=== PATIENT | female | born 1940 | race Caucasian/White ===

== ENCOUNTER 2016-11-10 23:52 | Inpatient (IN) ==
--- NOTE | 2016-11-11 00:03 | Emergency Department Note ---
Disposition Clinical Impression: Diarrhea, NSTEMI (non-ST elevated myocardial infarction), Sacral decubitus ulcer, Weakness, Paraplegia Disposition: Admitted As Inpatient Condition: Good Referrals: Rosa Maria Adam DO [Primary Care Provider] - Forms: Work/School Release, ED Satisfaction Letter Time of Disposition: 01:24 General Adult HPI - General Chief complaint: ED Nausea/Vomiting/Diarrhea Stated complaint: diarrhea, lower abdminal cramping Time Seen by Provider: 11/10/16 23:56 Source: patient, EMS Mode of arrival: EMS Limitations: no limitations Nursing Notes Reviewed: Yes Vital Signs Reviewed: Yes - History of Present Illness HPI Narrative: This is a 76-year-old female who presents with complaints of weakness and chills. Patient states she feels like she is running a fever although she has not measured one. Patient states she also started having diarrhea with an episode of incontinent stool in the bed here. Patient denies any vomiting. Patient states she did have some lower abdominal cramping with the diarrhea. Patient denies any chest pain or shortness of breath. Onset (ago): hour(s) Pain Scale: 0 - Related Data Home Medications Medication Instructions Recorded Confirmed Alendronate Sodium [Fosamax] 70 mg PO QWEEK 11/02/16 11/02/16 Alendronate Sodium [Fosamax] 70 mg PO QWEEK 11/02/16 11/02/16 Biotin 1 mg PO DAILY 11/02/16 11/02/16 Calcium Carbonate [Tums] 1 tab PO AD 11/02/16 11/02/16 Celecoxib [Celebrex] 200 mg PO DAILY 11/02/16 11/02/16 Cholecalciferol (Vitamin D3) 5,000 unit PO DAILY 11/02/16 11/02/16 [Vitamin D] Clopidogrel [Plavix] 75 mg PO DAILY 11/02/16 11/02/16 Gabapentin [Gralise] 600 mg PO TID 11/02/16 11/02/16 Hydrochlorothiazide 25 mg PO DAILY 11/02/16 11/02/16 Levothyroxine [Synthroid] 25 mcg PO 0630 11/02/16 11/02/16 Loratadine [Claritin] 10 mg PO DAILY 11/02/16 11/02/16 Mecobal/Levomefolat Ca/B6 Phos 1 each PO BID 11/02/16 11/02/16 [Foltanx Tablet] Mv W-Ca/Iron/FA/Lutein/Hrb#179 1 each PO DAILY 11/02/16 11/02/16 [Ten Multivit For Women Caplet] Nitrofurantoin Macrocrystal 100 mg PO DAILY 11/02/16 11/02/16 [Nitrofurantoin] Nitroglycerin [Nitrostat] 0.4 mg SL AD 11/02/16 11/02/16 OxyCODONE/APAP 5/325 [Percocet 1 each PO Q6HR PRN 11/02/16 11/02/16 5/325 MG] Ranitidine HCl [Acid Gta] 150 mg PO BID 11/02/16 11/02/16 Rivastigmine Patch [Exelon] 4.6 mg TD DAILY 11/02/16 11/02/16 Allergies Allergy/AdvReac Type Severity Reaction Status Date / Time carbamazepine [From Tegretol] Allergy spaced out Verified 11/11/16 00:01 feeling pentazocine [From Talwin] AdvReac Seizure Verified 11/11/16 00:01 phenytoin [From Dilantin] AdvReac Rash Verified 11/11/16 00:01 All systems ED: reviewed and negative except as stated. Constitutional: Reports: chills, weakness. Denies: fever, weight change Eyes: Denies: eye pain, eye discharge, vision change ENT ED: Denies: ear pain, throat pain, dental pain, hearing loss, epistaxis, congestion, dysphagia Cardiovascular: Denies: chest pain, palpitations, dyspnea on exertion, edema, syncope Respiratory: Denies: cough, dyspnea, wheezes, hemoptysis, stridor Gastrointestinal: Reports: abdominal pain, diarrhea. Denies: nausea, vomiting, constipation, hematemesis, melena, hematochezia Genitourinary: Denies: dysuria, frequency, hematuria, discharge Musculoskeletal: Denies: back pain, neck pain, arthralgia, myalgia Integumentary: Denies: rash, abrasion, lesions Neurological: Denies: headache, numbness, paresthesias, confusion, abnormal gait , vertigo Psychiatric: Denies: anxiety, depression, suicidal thoughts, homicidal thoughts , auditory hallucinations, visual hallucinations Endocrine: Denies: fatigue Hematological/Lymphatic: Denies: easy bleeding, easy bruising Allergic/Immunologic: Denies: facial swelling, urticaria Past Medical History - Past Medical History Attestation: Yes The following information was validated with the patient. Source: patient Medical history: Reports: other Surgical history: Reports: appendectomy, hysterectomy, other Psychiatric history: Reports: no psych history - Social History Smoking Status: Never smoker Smokeless Tobacco Status: No Alcohol use: Reports: none Drug use: Reports: none Physical Exam - General Limitations: no limitations General appearance: alert, in no apparent distress - Head Head exam: atraumatic, normocephalic, normal inspection - Eye Eye exam: Present: normal appearance, PERRL, EOMI - ENT ENT exam: normal exam, normal oropharynx, mucous membranes moist - Expanded ENT Exam External ear exam: Present: normal external inspection Mouth exam: Present: normal external inspection Teeth exam: Present: normal inspection Throat exam: Present: normal inspection - Neck Neck exam: Present: normal inspection, full ROM, trachea midline - Chest Chest inspection: Present: normal inspection, symmetric chest wall rise - Respiratory Respiratory exam: Present: normal lung sounds bilaterally - Cardiovascular Cardiovascular exam: Present: regular rate, normal rhythm, normal heart sounds - Abdominal Exam Abdominal exam: Present: soft, Non-Tender. Absent: tenderness, distention, guarding, rebound, rigidity - Extremities Exam Extremities exam: Present: normal inspection. Absent: full ROM (paralyzed from the waist down), tenderness, pedal edema - Expanded Upper Extremity Exam Shoulder exam: Present: normal inspection, full ROM Arm exam: Present: normal inspection, full ROM Elbow exam: Present: normal inspection, full ROM Forearm/Wrist exam: Present: normal inspection, full ROM Hand exam: Present: normal inspection, full ROM Vascular exam: Normal: capillary refill, radial pulse - Expanded Lower Extremity Exam Hip/Pelvis exam: Present: normal inspection, full ROM Upper leg exam: Present: normal inspection, full ROM Knee exam: Present: normal inspection, full ROM Lower leg exam: Present: normal inspection. Absent: full ROM Ankle exam: Present: normal inspection. Absent: full ROM Foot/toe exam: Present: normal inspection. Absent: full ROM Neurovascular/Tendon exam: Present: motor deficit (paraplegic from the waist down). Absent: sensory deficit, tendon deficit - Back Exam Back exam: Present: normal inspection, full ROM. Absent: tenderness - Neurological Exam Neurological exam: Present: alert, oriented X3 - Expanded Neurological Exam Patient oriented to: Present: person, place, time Coma Scale Eye Opening: Spontaneous Coma Scale Motor Response: Obeys Commands Coma Scale Verbal Response: Oriented Coma Scale Total: 15 - Psychiatric Psychiatric exam: Present: normal affect, normal mood - Skin Skin exam: Present: warm, dry, normal color, other (sacral decub) Course - Consultations Consultation #1: I spoke with Dr. Blaire tucker to consult and doesn't want pt anti-coagulated at this time. Time: 01: Consultation #2: I spoke with Dr. Rosa M tucker to admit. Time: 02:02 Vital Signs Temperature 98.1 F 11/10/16 23:54 Pulse Rate 88 11/10/16 23:54 Respiratory Rate 16 11/10/16 23:54 Blood Pressure 128/81 11/10/16 23:54 O2 Sat by Pulse Oximetry 94 L 11/10/16 23:54 Temperature 98.1 F 11/10/16 23:54 Pulse Rate 88 11/10/16 23:54 Respiratory Rate 16 11/10/16 23:54 Blood Pressure 128/81 11/10/16 23:54 O2 Sat by Pulse Oximetry 94 L 11/10/16 23:54 Oxygen Delivery Oxygen Delivery Room Air Medical Decision Making - Medical Records Medical records reviewed: Yes I reviewed the patient's medical records. - Lab Data Lab results reviewed: Yes I reviewed the patient's lab results. Result diagrams: 11/11/16 00:17 11/11/16 00:17 Lab Results 11/11/16 11/11/16 11/11/16 Range/Units 00: 00:17 00:17 WBC 5.6 (4.3-11.1) K/mcL RBC 3.95 (3.82-4.97) M/mcL Hgb 12.4 (11.5-15.4) g/dL Hct 37.4 (35.3-44.9) % MCV 94.7 (83.0-100.0) fL MCH 31.4 (28.0-33.3) pg MCHC 33.2 (31.6-35.5) g/dL RDW 14.6 H (11.5-14.5) % Plt Count 245 (140-400) K/mcL MPV 8.9 L (9.4-12.4) fL Immature Gran % 0.0 (0-4) % Seg Neutrophils % 57.5 % Lymphocytes % 32.2 % Monocytes % 5.8 % Eosinophils % 4.1 % Basophils % 0.4 % Neutrophils # 3.2 (1.6-8.9) K/mcL Lymphocytes # 1.8 (0.6-4.6) K/mcL Monocytes # 0.3 (0.0-1.3) K/mcL Eosinophils # 0.2 (0.0-0.6) K/mcL Basophils # 0.0 (0.0-0.2) K/mcL Sodium 143 (136-145) mEq/L Potassium 3.9 (3.5-4.5) mEq/L Chloride 107 (98-109) mEq/L Carbon Dioxide 25 (19-29) mEq/L BUN 18 (7-20) mg/dL Creatinine 0.66 (0.57-1.11) mg/dL Est GFR ( Amer) > 60 (> 60) Est GFR (Non-Af Amer) > 60 (> 60) BUN/Creatinine Ratio 27 H (6-26) Glucose 105 H (70-99) mg/dL Calculated Osmolality 298 (280-300) Calcium 9.3 (8.6-10.8) mg/dL Total Bilirubin 0.6 (0.2-1.2) mg/dL Direct Bilirubin 0.2 (0.0-0.5) mg/dL Indirect Bilirubin 0.4 (0.0-1.2) mg/dL AST 32 (5-34) Units/L ALT 32 (0-55) Units/L Alkaline Phosphatase 84 (38-126) Units/L Troponin I 0.11 H* (0-0.03) ng/mL B-Natriuretic Peptide (0-100) pg/mL Serum Total Protein 7.6 (6.0-8.3) g/dL Albumin 3.8 (3.5-5.0) g/dL Globulin 3.8 H (2.4-3.5) g/dL Albumin/Globulin Ratio 1.0 L (1.1-2.2) Lipase 51 (8-78) Units/L 11/11/16 Range/Units 00:17 WBC (4.3-11.1) K/mcL RBC (3.82-4.97) M/mcL Hgb (11.5-15.4) g/dL Hct (35.3-44.9) % MCV (83.0-100.0) fL MCH (28.0-33.3) pg MCHC (31.6-35.5) g/dL RDW (11.5-14.5) % Plt Count (140-400) K/mcL MPV (9.4-12.4) fL Immature Gran % (0-4) % Seg Neutrophils % % Lymphocytes % % Monocytes % % Eosinophils % % Basophils % % Neutrophils # (1.6-8.9) K/mcL Lymphocytes # (0.6-4.6) K/mcL Monocytes # (0.0-1.3) K/mcL Eosinophils # (0.0-0.6) K/mcL Basophils # (0.0-0.2) K/mcL Sodium (136-145) mEq/L Potassium (3.5-4.5) mEq/L Chloride (98-109) mEq/L Carbon Dioxide (19-29) mEq/L BUN (7-20) mg/dL Creatinine (0.57-1.11) mg/dL Est GFR ( Amer) (> 60) Est GFR (Non-Af Amer) (> 60) BUN/Creatinine Ratio (6-26) Glucose (70-99) mg/dL Calculated Osmolality (280-300) Calcium (8.6-10.8) mg/dL Total Bilirubin (0.2-1.2) mg/dL Direct Bilirubin (0.0-0.5) mg/dL Indirect Bilirubin (0.0-1.2) mg/dL AST (5-34) Units/L ALT (0-55) Units/L Alkaline Phosphatase (38-126) Units/L Troponin I (0-0.03) ng/mL B-Natriuretic Peptide 21 (0-100) pg/mL Serum Total Protein (6.0-8.3) g/dL Albumin (3.5-5.0) g/dL Globulin (2.4-3.5) g/dL Albumin/Globulin Ratio (1.1-2.2) Lipase (8-78) Units/L - Radiology Data Radiology results reviewed: Yes I reviewed the patient's radiology results. - EKG Data EKG #1 EKG attestation: Yes I reviewed and interpreted this EKG. EKG shows normal: sinus rhythm Rate: normal Rhythm: NSR [address]/QRS: normal Interpretation: no acute changes, nonspecific ST-T wave changes
[2016-11-11 00:25] LABS: Basophils % 0.4 %; Eosinophils # 0.2 K/mcL (0.0-0.6); Eosinophils % 4.1 %; Hematocrit 37.4 % (35.3-44.9); Hemoglobin 12.4 g/dL (11.5-15.4); Lymphocytes # 1.8 K/mcL (0.6-4.6); Lymphocytes % 32.2 %; Mean Corpuscular HGB Conc 33.2 g/dL (31.6-35.5); Mean Corpuscular Hemoglobin 31.4 pg (28.0-33.3); Mean Corpuscular Volume 94.7 fL (83.0-100.0); Mean Platelet Volume 8.9 fL (9.4-12.4); Monocytes # 0.3 K/mcL (0.0-1.3); Monocytes % 5.8 %; Neutrophils # 3.2 K/mcL (1.6-8.9); Platelet Count 245 K/mcL (140-400); Red Blood Count 3.95 M/mcL (3.82-4.97); Red Cell Distribution Width 14.6 % (11.5-14.5); Segmented Neutrophils % 57.5 %
[2016-11-11 00:40] LABS: Alanine Aminotransferase 32 Units/L (0-55); Albumin 3.8 g/dL (3.5-5.0); Alkaline Phosphatase 84 Units/L (38-126); Aspartate Amino Transferase 32 Units/L (5-34); BUN/Creatinine Ratio 27 (6-26); Bilirubin,Direct 0.2 mg/dL (0.0-0.5); Bilirubin,Indirect 0.4 mg/dL (0.0-1.2); Bilirubin,Total 0.6 mg/dL (0.2-1.2); Blood Urea Nitrogen 18 mg/dL (7-20); Calcium 9.3 mg/dL (8.6-10.8); Carbon Dioxide 25 mEq/L (19-29); Chloride 107 mEq/L (98-109); Globulin 3.8 g/dL (2.4-3.5); Glucose 105 mg/dL (70-99); Lipase 51 Units/L (8-78); Osmolality,Calculated 298 (280-300); Potassium 3.9 mEq/L (3.5-4.5); Sodium 143 mEq/L (136-145); Total Protein 7.6 g/dL (6.0-8.3); eGFR For African Americans > 60 (> 60); eGFR For Non-African Americans > 60 (> 60)
[2016-11-11] MEDS ORDERED: Aspirin 325 MG TABLET PO ONE (00:50)
[2016-11-11 02:06] LABS: Bilirubin,Urine Negative (Negative); Blood,Urine Moderate (Negative); Clarity,Urine Clear (Clear); Color,Urine Yellow (Yellow); Glucose,Urine (UA) Normal (Normal); Ketones,Urine Negative (Negative); Leukocyte Esterase,Urine Small (Negative); Nitrite,Urine Positive (Negative); Protein,Urine 100 mg/dL (Neg-Trace); Specific Gravity,Urine >= 1.030 (1.010-1.025); Urobilinogen,Urine Normal (Normal)
[2016-11-11 02:08] LABS: Bacteria,Urine Many per hpf (None-Few); Hyaline Casts,Urine None Seen per lpf (None-Few); RBC,Urine 50-100 per hpf (0-3); Squamous Epithelial Cell,Urine Many per lpf (None-Few); WBC,Urine TNTC per hpf (0-3)
[2016-11-11] MEDS ORDERED: Nitroglycerin 0.4 MG TAB.SUBL SL PRN (05:45)
[2016-11-11] MEDS ORDERED: Famotidine 20 MG TABLET PO PRN (05:45)
[2016-11-11] MEDS ORDERED: (Alendronate Sodium [Fosamax] 70 MG) PO SCH (05:45)
[2016-11-11] MEDS ORDERED: *HR* OxyCODONE/APAP 5/325 TABLET PO PRN (05:45)
--- NOTE | 2016-11-11 06:01 | Internal Med History&Physical ---
<Loren Altamirano - Last Filed: 11/11/16 05:48> Date of Encounter: 11/11/16 Time of Encounter: 05:00 Assessment and Plan (1) Diarrhea Current visit: Yes Status: Acute patient had two bowel movements at home, and one bowel movement in the ED with incontinence. Her son called the squad. Patient denies being on any antibiotics recently. C.Diff toxin negative. IVF at 100 ml/hr. Qualifiers: Diarrhea type: unspecified type Qualified Code(s): R19.7 - Diarrhea, unspecified (2) Elevated troponin Current visit: Yes Status: Acute initial troponin level was .11- will trend. ED note states that they had talked to Dr. Rudd, who did not recommend anticoagulation. Consult to cardiology placed. suspect a non cardiac cause in context of recent diarrhea and UTI- will continue to monitor with repeat tropes. ' Rule out sepsis as a possible cause: lactate pending, blood cultures x2 pending , repeat urinalysis pending. Patient does not currently meet criteria for sepsis. 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 (5) Decubitus ulcer of right heel, stage 3 Current visit: No Status: Chronic Patient states that she sees wound care here at [facility]. Consult to wound care for dressing change recommendations. frequent repositioning. (6) Sacral decubitus ulcer, stage III Current visit: No Status: Chronic plan as above. (7) DVT prophylaxis Current visit: Yes Status: Acute Heparin 5,000 units SQ Q8HR Internal Medicine - H&P: HPI Chief complaint: diarrhea Admitted From: Home Plans for Post Hospital Care: Home History of present illness: PCP: Rosa Maria Adam. Ms. 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 Patient came to the ED with two episodes of diarrhea at home, and then one episode of diarrhea and incontinence after arrival to the emergency department. She states that these episodes started at 3pm that afternoon, and her son called the squad because he was afraid that she would become dehydrated. Patient denies being on any antibiotics recently. She denies any sick contacts. patient denies fever, but reports chills. She complains of a productive cough with yellow sputum production. She had the cough for about 3-4 days. She reports nasal congestion. she admits to nasal congestion, fatigue. She was recently in a long-term for a fractured left ankle and physical therapy. She has a sacral decubitus ulcer and and a right heel ulcer as well. She was there for 14 months and was recently released on October 07. Patient denies any chest pain, but reports having some conversational dyspnea. Social History: lives with her son in [place]. She does not currently smoke and denies history of smoking. Denies alcohol use, denies illicit drug use. Surgical history: tonsillectomy with removal of adenoids at age 19, appendectomy at age 12, right breast biopsy that was negative, hysterectomy at age 51, bilateral bunionectomy. family hx: two sisters of lung cancer secondary to smoking, oldest daughter is alive and has breast cancer. dad of stroke at age 68, mom of stroke at age 70. Past Med Surg Social Fam HX - Past Medical History Medical history: arthritis, CVA, osteoporosis, peripheral artery disease, thyroid disease, other Psychiatric history: no psych history - Past Surgical History Surgical History: appendectomy, cholecystectomy, hysterectomy, other - Social History Smoking Status: Never smoker Smokeless Tobacco Status: No Alcohol use: none Drug use: none - Family History Mother Living Status: Hx Family Cardiac Disorders: Yes Hx Family Respiratory Disorders: No Hx Family Cancer: No Hx Family GI Disorders: No Hx Family Genitourinary Disorders: No Hx Family Endocrine Disorder: No Hx Family Musculoskeletal Disorders: No Hx Family Neuromuscular Disorders: No Hx Family Neurologic Disorders: No Hx Family HEENT Disorders: No Hx Family Autoimmune Disorders: No Hx Family Reproductive Disorders: No Hx Family Psychosocial Disorders: No Hx Family Medical Disorders: No Father Living Status: Hx Family Cardiac Disorders: No Hx Family Respiratory Disorders: No Hx Family Cancer: No Hx Family GI Disorders: No Hx Family Genitourinary Disorders: No Hx Family Endocrine Disorder: No Hx Family Musculoskeletal Disorders: No Hx Family Neuromuscular Disorders: No Hx Family Neurologic Disorders: Yes Hx Family HEENT Disorders: No Hx Family Autoimmune Disorders: No Hx Family Reproductive Disorders: No Hx Family Psychosocial Disorders: No Hx Family Medical Disorders: No Brother Living Status: Hx Family Cardiac Disorders: Yes (CHF) Hx Family Respiratory Disorders: No Hx Family Cancer: No Hx Family GI Disorders: No Hx Family Genitourinary Disorders: No Hx Family Endocrine Disorder: No Hx Family Musculoskeletal Disorders: No Hx Family Neuromuscular Disorders: No Hx Family Neurologic Disorders: No Hx Family HEENT Disorders: No Hx Family Autoimmune Disorders: No Hx Family Reproductive Disorders: No Hx Family Psychosocial Disorders: No Hx Family Medical Disorders: No Sister Living Status: Hx Family Cardiac Disorders: Yes Hx Family Respiratory Disorders: No Hx Family Cancer: Yes Hx Family GI Disorders: No Hx Family Genitourinary Disorders: No Hx Family Endocrine Disorder: No Hx Family Musculoskeletal Disorders: No Hx Family Neuromuscular Disorders: No Hx Family Neurologic Disorders: No Hx Family HEENT Disorders: No Hx Family Autoimmune Disorders: No Hx Family Reproductive Disorders: No Hx Family Psychosocial Disorders: No Hx Family Medical Disorders: No Son Living Status: Still Living Hx Family Cardiac Disorders: No Hx Family Respiratory Disorders: No Hx Family Cancer: No Hx Family GI Disorders: No Hx Family Genitourinary Disorders: No Hx Family Endocrine Disorder: No Hx Family Musculoskeletal Disorders: No Hx Family Neuromuscular Disorders: No Hx Family Neurologic Disorders: Yes Hx Family HEENT Disorders: No Hx Family Autoimmune Disorders: No Hx Family Reproductive Disorders: No Hx Family Psychosocial Disorders: No Hx Family Medical Disorders: No Daughter Living Status: Still Living Hx Family Cardiac Disorders: No Hx Family Respiratory Disorders: No Hx Family Cancer: Yes (breast cancer) Hx Family GI Disorders: No Hx Family Genitourinary Disorders: No Hx Family Endocrine Disorder: No Hx Family Musculoskeletal Disorders: No Hx Family Neuromuscular Disorders: No Hx Family Neurologic Disorders: No Hx Family HEENT Disorders: No Hx Family Autoimmune Disorders: No Hx Family Reproductive Disorders: No Hx Family Psychosocial Disorders: No Hx Family Medical Disorders: No Internal Medicine - H&P: Meds Celecoxib [Celebrex] 200 mg PO DAILY 11/02/16 [History] Clopidogrel [Plavix] 75 mg PO DAILY 11/02/16 [History] Gabapentin [Gralise] 900 mg PO TID 11/02/16 [History] Nitroglycerin [Nitrostat] 0.4 mg SL AD PRN 11/02/16 [History] OxyCODONE/APAP 5/325 [Percocet 5/325 MG] 1 tab PO Q6HR PRN 11/02/16 [History] Ranitidine HCl [Acid Economics Department Chair] 150 mg PO DAILY 11/02/16 [History] Hydrochlorothiazide [Hydrochlorothiazide] 25 mg PO DAILY 11/11/16 [History] Levothyroxine [Synthroid] 25 mcg PO DAILY 11/11/16 [History] Loratadine [Allergy Relief] 10 mg PO DAILY 11/11/16 [History] Olanzapine/Fluoxetine HCl [Olanzapine-Fluoxetine 6-25 mg] 1 cap PO DAILY [History] Allergies carbamazepine [From Tegretol] Allergy (Verified 11/11/16 09:23) Unconscious pentazocine [From Talwin] Allergy (Verified 11/11/16 09:23) Seizure phenytoin [From Dilantin] Allergy (Verified 11/11/16 09:23) Rash All Systems PM: A 10-system review of systems was performed and is negative for pertinent findings except as documented above in the HPI. - Constitutional Constitutional: chills, fatigue, lethargy, weakness - EENT Nose, mouth and throat: nasal congestion - Cardiovascular Cardiovascular ROS IM: no chest pain - Respiratory Respiratory: dyspnea (patient reports having coversational dyspnea. ) - Gastrointestinal Gastrointestinal: diarrhea, loose stools - Genitourinary Genitourinary: no hematuria, no urinary incontinence - Neurological Neurological ROS: no abnormal movements, no headache(s) - Constitutional Vitals: Temp Pulse Resp BP Pulse Ox 98.7 F 92 16 148/75 92 L 11/11/16 04:09 11/11/16 04:09 11/11/16 04:09 11/11/16 04:09 11/11/16 04:09 General appearance: Present: A&O X 3, pleasant, no acute distress, answers questions appropriately - Head Head exam: Present: atraumatic, normocephalic - Neck Neck exam general surgery: Present: supple, trachea midline - Respiratory Respiratory exam: Present: CTAB. Absent: rales, rhonchi, wheezes - Cardiovascular Cardiovascular exam: Present: RRR, +S1, +S2 - GI/Abdominal GI/Abdominal exam: Present: firm, normal bowel sounds, tenderness - Extremities Exam Extremities exam: Present: pedal edema. Absent: cyanotic - Neurological Exam Neurological exam: Present: alert, oriented X3, no focal deficits Additional comments: patient has no sensation or ability to move of her lower extremities bilaterallly. - Psychiatric Psychiatric exam: Present: flat affect - Skin Additional comments: sacral decubitus ulcer- about stage III, right heel ulcer. Internal Med - H&P Results - Labs CBC & Chem 7: 11/11/16 00:17 11/11/16 00:17 <Vianey Mederos - Last Filed: 11/11/16 20:30> Date of Encounter: 11/11/16 Internal Medicine - H&P: HPI History of present illness: Ms. Borja is a 76 year old female All Systems PM: A 10-system review of systems was performed and is negative for pertinent findings except as documented above in the HPI. - Constitutional Vitals: Temp Pulse Resp BP Pulse Ox 98.6 F 102 15 121/76 92 L 11/11/16 15:00 11/11/16 15:00 11/11/16 15:00 11/11/16 15:00 11/11/16 16:52 Internal Med - H&P Results - Labs CBC & Chem 7: 11/11/16 08:07 11/11/16 07:14 Labs: Short CBC 11/11/16 Range/Units 08:07 WBC 4.8 (4.3-11.1) K/mcL Hgb 10.9 L D (11.5-15.4) g/dL Hct 32.5 L (35.3-44.9) % Plt Count 232 (140-400) K/mcL Neutrophils # 2.8 (1.6-8.9) K/mcL BMP 11/11/16 07:14 Sodium 143 Potassium 3.9 Chloride 109 Carbon Dioxide 24 BUN 20 Creatinine 0.54 L Glucose 111 H Calcium 8.6 Cardiac Enzymes 11/11/16 11/11/16 Range/Units 07:14 12:32 Troponin I 0.15 H* 0.16 H* (0-0.03) ng/mL - Attending Attestation I examined this patient and my medical decision-making was reviewed with the ASSISTANT PROFESSOR OF LIFE SCIENCES/PA/Advanced Practice Nurse/Resident Physician. I agree with the documented findings, disposition and treatment plan as described except to the extent set forth below. I have personally evaluated the pt and discussed details with the Sheet Mill Supervisor/ Resident. Pt reports episodes of diarrhea. Denies antibiotics in the last 3 months. chronic decubitus ulcer for about 6 years. Son helps her at home. Reported generalized weakness but is getting better. UA is suspicious for UTI -started on ceftriaxone. C diff toxin is negative. start probiotics. Troponin in 0.11, with no chest pain. EKG shows SR, Q waves in V1, V2 and lead III. Non cardiac versus cardiac. Trend troponins; Cardiology consultation. Consider Echo.
[2016-11-11] MEDS: *HR* Heparin 5,000 UNIT/ML VIAL SQ SCH ×2 (06:28→16:15)
[2016-11-11] MEDS ORDERED: Acetaminophen 325 MG TABLET PO PRN (06:38)
[2016-11-11] MEDS ORDERED: Ondansetron 4 MG/2 ML VIAL IVP PRN (06:38)
[2016-11-11] MEDS ORDERED: Mag Hydrox/Al Hydrox/Simeth 30 ML UDC PO PRN (06:38)
[2016-11-11] MEDS ORDERED: Naloxone 0.4 MG/ML INJ IVP PRN (06:38)
[2016-11-11] MEDS ORDERED: 0.9 % Sodium Chloride 1,000 ML IVC SCH (06:45)
[2016-11-11 07:38] LABS: BUN/Creatinine Ratio 37 (6-26); Blood Urea Nitrogen 20 mg/dL (7-20); Calcium 8.6 mg/dL (8.6-10.8); Carbon Dioxide 24 mEq/L (19-29); Chloride 109 mEq/L (98-109); Glucose 111 mg/dL (70-99); Lactate Dehydrogenase 199 Units/L (159-327); Osmolality,Calculated 299 (280-300); Potassium 3.9 mEq/L (3.5-4.5); Sodium 143 mEq/L (136-145); eGFR For African Americans > 60 (> 60); eGFR For Non-African Americans > 60 (> 60)
[2016-11-11 08:21] LABS: Basophils % 0.4 %; Eosinophils # 0.2 K/mcL (0.0-0.6); Eosinophils % 4.2 %; Hematocrit 32.5 % (35.3-44.9); Hemoglobin 10.9 g/dL (11.5-15.4); Immature Granulocytes % 0.2 % (0-4); Immature Platelets 1.5 % (1.1-6.1); Lymphocytes # 1.4 K/mcL (0.6-4.6); Lymphocytes % 29.5 %; Mean Corpuscular HGB Conc 33.5 g/dL (31.6-35.5); Mean Corpuscular Hemoglobin 31.4 pg (28.0-33.3); Mean Corpuscular Volume 93.7 fL (83.0-100.0); Mean Platelet Volume 9.2 fL (9.4-12.4); Monocytes # 0.4 K/mcL (0.0-1.3); Monocytes % 7.3 %; Neutrophils # 2.8 K/mcL (1.6-8.9); Platelet Count 232 K/mcL (140-400); Red Blood Count 3.47 M/mcL (3.82-4.97); Red Cell Distribution Width 14.4 % (11.5-14.5); Segmented Neutrophils % 58.4 %
[2016-11-11] MEDS: Celecoxib 200 MG CAPSULE PO SCH (08:35)
[2016-11-11] MEDS: Gabapentin 300 MG CAPSULE PO SCH ×3 (08:35→21:19)
[2016-11-11] MEDS ORDERED: Furosemide 20 MG/2 ML VIAL IVP ONE (11:45)
[2016-11-11] MEDS: Piperacillin/Tazobactam 3.375 GM in D5% in Water (Mini-Bag+) 100 ML IVPB SCH ×2 (11:54→21:21)
--- NOTE | 2016-11-11 13:15 | Event Note ---
<Adolfo Riberachris Melo - Last Filed: 11/11/16 14:52> Date of Encounter: 11/11/16 Time of Encounter: 08:15 Patient has a sacral decubitis ulcer. Only new concern is small focal gas image on patient's CT of the abdomen and pelvis near the ulcer. Ulcer has been present for >6m, she has not seen wound care in the last 2months. She is a paraplegic. Currently, patient is resting comfortably in bed. Denies pain. Complains of mild SOB, but this is chronic. No fever/nausea or vomiting. On physical exam, area is not tender to touch, there is yellow drainage from the area, there is crepitis felt when applying pressure around the ulcer. Personal discussion with radiologist while reviewing image-does not have characteristics of nec fasc and appears to be from the decubitis ulcer. Surgery consulted to examine patient to see if could be in the early stages of infection. -Concerning elevated troponins. Patient not complaining of chest pain, SOB. Most likely demand ischemia. Will redraw in 6 hours. -Will switch rocephin to clinda and zosyn. Turn 2 Q, get wound consult. -Patient complains of bilateral increase swelling in her legs. Not particularly impressive on exam. No errythema, pulses WNL, not concerned for DVT. Will stop fluids, wrap legs, lasixs 20mg. -Additional:Will add probiotics, and not get TSH-WNL on 11/02/16, do continuity of care. <Kenny Cool - Last Filed: 11/12/16 17:21> Date of Encounter: 11/12/16 Pt evaluated on 11/11/16 Pt admitted earlier today with UTI and possible infected decubitus She is uncomfortable in bed. On IV abx, surg eval. Continuing plan as ordered.
--- NOTE | 2016-11-11 14:06 | Electrocardiograph Report ---
[facility] Test Date: 2016-11-11 Pat Name: Jasmin Borja Department: 105 Room: 2NE26 Gender: F Pretzel Packer: SLOAN : 1940 Requested By: Thomas Page Order Number: [id number] Reading MD: Rosalio Reece Measurements Intervals [place] Rate: 88 P: 51 [place]: 152 QRS: 17 QRSD: 86 T: 17 QT: 369 QTc: 414 Interpretive Statements SINUS RHYTHM Electronically Signed On 11-11-16 14:05:50 EST by Rosalio Reece
--- NOTE | 2016-11-11 14:54 | Physician Discharge Referral ---
Home Health/Hosp Referral Info Transfer to: Home Health Attending Provider: Dr. Kenny Cool Provider in Charge Post Discharge: Courtroom Reporter - Diagnosis (1) Weakness Priority: Primary Status: Acute (2) Paraplegia Priority: Primary Status: Chronic (3) Decubitus ulcer of right heel, stage 3 Priority: Primary Status: Chronic (4) Sacral decubitus ulcer, stage III Priority: Primary Status: Chronic - Respiratory Orders Oxygen / L per min (2L if needed), None Smoking Cessation: Smoking cessation has been advised. For more information, call the [place] Tobacco Quit Line at 9-392-ESMU-NOW. - Dressing/Wound Care Site: Sacral ulcer, R Heel ulcer. Type of Dressing/Treatments w/Frequency: Sacral ulcer: Cleanse with soap and water, apply santyl/gentamicin (50/50) mixture nickel thick, cover with 0.9 NS moistened 4x4 gauze, cover with ABD pad , wrap with Keflex and tape to secure daily. May loosely pack wound with mesalt ribbon. Heel: Cleanse with soap and water and pat dry, apply Mesalt 3x3 gauze, cover with ABD pad and tape to secure daily and as needed if soiled - Diet/Nutrition Diet/Nutrition Orders: Cardiac - Activity Activity Orders: Ambulate - Services Needed Following services are medically necessary services: Nursing, Home Health Aide, Physical Therapy, Occupational Therapy, Med Social Work Home Care Orders: Patient is in need of comprehensive health care. Currently she has multiple stage 3 ulcers, poor lung function and was originally admitted for altered mental status. - Transfer Medications Home Medications: Celecoxib [Celebrex] 200 mg PO DAILY 11/02/16 [History] Clopidogrel [Plavix] 75 mg PO DAILY 11/02/16 [History] Gabapentin [Gralise] 900 mg PO TID 11/02/16 [History] Nitroglycerin [Nitrostat] 0.4 mg SL AD PRN 11/02/16 [History] OxyCODONE/APAP 5/325 [Percocet 5/325 MG] 1 tab PO Q6HR PRN 11/02/16 [History] Ranitidine HCl [Acid Insurance Case Manager] 150 mg PO DAILY 11/02/16 [History] Hydrochlorothiazide [Hydrochlorothiazide] 25 mg PO DAILY 11/11/16 [History] Levothyroxine [Synthroid] 25 mcg PO DAILY 11/11/16 [History] Loratadine [Allergy Relief] 10 mg PO DAILY 11/11/16 [History] Olanzapine/Fluoxetine HCl [Olanzapine-Fluoxetine 6-25 mg] 1 cap PO DAILY [History] Allergies/Adverse Reactions: Allergies carbamazepine [From Tegretol] Allergy (Verified 11/11/16 09:23) Unconscious pentazocine [From Talwin] Allergy (Verified 11/11/16 09:23) Seizure phenytoin [From Dilantin] Allergy (Verified 11/11/16 09:23) Rash Certification: Further, I certify that my clinical findings support that this patient is homebound (i.e. absences from home require considerable and taxing effort and are for medical reasons or adventist services or infrequently or short duration when for other reasons) because: Homebound Reason: Severity of cardiac or pulmonary status limits activity tolerance Attestation: My signature below is to certify that this patient is under my care and that I, or nurse practitioner, or a physician's religious assistant working with me, has a face-to -face encounter with this patient.
--- NOTE | 2016-11-11 15:35 | General Surgery Consult Note ---
Date of Encounter: 11/11/16 Time of Encounter: 15:30 Assessment and Plan (1) Sacral decubitus ulcer, stage III Current Visit: No Status: Chronic Wound care ordered- daily, see orders Turn every 2 hours No indication for surgical intervention at this time F/U with Dr. Denton in the wound care center as previously scheduled Increased protein intake Surgery will sign off at this time. Thank you for allowing us to participate in the care of the patient. Please call with any questions/concerns. (2) Decubitus ulcer of right heel, stage 3 Current Visit: No Status: Chronic Wound care ordered- daily, see orders Turn every 2 hours No indication for surgical intervention at this time F/U with Dr. Denton in the wound care center as previously scheduled Increased protein intake (3) Paraplegia Current Visit: Yes Status: Chronic History of Present Illness Consult date: 11/11/16 Reason for consult: wound care Requesting physician: Delroy Ribera History of present illness: Mrs. 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 She reports that she has had an ulcer on her sacrum for approximately the past 6 years. She states that she has been followed by a wound care center in [place] in the past and that the wound has been very close to healing. She has tried multiple types of dressing changes through the wound care center. She states that she has most recently been seen at the [place] wound care center by Dr. Denton. She was transferred to [place] ED from home due to the patient having a couple episodes of diarrhea. Her son was concerned that she would become dehydrated. She was admitted for further work- up of her diarrhea and also for a mildly elevated troponin. We have been asked to see and evaluate the patient for wound care recommendations. Past Med Surg Social Fam HX - Past Medical History Source: old records reviewed Medical history: arthritis, CVA, osteoporosis, peripheral artery disease, thyroid disease, other Psychiatric history: no psych history - Past Surgical History Surgical History: appendectomy, cholecystectomy, hysterectomy, other - Social History Smoking Status: Never smoker Smokeless Tobacco Status: No Alcohol use: none Drug use: none - Family History Mother Living Status: Hx Family Cardiac Disorders: Yes Hx Family Respiratory Disorders: No Hx Family Cancer: No Hx Family GI Disorders: No Hx Family Genitourinary Disorders: No Hx Family Endocrine Disorder: No Hx Family Musculoskeletal Disorders: No Hx Family Neuromuscular Disorders: No Hx Family Neurologic Disorders: No Hx Family HEENT Disorders: No Hx Family Autoimmune Disorders: No Hx Family Reproductive Disorders: No Hx Family Psychosocial Disorders: No Hx Family Medical Disorders: No Father Living Status: Hx Family Cardiac Disorders: No Hx Family Respiratory Disorders: No Hx Family Cancer: No Hx Family GI Disorders: No Hx Family Genitourinary Disorders: No Hx Family Endocrine Disorder: No Hx Family Musculoskeletal Disorders: No Hx Family Neuromuscular Disorders: No Hx Family Neurologic Disorders: Yes Hx Family HEENT Disorders: No Hx Family Autoimmune Disorders: No Hx Family Reproductive Disorders: No Hx Family Psychosocial Disorders: No Hx Family Medical Disorders: No Brother Living Status: Hx Family Cardiac Disorders: Yes (CHF) Hx Family Respiratory Disorders: No Hx Family Cancer: No Hx Family GI Disorders: No Hx Family Genitourinary Disorders: No Hx Family Endocrine Disorder: No Hx Family Musculoskeletal Disorders: No Hx Family Neuromuscular Disorders: No Hx Family Neurologic Disorders: No Hx Family HEENT Disorders: No Hx Family Autoimmune Disorders: No Hx Family Reproductive Disorders: No Hx Family Psychosocial Disorders: No Hx Family Medical Disorders: No Sister Living Status: Hx Family Cardiac Disorders: Yes Hx Family Respiratory Disorders: No Hx Family Cancer: Yes Hx Family GI Disorders: No Hx Family Genitourinary Disorders: No Hx Family Endocrine Disorder: No Hx Family Musculoskeletal Disorders: No Hx Family Neuromuscular Disorders: No Hx Family Neurologic Disorders: No Hx Family HEENT Disorders: No Hx Family Autoimmune Disorders: No Hx Family Reproductive Disorders: No Hx Family Psychosocial Disorders: No Hx Family Medical Disorders: No Son Living Status: Still Living Hx Family Cardiac Disorders: No Hx Family Respiratory Disorders: No Hx Family Cancer: No Hx Family GI Disorders: No Hx Family Genitourinary Disorders: No Hx Family Endocrine Disorder: No Hx Family Musculoskeletal Disorders: No Hx Family Neuromuscular Disorders: No Hx Family Neurologic Disorders: Yes Hx Family HEENT Disorders: No Hx Family Autoimmune Disorders: No Hx Family Reproductive Disorders: No Hx Family Psychosocial Disorders: No Hx Family Medical Disorders: No Daughter Living Status: Still Living Hx Family Cardiac Disorders: No Hx Family Respiratory Disorders: No Hx Family Cancer: Yes (breast cancer) Hx Family GI Disorders: No Hx Family Genitourinary Disorders: No Hx Family Endocrine Disorder: No Hx Family Musculoskeletal Disorders: No Hx Family Neuromuscular Disorders: No Hx Family Neurologic Disorders: No Hx Family HEENT Disorders: No Hx Family Autoimmune Disorders: No Hx Family Reproductive Disorders: No Hx Family Psychosocial Disorders: No Hx Family Medical Disorders: No Medications and Allergies Celecoxib [Celebrex] 200 mg PO DAILY 11/02/16 [History] Clopidogrel [Plavix] 75 mg PO DAILY 11/02/16 [History] Gabapentin [Gralise] 900 mg PO TID 11/02/16 [History] Nitroglycerin [Nitrostat] 0.4 mg SL AD PRN 11/02/16 [History] OxyCODONE/APAP 5/325 [Percocet 5/325 MG] 1 tab PO Q6HR PRN 11/02/16 [History] Ranitidine HCl [Acid Material Engineer] 150 mg PO DAILY 11/02/16 [History] Hydrochlorothiazide [Hydrochlorothiazide] 25 mg PO DAILY 11/11/16 [History] Levothyroxine [Synthroid] 25 mcg PO DAILY 11/11/16 [History] Loratadine [Allergy Relief] 10 mg PO DAILY 11/11/16 [History] Olanzapine/Fluoxetine HCl [Olanzapine-Fluoxetine 6-25 mg] 1 cap PO DAILY [History] Allergies carbamazepine [From Tegretol] Allergy (Verified 11/11/16 09:23) Unconscious pentazocine [From Talwin] Allergy (Verified 11/11/16 09:23) Seizure phenytoin [From Dilantin] Allergy (Verified 11/11/16 09:23) Rash Review of Systems All systems PM: A 10-system review of systems was performed and is negative for pertinent findings except as documented above in the HPI. General Surgery Exam Initial Vital Signs Temp Pulse Resp BP Pulse Ox 98.1 F 88 16 128/81 94 L 11/10/16 23:54 11/10/16 23:54 11/10/16 23:54 11/10/16 23:54 11/10/16 23:54 - General physical appearance well developed, well nourished, no distress, chronically ill - Eyes normal ocular movement - ENT normal mucosa, atraumatic, normocephalic - Neck trachea midline - Respiratory normal respiratory effort, clear to auscultation - Cardiovascular Cardiovascular exam: Present: RRR, tachycardia - Abdomen Abdomen general surgery: Present: bowel sounds present, soft, non tender - Integumentary Integumentary general surgery: Present: other (Sacrum with Stage 3 decubitus ulcer with moderate amount of serous drainge noted, no surrounding erythema or induration noted, no concerns for infection; Right heel with stage 3 ulcer noted , small amount of serous drainage noted, no surrounding erythema or induration noted) - Neurologic Present: other (paraplegia) - Psychiatric Psychiatric general surgery: Present: appropriate, oriented to person, oriented to place, oriented to time, speech is normal, memory intact Exam Initial Vital Signs Temp Pulse Resp BP Pulse Ox 98.1 F 88 16 128/81 94 L 11/10/16 23:54 11/10/16 23:54 11/10/16 23:54 11/10/16 23:54 11/10/16 23:54 Results - Labs 11/11/16 08:07 11/11/16 07:14 Abnormal lab results RBC 3.47 M/mcL (3.82-4.97) L 11/11/16 08:07 Hgb 10.9 g/dL (11.5-15.4) L D 11/11/16 08:07 Hct 32.5 % (35.3-44.9) L 11/11/16 08:07 MPV 9.2 fL (9.4-12.4) L 11/11/16 08:07 Creatinine 0.54 mg/dL (0.57-1.11) L 11/11/16 07:14 BUN/Creatinine Ratio 37 (6-26) H 11/11/16 07:14 Glucose 111 mg/dL (70-99) H 11/11/16 07:14 Troponin I 0.16 ng/mL (0-0.03) H* 11/11/16 12:32 Globulin 3.8 g/dL (2.4-3.5) H 11/11/16 00:17 Albumin/Globulin Ratio 1.0 (1.1-2.2) L 11/11/16 00:17 Ur Specific [place] >= 1.030 (1.010-1.025) H 11/11/16 01:50 Urine Protein 100 mg/dL (Neg-Trace) H 11/11/16 01:50 Urine Blood Moderate (Negative) H 11/11/16 01:50 Urine Nitrite Positive (Negative) A 11/11/16 01:50 Ur Leukocyte Esterase Small (Negative) H 11/11/16 01:50 Urine Microscopic RBC 50-100 per hpf (0-3) H 11/11/16 01:50 Urine Microscopic WBC TNTC per hpf (0-3) H 11/11/16 01:50 Ur Squamous Epith Cells Many per lpf (None-Few) H 11/11/16 01:50 Urine Bacteria Many per hpf (None-Few) H 11/11/16 01:50 Ur Culture Indicated? YES (NO) A 11/11/16 01:50 Diabetes panel 11/11/16 Range/Units 07:14 Sodium 143 (136-145) mEq/L Potassium 3.9 (3.5-4.5) mEq/L Chloride 109 (98-109) mEq/L Carbon Dioxide 24 (19-29) mEq/L BUN 20 (7-20) mg/dL Creatinine 0.54 L (0.57-1.11) mg/dL Glucose 111 H (70-99) mg/dL Calcium 8.6 (8.6-10.8) mg/dL Calcium panel 11/11/16 Range/Units 07:14 Calcium 8.6 (8.6-10.8) mg/dL Pituitary panel 11/11/16 Range/Units 07:14 Sodium 143 (136-145) mEq/L Potassium 3.9 (3.5-4.5) mEq/L Chloride 109 (98-109) mEq/L Carbon Dioxide 24 (19-29) mEq/L BUN 20 (7-20) mg/dL Creatinine 0.54 L (0.57-1.11) mg/dL Glucose 111 H (70-99) mg/dL Calcium 8.6 (8.6-10.8) mg/dL Adrenal panel 11/11/16 Range/Units 07:14 Sodium 143 (136-145) mEq/L Potassium 3.9 (3.5-4.5) mEq/L Chloride 109 (98-109) mEq/L Carbon Dioxide 24 (19-29) mEq/L BUN 20 (7-20) mg/dL Creatinine 0.54 L (0.57-1.11) mg/dL Glucose 111 H (70-99) mg/dL Calcium 8.6 (8.6-10.8) mg/dL All other labs normal. - Imaging Additional studies: Abdomen/Pelvis CT 11/11/16 00:00 IMPRESSION: Fatty infiltration of the liver. Evidence of sacral decubitus ulcer with soft tissue attenuation within the subcutaneous tissues associated with a focus gas. D/ / Shelby Pena Cha, MD / Shelby Pena Cha, MD Interpreting Provider: Shelby Pena Cha, MD Chest X-Ray 11/11/16 00:00 IMPRESSION: Negative portable chest. D/ / Lemuel Benitez MD / Lemuel Benitez MD Interpreting Provider: Lemuel Benitez MD Consult Discharge Plan - Plan Referrals: Rosa Maria Adam DO [Primary Care Provider] - - Attending Attestation I examined this patient and my medical decision-making was reviewed with the HEAD GIRLS GOLF COACH/PA/Advanced Practice Nurse/Resident Physician. I agree with the documented findings, disposition and treatment plan as described except to the extent set forth below.
[2016-11-11] MEDS: Clindamycin 600 MG/50 ML 600 MG/50 ML IV.SOLN IVPB SCH (16:15)
[2016-11-11] MEDS: Gentamicin Oint 15 GM TUBE TP SCH (17:36)
[2016-11-11] MEDS: *HR* OxyCODONE/APAP 5/325 TABLET PO PRN (21:20)
[2016-11-12] MEDS: Clindamycin 600 MG/50 ML 600 MG/50 ML IV.SOLN IVPB SCH ×2 (00:17→09:09)
[2016-11-12] MEDS: *HR* Heparin 5,000 UNIT/ML VIAL SQ SCH ×4 (00:18→23:16)
[2016-11-12] MEDS: *HR* OxyCODONE/APAP 5/325 TABLET PO PRN ×2 (05:14→23:16)
[2016-11-12 05:25] LABS: Hematocrit 31.9 % (35.3-44.9); Hemoglobin 10.6 g/dL (11.5-15.4); Immature Granulocytes % 0.2 % (0-4); Lymphocytes % 37.9 %; Mean Corpuscular HGB Conc 33.2 g/dL (31.6-35.5); Mean Corpuscular Hemoglobin 31.3 pg (28.0-33.3); Mean Corpuscular Volume 94.1 fL (83.0-100.0); Mean Platelet Volume 9.4 fL (9.4-12.4); Monocytes % 7.3 %; Platelet Count 195 K/mcL (140-400); Red Blood Count 3.39 M/mcL (3.82-4.97); Red Cell Distribution Width 14.5 % (11.5-14.5); Segmented Neutrophils % 51.2 %
[2016-11-12 05:26] LABS: Basophils % 0.2 %; Eosinophils # 0.1 K/mcL (0.0-0.6); Eosinophils % 3.2 %; Lymphocytes # 1.6 K/mcL (0.6-4.6); Monocytes # 0.3 K/mcL (0.0-1.3); Neutrophils # 2.1 K/mcL (1.6-8.9)
[2016-11-12 05:45] LABS: BUN/Creatinine Ratio 33 (6-26); Blood Urea Nitrogen 23 mg/dL (7-20); Calcium 8.6 mg/dL (8.6-10.8); Carbon Dioxide 24 mEq/L (19-29); Chloride 106 mEq/L (98-109); Glucose 119 mg/dL (70-99); Osmolality,Calculated 295 (280-300); Potassium 3.7 mEq/L (3.5-4.5); Sodium 140 mEq/L (136-145); eGFR For African Americans > 60 (> 60); eGFR For Non-African Americans > 60 (> 60)
[2016-11-12] MEDS: Celecoxib 200 MG CAPSULE PO SCH (09:08)
[2016-11-12] MEDS: Gabapentin 300 MG CAPSULE PO SCH ×3 (09:08→21:50)
[2016-11-12] MEDS: Piperacillin/Tazobactam 3.375 GM in D5% in Water (Mini-Bag+) 100 ML IVPB SCH ×3 (09:08→23:35)
--- NOTE | 2016-11-12 11:37 | Internal Med Progress Note ---
<Delroy Ribera - Last Filed: 11/12/16 18:15> Date of Encounter: 11/12/16 Time of Encounter: 08:30 - Assessment and plan (1) UTI (urinary tract infection) Current Visit: Yes Status: Acute Assessment and plan: -Patient has a Haley. Paraplegic and chronic Haley use. -On proper antibiotic coverage. Continue. -We will manage as outpatient Qualifiers: Urinary tract infection type: site unspecified Hematuria presence: without hematuria Qualified Code(s): N39.0 - Urinary tract infection, site not specified (2) Weakness Current Visit: Yes Status: Acute Assessment and plan: -Patient describing generalized weakness and fatigue. -Patient is resting comfortably in bed. Denies any focal neurological deficit. This is a chronic issue. -We will evaluate patient for 1 more day because of patients concern. Probable discharge tomorrow (3) Paraplegia Current Visit: Yes Status: Chronic (4) Decubitus ulcer of right heel, stage 3 Current Visit: No Status: Chronic Assessment and plan: -Wound care ordered. Heel is wrapped, off the bed with supportive device. -Patient has been refusing turns. -Will be followed as outpatient. (5) Sacral decubitus ulcer, stage III Current Visit: No Status: Chronic Assessment and plan: -Wound care ordered. -Patient has been refusing turns. -Been evaluated with CT. Concerning gas, radiologist consulted personally face to face. Surgery as seen patient and found to be non concerning and signed off. -No concern for necrotizing fasciitis. Clindamycin DC'd. Continue Zosyn. -Will be followed as outpatient. - Time Spent With Patient 25 - 35 minutes - Subjective Interval history: Patient states that she feels more tired and fatigue today compared to yesterday. She denies any focal neurological deficit, CP, SOB, changes with bowel movements, superpubic pain. Patient is resting comfortably in bed. Admits to mild abdominal and bilateral leg pain that is chronic. - Constitutional Vitals: Temp Pulse Resp BP Pulse Ox 95.6 F L 76 14 118/61 91 L 11/12/16 09:23 11/12/16 09:23 11/12/16 09:23 11/12/16 09:23 11/12/16 09:23 General appearance: Present: A&O X 3, pleasant, no acute distress, answers questions appropriately - Respiratory Respiratory exam: Present: accessory muscle use, rales. Absent: rhonchi, wheezes - Cardiovascular Cardiovascular exam: Present: RRR, systolic murmur - GI/Abdominal GI/Abdominal exam: Present: soft, no peritoneal signs. Absent: distended, guarding - Neurological Exam Neurological exam: Present: oriented X3. Absent: facial droop, speech deficit - Psychiatric Psychiatric exam: Present: flat affect - Other Additional findings: -Bilateral legs: Decrease edema compared to yesterday. No signs of DVT, infection. Right heel is probably wrapped and off the bed. On a air support. -Sacral ulcer. No change compared to yesterday. Nonpainful. Internal Medicine: Result - Labs CBC & Chem 7: 11/12/16 04:47 11/12/16 04:47 Labs: Short CBC 11/12/16 Range/Units 04:47 WBC 4.1 L (4.3-11.1) K/mcL Hgb 10.6 L (11.5-15.4) g/dL Hct 31.9 L (35.3-44.9) % Plt Count 195 (140-400) K/mcL Neutrophils # 2.1 (1.6-8.9) K/mcL BMP 11/12/16 04:47 Sodium 140 Potassium 3.7 Chloride 106 Carbon Dioxide 24 BUN 23 H Creatinine 0.70 Glucose 119 H Calcium 8.6 Cardiac Enzymes 11/11/16 11/11/16 Range/Units 12:32 20:11 Troponin I 0.16 H* 0.15 H* (0-0.03) ng/mL Consult Discharge Plan - Plan Referrals: Rosa Maria Adam DO [Primary Care Provider] - 11/16/16 2:30 pm <Kenny Cool - Last Filed: 11/12/16 18:44> Date of Encounter: 11/12/16 - Assessment and plan (1) UTI (urinary tract infection) Current Visit: Yes Status: Acute Qualifiers: Urinary tract infection type: acute cystitis Hematuria presence: without hematuria Qualified Code(s): N30.00 - Acute cystitis without hematuria (2) Weakness Current Visit: Yes Status: Acute (3) Sacral decubitus ulcer Current Visit: Yes Status: Acute Qualifiers: Pressure ulcer stage: stage 3 Qualified Code(s): L89.153 - Pressure ulcer of sacral region, stage 3 (4) Paraplegia Current Visit: Yes Status: Chronic (5) Decubitus ulcer of right heel, stage 3 Current Visit: No Status: Chronic - Constitutional Vitals: Temp Pulse Resp BP Pulse Ox 95.6 F L 76 14 118/61 91 L 11/12/16 09:23 11/12/16 09:23 11/12/16 09:23 11/12/16 09:23 11/12/16 09:23 Internal Medicine: Result - Labs CBC & Chem 7: 11/12/16 04:47 11/12/16 04:47 Labs: Short CBC 11/12/16 Range/Units 04:47 WBC 4.1 L (4.3-11.1) K/mcL Hgb 10.6 L (11.5-15.4) g/dL Hct 31.9 L (35.3-44.9) % Plt Count 195 (140-400) K/mcL Neutrophils # 2.1 (1.6-8.9) K/mcL BMP 11/12/16 04:47 Sodium 140 Potassium 3.7 Chloride 106 Carbon Dioxide 24 BUN 23 H Creatinine 0.70 Glucose 119 H Calcium 8.6 Cardiac Enzymes 11/11/16 Range/Units 20:11 Troponin I 0.15 H* (0-0.03) ng/mL - Attending Attestation I examined this patient and my medical decision-making was reviewed with the Resident Physician on 11/12/16. I agree with the documented findings, disposition and treatment plan as described except to the extent set forth below. Ms. Borja is currently hospitalized for UTI and sacral decubitus with concern for infection. She remains moderate risk due to potential for worsening infectious issues. Ms. Borja is feeling weak and tired. She has no fever or GI symptoms. No cough. Did not sleep well. Wound feels OK. Exam Alert. Comfortable Heart reg Lungs clear I/p 1. UTI 2. Sacral decub Further diagnoses and plan as above.
[2016-11-12] MEDS: Vitamin B Complex/Vit C/Vit E 1 EACH TABLET PO SCH (12:31)
[2016-11-12] MEDS: Gentamicin Oint 15 GM TUBE TP SCH (16:35)
[2016-11-13 04:09] LABS: Basophils % 0.4 %; Eosinophils # 0.2 K/mcL (0.0-0.6); Eosinophils % 4.3 %; Hematocrit 31.5 % (35.3-44.9); Hemoglobin 10.6 g/dL (11.5-15.4); Lymphocytes # 1.8 K/mcL (0.6-4.6); Mean Corpuscular HGB Conc 33.7 g/dL (31.6-35.5); Mean Corpuscular Hemoglobin 31.5 pg (28.0-33.3); Mean Corpuscular Volume 93.8 fL (83.0-100.0); Mean Platelet Volume 9.6 fL (9.4-12.4); Monocytes # 0.3 K/mcL (0.0-1.3); Monocytes % 6.6 %; Neutrophils # 2.6 K/mcL (1.6-8.9); Platelet Count 199 K/mcL (140-400); Red Blood Count 3.36 M/mcL (3.82-4.97); Red Cell Distribution Width 14.4 % (11.5-14.5); Segmented Neutrophils % 52.7 %
[2016-11-13 04:11] LABS: BUN/Creatinine Ratio 31 (6-26); Blood Urea Nitrogen 20 mg/dL (7-20); Calcium 8.8 mg/dL (8.6-10.8); Carbon Dioxide 24 mEq/L (19-29); Chloride 106 mEq/L (98-109); Glucose 98 mg/dL (70-99); Osmolality,Calculated 295 (280-300); Potassium 3.8 mEq/L (3.5-4.5); Sodium 141 mEq/L (136-145); eGFR For African Americans > 60 (> 60); eGFR For Non-African Americans > 60 (> 60)
[2016-11-13] MEDS: *HR* Heparin 5,000 UNIT/ML VIAL SQ SCH ×2 (05:58→17:03)
[2016-11-13] MEDS: Vitamin B Complex/Vit C/Vit E 1 EACH TABLET PO SCH (08:14)
[2016-11-13] MEDS: Piperacillin/Tazobactam 3.375 GM in D5% in Water (Mini-Bag+) 100 ML IVPB SCH ×2 (08:15→16:54)
[2016-11-13] MEDS: Celecoxib 200 MG CAPSULE PO SCH (08:15)
[2016-11-13] MEDS: Gabapentin 300 MG CAPSULE PO SCH ×3 (08:15→21:55)
--- NOTE | 2016-11-13 10:39 | Discharge Summary ---
<Delroy Ribera - Last Filed: 11/13/16 17:17> Date of Encounter: 11/13/16 Time of Encounter: 09:00 - Discharge Diagnosis (1) Weakness Priority: Primary Status: Chronic Comments: -Chronic generalized weakness -Continue home medication. (2) Paraplegia Priority: Primary Status: Chronic (3) Decubitus ulcer of right heel, stage 3 Priority: Primary Status: Chronic Comments: -Patient refusing turns. Home health care ordered and wound care. -Has been seen and evaluated by general surgery. -Continue TQ2 (4) Sacral decubitus ulcer, stage III Priority: Primary Status: Chronic Comments: -Continue therapy -Home health care orders and wound care established. (5) UTI (urinary tract infection) Status: Acute Comments: -asymptomatic. Denies dysuria, frequency or urgency -Patient received multiple days of IV antibiotics. Will continue and discharge on Keflex if necessary. Qualifiers: Urinary tract infection type: acute cystitis Hematuria presence: without hematuria Qualified Code(s): N30.00 - Acute cystitis without hematuria - Discharge Medications Prescriptions: Collagenase Oint [Santyl] 1 appl TP DAILY #1 tube Gentamicin Oint [Garamycin] 1 appl TP DAILY #1 tube Home Medications: Celecoxib [Celebrex] 200 mg PO DAILY 11/02/16 [History] Clopidogrel [Plavix] 75 mg PO DAILY 11/02/16 [History] Gabapentin [Gralise] 900 mg PO TID 11/02/16 [History] Nitroglycerin [Nitrostat] 0.4 mg SL AD PRN 11/02/16 [History] OxyCODONE/APAP 5/325 [Percocet 5/325 MG] 1 tab PO Q6HR PRN 11/02/16 [History] Ranitidine HCl [Acid Sodder] 150 mg PO DAILY 11/02/16 [History] Hydrochlorothiazide 25 mg PO DAILY 11/11/16 [History] Levothyroxine [Synthroid] 25 mcg PO DAILY 11/11/16 [History] Loratadine [Allergy Relief] 10 mg PO DAILY 11/11/16 [History] Olanzapine/Fluoxetine HCl [Olanzapine-Fluoxetine 6-25 mg] 1 cap PO DAILY [History] Collagenase Oint [Santyl] 1 appl TP DAILY #1 tube 11/13/16 [Rx] Gentamicin Oint [Garamycin] 1 appl TP DAILY #1 tube 11/13/16 [Rx] Allergies/Adverse Reactions: Allergies carbamazepine [From Tegretol] Allergy (Verified 11/11/16 09:23) Unconscious pentazocine [From Talwin] Allergy (Verified 11/11/16 09:23) Seizure phenytoin [From Dilantin] Allergy (Verified 11/11/16 09:23) Rash Date of admission: 11/11/16 02:18 Primary care physician: Rosa Maria Adam DO Consults: 11/11/16 05:44 Consult to Wound Care [CONS] Stat Reason for Consult: sacral decubitus ulcer and wound on right heel, please recommend orders for dressing changes. Call Completed: No 11/11/16 08:48 Consult to Surgery [CONS] Routine Consulting Provider: [facility] Reason for Consult: Sacral ulcer. Crepitis on physical exam. CT focal gas. Concern for Nec Fasc. Call Completed: Yes Discharging clinician: Delroy Ribera Anticipated date of discharge: 11/13/16 - Patient Status Disposition: Home Health Service Condition: Good Functional capacity at discharge: bed bound Overall status at discharge: patient is progressing back to baseline ( generalized weakness and fatigue that is chronic.) - Discharge Instructions Instructions: Gentamicin (On the skin), Collagenase (On the skin), Urinary Tract Infection in Women (DC), How to Prevent Pressure Ulcers (DC), How to Prevent Pressure Ulcers (GEN), Acute Diarrhea (GEN) Follow Up With: Rosa Maria Adam DO [Primary Care Provider] - 11/16/16 2:30 pm ( Diarrhea. C diff negative. Sacral ulcer and R heel ulcer. Wound care at home.) - Diet and Activity Activity: increase activity as tolerated Diet: low salt diet Interval History: Patient is feeling the same today as yesterday. Still complains of generalized weakness and feeling tired. She denies CP, cough, urinary complaints. Has had a couple of bowel movements that were small. Patient refusing turns. Hospital course: Update: After speaking with the patient later tonight, patient concerned that she is still having diarrhea and will call the squad to bring her back. Patient has had 2 bowel movements today. Will keep patient overnight. Ms. Borja is a 76 year old female who was admitted for diarrhea and abdominal pain. She was discovered to have gas on the CT near her ulcer. Further evaluation review by the radiologist and surgeon determined that the area is not concerning, particularly for nec fasciitis. During the course of the patient's stay, she received multiple days of IV antibiotics. She continually refuses to be turned. UA revealed a UTI, is asymptomatic. Cdiff negative. Spoke with the son over the phone personally about the patients condition, wound care , labs and test conducted and answered all questions. Positive troponin that did not increase. EKG is normal. Patient denies CP, SOB over the past 3 days. SD/ACS unlikely. NO stress test needed. - Time Spent with Patient Total time spent providing and/or coordinating discharge services: Greater than 30 minutes - Constitutional Vitals: Temp Pulse Resp BP Pulse Ox 97.8 F 86 12 120/64 95 11/13/16 07:19 11/13/16 07:19 11/13/16 07:19 11/13/16 07:19 11/13/16 07:19 General appearance: Present: A&O X 3, pleasant, no acute distress, answers questions appropriately - Head Head exam: Present: atraumatic, normocephalic - Eye Eye exam: Present: PERRL, conjuntiva pink, sclera anicteric Pupils: Present: PERRL - Respiratory Respiratory exam: Present: CTAB - Cardiovascular Cardiovascular exam: Present: RRR. Absent: diastolic murmur, distant heart sounds, systolic murmur - GI/Abdominal GI/Abdominal exam: Present: normal bowel sounds, soft, no peritoneal signs. Absent: distended, tenderness - Neurological Exam Neurological exam: Present: alert, oriented X3, no focal deficits. Absent: pronater drift, facial droop, speech deficit - Psychiatric Psychiatric exam: Present: flat affect - Other Additional findings: Sacral wound covered. Patient on back. R heel ulcer in air boot and covered. Patient has bilateral pitting edema. <Kenny Cool - Last Filed: 11/13/16 18:17> Date of Encounter: 11/13/16 - Discharge Diagnosis (1) UTI (urinary tract infection) Priority: Primary Status: Acute Qualifiers: Urinary tract infection type: acute cystitis Hematuria presence: without hematuria Qualified Code(s): N30.00 - Acute cystitis without hematuria (2) Weakness Status: Chronic (3) Sacral decubitus ulcer Priority: Secondary Status: Acute Qualifiers: Pressure ulcer stage: stage 3 Qualified Code(s): L89.153 - Pressure ulcer of sacral region, stage 3 (4) Paraplegia Priority: Secondary Status: Chronic (5) Decubitus ulcer of right heel, stage 3 Priority: Secondary Status: Chronic Date of admission: 11/11/16 02:18 Primary care physician: Rosa Maria Adam DO Consults: 11/11/16 05:44 Consult to Wound Care [CONS] Stat Reason for Consult: sacral decubitus ulcer and wound on right heel, please recommend orders for dressing changes. Call Completed: No 11/11/16 08:48 Consult to Surgery [CONS] Routine Consulting Provider: [facility] Reason for Consult: Sacral ulcer. Crepitis on physical exam. CT focal gas. Concern for Nec Fasc. Call Completed: Yes Hospital course: Ms. Borja is a 76 year old female - Time Spent with Patient Total time spent providing and/or coordinating discharge services: 41min - Constitutional Vitals: Temp Pulse Resp BP Pulse Ox 98.2 F 77 12 119/67 98 11/13/16 11:50 11/13/16 11:50 11/13/16 11:50 11/13/16 11:50 11/13/16 11:50 - Attending Attestation I examined this patient and my medical decision-making was reviewed with the Resident Physician on 11/13/16. I agree with the documented findings, disposition and treatment plan as described except to the extent set forth below. Ms. Borja is resting comfortably. She denies abd pain or dyspnea. No cough. Will not turn much in bed. On abx for UTI. Exam alert. Comfortable Heart reg Lungs clear Abd soft Plan D/C today Follow up with PCP Oral abx - Keflex
[2016-11-13] MEDS: Gentamicin Oint 15 GM TUBE TP SCH (11:38)
--- NOTE | 2016-11-13 16:42 | Event Note ---
<Delroy Ribera - Last Filed: 11/13/16 17:04> Date of Encounter: 11/13/16 Time of Encounter: 16:37 Patient states that she is still having diarrhea. She has had 3 bowel movements today. One small, 2 medium, liquid, brown.Explained that I feel comfortable discharging her home and that I'm afraid that if she stays in the hospital, she will get a hospital acquired infection. She states "if I'm sent home I will just call the squad and have them bring me back". Spent >25 min that with the patient. Patient admits to refusing to be turned. I went over the importance of being turned every 2 hours as I am concerned that her bedsores will worsen if she does not. Patient is in agreement <Kenny Cool - Last Filed: 11/13/16 18:18> Date of Encounter: 11/13/16 Pt has had 3 episodes of loose stool today. No fever or leukocytosis. On abx for UTI. She does not feel comfortable going home and is at high risk for readmission. Will monitor her tonight and if no new issues, d/c tomorrow.
[2016-11-14] MEDS: Piperacillin/Tazobactam 3.375 GM in D5% in Water (Mini-Bag+) 100 ML IVPB SCH ×2 (00:21→08:51)
[2016-11-14] MEDS: *HR* Heparin 5,000 UNIT/ML VIAL SQ SCH ×2 (00:21→06:18)
[2016-11-14] MEDS: Levothyroxine 25 MCG TABLET PO SCH ×2 (06:18→08:54)
[2016-11-14 07:02] VITALS: BP 124/55
[2016-11-14] MEDS: Vitamin B Complex/Vit C/Vit E 1 EACH TABLET PO SCH (08:49)
[2016-11-14] MEDS: Celecoxib 200 MG CAPSULE PO SCH (08:50)
[2016-11-14] MEDS: Gabapentin 300 MG CAPSULE PO SCH (08:50)
[2016-11-14] MEDS: Gentamicin Oint 15 GM TUBE TP SCH (08:51)
[2016-11-14] MEDS ORDERED: OLANZAPINE PO SCH (09:00)
[2016-11-14] MEDS ORDERED: hydroCHLOROthiazide 25 MG TABLET PO SCH (09:00)
[2016-11-14] MEDS ORDERED: FLUOXETINE HCL PO SCH (09:00)
[2016-11-14 09:19] LABS: BUN/Creatinine Ratio 20 (6-26); Blood Urea Nitrogen 12 mg/dL (7-20); Calcium 8.7 mg/dL (8.6-10.8); Carbon Dioxide 27 mEq/L (19-29); Chloride 107 mEq/L (98-109); Glucose 103 mg/dL (70-99); Osmolality,Calculated 294 (280-300); Potassium 3.9 mEq/L (3.5-4.5); Sodium 142 mEq/L (136-145); eGFR For African Americans > 60 (> 60); eGFR For Non-African Americans > 60 (> 60)
--- NOTE | 2016-11-14 11:40 | Internal Med Progress Note ---
Date of Encounter: 11/14/16 Time of Encounter: 11:37 - Assessment and plan (1) UTI (urinary tract infection) Current Visit: Yes Status: Acute Assessment and plan: Plan discharge home today on PO Keflex for 5 more days. Follow up with PCP for further treatment. Qualifiers: Urinary tract infection type: acute cystitis Hematuria presence: without hematuria Qualified Code(s): N30.00 - Acute cystitis without hematuria (2) Diarrhea Current Visit: Yes Status: Acute Assessment and plan: Most likely viral process. Seems to be improving. I instructed her to get some lactose free yogurt in light of diarrhea and abx use. Qualifiers: Diarrhea type: presumed infectious Qualified Code(s): A09 - Infectious gastroenteritis and colitis, unspecified (3) Back pain Current Visit: Yes Status: Chronic Assessment and plan: Will discharge with PO pain medications. Qualifiers: Back pain location: thoracic back pain Chronicity: chronic Back pain laterality: bilateral Qualified Code(s): M54.6 - Pain in thoracic spine; G89.29 - Other chronic pain (4) Weakness Current Visit: Yes Status: Chronic Assessment and plan: Chronic issue. Seems to be better and approaching baseline today. (5) Sacral decubitus ulcer Current Visit: Yes Status: Chronic Assessment and plan: Will discharge on PO pain meds. Qualifiers: Pressure ulcer stage: stage 3 Qualified Code(s): L89.153 - Pressure ulcer of sacral region, stage 3 (6) Decubitus ulcer of right heel, stage 3 Current Visit: No Status: Chronic Assessment and plan: -Wound care at discharge and follow up in wound clinic. (7) Paraplegia Current Visit: Yes Status: Chronic (8) NSTEMI (non-ST elevated myocardial infarction) Current Visit: Yes Status: Ruled-out Assessment and plan: Pt with slight elevation in troponin in the setting of acute diarrheal illness and UTI. Most likely is related to demand ischemia. - Subjective Interval history: Ms. Borja has been hospitalized for acute UTI and diarrheal illness. She was kept in the hospital last evening due to multiple episodes of loose stools. This seems to be improving this morning. She still does not feel at baseline but better than yesterday. She has some mid back discomfort that is improved with pain medication. She has had no fever and BP is normal. At this time she appears to be medically stable for discharge. She understands that things should continue to improve and to follow up with her PCP and wound care. - Constitutional Vitals: Temp Pulse Resp BP Pulse Ox 98.2 F 79 15 124/55 93 L 11/14/16 06:59 11/14/16 06:59 11/14/16 06:59 11/14/16 06:59 11/14/16 08:56 General appearance: Present: A&O X 3, pleasant, answers questions appropriately - Head Head exam: Present: normocephalic - Eye Eye exam: Present: conjuntiva pink - ENT ENT exam: Present: mucous membranes moist - Respiratory Respiratory exam: Absent: wheezes - Cardiovascular Cardiovascular exam: Present: RRR. Absent: tachycardia - GI/Abdominal GI/Abdominal exam: Present: soft. Absent: tenderness - Extremities Exam Extremities exam: Present: warm - Neurological Exam Neurological exam: Present: alert, oriented X3 - Psychiatric Psychiatric exam: Present: normal affect, normal mood Internal Medicine: Result - Labs CBC & Chem 7: 11/13/16 03:26 11/14/16 08:57 Labs: BMP 11/14/16 08:57 Sodium 142 Potassium 3.9 Chloride 107 Carbon Dioxide 27 BUN 12 Creatinine 0.60 Glucose 103 H Calcium 8.7 Consult Discharge Plan - Plan Instructions: Gentamicin (On the skin), Collagenase (On the skin), Urinary Tract Infection in Women (DC), How to Prevent Pressure Ulcers (DC), How to Prevent Pressure Ulcers (GEN), Acute Diarrhea (GEN) Referrals: Rosa Maria Adam DO [Primary Care Provider] - 11/16/16 2:30 pm ( Diarrhea. C diff negative. Sacral ulcer and R heel ulcer. Wound care at home.) Prescriptions: OxyCODONE/APAP 5/325 [Percocet 5/325 MG] 1 tab PO Q6HR PRN #20 tablet PRN Reason: Pain Cephalexin [Keflex] 500 mg PO BID #10 capsule Collagenase Oint [Santyl] 1 appl TP DAILY #1 tube Gentamicin Oint [Garamycin] 1 appl TP DAILY #1 tube
[2016-11-14] MEDS: *HR* OxyCODONE/APAP 5/325 TABLET PO PRN (11:51)
== END 2016-11-14 13:45 | disposition home health service (06) | DRG 391 ==
LOC: EMEROO 23:52 → 2NENU 11-11 02:18
PROVIDERS: ADMIT Internal Medicine; ATTEND Internal Medicine

== ENCOUNTER 2017-06-07 14:37 | Inpatient (IN) ==
--- NOTE | 2017-06-07 14:59 | Emergency Department Note ---
Disposition Clinical Impression: Cellulitis Qualifiers: Site of cellulitis: extremity Site of cellulitis of extremity: lower extremity Laterality: right Qualified Code(s): L03.115 - Cellulitis of right lower limb Disposition: Admitted As Inpatient Condition: Fair Referrals: Royer Pelaez DO [Primary Care Provider] - Forms: ED Satisfaction Letter Time of Disposition: 17:53 Skin/Abscess/FB HPI Chief complaint: ED Skin/Abscess/Foreign Body Stated complaint: wound Time Seen by Provider: 06/07/17 14:47 Source: patient Limitations: no limitations Nursing Notes Reviewed: Yes Vital Signs Reviewed: Yes HPI Narrative: 77-year-old with a 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 She was seen at the wound center and was noted to have worsening redness and some drainage. There concern was worsening and infection. They were concerned about possible sepsis however the patient denies fever and is not tachycardic here. She is not hypotensive. Pt Subjective Complaint: rash Onset (ago): day(s) Location: R foot Severity: moderate Associated symptoms: Reports: denies other symptoms Home Medications Medication Instructions Recorded Confirmed Celecoxib [Celebrex] 200 mg PO DAILY 11/02/16 01/18/17 Clopidogrel [Plavix] 75 mg PO DAILY 11/02/16 01/18/17 Gabapentin [Gralise] 900 mg PO TID 11/02/16 01/18/17 Nitroglycerin [Nitrostat] 0.4 mg SL AD PRN 11/02/16 01/18/17 Ranitidine HCl [Acid [employer]] 150 mg PO DAILY 11/02/16 01/18/17 Olanzapine/Fluoxetine HCl 1 cap PO DAILY 11/11/16 01/18/17 [Olanzapine-Fluoxetine 6-25 mg] Ondansetron [Zofran] 8 mg PO DAILY 04/05/17 04/05/17 Previous Rx's Medication Instructions Recorded OxyCODONE/APAP 5/325 [Percocet 1 tab PO Q6HR PRN #20 tablet 11/14/16 5/325 MG] Allergies Allergy/AdvReac Type Severity Reaction Status Date / Time carbamazepine [From Tegretol] Allergy Unconscious Verified 06/07/17 14:38 pentazocine [From Talwin] Allergy Seizure Verified 06/07/17 14:38 phenytoin [From Dilantin] Allergy Rash Verified 06/07/17 14:38 All systems ED: reviewed and negative except as stated. Constitutional: Denies: fever, chills, weakness, weight change Eyes: Denies: eye pain, eye discharge, vision change ENT ED: Denies: ear pain, throat pain, dental pain, hearing loss, epistaxis, congestion, dysphagia Cardiovascular: Denies: chest pain, palpitations, dyspnea on exertion, edema, syncope Respiratory: Denies: cough, dyspnea, wheezes, hemoptysis, stridor Gastrointestinal: Denies: abdominal pain, nausea, vomiting, diarrhea, constipation, hematemesis, melena, hematochezia Genitourinary: Denies: dysuria, frequency, hematuria, discharge Musculoskeletal: Denies: back pain, neck pain, arthralgia, myalgia Integumentary: Denies: rash, abrasion, lesions Neurological: Denies: headache, weakness, numbness, paresthesias, confusion, abnormal gait, vertigo Psychiatric: Denies: anxiety, depression, suicidal thoughts, homicidal thoughts , auditory hallucinations, visual hallucinations Endocrine: Denies: fatigue Hematological/Lymphatic: Denies: easy bleeding, easy bruising Allergic/Immunologic: Denies: facial swelling, urticaria Past Medical History - Past Medical History Medical history: Reports: arthritis, CHF, CVA, osteoporosis, peripheral artery disease, thyroid disease, other Surgical history: Reports: appendectomy, cholecystectomy, hysterectomy, other Psychiatric history: Reports: no psych history - Social History Smoking Status: Never smoker Smokeless Tobacco Status: No Alcohol use: Reports: none Drug use: Reports: none Physical Exam - General Limitations: no limitations General appearance: alert, in no apparent distress - Head Head exam: atraumatic, normocephalic, normal inspection - Eye Eye exam: Present: normal appearance, PERRL, EOMI - ENT ENT exam: normal exam, normal oropharynx, mucous membranes moist - Neck Neck exam: Present: normal inspection, full ROM, trachea midline - Chest Chest inspection: Present: normal inspection, symmetric chest wall rise - Respiratory Respiratory exam: Present: normal lung sounds bilaterally - Cardiovascular Cardiovascular exam: Present: regular rate, normal rhythm, normal heart sounds - Abdominal Exam Abdominal exam: Present: soft, Non-Tender. 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 Patient is followed at the wound center and was noted to have worsening redness concern for a progressive cellulitis. A CT scan shows no evidence of osteomyelitis no abscess. Patient will be admitted for IV antibiotics. Time: 17:53 - Consultations Consultation #1: Discussed with keena Oleary. Time: 17:54 Vital Signs Temperature 97.9 F 06/07/17 14:38 Pulse Rate 73 06/07/17 14:38 Respiratory Rate 18 06/07/17 14:38 Blood Pressure 132/69 06/07/17 14:38 O2 Sat by Pulse Oximetry 93 06/07/17 14:38 Temperature 97.9 F 06/07/17 14:38 Pulse Rate 85 06/07/17 16:41 Respiratory Rate 18 06/07/17 16:41 Blood Pressure 157/85 06/07/17 16:41 O2 Sat by Pulse Oximetry 96 06/07/17 16:41 Oxygen Delivery Oxygen Delivery Room Air Skin/Abscess/Foreign Body - Lab Data Lab results reviewed: Yes I reviewed the patient's lab results. Result diagrams: 06/07/17 15:04 06/07/17 15:04 Lab Results 06/07/17 06/07/17 06/07/17 Range/Units 15:04 15:04 15:04 WBC 5.1 (4.3-11.1) K/mcL RBC 4.21 (3.82-4.97) M/mcL Hgb 12.2 (11.5-15.4) g/dL Hct 38.8 (35.3-44.9) % MCV 92.2 (83.0-100.0) fL MCH 29.0 (28.0-33.3) pg MCHC 31.4 L (31.6-35.5) g/dL RDW 13.8 (11.5-14.5) % Plt Count 226 (140-400) K/mcL MPV 9.2 L (9.4-12.4) fL Immature Gran % 0.4 (0-4) % Seg Neutrophils % 64.8 % Lymphocytes % 26.7 % Monocytes % 5.3 % Eosinophils % 2.4 % Basophils % 0.4 % Neutrophils # 3.3 (1.6-8.9) K/mcL Lymphocytes # 1.4 (0.6-4.6) K/mcL Monocytes # 0.3 (0.0-1.3) K/mcL Eosinophils # 0.1 (0.0-0.6) K/mcL Basophils # 0.0 (0.0-0.2) K/mcL ESR 44 H (0-15) mm/hr Sodium 143 (136-145) mEq/L Potassium 4.3 (3.5-4.5) mEq/L Chloride 107 (98-109) mEq/L Carbon Dioxide 30 H (19-29) mEq/L BUN 21 H (7-20) mg/dL Creatinine 0.67 (0.57-1.11) mg/dL Est GFR ( Amer) > 60 (> 60) Est GFR (Non-Af Amer) > 60 (> 60) BUN/Creatinine Ratio 31 H (6-26) Glucose 104 H (70-99) mg/dL Calculated Osmolality 299 (280-300) Lactic Acid (0.5-2.2) mmol/L Calcium 9.2 (8.6-10.8) mg/dL 06/07/17 Range/Units 15:33 WBC (4.3-11.1) K/mcL RBC (3.82-4.97) M/mcL Hgb (11.5-15.4) g/dL Hct (35.3-44.9) % MCV (83.0-100.0) fL MCH (28.0-33.3) pg MCHC (31.6-35.5) g/dL RDW (11.5-14.5) % Plt Count (140-400) K/mcL MPV (9.4-12.4) fL Immature Gran % (0-4) % Seg Neutrophils % % Lymphocytes % % Monocytes % % Eosinophils % % Basophils % % Neutrophils # (1.6-8.9) K/mcL Lymphocytes # (0.6-4.6) K/mcL Monocytes # (0.0-1.3) K/mcL Eosinophils # (0.0-0.6) K/mcL Basophils # (0.0-0.2) K/mcL ESR (0-15) mm/hr Sodium (136-145) mEq/L Potassium (3.5-4.5) mEq/L Chloride (98-109) mEq/L Carbon Dioxide (19-29) mEq/L BUN (7-20) mg/dL Creatinine (0.57-1.11) mg/dL Est GFR ( Amer) (> 60) Est GFR (Non-Af Amer) (> 60) BUN/Creatinine Ratio (6-26) Glucose (70-99) mg/dL Calculated Osmolality (280-300) Lactic Acid 1.2 (0.5-2.2) mmol/L Calcium (8.6-10.8) mg/dL - Radiology Data Radiology results reviewed: Yes I reviewed the patient's radiology results. Lower Extremity CT 06/07/17 14:56 IMPRESSION: 1. Soft tissue irregularity along the posterior heel compatible with ulceration. No organized drainable fluid collection identified. No underlying osteolysis or suspicious periosteal reaction identified to suggest osteomyelitis. 2. Severe osteopenia. 3. 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 4. Small tibiotalar and subtalar joint effusions. D/ / Dionisio Persaud MD / Dionisio Persaud MD Interpreting Provider: Dionisio Persaud MD
[2017-06-07 15:16] LABS: Basophils % 0.4 %; Eosinophils # 0.1 K/mcL (0.0-0.6); Eosinophils % 2.4 %; Hematocrit 38.8 % (35.3-44.9); Hemoglobin 12.2 g/dL (11.5-15.4); Immature Granulocytes % 0.4 % (0-4); Lymphocytes # 1.4 K/mcL (0.6-4.6); Lymphocytes % 26.7 %; Mean Corpuscular HGB Conc 31.4 g/dL (31.6-35.5); Mean Corpuscular Volume 92.2 fL (83.0-100.0); Mean Platelet Volume 9.2 fL (9.4-12.4); Monocytes # 0.3 K/mcL (0.0-1.3); Monocytes % 5.3 %; Neutrophils # 3.3 K/mcL (1.6-8.9); Platelet Count 226 K/mcL (140-400); Red Blood Count 4.21 M/mcL (3.82-4.97); Red Cell Distribution Width 13.8 % (11.5-14.5); Segmented Neutrophils % 64.8 %
[2017-06-07 15:22] LABS: BUN/Creatinine Ratio 31 (6-26); Blood Urea Nitrogen 21 mg/dL (7-20); Calcium 9.2 mg/dL (8.6-10.8); Carbon Dioxide 30 mEq/L (19-29); Chloride 107 mEq/L (98-109); Glucose 104 mg/dL (70-99); Osmolality,Calculated 299 (280-300); Potassium 4.3 mEq/L (3.5-4.5); Sodium 143 mEq/L (136-145); eGFR For African Americans > 60 (> 60); eGFR For Non-African Americans > 60 (> 60)
[2017-06-07] MEDS ORDERED: Piperacillin/Tazobactam 3.375 GM in D5% in Water (Mini-Bag+) 100 ML IVPB ONE (18:29)
[2017-06-07] MEDS ORDERED: Vancomycin 1,000 MG in D5% in Water 250 ML IVPB ONE (18:29)
[2017-06-07] MEDS ORDERED: Ondansetron 4 MG/2 ML VIAL IVP PRN (18:31)
[2017-06-07] MEDS ORDERED: *HR* HYDROcodone/Acet 5/325 mg TABLET PO PRN (18:31)
[2017-06-07] MEDS ORDERED: Acetaminophen 325 MG TABLET PO PRN (18:31)
[2017-06-07] MEDS ORDERED: Naloxone 0.4 MG/ML INJ IVP PRN (18:31)
[2017-06-07] MEDS ORDERED: *HR* Morphine 2 MG/ML SYRINGE IVP PRN (18:31)
[2017-06-07] MEDS ORDERED: Nitroglycerin 0.4 MG TAB.SUBL SL PRN (18:37)
[2017-06-07] MEDS ORDERED: Vancomycin 1 EACH in D5% in Water 250 ML IVPB SCH (19:00)
--- NOTE | 2017-06-07 19:08 | Internal Med History&Physical ---
<TipgloriakatinaHerbert calvo - Last Filed: 06/07/17 20:48> Date of Encounter: 06/07/17 Time of Encounter: 18:00 Assessment and Plan (1) Cellulitis Current visit: Yes Status: Acute Patient presents with suspected cellulitis of the right LE related to worsening decubitus ulcer of the right heel. Patient states that the ulcer of the right heel has been positive for MRSA 4x previously. She received IV vancomycin and Zosyn while in the ED and this will be continued with vancomycin to be pharmacy- dosed and Zosyn 3.375 gm Q8. Patient currently does not meet SIRS criteria based on her WBC of 5.1, temperature of 97.9F, HR of 85, RR of 18, and BP of 157 /85 but will be monitored closely for signs of increasing infection and/or sepsis. Qualifiers: Site of cellulitis: extremity Site of cellulitis of extremity: lower extremity Laterality: right Qualified Code(s): L03.115 - Cellulitis of right lower limb (2) Decubitus ulcer of right heel, stage 3 Current visit: Yes Status: Chronic Patient presents with history of chronic decubitus ulcer of the right heel, stage 3. She reports that she had a cast placed on the right foot and leg for healing by the [facility]ound Care center approximately one week ago and had the cast removed today. Wound Care was concerned about status of the wound with worsening erythema, drainage, and infection. Patient reports that this wound has been positive for MRSA 4x before. Wound Care sent the patient to the ED for evaluation. Wound Care consult ordered with daily wound care. Wound culture ordered. Blood cultures x2 ordered. Patient received IV vancomycin and Zosyn while in the ED. Will continue IV vancomycin with pharmacy dosing and IV Zosyn 3.375 gm Q8. Contact precautions ordered until the results of wound culture are available. Stair-step pain medications ordered for pain management. (3) MRSA carrier Current visit: Yes Status: Chronic Patient presents with history of chronic MRSA in the right heel decubitus ulcer which is currently stage 3. She reports that previous treatments revealed that the wound was positive for MRSA 4x. Wound is currently erythematous and draining with some evidence of cellulitis of the RLE which is new. Wound culture ordered and will place patient as contact precautions until the results of the culture are known. Wound Care consult and daily wound care ordered. Patient is receiving IV vancomycin with pharmacy dosing and Zosyn 3.375 gm Q8 for infection coverage. Will monitor patient closely for signs of increasing infection/sepsis through ordered follow-up labs. (4) CHF (congestive heart failure) Current visit: Yes Status: Chronic Patient presents with history of chronic CHF. Currently, patient is not experiencing acute SOB and lungs are clear on auscultation. Patient does have pitting edema bilaterally of LEs and will be given PO lasix to reduce edema. Patient's current GFR >60. Haley catheter inserted due to patient's incontinence and to reduce skin breakdown/irritation of decubitus ulcer of the sacrum. Will monitor I&O and daily weight. 1.5L fluid restriction. Patient reports history of UTIs due to incontinence, so will order urine reflex culture post-Haley insertion. If IV fluids are required, will use judiciously. Qualifiers: Congestive heart failure type: unspecified congestive heart failure type Qualified Code(s): I50.9 - Heart failure, unspecified (5) Osteoporosis Current visit: Yes Status: Chronic Patient presents with history of osteoporosis and arthritis. Stair-step pain medications ordered for pain management with patient's Percocet ordered for moderate (4-6) pain. Will monitor patient for pain and adjust pain medication/ dosing accordingly. 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 Patient reports that she is wheelchair bound and that her son helps to care for her. She reports son dresses her wounds and lifts her to the bathroom as needed. Bed rest status ordered with bedside commode with two person assist. Haley catheter ordered for urinary incontinence and to prevent skin irritation/breakdown. Patient counseled on the need for outpatient hematology consult post-discharge for hypercoagulability studies due to patient's sudden onset symptoms of spinal infarct which caused her paraplegia as well as a CVA suffered by her 42 year- old son. (7) Sacral decubitus ulcer Current visit: Yes Status: Chronic Patient presents with chronic sacral decubitus ulcer, stage 3. Patient is paraplegic and incontinent so special care will be required to ensure healing and no further breakdown. Wound Care consult ordered with daily wound care. Bed rest with bedside commode ordered with two person assist. Haely catheter ordered for urinary incontinence and for lasix administration for current bilateral pedal edema related to her CHF diagnosis. Qualifiers: Pressure ulcer stage: stage 3 Qualified Code(s): L89.153 - Pressure ulcer of sacral region, stage 3 (8) DVT prophylaxis Current visit: Yes Status: Acute Patient to be placed on DVT prophylaxis due to current admission protocol and bed rest status. Heparin 5,000 units SQ Q8. Internal Medicine - H&P: HPI Chief complaint: Open wound of the right heel Admitted From: Emergency Dept Plans for Post Hospital Care: Home History of present illness: Mrs. Borja is a 77 year old female who presents from the ED after being sent from the [facility] Center with a worsening and open ulcer of the right heel. Patient states that the Wound Center placed a cast on the foot and leg to promote healing and when cast was removed today, the ulcer had not healed. Concern was for worsening erythema, drainage, infection, and possible sepsis. Mrs. Borja reports that this ulcer has tested positive for MRSA 4x previously. Patient currently does not meet SIRS criteria based on her WBC of 5.1, temperature of 97.9F, HR of 85, RR of 18, and BP of 157/85. 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 Her medical history includes arthritis, CHF, osteoporosis, and PAD. She also reports that she is a never smoker. Patient denies fever, chills, recent illness, changes in vision, chest pain, cough, abdominal pain, nausea, vomiting, diarrhea, constipation, unusual bleeding, headache, generalized weakness, dizziness, or syncope. Mrs. Borja does report mild SOB, occasional heart flutter, and a wound on her sacrum that she states her son dressed today (wound care needs to check status). Mrs. Borja is at high risk for worsening infection and risk for sepsis based on current symptoms and history of MRSA in this wound and will be placed as inpatient status. Patient was given IV Zosyn and vancomycin in the ED and this will be continued with IV vancomycin with pharmacy dosing and IV Zosyn 3.375 gm Q8. Patient to be placed on continuous cardiac telemetry due to current infection and history of heart flutter, supplemental O2 with SpO2 monitoring due to patient's report of mild SOB, bed rest, wound care consult with daily wound care, and stair-step pain medications for pain management. Patient to be monitored closely for signs of increasing infection, cardiac, and/ or respiratory distress. Time spent with patient >40 minutes. Past Med Surg Social Fam HX - Past Medical History Source: patient Medical history: arthritis, CHF, CVA, osteoporosis, peripheral artery disease, thyroid disease, other Psychiatric history: no psych history - Past Surgical History Surgical History: appendectomy, cholecystectomy, hysterectomy (Total), other - Social History Smoking Status: Never smoker Smokeless Tobacco Status: No Alcohol use: none Drug use: none Occupational status: previously employed Current living situation: Home, With Family Activity Level: Wheelchair bound Recent Out of Country Travel Within the Last 8 Weeks: No Exposure or Possible Exposure to Illness During Travel: No - Family History Mother Race: Family Member Ethnicity: Non- Living Status: Age at : 70 Cause of : Stroke Hx Family Cardiac Disorders: Yes (Cardiomyopathy, Strokes, HTN) Father Race: Family Member Ethnicity: Non- Living Status: Age at : 68 Cause of : Cerebral hemorrhage Hx Family Cardiac Disorders: Yes (HD, HTN) Brother Race: Family Member Ethnicity: Non- Living Status: Age at : 75 Cause of : Heart failure Hx Family Cardiac Disorders: Yes (CHF, HD, Heart failure) Sister Race: Family Member Ethnicity: Non- Living Status: Age at : 68 Cause of : HD Hx Family Cardiac Disorders: Yes (HD) Son Race: Family Member Ethnicity: Non- Living Status: Still Living Hx Family Neurologic Disorders: Yes Daughter Race: Family Member Ethnicity: Non- Living Status: Still Living Hx Family Cancer: Yes (Breast cancer) Internal Medicine - H&P: Meds Celecoxib [Celebrex] 200 mg PO DAILY 11/02/16 [History] Clopidogrel [Plavix] 75 mg PO DAILY 11/02/16 [History] Nitroglycerin [Nitrostat] 0.4 mg SL Q5M PRN 11/02/16 [History] Gabapentin [Neurontin] 900 mg PO TID 06/07/17 [History] Olanzapine/Fluoxetine HCl [Symbyax 3-25 mg Capsule] 1 each PO HS 06/07/17 [ History] OxyCODONE/APAP 5/325 [Percocet 5/325 MG] 1 tab PO BID PRN 06/07/17 [History] 3 Allergy/AdvReac Type Severity Reaction Status Date / Time carbamazepine [From Tegretol] Allergy Unconscious Verified 06/07/17 14:38 pentazocine [From Talwin] Allergy Seizure Verified 06/07/17 14:38 phenytoin [From Dilantin] Allergy Rash Verified 06/07/17 14:38 All Systems PM: A 10-system review of systems was performed and is negative for pertinent findings except as documented above in the HPI. - Constitutional Constitutional: no chills, no fever(s), no night sweats - EENT Eyes: no change in vision, no discharge, no pain, no photophobia Ears: no ear discharge, no ear pain, no tinnitus Nose, mouth and throat: no dysphagia, no nasal discharge, no neck pain, no sore throat - Breasts Breasts: as per HPI - Cardiovascular Cardiovascular ROS IM: as per HPI, other (Occasional heart flutter) - Respiratory Respiratory: as per HPI, dyspnea (Mild) - Gastrointestinal Gastrointestinal: no abdominal pain, no diarrhea, no hematemesis, no hematochezia, no melena, no nausea, no vomiting - Genitourinary Genitourinary: no change in urinary stream, no dysuria, no flank pain, no hematuria Menstruation: as per HPI, post hysterectomy - Musculoskeletal Musculoskeletal ROS IM: as per HPI, arthralgias, no numbness, no tingling - Integumentary Integumentary IM: as per HPI, skin ulcer (Right heel), no rash, no unusual bruising - Neurological Neurological ROS: no confusion, no convulsions, no focal weakness, no numbness, no tingling, no tremor(s) - Psychiatric Psychiatric: as per HPI - Endocrine Endocrine IM: as per HPI - Hematologic/Lymphatic Hematologic/Lymphatic: no easy bruising - Allergic/Immunologic Allergic/Immunologic: as per HPI, seasonal rhinorrhea - Constitutional Vitals: Temp Pulse Resp BP Pulse Ox 99.4 F 86 18 126/84 96 06/07/17 17:56 06/07/17 17:56 06/07/17 17:56 06/07/17 17:56 06/07/17 17:56 General appearance: Present: cooperative, A&O X 3, pleasant, no acute distress, obese, answers questions appropriately - Head Head exam: Present: atraumatic, normocephalic - Eye Eye exam: Present: PERRL, conjuntiva pink, sclera anicteric Pupils: Present: PERRL - ENT ENT exam: Present: normal exam, normal external ear exam - Neck Neck exam general surgery: Present: normal inspection, supple, trachea midline. Absent: lymphadenopathy - Respiratory Respiratory exam: Present: CTAB. Absent: accessory muscle use, rales, rhonchi, wheezes - Cardiovascular Cardiovascular exam: Present: RRR, +S1, +S2. Absent: diastolic murmur, gallop, rubs, systolic murmur - GI/Abdominal GI/Abdominal exam: Present: normal bowel sounds, soft, no peritoneal signs. Absent: distended, tenderness - Rectal Rectal exam: Present: deferred - Additional comments: exam deferred. - Extremities Exam Extremities exam: Present: pedal edema, radial pulses palpable and symmetrical - Back Exam Back exam: Present: normal inspection - Neurological Exam Neurological exam: Present: CN II-XII intact, oriented X3, no focal deficits. Absent: pronater drift, facial droop, speech deficit - Psychiatric Psychiatric exam: Present: normal affect, normal mood - Skin Skin exam: Present: dry, rash (Right calf) Additional comments: Open skin ulcer of the right heel that is draining and erythematous. Internal Med - H&P Results - Labs CBC & Chem 7: 06/07/17 15:04 06/07/17 15:04 - Diagnostic Studies Other Images Additional comments: Impressions Lower Extremity CT 06/07/17 14:56 IMPRESSION: 1. Soft tissue irregularity along the posterior heel compatible with ulceration. No organized drainable fluid collection identified. No underlying osteolysis or suspicious periosteal reaction identified to suggest osteomyelitis. 2. Severe osteopenia. 3. 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 4. Small tibiotalar and subtalar joint effusions. D/ / Dionisio Persaud MD / Dionisio Persaud MD Interpreting Provider: Dionisio Persaud MD <Fletcher Law - Last Filed: 06/07/17 22:16> Date of Encounter: 06/07/17 Time of Encounter: 20:40 - Constitutional Constitutional: no chills, no fever(s), no night sweats - Cardiovascular Cardiovascular ROS IM: no chest pain, no dyspnea, no edema - Respiratory Respiratory: no cough, no chest congestion - Gastrointestinal Gastrointestinal: no abdominal pain, no diarrhea, no vomiting - Genitourinary Genitourinary: no dysuria, no flank pain - Psychiatric Psychiatric: no anxiety, no depression - Endocrine Endocrine IM: no polydipsia, no polyuria - Constitutional Vitals: Temp Pulse Resp BP Pulse Ox 98.4 F 75 16 145/86 97 06/07/17 19:37 06/07/17 19:37 06/07/17 19:37 06/07/17 19:37 06/07/17 19:37 General appearance: Present: A&O X 3, no acute distress - Eye Eye exam: Present: EOMI, PERRL. Absent: scleral icterus Pupils: Present: normal accommodation - ENT ENT exam: Present: normal exam - Neck Neck exam general surgery: Present: supple - Respiratory Respiratory exam: Present: CTAB. Absent: rales, rhonchi, wheezes - Cardiovascular Cardiovascular exam: Present: RRR, +S1, +S2 - GI/Abdominal GI/Abdominal exam: Present: soft. Absent: hepatomegaly, splenomegaly - Extremities Exam Extremities exam: Present: warm. Absent: calf tenderness Additional comments: right lower extremity dressed and wrapped; ulcer not visualized. Internal Med - H&P Results - Labs CBC & Chem 7: 06/07/17 15:04 06/07/17 15:04 - Attending Attestation I discussed the patient SKAGWAY, PMH, ROS, lab data, and exam findings with Chema Tesfaye CNP. I then saw and examined patient independently as well. Pt overall feels well and has no complaints other than a non-healing heel ulcer as noted above. She has had MRSA in her heel several tmes previously. WOund culture has already been obtained. We are obtaining blood cultures as well, but patient is not septic. Conradonthelss, I agree with blood cultures. ESR is not very elevated and, as such, I do not suspect osteomyelitis. I agree with antibiotic choices and wound consult. Additionally, I recommend outpatient referral to Hematology for hypercoagulability testing given her spontaneous spinal infarction and her son having an ischemic stroke at 42 yo. I suspect there may be a familial hypercoagulable state. Other than my comments above and noted exam findings, I agree with Chema's assessment and plan.
[2017-06-07] MEDS ORDERED: Vancomycin 1,000 MG in D5% in Water 250 ML IVPB SCH (19:22)
[2017-06-07] MEDS ORDERED: *HR* OxyCODONE/APAP 5/325 TABLET PO PRN (20:15)
[2017-06-07] MEDS: Gabapentin 300 MG CAPSULE PO SCH (20:21)
[2017-06-07] MEDS: FLUOXETINE HCL PO SCH (20:48)
[2017-06-07] MEDS: OLANZAPINE PO SCH (20:48)
[2017-06-07] MEDS ORDERED: Ipratropium/Albuterol Neb 3 ML IH PRN (21:02)
[2017-06-07] MEDS: Furosemide 40 MG TABLET PO SCH (22:13)
[2017-06-08] MEDS: *HR* Heparin 5,000 UNIT/ML VIAL SQ SCH ×4 (00:15→23:20)
[2017-06-08 03:44] LABS: Basophils % 0.4 %; Eosinophils # 0.1 K/mcL (0.0-0.6); Eosinophils % 2.8 %; Hematocrit 37.2 % (35.3-44.9); Hemoglobin 11.8 g/dL (11.5-15.4); Immature Granulocytes % 0.2 % (0-4); Lymphocytes # 1.4 K/mcL (0.6-4.6); Lymphocytes % 29.1 %; Mean Corpuscular HGB Conc 31.7 g/dL (31.6-35.5); Mean Corpuscular Hemoglobin 28.6 pg (28.0-33.3); Mean Corpuscular Volume 90.3 fL (83.0-100.0); Mean Platelet Volume 9.4 fL (9.4-12.4); Monocytes # 0.4 K/mcL (0.0-1.3); Monocytes % 8.3 %; Neutrophils # 2.8 K/mcL (1.6-8.9); Platelet Count 230 K/mcL (140-400); Red Blood Count 4.12 M/mcL (3.82-4.97); Red Cell Distribution Width 13.8 % (11.5-14.5); Segmented Neutrophils % 59.2 %
[2017-06-08 03:49] LABS: Prothrombin Time 10.5 Seconds (9.4-12.1)
[2017-06-08 03:51] LABS: Activated Partial Thrombo Time 27.2 Seconds (26.0-36.0)
[2017-06-08 03:59] LABS: Hemoglobin A1C 4.7 %
[2017-06-08 04:01] LABS: BUN/Creatinine Ratio 24 (6-26); Blood Urea Nitrogen 17 mg/dL (7-20); Calcium 9.1 mg/dL (8.6-10.8); Carbon Dioxide 32 mEq/L (19-29); Chloride 103 mEq/L (98-109); Chol/HDL Ratio 6.3 (0-4.9); Cholesterol 214 mg/dL (< 200); Glucose 132 mg/dL (70-99); HDL Cholesterol 34 mg/dL (40-59); LDL Cholesterol,Calculated 115 mg/dL (0-99); Magnesium 1.8 mg/dL (1.6-2.6); Osmolality,Calculated 295 (280-300); Potassium 3.8 mEq/L (3.5-4.5); Sodium 141 mEq/L (136-145); Triglycerides 325 mg/dL (< 150); eGFR For African Americans > 60 (> 60); eGFR For Non-African Americans > 60 (> 60)
[2017-06-08] MEDS: Piperacillin/Tazobactam 3.375 GM in D5% in Water (Mini-Bag+) 100 ML IVPB SCH ×3 (04:09→20:50)
[2017-06-08] MEDS: Pantoprazole 40 MG VIAL IVP SCH (07:54)
[2017-06-08] MEDS: Furosemide 40 MG TABLET PO SCH (07:54)
[2017-06-08] MEDS: Celecoxib 200 MG CAPSULE PO SCH (07:55)
[2017-06-08] MEDS: Gabapentin 300 MG CAPSULE PO SCH ×3 (07:55→20:52)
[2017-06-08] MEDS ORDERED: Aminoglycoside Consult 1 EACH MC ONE (09:20)
--- NOTE | 2017-06-08 16:10 | Internal Med Progress Note ---
Date of Encounter: 06/08/17 Time of Encounter: 16:08 - Assessment and plan (1) Cellulitis Current Visit: Yes Status: Acute Assessment and plan: Due to Rt heel non healing ulcer cont empirical abx improving slowly Qualifiers: Site of cellulitis: extremity Site of cellulitis of extremity: lower extremity Laterality: right Qualified Code(s): L03.115 - Cellulitis of right lower limb (2) Decubitus ulcer of right heel, stage 3 Current Visit: Yes Status: Chronic Assessment and plan: Non healing ulcer sent for wound cx blood cx - no growth so far WBC- wnl no fever Her wound cx from 11/03 growing MSSA so will d.c Vancomycin cont Zosyn for now Wound care nurse requested topical antifungal cream to the skin on the right foot with calcium alginate with silver (CSS-Maxorb AG) to the right heel This heel is to offloaded at all times - so placed on Medline Heelmedix boot. (3) Sacral decubitus ulcer, stage III Current Visit: No Status: Chronic Assessment and plan: cont local wound care as per wound care nurse recommendations (4) Paraplegia Current Visit: Yes Status: Chronic Assessment and plan: cont supportive care (5) DVT prophylaxis Current Visit: Yes Status: Acute (6) CHF (congestive heart failure) Current Visit: Yes Status: Chronic Assessment and plan: not in exacerbation mostly diastolic dysfucntion her 2 D Echo from 04/26/17 showed : Normal LVEF 60-65%. Normal LV chamber size, wall thickness and function. Mild left ventricular diastolic dysfunction Due to her low BP will hold Lasix If BP allows will use low dose Coreg Qualifiers: Congestive heart failure type: unspecified congestive heart failure type Qualified Code(s): I50.9 - Heart failure, unspecified - Subjective Interval history: Mrs. Borja is a 77 year old female who presents from the ED after being sent from the [facility] with a worsening and open ulcer of the right heel. Patient states that the Wound Center placed a cast on the foot and leg to promote healing and when cast was removed today, the ulcer had not healed. Concern was for worsening erythema, drainage, infection. Pt was admitted here and started on empirical abx Zosyn and Vancomycin. Pt denied any fever / chills. No nasuea / vomiting - Constitutional Vitals: Temp Pulse Resp BP Pulse Ox 98.7 F 80 17 90/57 91 08/22/17 14:49 06/08/17 14:49 06/08/17 14:49 06/08/17 14:49 06/08/17 14:49 General appearance: Present: A&O X 3, no acute distress - Head Head exam: Present: atraumatic, normal inspection - Respiratory Respiratory exam: Present: decreased breath sounds, wheezes. Absent: rales, respiratory distress, rhonchi - Cardiovascular Cardiovascular exam: Present: RRR, +S1, +S2. Absent: systolic murmur - GI/Abdominal GI/Abdominal exam: Present: soft. Absent: rebound, rigid, splenomegaly, tenderness - Extremities Exam Extremities exam: Present: pedal edema (trace). Absent: calf tenderness, tenderness Additional comments: stage 3 pressure ulcer over Rt heel - Neurological Exam Neurological exam: Present: alert, oriented X3 Additional comments: chronic paraplegia - Psychiatric Psychiatric exam: Present: normal affect, normal mood Internal Medicine: Result - Labs CBC & Chem 7: 06/08/17 03:33 06/08/17 03:33 Labs: Short CBC 06/08/17 Range/Units 03:33 WBC 4.7 (4.3-11.1) K/mcL Hgb 11.8 (11.5-15.4) g/dL Hct 37.2 (35.3-44.9) % Plt Count 230 (140-400) K/mcL Neutrophils # 2.8 (1.6-8.9) K/mcL BMP 06/08/17 03:33 Sodium 141 Potassium 3.8 Chloride 103 Carbon Dioxide 32 H BUN 17 Creatinine 0.72 Glucose 132 H Calcium 9.1 - ABG Interpretation ABG results: PT/INR, D-dimer PT 10.5 Seconds (9.4-12.1) 06/08/17 03:33 Consult Discharge Plan - Plan Referrals: Royer Pelaez DO [Primary Care Provider] -
[2017-06-08] MEDS: Miconazole 2% cream 118 GM TUBE TP SCH (17:11)
[2017-06-08] MEDS: Clotrimazole 1% CRM 15 GM TUBE TP SCH ×2 (17:21→20:52)
--- NOTE | 2017-06-08 18:35 | Electrocardiograph Report ---
[address] [place] [address] Test Date: 2017-06-07 Pat Name: Jasmin Borja Department: 113 Room: 3B24 Gender: F [place] Department Manager: : 1940 Requested By: Herbert Van Order Number: [id number] Reading MD: Ava Plascencia Measurements Intervals [place] Rate: 74 P: 67 FL: 156 QRS: 28 QRSD: 90 T: 48 QT: 384 QTc: 412 Interpretive Statements SINUS RHYTHM SEPTAL MYOCARDIAL INFARCTION, OF INDETERMINATE AGE Electronically Signed On 06-08-2017 18:33:26 EDT by Ava Plascencia
[2017-06-08] MEDS: Cetirizine HCl 5 MG/5 ML UDC PO SCH (20:51)
[2017-06-08] MEDS: FLUOXETINE HCL PO SCH (22:05)
[2017-06-08] MEDS: OLANZAPINE PO SCH (22:05)
[2017-06-09] MEDS: Piperacillin/Tazobactam 3.375 GM in D5% in Water (Mini-Bag+) 100 ML IVPB SCH ×2 (03:54→14:14)
[2017-06-09 05:17] LABS: Basophils % 0.4 %; Eosinophils # 0.2 K/mcL (0.0-0.6); Eosinophils % 3.5 %; Hematocrit 38.7 % (35.3-44.9); Hemoglobin 12.3 g/dL (11.5-15.4); Immature Granulocytes % 0.2 % (0-4); Lymphocytes # 1.8 K/mcL (0.6-4.6); Lymphocytes % 34.7 %; Mean Corpuscular HGB Conc 31.8 g/dL (31.6-35.5); Mean Corpuscular Volume 91.3 fL (83.0-100.0); Mean Platelet Volume 9.7 fL (9.4-12.4); Monocytes # 0.3 K/mcL (0.0-1.3); Monocytes % 6.6 %; Neutrophils # 2.8 K/mcL (1.6-8.9); Platelet Count 238 K/mcL (140-400); Red Blood Count 4.24 M/mcL (3.82-4.97); Red Cell Distribution Width 13.7 % (11.5-14.5); Segmented Neutrophils % 54.6 %
[2017-06-09 05:26] LABS: BUN/Creatinine Ratio 23 (6-26); Blood Urea Nitrogen 16 mg/dL (7-20); Carbon Dioxide 30 mEq/L (19-29); Chloride 102 mEq/L (98-109); Glucose 115 mg/dL (70-99); Magnesium 1.9 mg/dL (1.6-2.6); Osmolality,Calculated 296 (280-300); Potassium 3.7 mEq/L (3.5-4.5); Sodium 142 mEq/L (136-145); eGFR For African Americans > 60 (> 60); eGFR For Non-African Americans > 60 (> 60)
[2017-06-09] MEDS: *HR* Heparin 5,000 UNIT/ML VIAL SQ SCH ×3 (09:15→23:35)
[2017-06-09] MEDS: Celecoxib 200 MG CAPSULE PO SCH (09:15)
[2017-06-09] MEDS: Gabapentin 300 MG CAPSULE PO SCH ×3 (09:15→20:56)
[2017-06-09] MEDS: Pantoprazole 40 MG VIAL IVP SCH ×2 (09:15→09:35)
[2017-06-09] MEDS: Miconazole 2% cream 118 GM TUBE TP SCH (09:16)
[2017-06-09] MEDS: Clotrimazole 1% CRM 15 GM TUBE TP SCH ×2 (09:16→22:22)
[2017-06-09] MEDS ORDERED: Ondansetron ODT 4 MG TAB.RAPDIS SL PRN (09:33)
--- NOTE | 2017-06-09 15:01 | Internal Med Progress Note ---
Date of Encounter: 06/09/17 Time of Encounter: 14:59 - Assessment and plan (1) Cellulitis Current Visit: Yes Status: Acute Assessment and plan: Due to Rt heel non healing ulcer Improving switched to PO abx today - Cipro 500mg BID Qualifiers: Site of cellulitis: extremity Site of cellulitis of extremity: lower extremity Laterality: right Qualified Code(s): L03.115 - Cellulitis of right lower limb (2) Decubitus ulcer of right heel, stage 3 Current Visit: Yes Status: Chronic Assessment and plan: Non healing ulcer So far wound cx - no growth blood cx - no growth so far WBC- wnl no fever Her wound cx from 11/03 growing MSSA changed abx to PO Cipro Wound care nurse requested topical antifungal cream to the skin on the right foot with calcium alginate with silver (CSS-Maxorb AG) to the right heel This heel is to offloaded at all times - so placed on Medline Heelmedix boot. (3) Sacral decubitus ulcer, stage III Current Visit: No Status: Chronic Assessment and plan: cont local wound care as per wound care nurse recommendations (4) Paraplegia Current Visit: Yes Status: Chronic Assessment and plan: cont supportive care (5) CHF (congestive heart failure) Current Visit: Yes Status: Chronic Assessment and plan: not in exacerbation mostly diastolic dysfucntion her 2 D Echo from 04/26/17 showed : Normal LVEF 60-65%. Normal LV chamber size, wall thickness and function. Mild left ventricular diastolic dysfunction Due to her low BP will hold Lasix If BP allows will use low dose Coreg Qualifiers: Congestive heart failure type: unspecified congestive heart failure type Qualified Code(s): I50.9 - Heart failure, unspecified (6) Sacral decubitus ulcer Current Visit: Yes Status: Chronic Assessment and plan: chronic ulcer.. healing cont local wound care with dressing change daily Qualifiers: Pressure ulcer stage: stage 3 Qualified Code(s): L89.153 - Pressure ulcer of sacral region, stage 3 (7) Physical deconditioning Current Visit: Yes Status: Acute Assessment and plan: PT / OT eval done recommend for in pt PT / OT SW / CM working on d/c plan (8) DVT prophylaxis Current Visit: Yes Status: Acute - Subjective Interval history: Mrs. Borja is a 77 year old female who presents from the ED after being sent from the [facility] with a worsening and open ulcer of the right heel. Patient states that the Wound Center placed a cast on the foot and leg to promote healing and when cast was removed today, the ulcer had not healed. Concern was for worsening erythema, drainage, infection. Pt was admitted here and started on empirical abx Zosyn and Vancomycin. Pt denied any fever / chills. No nasuea / vomiting. No events over night - Constitutional Vitals: Temp Pulse Resp BP Pulse Ox 97.7 F 93 18 116/70 96 06/09/17 07:22 06/09/17 07:22 06/09/17 07:22 06/09/17 07:22 06/09/17 07:22 General appearance: Present: A&O X 3, no acute distress - Head Head exam: Present: atraumatic, normal inspection - Respiratory Respiratory exam: Present: decreased breath sounds, wheezes. Absent: rales, respiratory distress, rhonchi - Cardiovascular Cardiovascular exam: Present: RRR, +S1, +S2. Absent: systolic murmur - GI/Abdominal GI/Abdominal exam: Present: soft. Absent: rebound, rigid, tenderness - Extremities Exam Extremities exam: Present: pedal edema. Absent: calf tenderness, tenderness Additional comments: Improving erythema and swelling over Rt heel noticed. - Back Exam Additional comments: 0.5 cm size tunnel like pressure ulcer noticed over sacral region. - Neurological Exam Additional comments: chronic paraplegia - Psychiatric Psychiatric exam: Present: normal affect, normal mood Internal Medicine: Result - Labs CBC & Chem 7: 06/09/17 04:05 06/09/17 04:05 Labs: Short CBC 06/09/17 Range/Units 04:05 WBC 5.2 (4.3-11.1) K/mcL Hgb 12.3 (11.5-15.4) g/dL Hct 38.7 (35.3-44.9) % Plt Count 238 (140-400) K/mcL Neutrophils # 2.8 (1.6-8.9) K/mcL BMP 06/09/17 04:05 Sodium 142 Potassium 3.7 Chloride 102 Carbon Dioxide 30 H BUN 16 Creatinine 0.70 Glucose 115 H Calcium 9.0 - ABG Interpretation ABG results: PT/INR, D-dimer PT 10.5 Seconds (9.4-12.1) 06/08/17 03:33 Consult Discharge Plan - Plan Referrals: Royer Pelaez DO [Primary Care Provider] -
[2017-06-09] MEDS: Cetirizine HCl 5 MG/5 ML UDC PO SCH (20:56)
[2017-06-09] MEDS: FLUOXETINE HCL PO SCH (22:22)
[2017-06-09] MEDS: OLANZAPINE PO SCH (22:22)
[2017-06-09] MEDS ORDERED: Preparation H Ointment 30 GM TUBE RC PRN (22:31)
[2017-06-09] MEDS ORDERED: Hydrocortisone Rectal 2.5% CRM 28 GM TUBE RC PRN (23:51)
[2017-06-10] MEDS: Celecoxib 200 MG CAPSULE PO SCH (09:42)
[2017-06-10] MEDS: *HR* Heparin 5,000 UNIT/ML VIAL SQ SCH (09:42)
[2017-06-10] MEDS: Pantoprazole 40 MG VIAL IVP SCH (09:42)
[2017-06-10] MEDS: Gabapentin 300 MG CAPSULE PO SCH (09:42)
--- NOTE | 2017-06-10 11:30 | Discharge Summary ---
Date of Encounter: 06/10/17 Time of Encounter: 11:27 - Discharge Diagnosis (1) Cellulitis Priority: Primary Status: Acute Qualifiers: Site of cellulitis: extremity Site of cellulitis of extremity: lower extremity Laterality: right Qualified Code(s): L03.115 - Cellulitis of right lower limb (2) Decubitus ulcer of right heel, stage 3 Priority: Primary Status: Chronic (3) Sacral decubitus ulcer, stage III Priority: Secondary Status: Chronic (4) Paraplegia Priority: Secondary Status: Chronic (5) CHF (congestive heart failure) Priority: Secondary Status: Chronic Qualifiers: Congestive heart failure type: unspecified congestive heart failure type Qualified Code(s): I50.9 - Heart failure, unspecified (6) Sacral decubitus ulcer Priority: Secondary Status: Chronic Qualifiers: Pressure ulcer stage: stage 3 Qualified Code(s): L89.153 - Pressure ulcer of sacral region, stage 3 (7) Physical deconditioning Priority: Secondary Status: Acute - Discharge Medications Prescriptions: OxyCODONE/APAP 5/325 [Percocet 5/325 MG] 1 tab PO BID PRN #10 PRN Reason: Pain Home Medications: Celecoxib [Celebrex] 200 mg PO DAILY 11/02/16 [History] Clopidogrel [Plavix] 75 mg PO DAILY 11/02/16 [History] Nitroglycerin [Nitrostat] 0.4 mg SL Q5M PRN 11/02/16 [History] Gabapentin [Neurontin] 900 mg PO TID 06/07/17 [History] Olanzapine/Fluoxetine HCl [Symbyax 3-25 mg Capsule] 1 each PO HS 06/07/17 [ History] Atorvastatin [Lipitor] 20 mg PO HS tab 06/10/17 [Rx] Ciprofloxacin [Cipro] 500 mg PO BID 5 Days 06/10/17 [Rx] Clotrimazole 1% CRM [Lotrimin 1%] 1 appl TP BID 06/10/17 [Rx] Furosemide [Lasix] 20 mg PO DAILY #7 tablet 06/10/17 [Rx] Ondansetron ODT [Zofran ODT] 4 mg SL Q6HR PRN 06/10/17 [Rx] OxyCODONE/APAP 5/325 [Percocet 5/325 MG] 1 tab PO BID PRN #10 06/10/17 [Rx] Allergies/Adverse Reactions: 3 Allergy/AdvReac Type Severity Reaction Status Date / Time carbamazepine [From Tegretol] Allergy Unconscious Verified 06/07/17 14:38 pentazocine [From Talwin] Allergy Seizure Verified 06/07/17 14:38 phenytoin [From Dilantin] Allergy Rash Verified 06/07/17 14:38 Procedures/tests Complete & Pending: Procedures Performed prior 72 hours Category Date Time Status ECG 12 lead ECG [ECG] Routine Y 06/07/17 20:01 Completed Date of admission: 06/07/17 18:31 Primary care physician: Royer Pelaez DO Consults: 06/07/17 18:43 Consult to Wound Care [CONS] Routine Reason for Consult: Patient presents with open wound of the right heel which she reports has tested positive for MRSA previously. Patient is followed by the [facility]. Call Completed: No 06/08/17 18:21 Consult to Occupational Therapy [CONS] Routine Comment: Evaluate, develop and implement POC Reason for Consult: Possible inpatient rehab Consult to Physical Therapy [CONS] Routine Comment: Evaluate, develop and implement POC Reason for Consult: Possible inpatient rehab 06/08/17 18:44 Consult to Retail Seasonal Specialist [CONS] Routine Reason for SW Consult: Pt wants to go to inpatient rehab - Patient Status Disposition: Transfer SNF Condition: Good Overall status at discharge: patient is back to baseline - Discharge Instructions Follow Up With: Royer Pelaez DO [Primary Care Provider] - - Diet and Activity Activity: as per physical therapy Diet: low salt diet Hospital course: Mrs. Borja is a 77 year old female who presents from the ED after being sent from the [facility] with a worsening and open ulcer of the right heel. Patient states that the Wound Center placed a cast on the foot and leg to promote healing and when cast was removed today, the ulcer had not healed. Concern was for worsening erythema, drainage, infection. Pt was admitted here and started on empirical abx Zosyn and Vancomycin. Her WBC remained WNL, she remained afebrile and her wound cx did not grow any bacteria. Also her wound looks lot better. So I changed her abx to PO Ciprofloxacin fro 5 more days. She was seen by wound care nurse who recommend topical antifungal cream to the skin on the right foot with calcium alginate with silver (CSS- Maxorb AG) to the right heel and the heel has to offloaded at all times - so placed on Medline Heelmedix boot. She was seen by PT / OT for her deconditioning , who recommend ECF for PT / OT. So will d/c her to ECF in stable condition. - Time Spent with Patient Total time spent providing and/or coordinating discharge services: - Constitutional Vitals: Temp Pulse Resp BP Pulse Ox 97.8 F 82 16 96/55 93 06/10/17 07:18 06/10/17 07:18 06/10/17 07:18 06/10/17 07:18 06/10/17 07:18 General appearance: Present: A&O X 3, no acute distress - Head Head exam: Present: atraumatic, normal inspection - Respiratory Respiratory exam: Present: decreased breath sounds, wheezes. Absent: rales, respiratory distress, rhonchi - GI/Abdominal GI/Abdominal exam: Present: normal bowel sounds, soft. Absent: rebound, rigid, tenderness - Extremities Exam Extremities exam: Present: pedal edema. Absent: calf tenderness, tenderness Additional comments: Improving erythema and swelling over Rt heel noticed - Back Exam Additional comments: 0.5 cm size tunnel like pressure ulcer noticed over sacral region. - Neurological Exam Neurological exam: Present: alert, oriented X3 Additional comments: chronic paraplegia - Psychiatric Psychiatric exam: Present: normal affect, normal mood
--- NOTE | 2017-06-10 11:36 | Physician Discharge Referral ---
ExtendedCare Referral Info Transfer To: ECF Provider in Charge after Transfer: PCP Institutional Level of Care: Skilled - Diagnosis (1) Cellulitis Status: Acute (2) Decubitus ulcer of right heel, stage 3 Status: Chronic (3) Sacral decubitus ulcer, stage III Status: Chronic (4) Paraplegia Status: Chronic (5) CHF (congestive heart failure) Status: Chronic (6) Sacral decubitus ulcer Status: Chronic (7) Physical deconditioning Status: Acute - Transfer Medications Prescriptions: Furosemide [Lasix] 20 mg PO DAILY #7 tablet OxyCODONE/APAP 5/325 [Percocet 5/325 MG] 1 tab PO BID PRN #10 PRN Reason: Pain Home Medications: Celecoxib [Celebrex] 200 mg PO DAILY 11/02/16 [History] Clopidogrel [Plavix] 75 mg PO DAILY 11/02/16 [History] Nitroglycerin [Nitrostat] 0.4 mg SL Q5M PRN 11/02/16 [History] Gabapentin [Neurontin] 900 mg PO TID 06/07/17 [History] Olanzapine/Fluoxetine HCl [Symbyax 3-25 mg Capsule] 1 each PO HS 06/07/17 [ History] Atorvastatin [Lipitor] 20 mg PO HS tab 06/10/17 [Rx] Ciprofloxacin [Cipro] 500 mg PO BID 5 Days 06/10/17 [Rx] Clotrimazole 1% CRM [Lotrimin 1%] 1 appl TP BID 06/10/17 [Rx] Furosemide [Lasix] 20 mg PO DAILY #7 tablet 06/10/17 [Rx] Ondansetron ODT [Zofran ODT] 4 mg SL Q6HR PRN 06/10/17 [Rx] OxyCODONE/APAP 5/325 [Percocet 5/325 MG] 1 tab PO BID PRN #10 06/10/17 [Rx] Allergies/Adverse Reactions: 3 Allergy/AdvReac Type Severity Reaction Status Date / Time carbamazepine [From Tegretol] Allergy Unconscious Verified 06/07/17 14:38 pentazocine [From Talwin] Allergy Seizure Verified 06/07/17 14:38 phenytoin [From Dilantin] Allergy Rash Verified 06/07/17 14:38 - Respiratory Orders Smoking Cessation: Smoking cessation has been advised. For more information, call the [place] Tobacco Quit Line at 4-941-USZW-NOW. - Treatments Skin tear care topically daily PRN per policy CERTIFICATION: I certify that the transfer of the above named patient to an Extended Care Facility is necessary for the continuing treatment of the diagnosis listed. The above information is true and accurate reflection of patient's current condition. Confidential - Redisclosure prohibited without a patient's written consent.
[2017-06-10 11:37] VITALS: BP 127/74
== END 2017-06-10 15:16 | DRG 602 ==
LOC: 3BNU 14:37 → EMEROO 14:37 → 3BNU 18:59
PROVIDERS: ADMIT Nurse Practitioner Family; ATTEND Registered Nurse

== ENCOUNTER 2017-07-19 11:58 | Inpatient (IN) ==
--- NOTE | 2017-07-19 12:02 | Emergency Department Note ---
Disposition Clinical Impression: Elevated troponin Pneumonia Qualifiers: Pneumonia type: due to unspecified organism Laterality: left Lung location: upper lobe of lung Qualified Code(s): J18.1 - Lobar pneumonia, unspecified organism Cellulitis Qualifiers: Site of cellulitis: other site Qualified Code(s): L03.818 - Cellulitis of other sites Disposition: Admitted As Inpatient Condition: Good Referrals: NONE,PCP [Primary Care Provider] - Forms: ED Satisfaction Letter Time of Disposition: 13:50 Fever HPI - General Chief Complaint: ED Fever Stated Complaint: fever, possible cellulitis, possible UTI Time Seen by Provider: 07/19/17 12:02 Source: patient Mode of arrival: ambulatory Limitations: no limitations Nursing Notes Reviewed: Yes Vital Signs Reviewed: Yes - History of Present Illness HPI Narrative: Patient is a 77 -year-old female with past medical history of bilateral lower extremity paralysis and 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 She currently resides in a custodial. She says that she has chronic ulcers of bilateral feet that she follows with the wound Center for. She is not currently on any antibiotics. She follows with Dr. Denton every 2 weeks. Last night, she started developing fevers up to 101. She also notes that she has been having a runny nose, cough, mild wheezing. Denies any history of any respiratory problems such as COPD or CHF. [facility], [facility], they noticed that she had redness around her ulcers. She states that this is new for her. They were concerned for cellulitis and sent the patient over for further evaluation and possibly IV antibiotics. Otherwise, the patient denies any chest pain, nausea, vomiting, abdominal pain. She said that she is also concern for UTI as she has had fevers in the past with UTI. She has no sensation with urination so she is unsure if she has dysuria. - Related Data Home Medications Medication Instructions Recorded Confirmed Celecoxib [Celebrex] 200 mg PO DAILY 11/02/16 06/07/17 Clopidogrel [Plavix] 75 mg PO DAILY 11/02/16 06/07/17 Nitroglycerin [Nitrostat] 0.4 mg SL Q5M PRN 11/02/16 06/07/17 Gabapentin [Neurontin] 900 mg PO TID 06/07/17 06/07/17 Olanzapine/Fluoxetine HCl [Symbyax 1 each PO HS 06/07/17 06/07/17 3-25 mg Capsule] Previous Rx's Medication Instructions Recorded Atorvastatin [Lipitor] 20 mg PO HS tab 06/10/17 Ciprofloxacin [Cipro] 500 mg PO BID 5 Days tab 06/10/17 Clotrimazole 1% CRM [Lotrimin 1%] 1 appl TP BID 06/10/17 Furosemide [Lasix] 20 mg PO DAILY #7 tablet 06/10/17 Ondansetron ODT [Zofran ODT] 4 mg SL Q6HR PRN 06/10/17 OxyCODONE/APAP 5/325 [Percocet 1 tab PO BID PRN #10 06/10/17 5/325 MG] Allergies Allergy/AdvReac Type Severity Reaction Status Date / Time carbamazepine [From Tegretol] Allergy Unconscious Verified 06/07/17 14:38 pentazocine [From Talwin] Allergy Seizure Verified 06/07/17 14:38 phenytoin [From Dilantin] Allergy Rash Verified 06/07/17 14:38 All systems ED: reviewed and negative except as stated. Constitutional: Reports: fever Cardiovascular: Denies: chest pain, palpitations Respiratory: Reports: cough, dyspnea, wheezes Gastrointestinal: Denies: abdominal pain, nausea, vomiting, diarrhea Neurological: Reports: other (chronic LE paralysis and numbness from waist down) Fever PMH - Past Medical History Medical history: Reports: arthritis, CHF, CVA, osteoporosis, peripheral artery disease, thyroid disease, other Surgical history: Reports: appendectomy, cholecystectomy, hysterectomy, other Psychiatric history: Reports: no psych history - Social History Smoking Status: Never smoker Alcohol use: Reports: none Drug use: Reports: none Physical Exam - General Limitations: no limitations General appearance: alert, in no apparent distress - Head Head exam: atraumatic, normocephalic, normal inspection - Eye Eye exam: Present: normal appearance, PERRL, EOMI - ENT ENT exam: normal exam, normal oropharynx, mucous membranes moist - Neck Neck exam: Present: normal inspection, full ROM, trachea midline - Respiratory Respiratory exam: Present: wheezes (mild wheeze throughout all lung valerio) - Cardiovascular Cardiovascular exam: Present: normal rhythm, tachycardia, normal heart sounds - Abdominal Exam Abdominal exam: Present: soft, Non-Tender. Absent: tenderness, distention, guarding, rebound, rigidity - Extremities Exam Extremities exam: Present: other (Chronic paralysis of bilateral LE and numbness from waist down; she is soft boots on bilateral ankles. Wound of left plantar surface near the first MTP joint measuring approximately 0.5 cm with surrounding cellulitic changes. Right foot shows ulcer of the heel and ulcer of the lateral malleolus with surrounding cellulitic changes. No active pus drainage at this time.) - Neurological Exam Neurological exam: Present: alert, oriented X3, motor sensory deficit (Chronic paralysis of bilateral LE and numbness from waist down) - Psychiatric Psychiatric exam: Present: normal affect, normal mood - Skin Skin exam: Present: warm, dry, intact, other (see extremity section above) Course Course Narrative: Currently afebrile. Mildly tachycardic. Systolic BP 100. Oxygen 91% on room air. Lung exam shows wheezes throughout, mild. Abdomen soft and benign. Chronic paralysis of bilateral LE and numbness from waist down; she is soft boots on bilateral ankles. Wound of left plantar surface near the first MTP joint measuring approximately 0.5 cm with surrounding cellulitic changes. Right foot shows ulcer of the heel and ulcer of the lateral malleolus with surrounding cellulitic changes. No active pus drainage at this time. We will give the patient 1 L normal saline bolus and duoneb for wheezing, we will also obtain basic blood work, lactic acid, troponin, chest x-ray, urinalysis as patient has concern for UTI as well. We will need to admit the patient for IV antibiotics for cellulitic changes of bilateral leg cherries. With tachycardia , reports of fever, and cellulitic changes of bilateral lower extremities, she would meet criteria for sepsis. We will start IV antibiotics after blood cultures were drawn. 13:14 EKG shows normal sinus rhythm with no acute ST changes. Troponin was elevated at 0.24. Patient is having no active chest pain at this time, no shortness of breath. Patient was given aspirin but will not be started on heparin drip at this time due to no active chest pain or shortness of breath. Chest x-ray showed possible left upper lobe pneumonia noted by radiologist. However, on my review I am not convinced that there is any pneumonia. Patient was started on vancomycin and Rocephin for cellulitis and possible pneumonia. We will admit the patient for elevated troponin, cellulitis of bilateral feet. Vital Signs Temperature 98 F 07/19/17 12:01 Pulse Rate 100 07/19/17 12:01 Respiratory Rate 18 07/19/17 12:01 Blood Pressure 101/60 07/19/17 12:01 O2 Sat by Pulse Oximetry 92 07/19/17 12:01 Temperature 98 F 07/19/17 12:01 Pulse Rate 100 07/19/17 12:01 Respiratory Rate 18 07/19/17 13:07 Blood Pressure 101/60 07/19/17 12:01 O2 Sat by Pulse Oximetry 94 07/19/17 13:07 Oxygen Delivery Oxygen Delivery Room Air Fever - MDM Narrative Medical decision making narrative: EKG shows normal sinus rhythm with no acute ST changes. Troponin was elevated at 0.24. Patient is having no active chest pain at this time, no shortness of breath. Patient was given aspirin but will not be started on heparin drip at this time due to no active chest pain or shortness of breath. Chest x-ray showed possible left upper lobe pneumonia noted by radiologist. However, on my review I am not convinced that there is any pneumonia. Patient was started on vancomycin and Rocephin for cellulitis and possible pneumonia. We will admit the patient for elevated troponin, cellulitis of bilateral feet. - Medical Records Medical records reviewed: Yes I reviewed the patient's medical records. - Lab Data Lab results reviewed: Yes I reviewed the patient's lab results. Result diagrams: 07/19/17 12:15 07/19/17 12:15 Lab Results 07/19/17 07/19/17 07/19/17 Range/Units 12:15 12:15 12:15 WBC 7.0 (4.3-11.1) K/mcL RBC 3.97 (3.82-4.97) M/mcL Hgb 11.7 (11.5-15.4) g/dL Hct 36.5 (35.3-44.9) % MCV 91.9 (83.0-100.0) fL MCH 29.5 (28.0-33.3) pg MCHC 32.1 (31.6-35.5) g/dL RDW 14.5 (11.5-14.5) % Plt Count 315 (140-400) K/mcL MPV 9.2 L (9.4-12.4) fL Immature Gran % 0.4 (0-4) % Seg Neutrophils % 70.4 % Lymphocytes % 20.7 % Monocytes % 6.6 % Eosinophils % 1.6 % Basophils % 0.3 % Neutrophils # 4.9 (1.6-8.9) K/mcL Lymphocytes # 1.4 (0.6-4.6) K/mcL Monocytes # 0.5 (0.0-1.3) K/mcL Eosinophils # 0.1 (0.0-0.6) K/mcL Basophils # 0.0 (0.0-0.2) K/mcL PT 12.3 H (9.4-12.1) Seconds INR 1.1 APTT 27.9 (26.0-36.0) Seconds Sodium 141 (136-145) mEq/L Potassium 3.4 L (3.5-4.5) mEq/L Chloride 105 (98-109) mEq/L Carbon Dioxide 29 (19-29) mEq/L BUN 21 H (7-20) mg/dL Creatinine 0.74 (0.57-1.11) mg/dL Est GFR ( Amer) > 60 (> 60) Est GFR (Non-Af Amer) > 60 (> 60) BUN/Creatinine Ratio 28 H (6-26) Glucose 129 H (70-99) mg/dL Calculated Osmolality 297 (280-300) Lactic Acid (0.5-2.2) mmol/L Calcium 9.1 (8.6-10.8) mg/dL Phosphorus 3.0 (2.3-4.7) mg/dL Magnesium 1.8 (1.6-2.6) mg/dL Total Bilirubin 0.4 (0.2-1.2) mg/dL Direct Bilirubin 0.2 (0.0-0.5) mg/dL Indirect Bilirubin 0.2 (0.0-1.2) mg/dL AST 17 (5-34) Units/L ALT 18 (0-55) Units/L Alkaline Phosphatase 122 (38-126) Units/L Troponin I (0-0.03) ng/mL Serum Total Protein 7.1 (6.0-8.3) g/dL Albumin 2.9 L (3.5-5.0) g/dL Globulin 4.2 H (2.4-3.5) g/dL Albumin/Globulin Ratio 0.7 L (1.1-2.2) 07/19/17 07/19/17 Range/Units 12:15 12:15 WBC (4.3-11.1) K/mcL RBC (3.82-4.97) M/mcL Hgb (11.5-15.4) g/dL Hct (35.3-44.9) % MCV (83.0-100.0) fL MCH (28.0-33.3) pg MCHC (31.6-35.5) g/dL RDW (11.5-14.5) % Plt Count (140-400) K/mcL MPV (9.4-12.4) fL Immature Gran % (0-4) % Seg Neutrophils % % Lymphocytes % % Monocytes % % Eosinophils % % Basophils % % Neutrophils # (1.6-8.9) K/mcL Lymphocytes # (0.6-4.6) K/mcL Monocytes # (0.0-1.3) K/mcL Eosinophils # (0.0-0.6) K/mcL Basophils # (0.0-0.2) K/mcL PT (9.4-12.1) Seconds INR APTT (26.0-36.0) Seconds Sodium (136-145) mEq/L Potassium (3.5-4.5) mEq/L Chloride (98-109) mEq/L Carbon Dioxide (19-29) mEq/L BUN (7-20) mg/dL Creatinine (0.57-1.11) mg/dL Est GFR ( Amer) (> 60) Est GFR (Non-Af Amer) (> 60) BUN/Creatinine Ratio (6-26) Glucose (70-99) mg/dL Calculated Osmolality (280-300) Lactic Acid 1.3 (0.5-2.2) mmol/L Calcium (8.6-10.8) mg/dL Phosphorus (2.3-4.7) mg/dL Magnesium (1.6-2.6) mg/dL Total Bilirubin (0.2-1.2) mg/dL Direct Bilirubin (0.0-0.5) mg/dL Indirect Bilirubin (0.0-1.2) mg/dL AST (5-34) Units/L ALT (0-55) Units/L Alkaline Phosphatase (38-126) Units/L Troponin I 0.24 H* (0-0.03) ng/mL Serum Total Protein (6.0-8.3) g/dL Albumin (3.5-5.0) g/dL Globulin (2.4-3.5) g/dL Albumin/Globulin Ratio (1.1-2.2) - Radiology Data Radiology results reviewed: Yes I reviewed the patient's radiology results. Chest X-Ray 07/19/17 12:03 IMPRESSION: Possible left upper lobe pneumonia D/ / Kameron Wallace MD / Kameron Wallace MD Interpreting Provider: Kameron Wallace MD - EKG Data EKG attestation: Yes I reviewed and interpreted this EKG. EKG results narrative: 07/19/2017 at 13:03. Normal sinus rhythm. Rate 85. IN 152. QRS 83. QTc 421. No acute ST elevation or depression. S.B.A.R. - S.B.A.RNorman Situation: Demographics, MOA Background: Presenting Complaint, Relevant PMH, Meds, & Allergies Assessment: Vital Signs, Course and respsone to treatment, Exam Concerns, Patient/Family Expectation, Pertinant Lab Results Recommendation: Barrier(s) to disposition, Recommendation based on pending studies, treatments, or consults S.B.A.RNorman Report Given to: Azael Colvin Time: 13:48
[2017-07-19] MEDS ORDERED: Ipratropium/Albuterol Neb 3 ML IH ONE (12:04)
[2017-07-19] MEDS ORDERED: 0.9 % Sodium Chloride 1,000 ML IVC ONE ×2 (12:06→13:22)
[2017-07-19 12:35] LABS: Basophils % 0.3 %; Eosinophils # 0.1 K/mcL (0.0-0.6); Eosinophils % 1.6 %; Hematocrit 36.5 % (35.3-44.9); Hemoglobin 11.7 g/dL (11.5-15.4); Immature Granulocytes % 0.4 % (0-4); Lymphocytes # 1.4 K/mcL (0.6-4.6); Lymphocytes % 20.7 %; Mean Corpuscular HGB Conc 32.1 g/dL (31.6-35.5); Mean Corpuscular Hemoglobin 29.5 pg (28.0-33.3); Mean Corpuscular Volume 91.9 fL (83.0-100.0); Mean Platelet Volume 9.2 fL (9.4-12.4); Monocytes # 0.5 K/mcL (0.0-1.3); Monocytes % 6.6 %; Neutrophils # 4.9 K/mcL (1.6-8.9); Platelet Count 315 K/mcL (140-400); Red Blood Count 3.97 M/mcL (3.82-4.97); Red Cell Distribution Width 14.5 % (11.5-14.5); Segmented Neutrophils % 70.4 %
[2017-07-19 12:40] LABS: INR 1.1; Prothrombin Time 12.3 Seconds (9.4-12.1)
[2017-07-19 12:43] LABS: Activated Partial Thrombo Time 27.9 Seconds (26.0-36.0)
[2017-07-19 12:52] LABS: Alanine Aminotransferase 18 Units/L (0-55); Albumin 2.9 g/dL (3.5-5.0); Albumin/Globulin Ratio 0.7 (1.1-2.2); Alkaline Phosphatase 122 Units/L (38-126); Aspartate Amino Transferase 17 Units/L (5-34); BUN/Creatinine Ratio 28 (6-26); Bilirubin,Direct 0.2 mg/dL (0.0-0.5); Bilirubin,Indirect 0.2 mg/dL (0.0-1.2); Bilirubin,Total 0.4 mg/dL (0.2-1.2); Blood Urea Nitrogen 21 mg/dL (7-20); Calcium 9.1 mg/dL (8.6-10.8); Carbon Dioxide 29 mEq/L (19-29); Chloride 105 mEq/L (98-109); Globulin 4.2 g/dL (2.4-3.5); Glucose 129 mg/dL (70-99); Magnesium 1.8 mg/dL (1.6-2.6); Osmolality,Calculated 297 (280-300); Potassium 3.4 mEq/L (3.5-4.5); Sodium 141 mEq/L (136-145); Total Protein 7.1 g/dL (6.0-8.3); eGFR For African Americans > 60 (> 60); eGFR For Non-African Americans > 60 (> 60)
[2017-07-19] MEDS ORDERED: Aspirin 325 MG TABLET PO ONE (12:57)
[2017-07-19] MEDS ORDERED: Vancomycin 1,000 MG in D5% in Water 250 ML IVPB ONE (13:00)
--- NOTE | 2017-07-19 13:07 | Emergency Department Note ---
START Narrative - START START: I examined this patient and my medical decision-making was reviewed with the Resident Physician. I agree with the documented findings, disposition and treatment plan as described except to the extent set forth below. 77-year-old female [facility] foot infection. Patient is currently paralyzed from the waist down secondary to a spinal stroke. She admits to increasing cough with increased green sputum production for the past few days as well. She denies any true shortness of breath or any chest pain. No abdominal pain. Plan at this time is to admit for the left foot cellulitis. We will start her on IV antibiotics. Patient will need to be observed for any developing pneumonia as well. Her chest x-ray showed a possible left upper lobe pneumonia per radiology.
[2017-07-19 13:44] LABS: Bilirubin,Urine Negative (Negative); Blood,Urine Large (Negative); Clarity,Urine Turbid (Clear); Color,Urine Yellow (Yellow); Glucose,Urine (UA) Normal (Normal); Ketones,Urine Negative (Negative); Leukocyte Esterase,Urine Large (Negative); Nitrite,Urine Positive (Negative); PH,Urine 5.5 pH Units (5.0-8.0); Protein,Urine 30 mg/dL (Neg-Trace); Specific Gravity,Urine 1.014 (1.010-1.025); Urobilinogen,Urine Normal (Normal)
[2017-07-19 13:47] LABS: Hyaline Casts,Urine None Seen per lpf (None-Few); Squamous Epithelial Cell,Urine Many per lpf (None-Few); WBC,Urine TNTC per hpf (0-3)
[2017-07-19 13:57] LABS: Bacteria,Urine Many per hpf (None-Few)
[2017-07-19 13:58] LABS: RBC,Urine 50-100 per hpf (0-3)
[2017-07-19] MEDS ORDERED: Acetaminophen 325 MG TABLET PO PRN (16:06)
[2017-07-19] MEDS ORDERED: Naloxone 0.4 MG/ML INJ IVP PRN (16:06)
[2017-07-19] MEDS ORDERED: *HR* HYDROcodone/Acet 5/325 mg TABLET PO PRN (16:06)
[2017-07-19] MEDS ORDERED: *HR* Morphine 2 MG/ML SYRINGE IVP PRN (16:06)
[2017-07-19] MEDS ORDERED: D5% in Water 1,000 ML IVC PRN (16:17)
[2017-07-19] MEDS ORDERED: Dextrose Gel 15 GM PO PRN ×2 (16:17)
[2017-07-19] MEDS ORDERED: *HR* Dextrose 50 % in Water (Syg) 50 ML SYRINGE IVP PRN (16:17)
[2017-07-19] MEDS ORDERED: ALPRAZolam 0.25 MG TABLET PO PRN (16:19)
[2017-07-19] MEDS ORDERED: Nitroglycerin 0.4 MG TAB.SUBL SL PRN (16:19)
--- NOTE | 2017-07-19 16:46 | Internal Med History&Physical ---
<Herbert Van - Last Filed: 07/19/17 19:04> Date of Encounter: 07/19/17 Time of Encounter: 15:30 Assessment and Plan (1) Pneumonia Current visit: Yes Status: Acute Patient presents with acute SOB and fever of 101F last night. Currently afebrile. Patient also reports cough with green sputum production. Patient has been living at SNF for rehabilitation for the past few weeks. 1-View CXR today shows possible left upper lobe pneumonia. On exam, patient has bilateral wheezes present in all lobes and appears mildly SOB. IV ceftriaxone and vancomycin with pharmacy dosing ordered for infection coverage. Supplemental O2 with titration if SPO2 less than 92% and continuous SPO2 monitoring. DuoNebs every 4 scheduled. Tessalon 100 mg TID for cough. Blood cultures 2, urine culture, and sputum culture ordered. Legionella and strep pneumoniae urine cultures ordered. Patient does not currently meet sepsis criteria but will be monitored closely for signs of increasing infection, cardiac, and/or respiratory distress. Monitor follow-up labs. Will adjust abx coverage based on culture and sensitivity results. Qualifiers: Pneumonia type: due to unspecified organism Laterality: left Lung location: upper lobe of lung Qualified Code(s): J18.1 - Lobar pneumonia, unspecified organism (2) UTI (urinary tract infection) Current visit: Yes Status: Acute Initial U/A indicative for culture today. Patient's urine is cloudy and no visible hematuria noted. Urine culture ordered. IV ceftriaxone and vancomycin with pharmacy dosing ordered for infection coverage. Qualifiers: Urinary tract infection type: site unspecified Hematuria presence: without hematuria Qualified Code(s): N39.0 - Urinary tract infection, site not specified (3) Cellulitis Current visit: Yes Status: Acute Patient presents with suspected cellulitis of the BLEs. Patient has open skin ulcer of the right heel approximately 4 cm in diameter that is erythematous and edematous and discharging small amount of serosanguineous fluid. Right foot is edematous and erythematous at the inside of foot at the great toe area. There is center area that is dark and approximately 1 cm which may be opened for culture. Patient reports hx of MRSA in wounds. CT of the left and right foot ordered to assess for fluid/abscess. IV ceftriaxone and vancomycin to be administered for infection control. Wound Care consult and daily wound care ordered. Qualifiers: Site of cellulitis: other site Qualified Code(s): L03.818 - Cellulitis of other sites (4) Elevated troponin Current visit: Yes Status: Acute Patient has hx of acute on chronic elevated troponin level. Initial troponin today is 0.24 which is most likely reactive due to current pneumonia and suspected UTI. Troponin levels ranged from 0.11 to 0.16 in 10/2016. Patient denies any CP or cardiac symptoms. EKG today shows sinus rhythm with low QRS voltage in precordial leads and septal myocardial infarction, probably old. Will trend troponins x2. Continuous cardiac telemetry. Continue aspirin, HTN, and HLD medications. (5) Hypokalemia Current visit: Yes Status: Acute Patient presents with mildly acute hypokalemia with potassium level of 3.4. 20 mEq of PO potassium ordered ONCE. Monitor potassium level through follow-up labs. (6) Hyperglycemia Current visit: Yes Status: Acute Patient presents with BG of 129 on admission. Patient denies hx of diabetes. BG checks Q6. Low-dose correction sliding scale insulin ordered with hypoglycemia protocol. A1c ordered in a.m. labs. (7) CHF (congestive heart failure) Current visit: Yes Status: Chronic Hx of chronic CHF which is currently stable. Will hold patient's PO lasix and add 20 mg IVP lasix daily to address current pedal edema. 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 Patient followed by Wound Care who will continue to monitor. Qualifiers: Pressure ulcer stage: stage 3 Qualified Code(s): L89.153 - Pressure ulcer of sacral region, stage 3 (9) Thyroid disease Current visit: Yes Status: Chronic Hx of chronic thyroid disease. Patient reports her Synthroid was discontinued during last admission due to TSH normal level. TSH and free T4 ordered. Will consider adding Synthroid if TSH level is abnormal. (10) DVT prophylaxis Current visit: Yes Status: Acute Heparin 5,000 units SQ Q8 for DVT prophylaxis. Monitor patient for signs of unusual bleeding. Internal Medicine - H&P: HPI Chief complaint: Fever/SOB/Cough/Painful sores on bilateral LEs Admitted From: Emergency Dept Plans for Post Hospital Care: Home History of present illness: Ms. 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 Patient reports she has been at [facility] receiving physical therapy when she started to feel poorly over the past several days and developed a fever last night of 101F. Patient was found to have troponin of 0.24 on admission. Patient has hx of elevated troponin. She denies chest pain or palpitations. Patient reports chronic skin ulcers of the bilateral feet and that she has a hx of MRSA in her wounds. Patient reports SOB, cough, fever, and chronic skin ulcers of the BLEs but denies chest pain, recent illness, nausea, vomiting, recent use of abx, diarrhea, constipation, abdominal pain, unusual bleeding, dizziness, lightheadedness, pre-syncope, and syncope. On admission, patient's vital signs include temperature of 98F, heart rate of 100 bpm, respiratory rate of 18, BP of 101/60, and SPO2 92% on room air. Abnormal labs include PT of 12.3 , potassium 3.4, BUN of 21, glucose of 129. Lactic acid was 1.3 and troponin 0.24. 1-View CXR today shows possible left upper lobe pneumonia. EKG today shows sinus rhythm with low QRS voltage in precordial leads and septal myocardial infarction probably old. Pain assessment, patient is alert and oriented 3 and denies any acute discomfort at this time. Heart rate is RRR and patient has bilateral wheezes in all lobes on auscultation. Patient is mildly SOB on examination. Patient has open skin ulcer of the right heel approximately 4 cm in diameter that is erythematous and edematous and discharging small amount of serosanguineous fluid. Right foot is edematous and erythematous at the inside of foot at the great toe area. There is center area that is dark and approximately 1 cm which may be opened for culture. Patient also has sacral skin ulcer that is being monitored by wound care. Patient is hemodynamically stable and reporting only mild SOB. Information taken from patient, chart review, and previous medical records. Ms. Borja is at high risk for further morbidity based on current symptoms of pneumonia, cellulitis of bilateral LEs, risk factors, and history and will be placed as inpatient status. Time spent with patient >40 minutes. Past Med Surg Social Fam HX - Past Medical History Source: patient, old records reviewed Medical history: arthritis, CHF, osteoporosis, peripheral artery disease, thyroid disease, other Psychiatric history: no psych history - Past Surgical History Surgical History: appendectomy, cholecystectomy, hysterectomy (Total), other - Social History Smoking Status: Never smoker Smokeless Tobacco Status: No Alcohol use: none Drug use: none Current living situation: Assisted Living Activity Level: Wheelchair bound Recent Out of Country Travel Within the Last 8 Weeks: No Exposure or Possible Exposure to Illness During Travel: No - Family History Mother Race: Family Member Ethnicity: Non- Living Status: Age at : 70 Cause of : HD Hx Family Cardiac Disorders: Yes (HD, HTN) Father Race: Family Member Ethnicity: Non- Living Status: Age at : 68 Cause of : Cerebral hemorrhage Hx Family Cardiac Disorders: Yes (HD, HTN) Brother Family Member Ethnicity: Non- Living Status: Age at : 75 Cause of : CHF Hx Family Cardiac Disorders: Yes (CHF, HD, Heart failure) Sister Race: Family Member Ethnicity: Non- Living Status: Age at : 68 Hx Family Cardiac Disorders: Yes (CAD, stroke) Hx Family Respiratory Disorders: Yes (Emphysema) Son Race: Family Member Ethnicity: Non- Living Status: Still Living Hx Family Cardiac Disorders: No Hx Family Respiratory Disorders: No Hx Family Cancer: No Hx Family GI Disorders: No Hx Family Endocrine Disorder: No Hx Family Neuromuscular Disorders: No Hx Family HEENT Disorders: No Hx Family Autoimmune Disorders: No Hx Family Medical Disorders: No Daughter Race: Family Member Ethnicity: Non- Living Status: Still Living Hx Family Cardiac Disorders: No Hx Family Respiratory Disorders: No Hx Family Cancer: Yes (Breast) Hx Family GI Disorders: No Hx Family Endocrine Disorder: No Hx Family Neuromuscular Disorders: No Hx Family Neurologic Disorders: No Hx Family HEENT Disorders: No Hx Family Autoimmune Disorders: No Internal Medicine - H&P: Meds Celecoxib [Celebrex] 200 mg PO DAILY 11/02/16 [History] Clopidogrel [Plavix] 75 mg PO DAILY 11/02/16 [History] Nitroglycerin [Nitrostat] 0.4 mg SL Q5M PRN 11/02/16 [History] Gabapentin [Neurontin] 900 mg PO TID 06/07/17 [History] Olanzapine/Fluoxetine HCl [Symbyax 3-25 mg Capsule] 1 each PO HS 06/07/17 [ History] Atorvastatin [Lipitor] 20 mg PO HS tab 06/10/17 [Rx] Furosemide [Lasix] 20 mg PO DAILY #7 tablet 06/10/17 [Rx] Ondansetron ODT [Zofran ODT] 4 mg SL Q6HR PRN 06/10/17 [Rx] OxyCODONE/APAP 5/325 [Percocet 5/325 MG] 1 tab PO BID PRN #10 06/10/17 [Rx] ALPRAZolam [Xanax 0.25 MG Tablet] 0.25 mg PO TID PRN 07/19/17 [History] 3 Allergy/AdvReac Type Severity Reaction Status Date / Time carbamazepine [From Tegretol] Allergy Unconscious Verified 06/07/17 14:38 pentazocine [From Talwin] Allergy Seizure Verified 06/07/17 14:38 phenytoin [From Dilantin] Allergy Rash Verified 06/07/17 14:38 All Systems PM: A 10-system review of systems was performed and is negative for pertinent findings except as documented above in the HPI. - Constitutional Constitutional: as per HPI, fever(s), no chills, no night sweats - EENT Eyes: no change in vision, no discharge, no pain, no photophobia Ears: no ear discharge, no ear pain, no tinnitus Nose, mouth and throat: no dysphagia, no nasal discharge, no neck pain, no sore throat - Breasts Breasts: as per HPI - Cardiovascular Cardiovascular ROS IM: as per HPI, dyspnea, dyspnea on exertion, no chest pain, no diaphoresis, no lightheadedness, no palpitations, no syncope - Respiratory Respiratory: as per HPI, cough, dyspnea, dyspnea on exertion, wheezing, change in phlegm color (Greenish color) - Gastrointestinal Gastrointestinal: no abdominal pain, no diarrhea, no hematemesis, no hematochezia, no melena, no nausea, no vomiting - Genitourinary Genitourinary: no change in urinary stream, no dysuria, no flank pain, no hematuria Menstruation: as per HPI, post hysterectomy - Musculoskeletal Musculoskeletal ROS IM: no numbness, no tingling - Integumentary Integumentary IM: sores (Bilateral feet), no rash, no unusual bruising - Neurological Neurological ROS: no confusion, no convulsions, no focal weakness, no numbness, no tingling, no tremor(s) - Psychiatric Psychiatric: as per HPI - Endocrine Endocrine IM: as per HPI - Hematologic/Lymphatic Hematologic/Lymphatic: no easy bruising - Allergic/Immunologic Allergic/Immunologic: as per HPI - Constitutional Vitals: Temp Pulse Resp BP Pulse Ox 97.6 F 85 16 131/79 97 07/19/17 15:52 07/19/17 15:52 07/19/17 15:52 07/19/17 15:52 07/19/17 15:52 General appearance: Present: cooperative, mild distress, A&O X 3, pleasant, obese, answers questions appropriately - Head Head exam: Present: atraumatic, normocephalic - Eye Eye exam: Present: PERRL, conjuntiva pink, sclera anicteric Pupils: Present: PERRL - ENT ENT exam: Present: normal exam, normal external ear exam - Neck Neck exam general surgery: Present: normal inspection, supple, trachea midline - Respiratory Respiratory exam: Present: wheezes (Bilaterally all lobes) - Cardiovascular Cardiovascular exam: Present: RRR, +S1, +S2. Absent: diastolic murmur, gallop, rubs, systolic murmur - GI/Abdominal GI/Abdominal exam: Present: normal bowel sounds, soft, no peritoneal signs. Absent: distended, tenderness - Rectal Rectal exam: Present: deferred - Additional comments: exam deferred. - Extremities Exam Extremities exam: Present: pedal edema, warm, radial pulses palpable and symmetrical - Back Exam Back exam: Present: normal inspection - Neurological Exam Neurological exam: Present: CN II-XII intact, oriented X3, no focal deficits. Absent: pronater drift, facial droop, speech deficit - Psychiatric Psychiatric exam: Present: normal affect, normal mood - Skin Skin exam: Present: dry Additional comments: Bilateral skin ulcers on LEs (right heel and left inner foot near great toe). Internal Med - H&P Results - Labs CBC & Chem 7: 07/19/17 12:15 07/19/17 12:15 - EKG Data EKG shows normal: sinus rhythm - EKG Data Prior EKG available for review: no Interpretation IM: suggestive of ischemia EKG comments: 07/19/17 16:55 EKG dated 07/19/17 shows sinus rhythm with low QRS voltage in precordial leads and septal myocardial infarction, probably old. - Diagnostic Studies Chest x-ray Additional comments: Impressions Chest X-Ray 07/19/17 12:03 IMPRESSION: Possible left upper lobe pneumonia D/ / Kameron Wallace MD / Kameron Wallace MD Interpreting Provider: Kameron Wallace MD <Yunior Sierra - Last Filed: 07/19/17 20:08> Date of Encounter: 07/19/17 Internal Medicine - H&P: HPI History of present illness: Ms. Borja is a 77 year old female All Systems PM: A 10-system review of systems was performed and is negative for pertinent findings except as documented above in the HPI. - Constitutional Vitals: Temp Pulse Resp BP Pulse Ox 97.9 F 87 17 119/74 95 07/19/17 19:45 07/19/17 19:45 07/19/17 20:00 07/19/17 19:45 07/19/17 20:04 Internal Med - H&P Results - Labs CBC & Chem 7: 07/19/17 12:15 07/19/17 12:15 Labs: Cardiac Enzymes 07/19/17 Range/Units 17:47 Troponin I 0.21 H* (0-0.03) ng/mL - Impressions ITS Impressions Foot CT 07/19/17 17:19 IMPRESSION: 1. Similar appearance of the right foot when compared with prior CT dated June 07, 2017. There is pronounced subcutaneous edema throughout the soft tissues of the ankle and dorsal foot. No organized drainable fluid collection identified within limits of this noncontrast exam. Soft tissue thickening along the posterior heel again likely reflects ulceration. No subcutaneous gas identified. 2. The bones are severely osteopenic limiting evaluation for nondisplaced fractures. Within limits of the exam no acute fracture identified. No definite evidence for osteomyelitis. 3. 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 D/ / Dionisio Persaud MD / Dionisio Persaud MD Interpreting Provider: Dionisio Persaud MD - Attending Attestation I independently obtained history and examined this patient and my medical decision-making was reviewed with the nurse practitioner. I agree with the documented findings, disposition and treatment plan as described. My findings are summarized below: Left lower extremity foot cellulitis surrounding the left great toe. Right foot stage III decubitus ulcers on the plantar area and medial ASPECT of the foot. Plan: Start broad-spectrum IV antibiotic. Wound care consult.
[2017-07-19] MEDS ORDERED: Vancomycin 1,000 MG in D5% in Water 250 ML IVPB SCH (17:00)
--- NOTE | 2017-07-19 17:10 | Electrocardiograph Report ---
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
[2017-07-19] MEDS: Insulin LISPRO 300 UNITS/3 ML VIAL SQ SCH ×2 (19:46→21:10)
[2017-07-19] MEDS: Furosemide 20 MG/2 ML VIAL IVP SCH (19:51)
[2017-07-19] MEDS: Pantoprazole 40 MG VIAL IVP SCH (19:51)
[2017-07-19] MEDS: Ipratropium/Albuterol Neb 3 ML IH SCH ×2 (20:00→23:07)
[2017-07-19] MEDS ORDERED: FLUOXETINE HCL PO SCH (21:00)
[2017-07-19] MEDS ORDERED: OLANZAPINE PO SCH (21:00)
[2017-07-19] MEDS: Gabapentin 300 MG CAPSULE PO SCH (21:07)
[2017-07-19] MEDS: *HR* OxyCODONE/APAP 5/325 TABLET PO PRN (21:09)
[2017-07-19] MEDS: *HR* Heparin 5,000 UNIT/ML VIAL SQ SCH (21:45)
[2017-07-20 01:28] LABS: Basophils % 0.2 %; Eosinophils # 0.1 K/mcL (0.0-0.6); Eosinophils % 2.2 %; Hemoglobin 10.2 g/dL (11.5-15.4); Immature Granulocytes % 0.5 % (0-4); Lymphocytes # 1.5 K/mcL (0.6-4.6); Lymphocytes % 23.4 %; Mean Corpuscular HGB Conc 31.9 g/dL (31.6-35.5); Mean Corpuscular Hemoglobin 28.8 pg (28.0-33.3); Mean Corpuscular Volume 90.4 fL (83.0-100.0); Monocytes # 0.3 K/mcL (0.0-1.3); Monocytes % 4.8 %; Neutrophils # 4.3 K/mcL (1.6-8.9); Platelet Count 279 K/mcL (140-400); Red Blood Count 3.54 M/mcL (3.82-4.97); Red Cell Distribution Width 14.3 % (11.5-14.5); Segmented Neutrophils % 68.9 %
[2017-07-20 01:45] LABS: Activated Partial Thrombo Time 28.9 Seconds (26.0-36.0); INR 1.1; Prothrombin Time 12.4 Seconds (9.4-12.1)
[2017-07-20 02:01] LABS: Hemoglobin A1C 5.2 %
[2017-07-20 02:49] LABS: Alanine Aminotransferase 15 Units/L (0-55); Albumin 2.6 g/dL (3.5-5.0); Albumin/Globulin Ratio 0.7 (1.1-2.2); Alkaline Phosphatase 107 Units/L (38-126); Aspartate Amino Transferase 19 Units/L (5-34); BUN/Creatinine Ratio 21 (6-26); Bilirubin,Total 0.2 mg/dL (0.2-1.2); Blood Urea Nitrogen 14 mg/dL (7-20); Calcium 8.2 mg/dL (8.6-10.8); Carbon Dioxide 22 mEq/L (19-29); Chloride 110 mEq/L (98-109); Chol/HDL Ratio 2.8 (0-4.9); Cholesterol 94 mg/dL (< 200); Globulin 3.6 g/dL (2.4-3.5); Glucose 144 mg/dL (70-99); HDL Cholesterol 34 mg/dL (40-59); LDL Cholesterol,Calculated 40 mg/dL (0-99); Magnesium 1.7 mg/dL (1.6-2.6); Osmolality,Calculated 299 (280-300); Potassium 3.5 mEq/L (3.5-4.5); Sodium 143 mEq/L (136-145); Total Protein 6.2 g/dL (6.0-8.3); Triglycerides 101 mg/dL (< 150); eGFR For African Americans > 60 (> 60); eGFR For Non-African Americans > 60 (> 60)
[2017-07-20] MEDS: Ondansetron 4 MG/2 ML VIAL IVP PRN (02:50)
[2017-07-20] MEDS: Vancomycin 1,000 MG in D5% in Water 250 ML IVPB SCH ×2 (03:04→16:38)
[2017-07-20] MEDS: Ipratropium/Albuterol Neb 3 ML IH SCH ×6 (04:44→23:48)
[2017-07-20] MEDS: *HR* Heparin 5,000 UNIT/ML VIAL SQ SCH ×3 (06:04→23:19)
[2017-07-20] MEDS: Pantoprazole 40 MG VIAL IVP SCH (10:05)
[2017-07-20] MEDS: Insulin LISPRO 300 UNITS/3 ML VIAL SQ SCH ×4 (10:05→20:02)
[2017-07-20] MEDS: Furosemide 20 MG/2 ML VIAL IVP SCH (10:05)
[2017-07-20] MEDS: Celecoxib 200 MG CAPSULE PO SCH (10:05)
[2017-07-20] MEDS: Gabapentin 300 MG CAPSULE PO SCH ×3 (10:05→20:53)
--- NOTE | 2017-07-20 10:31 | Internal Med Progress Note ---
Date of Encounter: 07/20/17 Time of Encounter: 10:29 - Assessment and plan (1) HCAP (healthcare-associated pneumonia) Current Visit: Yes Status: Acute Assessment and plan: Pt was recently hospitalized and discharged to [facility] Will treat at HCAP continue IV abx f/u blood cultures awaiting sputum cultures duonebs as needed O2 supplementation will closely monitor respiratory status pt reports of not being on home oxygen (2) UTI (urinary tract infection) Current Visit: Yes Status: Acute Assessment and plan: continue IV abx f/u urine cultures Qualifiers: Urinary tract infection type: site unspecified Hematuria presence: without hematuria Qualified Code(s): N39.0 - Urinary tract infection, site not specified (3) CHF (congestive heart failure) Current Visit: Yes Status: Chronic Assessment and plan: continue IV diuresis given pedal edema monitor I/Os, daily weights fluid restriction diet Qualifiers: Congestive heart failure type: unspecified congestive heart failure type Qualified Code(s): I50.9 - Heart failure, unspecified (4) Decubitus ulcer of right heel, stage 3 Current Visit: No Status: Chronic Assessment and plan: CT Right foot noted, no OM reported, findings consistent with prior study continue daily wound care (5) Elevated troponin Current Visit: Yes Status: Acute Assessment and plan: No signs of angina present TNI trending down likely secondary to underlying infection continue ASA, Plavix, and Lipitor (6) Osteoporosis Current Visit: No Status: Chronic Qualifiers: Osteoporosis type: unspecified Presence of current pathological fracture: without current pathological fracture Qualified Code(s): M81.0 - Age-related osteoporosis without current pathological fracture (7) Sacral decubitus ulcer, stage III Current Visit: No Status: Chronic Assessment and plan: wound care consultation requested frequent turning (8) Thyroid disease Current Visit: Yes Status: Chronic Assessment and plan: Synthroid discontinued during last hospitalization will obtain repeat Thyroid studies (9) DVT prophylaxis Current Visit: Yes Status: Acute Assessment and plan: Heparin SQ - Subjective Interval history: Patient is a 77y/o female transferred from SNF for management of acute respiratory distress and fever. She is admitted for HCAP and UTI. Patient seen and examined at bedside. Resting comfortably in bed and reports of feeling better compared to previous day. Currently saturating well on nasal cannula. Denies any discomfort at this time. Has history of paraplegia of b/l LE and is bed bound at baseline. - Constitutional Vitals: Temp Pulse Resp BP Pulse Ox 97.8 F 86 14 98/56 94 07/20/17 07:16 07/20/17 07:16 07/20/17 09:20 07/20/17 07:16 07/20/17 09:20 General appearance: Present: cooperative, A&O X 3, pleasant, no acute distress, answers questions appropriately - Head Head exam: Present: atraumatic, normocephalic - Eye Eye exam: Present: conjuntiva pink, sclera anicteric - Respiratory Respiratory exam: Absent: respiratory distress, wheezes (coarse breath sounds diffusely) - Cardiovascular Cardiovascular exam: Present: RRR, +S1, +S2. Absent: diastolic murmur, gallop, rubs, systolic murmur - GI/Abdominal GI/Abdominal exam: Present: normal bowel sounds, soft, no peritoneal signs. Absent: distended, tenderness - Extremities Exam Extremities exam: Present: warm, radial pulses palpable and symmetrical (b/l LE edema, bilateral skin ulcers on right heel and plantar surface of left distal foot ). Absent: calf tenderness - Neurological Exam Neurological exam: Present: alert, oriented X3 - Psychiatric Psychiatric exam: Present: normal affect, normal mood Internal Medicine: Result - Labs CBC & Chem 7: 07/20/17 01:08 07/20/17 01:08 Labs: Short CBC 07/20/17 Range/Units 01:08 WBC 6.2 (4.3-11.1) K/mcL Hgb 10.2 L D (11.5-15.4) g/dL Hct 32.0 L (35.3-44.9) % Plt Count 279 (140-400) K/mcL Neutrophils # 4.3 (1.6-8.9) K/mcL BMP 07/20/17 01:08 Sodium 143 Potassium 3.5 Chloride 110 H Carbon Dioxide 22 BUN 14 Creatinine 0.68 Glucose 144 H Calcium 8.2 L Cardiac Enzymes 07/19/17 07/20/17 Range/Units 17:47 01:08 Troponin I 0.21 H* 0.11 H* (0-0.03) ng/mL Liver Function 07/20/17 Range/Units 01:08 Total Bilirubin 0.2 (0.2-1.2) mg/dL AST 19 (5-34) Units/L ALT 15 (0-55) Units/L Alkaline Phosphatase 107 (38-126) Units/L Albumin 2.6 L (3.5-5.0) g/dL - ABG Interpretation ABG results: PT/INR, D-dimer PT 12.4 Seconds (9.4-12.1) H 07/20/17 01:08 - Impressions Impressions Foot CT 07/19/17 17:19 IMPRESSION: 1. Similar appearance of the right foot when compared with prior CT dated June 07, 2017. There is pronounced subcutaneous edema throughout the soft tissues of the ankle and dorsal foot. No organized drainable fluid collection identified within limits of this noncontrast exam. Soft tissue thickening along the posterior heel again likely reflects ulceration. No subcutaneous gas identified. 2. The bones are severely osteopenic limiting evaluation for nondisplaced fractures. Within limits of the exam no acute fracture identified. No definite evidence for osteomyelitis. 3. 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 D/ / Dionisio Persaud MD / Dionisio Persaud MD Interpreting Provider: Dionisio Persaud MD Consult Discharge Plan - Plan Referrals: Royer Pelaez DO [Resident] -
[2017-07-20 11:31] LABS: Thyroid Stimulating Hormone 0.055 mcIU/mL (0.350-4.840)
[2017-07-20] MEDS: Piperacillin/Tazobactam 3.375 GM in D5% in Water (Mini-Bag+) 100 ML IVPB SCH ×2 (12:14→20:02)
--- NOTE | 2017-07-20 15:22 | Cardiology Consult Note ---
Date of Encounter: 07/20/17 Time of Encounter: 14:30 Assessment and Plan (1) HCAP (healthcare-associated pneumonia) Current Visit: Yes Status: Acute Per cardiology: -ADmitted with pneumonia. -On ATB. -Management per primary service. (2) Elevated troponin Current Visit: Yes Status: Acute Per cardiology: -Troponins 0.24, 0.21, 0.11. -Troponins flat and adynamic in the setting of pneumonia. -Denies chest pain. -ECG with no acute ischemic changes. -On statin, plavix. -Not on beta nel due to hypotension. BP 90-100s systolic. -Reports LHC 10 years ago in [place] with "no blockages." -Echo 04/2017 with LVEF 60-65%, no wall motion abnormalities. -Do not suspect NSTEMI, suspect demand ischemia related to above. No cardiac rehab warranted. -Will not start asa at this time due to on celebrex for musculoskeletal pain. -Do not anticipate further cardiac work up while inpatient. Anticipate sign off , will set up follow up. (3) Paraplegia Current Visit: No Status: Chronic Per cardiology: -Known paraplegia. -Management per primary service. Discussion w patient/family: The assessment and plan as outlined above was discussed with the patient who expressed understanding and agreement. All questions were answered. Thank you for involving us in the care of your patient. Please call with any questions. Discussed and reviewed with . History of Present Illness Consult date: 07/19/17 Requesting physician: Renato Peterson Consult reason: elevated troponin Chief complaint: shortness of breath, cough History of present illness: Ms. 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 Patient presented to [facility] with complaints of shortness of breath and productive cough. Patient reports coughing up green sputum at home. Also reports fevers at home. Patient denies chest pain. Denies worsening fatigue. Patient denies history of CAD, states had LHC in [place] 10 years ago with "no blockages." Past Med Surg Social Fam HX - Past Medical History Attestation: Yes The following information was validated with the patient. Source: patient, old records reviewed Medical history: arthritis, CHF, osteoporosis, peripheral artery disease, thyroid disease, other Psychiatric history: no psych history - Past Surgical History Surgical History: appendectomy, cholecystectomy, hysterectomy (Total), other - Social History Smoking Status: Never smoker Smokeless Tobacco Status: No Alcohol use: none Drug use: none - Family History Mother Race: Family Member Ethnicity: Non- Living Status: Age at : 70 Cause of : HD Hx Family Cardiac Disorders: Yes (HD, HTN) Hx Family Respiratory Disorders: No Hx Family Cancer: No Hx Family GI Disorders: No Hx Family Endocrine Disorder: No Hx Family Neuromuscular Disorders: Yes Hx Family Neurologic Disorders: No Hx Family HEENT Disorders: No Hx Family Autoimmune Disorders: No Father Race: Family Member Ethnicity: Non- Living Status: Age at : 68 Cause of : Cerebral hemorrhage Hx Family Cardiac Disorders: Yes (HD, HTN) Hx Family Respiratory Disorders: No Hx Family Cancer: No Hx Family GI Disorders: No Hx Family Endocrine Disorder: No Hx Family Neuromuscular Disorders: No Hx Family Neurologic Disorders: Yes Hx Family HEENT Disorders: No Hx Family Autoimmune Disorders: No Brother Family Member Ethnicity: Non- Living Status: Age at : 75 Cause of : CHF Hx Family Cardiac Disorders: Yes (CHF, HD, Heart failure) Hx Family Respiratory Disorders: No Hx Family Cancer: No Hx Family GI Disorders: No Hx Family Endocrine Disorder: No Hx Family Neuromuscular Disorders: No Hx Family Neurologic Disorders: No Hx Family HEENT Disorders: No Hx Family Autoimmune Disorders: No Sister Race: Family Member Ethnicity: Non- Living Status: Age at : 68 Hx Family Cardiac Disorders: Yes (CAD, stroke) Hx Family Respiratory Disorders: Yes (Emphysema) Hx Family Cancer: Yes Hx Family GI Disorders: No Hx Family Endocrine Disorder: No Hx Family Neuromuscular Disorders: No Hx Family Neurologic Disorders: No Hx Family HEENT Disorders: No Hx Family Autoimmune Disorders: No Son Race: Family Member Ethnicity: Non- Living Status: Still Living Hx Family Cardiac Disorders: No Hx Family Respiratory Disorders: No Hx Family Cancer: No Hx Family GI Disorders: No Hx Family Endocrine Disorder: No Hx Family Neuromuscular Disorders: No Hx Family Neurologic Disorders: Yes Hx Family HEENT Disorders: No Hx Family Autoimmune Disorders: No Hx Family Medical Disorders: No Daughter Race: Family Member Ethnicity: Non- Living Status: Still Living Hx Family Cardiac Disorders: No Hx Family Respiratory Disorders: No Hx Family Cancer: Yes (Breast) Hx Family GI Disorders: No Hx Family Endocrine Disorder: No Hx Family Neuromuscular Disorders: No Hx Family Neurologic Disorders: No Hx Family HEENT Disorders: No Hx Family Autoimmune Disorders: No Medications and Allergies Celecoxib [Celebrex] 200 mg PO DAILY 11/02/16 [History] Clopidogrel [Plavix] 75 mg PO DAILY 11/02/16 [History] Nitroglycerin [Nitrostat] 0.4 mg SL Q5M PRN 11/02/16 [History] Gabapentin [Neurontin] 900 mg PO TID 06/07/17 [History] Olanzapine/Fluoxetine HCl [Symbyax 3-25 mg Capsule] 1 each PO HS 06/07/17 [ History] Atorvastatin [Lipitor] 20 mg PO HS tab 06/10/17 [Rx] Furosemide [Lasix] 20 mg PO DAILY #7 tablet 06/10/17 [Rx] Ondansetron ODT [Zofran ODT] 4 mg SL Q6HR PRN 06/10/17 [Rx] OxyCODONE/APAP 5/325 [Percocet 5/325 MG] 1 tab PO BID PRN #10 06/10/17 [Rx] ALPRAZolam [Xanax 0.25 MG Tablet] 0.25 mg PO TID PRN 07/19/17 [History] 3 Allergy/AdvReac Type Severity Reaction Status Date / Time carbamazepine [From Tegretol] Allergy Unconscious Verified 06/07/17 14:38 pentazocine [From Talwin] Allergy Seizure Verified 06/07/17 14:38 phenytoin [From Dilantin] Allergy Rash Verified 06/07/17 14:38 All Systems Review: A 10-system review of systems was performed and is negative for pertinent findings except as documented above in the HPI. - Constitutional Constitutional: fever(s) - Cardiovascular Cardiovascular: as per HPI, dyspnea on exertion - Respiratory Respiratory: cough Physical Examination Vital Signs Temperature 98 F 07/19/17 12:01 Pulse Rate 100 07/19/17 12:01 Respiratory Rate 18 07/19/17 12:01 Blood Pressure 101/60 07/19/17 12:01 O2 Sat by Pulse Oximetry 92 07/19/17 12:01 Temperature 97.9 F 07/20/17 10:35 Pulse Rate 71 07/20/17 10:35 Respiratory Rate 12 07/20/17 10:35 Blood Pressure 100/55 07/20/17 10:35 O2 Sat by Pulse Oximetry 93 07/20/17 10:35 Oxygen Delivery Oxygen Delivery Nasal Cannula General: Conversant, No Apparent Distress HEENT: Atraumatic, Normocephaly, Mucus Membranes Moist Neck: No JVD, Normal carotid pulses Cardiac: Reg Rate and Rhythm, Normal S1 and S2, No Murmur Lungs: Other (Rhonchi noted. ) Neuro: Alert and responsive, No focal deficits noted Abdomen: Soft, Non-Tender Skin: No rashes noted on visualized skin Musculoskeletal: No Chest Wall Tenderness Extremities: No Clubbing, No Cyanosis, No Edema, Normal Pulses Results 07/20/17 01:08 07/20/17 01:08 Lab Results Impressions Foot CT 07/19/17 17:19 IMPRESSION: 1. Similar appearance of the right foot when compared with prior CT dated June 07, 2017. There is pronounced subcutaneous edema throughout the soft tissues of the ankle and dorsal foot. No organized drainable fluid collection identified within limits of this noncontrast exam. Soft tissue thickening along the posterior heel again likely reflects ulceration. No subcutaneous gas identified. 2. The bones are severely osteopenic limiting evaluation for nondisplaced fractures. Within limits of the exam no acute fracture identified. No definite evidence for osteomyelitis. 3. 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 D/ / Dionisio Persaud MD / Dionisio Persaud MD Interpreting Provider: Dionisio Persaud MD Active Medications Acetaminophen (Tylenol) 650 mg PO Q6HR PRN PRN Reason: Mild Pain (1-3) Stop: 01/18/18 16:07 Albuterol/Ipratropium (Duoneb) 3 ml IH [id number] JOYCE Stop: 01/18/18 20:01 Last Admin: 07/20/17 11:37 Dose: Not Given Alprazolam (Xanax) 0.25 mg PO TID PRN; Protocol PRN Reason: Anxiety Stop: 01/18/18 16:20 Last Admin: 07/20/17 02:58 Dose: 0.25 mg Atorvastatin Calcium (Lipitor) 20 mg PO HS JOYCE Stop: 01/18/18 21:01 Last Admin: 07/19/17 21:08 Dose: 20 mg Benzonatate (Tessalon) 100 mg PO TID PRN PRN Reason: Cough Stop: 01/18/18 16:25 Celecoxib (Celebrex) 200 mg PO DAILY [facility] Stop: 01/19/18 09:01 Last Admin: 07/20/17 10:05 Dose: 200 mg Clopidogrel Bisulfate (Plavix) 75 mg PO DAILY [facility] Stop: 01/19/18 09:01 Last Admin: 07/20/17 10:05 Dose: 75 mg Dextrose/Water (Dextrose 50% (Syg)) 25 ml IVP AD PRN PRN Reason: Hypoglycemia Stop: 01/18/18 16:18 Fluoxetine HCl (Prozac) 20 mg PO DAILY [facility] Stop: 01/19/18 13:01 Furosemide (Lasix) 20 mg IVP DAILY [facility] Stop: 01/18/18 17:16 Last Admin: 07/20/17 10:05 Dose: 20 mg Gabapentin (Neurontin) 900 mg PO TID [facility] Stop: 01/18/18 21:01 Last Admin: 07/20/17 10:05 Dose: 900 mg Glucagon (Glucagen) 1 mg IM ONCE PRN PRN Reason: Hypoglycemia Stop: 01/18/18 16:18 Glucose (Gluctose) 15 gm PO ONCE PRN PRN Reason: Hypoglycemia Stop: 01/18/18 16:18 Glucose (Gluctose) 30 gm PO ONCE PRN PRN Reason: Hypoglycemia Stop: 01/18/18 16:18 Heparin Sodium (Porcine) (Heparin) 5,000 unit SQ Q8HCO [facility] Stop: 01/18/18 22:01 Last Admin: 07/20/17 06:04 Dose: Not Given Dextrose (Dextrose 5%) 1,000 mls @ 100 mls/hr IVC .Q10H PRN PRN Reason: HYPOGLYCEMIA Stop: 01/18/18 16:18 Vancomycin HCl 1,000 mg/ (Dextrose) 250 mls @ 167 mls/hr IVPB Q12H JOYCE PRN Reason: Protocol Stop: 01/19/18 03:31 Last Infusion: 07/20/17 06:20 Dose: Infused Piperacillin Sod/Tazobactam (Sod 3.375 gm/ Dextrose) 100 mls @ 25 mls/hr IVPB Q8H [facility] Stop: 01/19/18 11:01 Last Admin: 07/20/17 12:14 Dose: 25 mls/hr Insulin Human Lispro (Humalog) 0 units SQ TIDAC JOYCE PRN Reason: Protocol Stop: 01/18/18 16:31 Last Admin: 07/20/17 12:18 Dose: Not Given Insulin Human Lispro (Humalog) 0 units SQ HS JOYCE PRN Reason: Protocol Stop: 01/18/18 21:01 Last Admin: 07/19/17 21:10 Dose: Not Given Morphine Sulfate (Morphine Sulfate) 2 mg IVP Q4HR PRN PRN Reason: Severe Pain (7-10) Stop: 01/18/18 16:07 Naloxone HCl (Narcan) 0.4 mg IVP Q2MIN PRN PRN Reason: Opioid Reversal Stop: 01/18/18 16:07 Nitroglycerin (Nitroglycerin) 0.4 mg SL Q5M PRN PRN Reason: Chest Pain Stop: 01/18/18 16:20 Olanzapine (Zyprexa Zydis) 2.5 mg PO DAILY [facility] Stop: 01/19/18 13:01 Ondansetron HCl (Zofran) 4 mg IVP Q8HR PRN PRN Reason: Nausea And Vomiting Stop: 01/18/18 16:07 Last Admin: 07/20/17 02:50 Dose: 4 mg Oxycodone/Acetaminophen (Percocet 5/325) 1 each PO BID PRN PRN Reason: Moderate Pain Stop: 01/18/18 16:20 Last Admin: 07/19/17 21:09 Dose: 1 each Pantoprazole Sodium (Protonix) 40 mg IVP DAILY [facility] Stop: 01/18/18 16:16 Last Admin: 07/20/17 10:05 Dose: 40 mg - Imaging and Cardiology Chest Xray: report reviewed Echo: report reviewed - EKG Interpretation EKG results cardiology: personally reviewed (ECG with sinus rhythm, HR 85.), other (Telemetry reviewed with average HR 92, sinus rhythm. PVCs.) Consult Discharge Plan - Plan Referrals: Royer Pelaez DO [Resident] -
[2017-07-20] MEDS: OLANZapine 5 MG TAB.RAPDIS PO SCH (16:35)
[2017-07-20] MEDS: FLUoxetine 20 MG CAPSULE PO SCH (16:37)
[2017-07-20] MEDS ORDERED: 0.9 % Sodium Chloride 500 ML ONE (17:49)
[2017-07-20] MEDS ORDERED: 0.9 % Sodium Chloride 500 ML IVC ONE ×2 (20:41→20:49)
--- NOTE | 2017-07-20 23:14 | Event Note ---
<Quentin Santos - Last Filed: 07/20/17 23:28> Date of Encounter: 07/20/17 Time of Encounter: 22:50 Patient has been hypotensive with BP 90-99/44-53 despite 500cc bolus given earlier this evening. Patient is asymptomatic, awake, alert, eating, and denies dizziness, light headedness, or SOB. She had no improvement in BP after a second 500cc IVF bolus was given. Patient has a h/o CHF and Echo report from 08/03 reveals diastolic dysfunction with LVEF 60-65%. Patient was put on 100cc maintenance IVF at 100cc/hr for a total of 2 L. Will continue to monitor blood pressure and watch for signs of fluid overload. Patient may need CVC and pressor support if she is unable to maintain MAP > 65 with IVF. <Fletcher Law - Last Filed: 07/21/17 06:22> Date of Encounter: 07/21/[address] Santos, and I agree with his care.
[2017-07-20] MEDS ORDERED: 0.9 % Sodium Chloride 1,000 ML IVC SCH (23:15)
[2017-07-20] MEDS ORDERED: 0.9 % Sodium Chloride 1,000 ML ONE (23:17)
[2017-07-21] MEDS: Piperacillin/Tazobactam 3.375 GM in D5% in Water (Mini-Bag+) 100 ML IVPB SCH ×3 (03:23→20:34)
[2017-07-21] MEDS ORDERED: 0.9 % Sodium Chloride 500 ML IVC ONE (04:12)
[2017-07-21] MEDS: Ipratropium/Albuterol Neb 3 ML IH SCH ×6 (04:15→23:05)
[2017-07-21 04:17] LABS: Basophils % 0.2 %; Eosinophils # 0.3 K/mcL (0.0-0.6); Eosinophils % 4.5 %; Hematocrit 31.2 % (35.3-44.9); Immature Granulocytes % 0.2 % (0-4); Lymphocytes # 1.7 K/mcL (0.6-4.6); Lymphocytes % 29.2 %; Mean Corpuscular HGB Conc 30.8 g/dL (31.6-35.5); Mean Corpuscular Hemoglobin 28.4 pg (28.0-33.3); Mean Corpuscular Volume 92.3 fL (83.0-100.0); Mean Platelet Volume 9.2 fL (9.4-12.4); Monocytes # 0.3 K/mcL (0.0-1.3); Monocytes % 5.4 %; Neutrophils # 3.5 K/mcL (1.6-8.9); Platelet Count 251 K/mcL (140-400); Red Blood Count 3.38 M/mcL (3.82-4.97); Red Cell Distribution Width 14.5 % (11.5-14.5); Segmented Neutrophils % 60.5 %
[2017-07-21 04:21] LABS: Hemoglobin 9.6 g/dL (11.5-15.4)
[2017-07-21 04:24] LABS: BUN/Creatinine Ratio 17 (6-26); Blood Urea Nitrogen 11 mg/dL (7-20); Calcium 8.2 mg/dL (8.6-10.8); Carbon Dioxide 28 mEq/L (19-29); Chloride 109 mEq/L (98-109); Glucose 119 mg/dL (70-99); Magnesium 1.6 mg/dL (1.6-2.6); Osmolality,Calculated 299 (280-300); Phosphorous 2.8 mg/dL (2.3-4.7); Potassium 3.4 mEq/L (3.5-4.5); Sodium 144 mEq/L (136-145); eGFR For African Americans > 60 (> 60); eGFR For Non-African Americans > 60 (> 60)
[2017-07-21] MEDS: *HR* Heparin 5,000 UNIT/ML VIAL SQ SCH ×3 (06:58→22:20)
[2017-07-21] MEDS ORDERED: Furosemide 20 MG/2 ML VIAL IVP SCH ×2 (08:45→10:19)
[2017-07-21] MEDS: Celecoxib 200 MG CAPSULE PO SCH (09:11)
[2017-07-21] MEDS: FLUoxetine 20 MG CAPSULE PO SCH (09:11)
[2017-07-21] MEDS: OLANZapine 5 MG TAB.RAPDIS PO SCH (09:11)
[2017-07-21] MEDS: Pantoprazole 40 MG VIAL IVP SCH (09:12)
[2017-07-21] MEDS: Insulin LISPRO 300 UNITS/3 ML VIAL SQ SCH ×4 (09:15→20:36)
--- NOTE | 2017-07-21 10:06 | Internal Med Progress Note ---
Date of Encounter: 07/21/17 Time of Encounter: 09:05 - Assessment and plan (1) HCAP (healthcare-associated pneumonia) Current Visit: Yes Status: Acute Assessment and plan: Pt was recently hospitalized and discharged to [facility] Will treat as HCAP continue IV abx (Vancomycin trough noted, holding Vanco at this time, repeat trough later today and adjust medication accordingly) Will closely monitor renal function given vanco trough level f/u blood cultures awaiting sputum cultures duonebs as needed O2 supplementation will closely monitor respiratory status pt reports of not being on home oxygen (2) UTI (urinary tract infection) Current Visit: Yes Status: Acute Assessment and plan: continue IV abx Urine cultures positive for Pseudomonas Aeruginosa Qualifiers: Urinary tract infection type: site unspecified Hematuria presence: without hematuria Qualified Code(s): N39.0 - Urinary tract infection, site not specified (3) CHF (congestive heart failure) Current Visit: Yes Status: Chronic Assessment and plan: Unable to diurese given current BP Currently saturating well on nasal cannula and denies any respiratory discomfort will closely monitor BP and adjust Lasix therapy as BP permits d/c IV fluids monitor I/Os, daily weights fluid restriction diet (4) Decubitus ulcer of right heel, stage 3 Current Visit: No Status: Chronic Assessment and plan: CT Right foot noted, no OM reported, findings consistent with prior study continue daily wound care (5) Elevated troponin Current Visit: Yes Status: Acute Assessment and plan: No signs of angina present TNI trending down likely secondary to underlying infection continue ASA, Plavix, and Lipitor (6) Osteoporosis Current Visit: No Status: Chronic Qualifiers: Osteoporosis type: unspecified Presence of current pathological fracture: without current pathological fracture Qualified Code(s): M81.0 - Age-related osteoporosis without current pathological fracture (7) Sacral decubitus ulcer, stage III Current Visit: No Status: Chronic Assessment and plan: wound care consultation requested frequent turning (8) Thyroid disease Current Visit: Yes Status: Chronic Assessment and plan: Synthroid discontinued during last hospitalization TSH low and normal Free T4, will obtain T3 levels clinically asymptomatic, will closely monitor (9) DVT prophylaxis Current Visit: Yes Status: Acute Assessment and plan: Heparin SQ (10) Hypotension Current Visit: Yes Status: Acute Assessment and plan: pt clinically asymptomatic hold lasix for SBP<110 hold narcotics for SBP<110 will continue to closely monitor d/c IV fluids given history of CHF and concern for volume overload BP improved at this time Qualifiers: Hypotension type: unspecified hypotension type Qualified Code(s): I95.9 - Hypotension, unspecified - Subjective Interval history: Patient is a 77y/o female transferred from [facility] for management of acute respiratory distress and fever. She is admitted for HCAP and UTI. Patient seen and examined at bedside. Noted to be hypotensive yesterday evening and throughout the night. Initially had improvement in her BP after receiving 500cc NS bolus, however remained hypotensive there after. She was started on IV fluids for hypotension. Currently resting in bed and reports of being tired, but denies any headache, dizziness, chest pain, sob at this time. BP improved. Will hold IV fluids at this time as she is noted to have bibasilar crackles on auscultation. Has history of paraplegia of b/l LE and is bed bound at baseline. - Constitutional Vitals: Temp Pulse Resp BP Pulse Ox 97.6 F 71 16 106/51 96 07/21/17 07:12 07/21/17 07:12 07/21/17 08:13 07/21/17 09:18 07/21/17 08:13 General appearance: Present: cooperative, A&O X 3, pleasant, no acute distress, answers questions appropriately - Head Head exam: Present: atraumatic, normocephalic - Eye Eye exam: Present: conjuntiva pink, sclera anicteric - Respiratory Respiratory exam: Present: rales (bibasilar crackles ). Absent: respiratory distress, wheezes - Cardiovascular Cardiovascular exam: Present: RRR, +S1, +S2. Absent: diastolic murmur, gallop, rubs, systolic murmur - GI/Abdominal GI/Abdominal exam: Present: normal bowel sounds, soft, no peritoneal signs. Absent: distended, tenderness - Extremities Exam Extremities exam: Present: pedal edema, warm, radial pulses palpable and symmetrical. Absent: calf tenderness Additional comments: right heel ulcer and left metatarsal (sesamoid region) ulcer - Neurological Exam Neurological exam: Present: alert, oriented X3 - Psychiatric Psychiatric exam: Present: normal affect, normal mood Internal Medicine: Result - Labs CBC & Chem 7: 07/21/17 03:34 07/21/17 03:34 Labs: Short CBC 07/21/17 Range/Units 03:34 WBC 5.8 (4.3-11.1) K/mcL Hgb 9.6 L (11.5-15.4) g/dL Hct 31.2 L (35.3-44.9) % Plt Count 251 (140-400) K/mcL Neutrophils # 3.5 (1.6-8.9) K/mcL BMP 07/20/17 07/21/17 01:08 03:34 Sodium 143 144 Potassium 3.5 3.4 L Chloride 110 H 109 Carbon Dioxide 22 28 BUN 14 11 Creatinine 0.68 0.66 Glucose 144 H 119 H Calcium 8.2 L 8.2 L Liver Function 07/20/17 Range/Units 01:08 Total Bilirubin 0.2 (0.2-1.2) mg/dL AST 19 (5-34) Units/L ALT 15 (0-55) Units/L Alkaline Phosphatase 107 (38-126) Units/L Albumin 2.6 L (3.5-5.0) g/dL - ABG Interpretation ABG results: PT/INR, D-dimer PT 12.4 Seconds (9.4-12.1) H 07/20/17 01:08 Consult Discharge Plan - Plan Referrals: Royer Pelaez DO [Resident] - 07/26/17 10:30 am
[2017-07-21 10:56] LABS: Triiodothyronine (T3) Free 1.63 pg/mL (1.71-3.71)
[2017-07-21] MEDS: Gabapentin 300 MG CAPSULE PO SCH ×3 (16:21→20:34)
[2017-07-21] MEDS: Vancomycin 1,250 MG in D5% in Water 250 ML IVPB SCH (16:21)
[2017-07-21] MEDS: Benzonatate 100 MG CAPSULE PO PRN (22:20)
[2017-07-21] MEDS: *HR* OxyCODONE/APAP 5/325 TABLET PO PRN (23:52)
[2017-07-22] MEDS: Ipratropium/Albuterol Neb 3 ML IH SCH ×6 (03:25→23:16)
[2017-07-22] MEDS: Piperacillin/Tazobactam 3.375 GM in D5% in Water (Mini-Bag+) 100 ML IVPB SCH ×3 (03:36→19:13)
[2017-07-22] MEDS: Ondansetron 4 MG/2 ML VIAL IVP PRN ×2 (03:37→11:56)
[2017-07-22 05:17] LABS: Basophils % 0.2 %; Eosinophils # 0.3 K/mcL (0.0-0.6); Eosinophils % 4.9 %; Hematocrit 31.9 % (35.3-44.9); Immature Granulocytes % 0.2 % (0-4); Lymphocytes % 17.1 %; Mean Corpuscular HGB Conc 31.3 g/dL (31.6-35.5); Mean Corpuscular Hemoglobin 28.7 pg (28.0-33.3); Mean Corpuscular Volume 91.7 fL (83.0-100.0); Monocytes # 0.3 K/mcL (0.0-1.3); Monocytes % 5.1 %; Neutrophils # 4.2 K/mcL (1.6-8.9); Platelet Count 236 K/mcL (140-400); Red Blood Count 3.48 M/mcL (3.82-4.97); Red Cell Distribution Width 14.4 % (11.5-14.5); Segmented Neutrophils % 72.5 %
[2017-07-22 05:20] LABS: BUN/Creatinine Ratio 17 (6-26); Blood Urea Nitrogen 11 mg/dL (7-20); Calcium 8.4 mg/dL (8.6-10.8); Carbon Dioxide 26 mEq/L (19-29); Chloride 110 mEq/L (98-109); Glucose 116 mg/dL (70-99); Magnesium 1.6 mg/dL (1.6-2.6); Osmolality,Calculated 296 (280-300); Phosphorous 2.2 mg/dL (2.3-4.7); Potassium 3.8 mEq/L (3.5-4.5); Sodium 143 mEq/L (136-145); eGFR For African Americans > 60 (> 60); eGFR For Non-African Americans > 60 (> 60)
[2017-07-22] MEDS: *HR* Heparin 5,000 UNIT/ML VIAL SQ SCH ×3 (06:28→23:27)
[2017-07-22] MEDS: FLUoxetine 20 MG CAPSULE PO SCH (08:58)
[2017-07-22] MEDS: Gabapentin 300 MG CAPSULE PO SCH ×3 (08:58→20:57)
[2017-07-22] MEDS: Pantoprazole 40 MG VIAL IVP SCH (08:58)
[2017-07-22] MEDS: Celecoxib 200 MG CAPSULE PO SCH (08:58)
[2017-07-22] MEDS: OLANZapine 5 MG TAB.RAPDIS PO SCH (08:59)
[2017-07-22] MEDS: Furosemide 20 MG TABLET PO SCH (09:02)
[2017-07-22] MEDS: Insulin LISPRO 300 UNITS/3 ML VIAL SQ SCH ×4 (09:03→20:56)
--- NOTE | 2017-07-22 11:11 | Internal Med Progress Note ---
Date of Encounter: 07/22/17 Time of Encounter: 11:08 - Assessment and plan (1) HCAP (healthcare-associated pneumonia) Current Visit: Yes Status: Acute Assessment and plan: Pt was recently hospitalized and discharged to ECF Will treat as HCAP continue IV abx Will closely monitor renal function given vanco trough level f/u blood cultures sputum culture preliminary: NGTD duonebs as needed O2 supplementation as needed will closely monitor respiratory status pt reports of not being on home oxygen f/u PT/OT likely dc in am (2) UTI (urinary tract infection) Current Visit: Yes Status: Acute Assessment and plan: continue IV abx Urine cultures positive for Pseudomonas Aeruginosa Qualifiers: Urinary tract infection type: site unspecified Hematuria presence: without hematuria Qualified Code(s): N39.0 - Urinary tract infection, site not specified (3) CHF (congestive heart failure) Current Visit: Yes Status: Chronic Assessment and plan: Restarted home dose of lasix (20mg PO qd) unable to use higher dose of Lasix due to labile BP readings respiratory status improved from previous day, currently saturating well on room air monitor I/Os, daily weights fluid restriction diet Qualifiers: Congestive heart failure type: unspecified congestive heart failure type Congestive heart failure chronicity: chronic Qualified Code(s): I50.9 - Heart failure, unspecified (4) Decubitus ulcer of right heel, stage 3 Current Visit: No Status: Chronic Assessment and plan: CT Right foot noted, no OM reported, findings consistent with prior study continue daily wound care (5) Elevated troponin Current Visit: Yes Status: Acute Assessment and plan: No signs of angina present likely secondary to underlying infection continue ASA, Plavix, and Lipitor (6) Osteoporosis Current Visit: No Status: Chronic Qualifiers: Osteoporosis type: unspecified Presence of current pathological fracture: without current pathological fracture Qualified Code(s): M81.0 - Age-related osteoporosis without current pathological fracture (7) Sacral decubitus ulcer, stage III Current Visit: No Status: Chronic Assessment and plan: wound care consultation requested frequent turning (8) Thyroid disease Current Visit: Yes Status: Chronic Assessment and plan: Synthroid discontinued during last hospitalization 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 will start low dose Levothyroxine repeat thyroid function tests after discharge is recommended (9) DVT prophylaxis Current Visit: Yes Status: Acute Assessment and plan: Heparin SQ (10) Hypotension Current Visit: Yes Status: Acute Assessment and plan: pt clinically asymptomatic hold lasix for SBP<100 hold narcotics for SBP<110 will continue to closely monitor BP improved at this time Qualifiers: Hypotension type: unspecified hypotension type Qualified Code(s): I95.9 - Hypotension, unspecified (11) Electrolyte abnormality Current Visit: Yes Status: Acute Assessment and plan: Hypophosphatemia Phos supplemented continue to monitor electrolytes and replace as needed - Subjective Interval history: Patient is a 77y/o female transferred from [facility] for management of acute respiratory distress and fever. She is admitted for HCAP and UTI. Patient seen and examined at bedside. Resting in bed, BP improved. Will restart PO lasix. No overnight issues reported. Has history of paraplegia of b/l LE and is bed bound at baseline. awaiting PT/OT evaluation, likely d/c in am - Constitutional Vitals: Temp Pulse Resp BP Pulse Ox 98.5 F 90 15 113/68 92 07/22/17 06:54 07/22/17 06:54 07/22/17 11:04 07/22/17 08:55 07/22/17 11:04 General appearance: Present: cooperative, A&O X 3, pleasant, no acute distress, answers questions appropriately - Head Head exam: Present: atraumatic, normocephalic - Eye Eye exam: Present: conjuntiva pink, sclera anicteric - Cardiovascular Cardiovascular exam: Present: RRR, +S1, +S2 - GI/Abdominal GI/Abdominal exam: Present: normal bowel sounds, soft. Absent: distended, tenderness - Extremities Exam Extremities exam: Present: pedal edema, warm, radial pulses palpable and symmetrical (b/l feet wrapped in dressing). Absent: calf tenderness - Neurological Exam Neurological exam: Present: alert, oriented X3 - Psychiatric Psychiatric exam: Present: normal affect, normal mood Internal Medicine: Result - Labs CBC & Chem 7: 07/22/17 04:53 07/22/17 04:53 Labs: Short CBC 07/22/17 Range/Units 04:53 WBC 5.7 (4.3-11.1) K/mcL Hgb 10.0 L (11.5-15.4) g/dL Hct 31.9 L (35.3-44.9) % Plt Count 236 (140-400) K/mcL Neutrophils # 4.2 (1.6-8.9) K/mcL BMP 07/22/17 04:53 Sodium 143 Potassium 3.8 Chloride 110 H Carbon Dioxide 26 BUN 11 Creatinine 0.63 Glucose 116 H Calcium 8.4 L - ABG Interpretation ABG results: PT/INR, D-dimer PT 12.4 Seconds (9.4-12.1) H 07/20/17 01:08 Consult Discharge Plan - Plan Referrals: Royer Pealez DO [Resident] - 07/26/17 10:30 am
[2017-07-22] MEDS: Benzonatate 100 MG CAPSULE PO PRN ×2 (11:56→16:35)
[2017-07-22] MEDS ORDERED: Ondansetron 4 MG/2 ML VIAL IVP PRN (12:49)
[2017-07-22] MEDS: *HR* OxyCODONE/APAP 5/325 TABLET PO PRN (13:45)
[2017-07-22] MEDS: Vancomycin 1,250 MG in D5% in Water 250 ML IVPB SCH (16:33)
[2017-07-23] MEDS: Ipratropium/Albuterol Neb 3 ML IH SCH ×6 (03:59→23:59)
[2017-07-23] MEDS: Piperacillin/Tazobactam 3.375 GM in D5% in Water (Mini-Bag+) 100 ML IVPB SCH ×3 (04:22→19:58)
[2017-07-23 04:39] LABS: Basophils % 0.2 %; Eosinophils # 0.3 K/mcL (0.0-0.6); Eosinophils % 6.2 %; Hemoglobin 9.6 g/dL (11.5-15.4); Immature Granulocytes % 0.2 % (0-4); Lymphocytes # 1.2 K/mcL (0.6-4.6); Lymphocytes % 24.1 %; Mean Corpuscular Hemoglobin 28.9 pg (28.0-33.3); Mean Corpuscular Volume 93.4 fL (83.0-100.0); Mean Platelet Volume 9.1 fL (9.4-12.4); Monocytes # 0.3 K/mcL (0.0-1.3); Monocytes % 5.8 %; Neutrophils # 3.2 K/mcL (1.6-8.9); Platelet Count 199 K/mcL (140-400); Red Blood Count 3.32 M/mcL (3.82-4.97); Red Cell Distribution Width 14.3 % (11.5-14.5); Segmented Neutrophils % 63.5 %
[2017-07-23 04:57] LABS: BUN/Creatinine Ratio 15 (6-26); Blood Urea Nitrogen 10 mg/dL (7-20); Calcium 8.3 mg/dL (8.6-10.8); Carbon Dioxide 28 mEq/L (19-29); Chloride 109 mEq/L (98-109); Glucose 101 mg/dL (70-99); Magnesium 1.7 mg/dL (1.6-2.6); Osmolality,Calculated 297 (280-300); Phosphorous 2.7 mg/dL (2.3-4.7); Potassium 3.9 mEq/L (3.5-4.5); Sodium 144 mEq/L (136-145); eGFR For African Americans > 60 (> 60); eGFR For Non-African Americans > 60 (> 60)
[2017-07-23] MEDS: *HR* Heparin 5,000 UNIT/ML VIAL SQ SCH ×2 (06:21→16:17)
[2017-07-23] MEDS: Levothyroxine 25 MCG TABLET PO SCH (06:21)
[2017-07-23] MEDS ORDERED: Ondansetron 4 MG/2 ML VIAL IVP PRN (07:57)
--- NOTE | 2017-07-23 08:59 | Internal Med Progress Note ---
Date of Encounter: 07/23/17 Time of Encounter: 08:56 - Assessment and plan (1) HCAP (healthcare-associated pneumonia) Current Visit: Yes Status: Acute Assessment and plan: Pt was recently hospitalized and discharged to [facility] Will treat as HCAP continue IV abx Will closely monitor renal function given vanco trough level f/u blood cultures sputum culture preliminary: Staph aureus, will continue Vancomycin, Vanco trough noted, dose adjusted by pharmacist duonebs as needed O2 supplementation as needed will closely monitor respiratory status pt reports of not being on home oxygen f/u PT/OT (2) UTI (urinary tract infection) Current Visit: Yes Status: Acute Assessment and plan: continue IV abx Urine cultures positive for Pseudomonas Aeruginosa Qualifiers: Urinary tract infection type: site unspecified Hematuria presence: without hematuria Qualified Code(s): N39.0 - Urinary tract infection, site not specified (3) CHF (congestive heart failure) Current Visit: Yes Status: Chronic Assessment and plan: Pt tolerating home dose of lasix (20mg PO qd), will continue unable to use higher dose of Lasix due to labile BP readings monitor I/Os, daily weights fluid restriction diet (4) Decubitus ulcer of right heel, stage 3 Current Visit: No Status: Chronic Assessment and plan: CT Right foot noted, no OM reported, findings consistent with prior study continue daily wound care (5) Elevated troponin Current Visit: Yes Status: Acute Assessment and plan: No signs of angina present likely secondary to underlying infection continue ASA, Plavix, and Lipitor (6) Osteoporosis Current Visit: No Status: Chronic Qualifiers: Osteoporosis type: unspecified Presence of current pathological fracture: without current pathological fracture Qualified Code(s): M81.0 - Age-related osteoporosis without current pathological fracture (7) Sacral decubitus ulcer, stage III Current Visit: No Status: Chronic Assessment and plan: wound care consultation frequent turning daily wound care (8) Thyroid disease Current Visit: Yes Status: Chronic Assessment and plan: Synthroid discontinued during last hospitalization 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 continue low dose Levothyroxine repeat thyroid function tests after discharge is recommended (9) DVT prophylaxis Current Visit: Yes Status: Acute Assessment and plan: Heparin SQ (10) Hypotension Current Visit: Yes Status: Acute Assessment and plan: pt clinically asymptomatic hold lasix for SBP<100 hold narcotics for SBP<110 will continue to closely monitor BP improved at this time Qualifiers: Hypotension type: unspecified hypotension type Qualified Code(s): I95.9 - Hypotension, unspecified (11) Electrolyte abnormality Current Visit: Yes Status: Acute Assessment and plan: Resolved continue to monitor electrolytes and replace as needed (12) Diarrhea Current Visit: Yes Status: Acute Assessment and plan: stool studies negative for C-diff continue supportive care Imodium prn closely monitor electrolytes Qualifiers: Diarrhea type: unspecified type Qualified Code(s): R19.7 - Diarrhea, unspecified - Subjective Interval history: Patient is a 77y/o female transferred from [facility] for management of acute respiratory distress and fever. She is admitted for HCAP and UTI. Patient seen and examined at bedside. Resting in bed, and reports of being tired. Reported to have multiple episodes of diarrhea yesterday, stool studies negative for C-diff, however patient does have a sacral decubitus and persistent diarrhea is concerning for further infection. Sputum cultures preliminary result positive for Staph Aureus Has history of paraplegia of b/l LE and is bed bound at baseline. Pt came to the hospital from an ECF however is requesting to go to a different ECF as she was not happy with the services from the one she came from. No overnight issues reported. - Constitutional Vitals: Temp Pulse Resp BP Pulse Ox 98.3 F 85 16 101/49 93 07/23/17 07:15 07/23/17 07:15 07/23/17 08:00 07/23/17 07:15 07/23/17 08:00 General appearance: Present: cooperative, A&O X 3, pleasant, no acute distress, answers questions appropriately - Head Head exam: Present: atraumatic, normocephalic - Respiratory Respiratory exam: Present: decreased breath sounds. Absent: respiratory distress, wheezes - Cardiovascular Cardiovascular exam: Present: RRR, +S1, +S2. Absent: diastolic murmur, gallop, rubs, systolic murmur - GI/Abdominal GI/Abdominal exam: Present: normal bowel sounds, soft, no peritoneal signs. Absent: distended, tenderness - Extremities Exam Extremities exam: Present: warm, radial pulses palpable and symmetrical (b/l feet dressing intact). Absent: calf tenderness, pedal edema - Neurological Exam Neurological exam: Present: alert, oriented X3 - Psychiatric Psychiatric exam: Present: normal affect, normal mood Internal Medicine: Result - Labs CBC & Chem 7: 07/23/17 03:59 07/23/17 03:59 Labs: Short CBC 07/23/17 Range/Units 03:59 WBC 5.0 (4.3-11.1) K/mcL Hgb 9.6 L (11.5-15.4) g/dL Hct 31.0 L (35.3-44.9) % Plt Count 199 (140-400) K/mcL Neutrophils # 3.2 (1.6-8.9) K/mcL BMP 07/23/17 03:59 Sodium 144 Potassium 3.9 Chloride 109 Carbon Dioxide 28 BUN 10 Creatinine 0.68 Glucose 101 H Calcium 8.3 L - ABG Interpretation ABG results: PT/INR, D-dimer PT 12.4 Seconds (9.4-12.1) H 07/20/17 01:08 - Impressions Impressions Foot CT 07/19/17 17:19 IMPRESSION: 1. No acute osseous abnormality identified. 2. Diffuse nonspecific subcutaneous edema most pronounced along the dorsal foot. Correlate clinically for cellulitis. No organized drainable fluid collection identified. 3. Soft tissue thickening along the posterior heel likely reflecting ulceration. Soft tissue thickening also noted at the plantar foot at the 1st metatarsophalangeal joint. Findings may be related to ulceration or possible callus formation. 4. No evidence for osteomyelitis. 5. 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 6. Severe osteopenia. D/ / Dionisio Persaud MD / Dionisio Persaud MD Interpreting Provider: Dionisio Persaud MD Consult Discharge Plan - Plan Referrals: Royer Pelaez DO [Resident] - 07/26/17 10:30 am
[2017-07-23] MEDS: Insulin LISPRO 300 UNITS/3 ML VIAL SQ SCH ×4 (09:09→21:13)
[2017-07-23] MEDS: Pantoprazole 40 MG VIAL IVP SCH (09:09)
[2017-07-23] MEDS: Celecoxib 200 MG CAPSULE PO SCH (09:10)
[2017-07-23] MEDS: Gabapentin 300 MG CAPSULE PO SCH ×3 (09:10→19:57)
[2017-07-23] MEDS: OLANZapine 5 MG TAB.RAPDIS PO SCH ×2 (09:11→19:57)
[2017-07-23] MEDS: Furosemide 20 MG TABLET PO SCH (09:11)
[2017-07-23] MEDS: FLUoxetine 20 MG CAPSULE PO SCH ×2 (09:11→19:57)
[2017-07-23] MEDS ORDERED: Vancomycin 1,000 MG in D5% in Water 250 ML IVPB SCH (16:00)
[2017-07-23] MEDS: Vancomycin 1,250 MG in D5% in Water 250 ML IVPB SCH (17:02)
[2017-07-23] MEDS: Vancomycin 1,000 MG in D5% in Water 250 ML IVPB SCH (18:15)
[2017-07-23] MEDS: Benzonatate 100 MG CAPSULE PO PRN (22:25)
[2017-07-24] MEDS: *HR* Heparin 5,000 UNIT/ML VIAL SQ SCH ×5 (00:28→21:18)
[2017-07-24] MEDS: Piperacillin/Tazobactam 3.375 GM in D5% in Water (Mini-Bag+) 100 ML IVPB SCH ×3 (02:57→17:30)
[2017-07-24] MEDS: Ipratropium/Albuterol Neb 3 ML IH SCH ×6 (04:22→23:43)
[2017-07-24 05:30] LABS: Basophils % 0.2 %; Eosinophils # 0.3 K/mcL (0.0-0.6); Eosinophils % 5.5 %; Hematocrit 30.5 % (35.3-44.9); Hemoglobin 9.5 g/dL (11.5-15.4); Immature Granulocytes % 0.4 % (0-4); Lymphocytes # 1.3 K/mcL (0.6-4.6); Lymphocytes % 27.4 %; Mean Corpuscular HGB Conc 31.1 g/dL (31.6-35.5); Mean Corpuscular Hemoglobin 28.8 pg (28.0-33.3); Mean Corpuscular Volume 92.4 fL (83.0-100.0); Monocytes # 0.3 K/mcL (0.0-1.3); Monocytes % 5.9 %; Neutrophils # 2.8 K/mcL (1.6-8.9); Platelet Count 177 K/mcL (140-400); Red Cell Distribution Width 14.3 % (11.5-14.5); Segmented Neutrophils % 60.6 %
[2017-07-24 05:48] LABS: BUN/Creatinine Ratio 10 (6-26); Blood Urea Nitrogen 7 mg/dL (7-20); Calcium 8.4 mg/dL (8.6-10.8); Carbon Dioxide 30 mEq/L (19-29); Chloride 109 mEq/L (98-109); Glucose 108 mg/dL (70-99); Magnesium 1.7 mg/dL (1.6-2.6); Osmolality,Calculated 297 (280-300); Phosphorous 2.4 mg/dL (2.3-4.7); Potassium 3.7 mEq/L (3.5-4.5); Sodium 144 mEq/L (136-145); eGFR For African Americans > 60 (> 60); eGFR For Non-African Americans > 60 (> 60)
[2017-07-24] MEDS: Levothyroxine 25 MCG TABLET PO SCH ×2 (06:12→06:47)
[2017-07-24] MEDS: Insulin LISPRO 300 UNITS/3 ML VIAL SQ SCH ×4 (11:08→20:31)
[2017-07-24] MEDS: Gabapentin 300 MG CAPSULE PO SCH ×3 (11:22→20:32)
[2017-07-24] MEDS: Celecoxib 200 MG CAPSULE PO SCH (11:22)
[2017-07-24] MEDS: Furosemide 20 MG TABLET PO SCH (11:22)
--- NOTE | 2017-07-24 14:49 | Internal Med Progress Note ---
Date of Encounter: 07/24/17 Time of Encounter: 14:47 - Assessment and plan (1) HCAP (healthcare-associated pneumonia) Current Visit: Yes Status: Acute Assessment and plan: Pt was recently hospitalized and discharged to [facility] Will treat as HCAP continue IV abx Will closely monitor renal function given vanco trough level f/u blood cultures, preliminary results report no growth sputum culture: MRSA, will continue Vancomycin, Vanco trough noted, dose adjusted by pharmacist duonenavin as needed O2 supplementation as needed will closely monitor respiratory status pt reports of not being on home oxygen f/u PT/OT (2) UTI (urinary tract infection) Current Visit: Yes Status: Acute Assessment and plan: continue IV abx Urine cultures positive for Pseudomonas Aeruginosa Qualifiers: Urinary tract infection type: site unspecified Hematuria presence: without hematuria Qualified Code(s): N39.0 - Urinary tract infection, site not specified (3) CHF (congestive heart failure) Current Visit: Yes Status: Chronic Assessment and plan: Pt tolerating home dose of lasix (20mg PO qd), will continue unable to use higher dose of Lasix due to labile BP readings monitor I/Os, daily weights fluid restriction diet (4) Decubitus ulcer of right heel, stage 3 Current Visit: No Status: Chronic Assessment and plan: CT Right foot noted, no OM reported, findings consistent with prior study continue daily wound care (5) Elevated troponin Current Visit: Yes Status: Acute Assessment and plan: No signs of angina present likely secondary to underlying infection continue ASA, Plavix, and Lipitor (6) Osteoporosis Current Visit: No Status: Chronic Qualifiers: Osteoporosis type: unspecified Presence of current pathological fracture: without current pathological fracture Qualified Code(s): M81.0 - Age-related osteoporosis without current pathological fracture (7) Sacral decubitus ulcer, stage III Current Visit: No Status: Chronic Assessment and plan: wound care consultation frequent turning daily wound care (8) Thyroid disease Current Visit: Yes Status: Chronic Assessment and plan: Synthroid discontinued during last hospitalization 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 continue low dose Levothyroxine repeat thyroid function tests after discharge is recommended (9) DVT prophylaxis Current Visit: Yes Status: Acute Assessment and plan: Heparin SQ (10) Hypotension Current Visit: Yes Status: Acute Assessment and plan: pt clinically asymptomatic hold lasix for SBP<100 hold narcotics for SBP<110 will continue to closely monitor BP improved at this time Qualifiers: Hypotension type: unspecified hypotension type Qualified Code(s): I95.9 - Hypotension, unspecified (11) Electrolyte abnormality Current Visit: Yes Status: Resolved (12) Diarrhea Current Visit: Yes Status: Acute Assessment and plan: stool studies negative for C-diff continue supportive care Imodium prn closely monitor electrolytes Qualifiers: Diarrhea type: unspecified type Qualified Code(s): R19.7 - Diarrhea, unspecified - Subjective Interval history: Patient is a 77y/o female transferred from [facility] for management of acute respiratory distress and fever. She is admitted for HCAP and UTI. Patient seen and examined at bedside. Reports of feeling significantly better compared to previous day. Improvement in diarrhea reported. Pt states she will discuss with her son in regards to what NH she would like to go to No overnight issues reported Has history of paraplegia of b/l LE and is bed bound at baseline. Pt came to the hospital from an ECF however is requesting to go to a different ECF as she was not happy with the services from the one she came from. - Constitutional Vitals: Temp Pulse Resp BP Pulse Ox 98.4 F 90 18 103/55 93 07/24/17 03:33 07/24/17 06:59 07/24/17 11:16 07/24/17 06:59 07/24/17 11:16 General appearance: Present: cooperative, A&O X 3, pleasant, no acute distress, answers questions appropriately - Head Head exam: Present: atraumatic, normocephalic - Eye Eye exam: Present: conjuntiva pink, sclera anicteric - Respiratory Respiratory exam: Absent: respiratory distress, wheezes - Cardiovascular Cardiovascular exam: Present: RRR, +S1, +S2. Absent: diastolic murmur, gallop, rubs, systolic murmur - GI/Abdominal GI/Abdominal exam: Present: normal bowel sounds, soft, no peritoneal signs. Absent: distended, tenderness - Extremities Exam Extremities exam: Present: pedal edema, warm, radial pulses palpable and symmetrical. Absent: calf tenderness - Neurological Exam Neurological exam: Present: alert, oriented X3 - Psychiatric Psychiatric exam: Present: normal affect, normal mood Internal Medicine: Result - Labs CBC & Chem 7: 07/24/17 05:13 07/24/17 05:13 Labs: Short CBC 07/24/17 Range/Units 05:13 WBC 4.6 (4.3-11.1) K/mcL Hgb 9.5 L (11.5-15.4) g/dL Hct 30.5 L (35.3-44.9) % Plt Count 177 (140-400) K/mcL Neutrophils # 2.8 (1.6-8.9) K/mcL BMP 07/24/17 05:13 Sodium 144 Potassium 3.7 Chloride 109 Carbon Dioxide 30 H BUN 7 Creatinine 0.68 Glucose 108 H Calcium 8.4 L - ABG Interpretation ABG results: PT/INR, D-dimer PT 12.4 Seconds (9.4-12.1) H 07/20/17 01:08 Consult Discharge Plan - Plan Referrals: Royer Pelaez DO [Resident] - 07/26/17 10:30 am
[2017-07-24] MEDS: *HR* OxyCODONE/APAP 5/325 TABLET PO PRN (15:48)
[2017-07-24] MEDS: Vancomycin 1,000 MG in D5% in Water 250 ML IVPB SCH (16:03)
[2017-07-24] MEDS: FLUoxetine 20 MG CAPSULE PO SCH (17:41)
[2017-07-24] MEDS: OLANZapine 5 MG TAB.RAPDIS PO SCH (17:41)
[2017-07-24] MEDS ORDERED: Aminoglycoside Consult 1 EACH MC ONE (17:56)
[2017-07-25] MEDS: Piperacillin/Tazobactam 3.375 GM in D5% in Water (Mini-Bag+) 100 ML IVPB SCH ×2 (03:25→10:10)
[2017-07-25] MEDS: Ipratropium/Albuterol Neb 3 ML IH SCH ×5 (04:36→20:47)
[2017-07-25] MEDS ORDERED: Ondansetron 4 MG/2 ML VIAL IVP SCH (06:00)
[2017-07-25] MEDS: *HR* Heparin 5,000 UNIT/ML VIAL SQ SCH ×3 (06:07→22:02)
[2017-07-25] MEDS: Levothyroxine 25 MCG TABLET PO SCH (06:07)
[2017-07-25 07:34] LABS: Basophils % 0.2 %; Eosinophils # 0.2 K/mcL (0.0-0.6); Eosinophils % 5.4 %; Hematocrit 31.8 % (35.3-44.9); Hemoglobin 9.9 g/dL (11.5-15.4); Immature Granulocytes % 0.2 % (0-4); Lymphocytes % 22.3 %; Mean Corpuscular HGB Conc 31.1 g/dL (31.6-35.5); Mean Corpuscular Hemoglobin 28.9 pg (28.0-33.3); Mean Corpuscular Volume 92.7 fL (83.0-100.0); Mean Platelet Volume 9.2 fL (9.4-12.4); Monocytes # 0.2 K/mcL (0.0-1.3); Monocytes % 4.7 %; Platelet Count 180 K/mcL (140-400); Red Blood Count 3.43 M/mcL (3.82-4.97); Red Cell Distribution Width 14.5 % (11.5-14.5); Segmented Neutrophils % 67.2 %
[2017-07-25 08:10] LABS: BUN/Creatinine Ratio 11 (6-26); Blood Urea Nitrogen 8 mg/dL (7-20); Calcium 8.8 mg/dL (8.6-10.8); Carbon Dioxide 30 mEq/L (19-29); Chloride 106 mEq/L (98-109); Glucose 113 mg/dL (70-99); Magnesium 1.8 mg/dL (1.6-2.6); Osmolality,Calculated 297 (280-300); Phosphorous 2.8 mg/dL (2.3-4.7); Potassium 3.8 mEq/L (3.5-4.5); Sodium 144 mEq/L (136-145); eGFR For African Americans > 60 (> 60); eGFR For Non-African Americans > 60 (> 60)
[2017-07-25] MEDS: Insulin LISPRO 300 UNITS/3 ML VIAL SQ SCH ×4 (09:39→22:03)
[2017-07-25] MEDS: Gabapentin 300 MG CAPSULE PO SCH ×3 (10:10→22:00)
[2017-07-25] MEDS: Celecoxib 200 MG CAPSULE PO SCH (10:10)
[2017-07-25] MEDS: Furosemide 20 MG TABLET PO SCH (10:10)
[2017-07-25] MEDS ORDERED: Ondansetron 4 MG/2 ML VIAL IVP PRN (11:56)
--- NOTE | 2017-07-25 12:29 | Internal Med Progress Note ---
Date of Encounter: 07/25/17 Time of Encounter: 11:55 - Assessment and plan (1) HCAP (healthcare-associated pneumonia) Current Visit: Yes Status: Acute Assessment and plan: Pt was recently hospitalized and discharged to ECF Will treat as HCAP Will closely monitor renal function given vanco trough level blood cultures: No growth sputum culture: MRSA will d/c IV abx and start Levofloxacin to cover pseudomonal UTI and Doxycycline for MRSA (Day 6 of abx) duonebs as needed O2 supplementation as needed will closely monitor respiratory status pt reports of not being on home oxygen PT: ECF (2) UTI (urinary tract infection) Current Visit: Yes Status: Acute Assessment and plan: will switch to PO Levaquin (Day 03/27) Urine cultures positive for Pseudomonas Aeruginosa Qualifiers: Urinary tract infection type: site unspecified Hematuria presence: without hematuria Qualified Code(s): N39.0 - Urinary tract infection, site not specified (3) CHF (congestive heart failure) Current Visit: Yes Status: Chronic Assessment and plan: Pt tolerating home dose of lasix (20mg PO qd), will continue unable to use higher dose of Lasix due to labile BP readings monitor I/Os, daily weights fluid restriction diet (4) Decubitus ulcer of right heel, stage 3 Current Visit: No Status: Chronic Assessment and plan: CT Right foot noted, no OM reported, findings consistent with prior study continue daily wound care (5) Elevated troponin Current Visit: Yes Status: Acute Assessment and plan: No signs of angina present likely secondary to underlying infection continue ASA, Plavix, and Lipitor (6) Osteoporosis Current Visit: No Status: Chronic Qualifiers: Osteoporosis type: unspecified Presence of current pathological fracture: without current pathological fracture Qualified Code(s): M81.0 - Age-related osteoporosis without current pathological fracture (7) Sacral decubitus ulcer, stage III Current Visit: No Status: Chronic Assessment and plan: wound care consultation frequent turning daily wound care (8) Thyroid disease Current Visit: Yes Status: Chronic Assessment and plan: Synthroid discontinued during last hospitalization 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 continue low dose Levothyroxine repeat thyroid function tests after discharge is recommended (9) DVT prophylaxis Current Visit: Yes Status: Acute Assessment and plan: Heparin SQ (10) Hypotension Current Visit: Yes Status: Acute Assessment and plan: pt clinically asymptomatic hold lasix for SBP<100 hold narcotics for SBP<110 will continue to closely monitor BP improved at this time Qualifiers: Hypotension type: unspecified hypotension type Qualified Code(s): I95.9 - Hypotension, unspecified (11) Electrolyte abnormality Current Visit: Yes Status: Resolved Assessment and plan: Resolved continue to monitor electrolytes and replace as needed (12) Diarrhea Current Visit: Yes Status: Acute Assessment and plan: stool studies negative for C-diff continue supportive care Imodium prn closely monitor electrolytes Qualifiers: Diarrhea type: unspecified type Qualified Code(s): R19.7 - Diarrhea, unspecified - Subjective Interval history: Patient is a 77y/o female transferred from SNF for management of acute respiratory distress and fever. She is admitted for HCAP and UTI. Pt seen and examined at bedside. Reports of having recurrent episodes of diarrhea today. states she feels weak and is not ready to go back to the [place] today No overnight issues reported Has history of paraplegia of b/l LE and is bed bound at baseline. Pt came to the hospital from an ECF however is requesting to go to a different ECF as she was not happy with the services from the one she came from. - Constitutional Vitals: Temp Pulse Resp BP Pulse Ox 97.6 F 85 18 113/59 98 07/25/17 04:00 07/25/17 07:00 07/25/17 07:35 07/25/17 07:00 07/25/17 07:35 General appearance: Present: cooperative, A&O X 3, pleasant, no acute distress, answers questions appropriately - Head Head exam: Present: atraumatic, normocephalic - Respiratory Respiratory exam: Absent: respiratory distress, wheezes - Cardiovascular Cardiovascular exam: Present: RRR, +S1, +S2. Absent: diastolic murmur, gallop, rubs, systolic murmur - GI/Abdominal GI/Abdominal exam: Present: normal bowel sounds, soft, no peritoneal signs. Absent: distended, tenderness - Extremities Exam Extremities exam: Present: warm, radial pulses palpable and symmetrical. Absent : calf tenderness Additional comments: Left foot dressing intact - Neurological Exam Neurological exam: Present: alert, oriented X3 Internal Medicine: Result - Labs CBC & Chem 7: 07/25/17 07:12 07/25/17 07:12 Labs: Short CBC 07/25/17 Range/Units 07:12 WBC 4.4 (4.3-11.1) K/mcL Hgb 9.9 L (11.5-15.4) g/dL Hct 31.8 L (35.3-44.9) % Plt Count 180 (140-400) K/mcL Neutrophils # 3.0 (1.6-8.9) K/mcL BMP 07/25/17 07:12 Sodium 144 Potassium 3.8 Chloride 106 Carbon Dioxide 30 H BUN 8 Creatinine 0.74 Glucose 113 H Calcium 8.8 - ABG Interpretation ABG results: PT/INR, D-dimer PT 12.4 Seconds (9.4-12.1) H 07/20/17 01:08 Consult Discharge Plan - Plan Referrals: Royer Pelaez DO [Resident] - 07/26/17 10:30 am
[2017-07-25] MEDS: levoFLOXacin 750 MG TABLET PO SCH (14:49)
[2017-07-25] MEDS: *HR* OxyCODONE/APAP 5/325 TABLET PO PRN (16:40)
[2017-07-25] MEDS: Doxycycline 100 MG CAPSULE PO SCH (22:00)
[2017-07-25] MEDS: OLANZapine 5 MG TAB.RAPDIS PO SCH (22:01)
[2017-07-25] MEDS: FLUoxetine 20 MG CAPSULE PO SCH (22:02)
[2017-07-26] MEDS: Ipratropium/Albuterol Neb 3 ML IH SCH ×6 (00:23→15:55)
[2017-07-26 03:42] LABS: Basophils % 0.2 %; Eosinophils # 0.2 K/mcL (0.0-0.6); Eosinophils % 3.2 %; Hematocrit 29.5 % (35.3-44.9); Hemoglobin 9.2 g/dL (11.5-15.4); Immature Granulocytes % 0.4 % (0-4); Lymphocytes # 1.5 K/mcL (0.6-4.6); Lymphocytes % 29.1 %; Mean Corpuscular HGB Conc 31.2 g/dL (31.6-35.5); Mean Corpuscular Hemoglobin 28.3 pg (28.0-33.3); Mean Corpuscular Volume 90.8 fL (83.0-100.0); Mean Platelet Volume 9.2 fL (9.4-12.4); Monocytes # 0.2 K/mcL (0.0-1.3); Monocytes % 4.4 %; Neutrophils # 3.1 K/mcL (1.6-8.9); Platelet Count 203 K/mcL (140-400); Red Blood Count 3.25 M/mcL (3.82-4.97); Red Cell Distribution Width 14.2 % (11.5-14.5); Segmented Neutrophils % 62.7 %
[2017-07-26 03:55] LABS: BUN/Creatinine Ratio 12 (6-26); Blood Urea Nitrogen 9 mg/dL (7-20); Calcium 8.7 mg/dL (8.6-10.8); Carbon Dioxide 30 mEq/L (19-29); Chloride 104 mEq/L (98-109); Glucose 95 mg/dL (70-99); Magnesium 1.6 mg/dL (1.6-2.6); Osmolality,Calculated 292 (280-300); Phosphorous 2.3 mg/dL (2.3-4.7); Potassium 3.3 mEq/L (3.5-4.5); Sodium 142 mEq/L (136-145); eGFR For African Americans > 60 (> 60); eGFR For Non-African Americans > 60 (> 60)
[2017-07-26] MEDS: Levothyroxine 25 MCG TABLET PO SCH (06:18)
[2017-07-26] MEDS: *HR* Heparin 5,000 UNIT/ML VIAL SQ SCH (06:18)
[2017-07-26] MEDS: Insulin LISPRO 300 UNITS/3 ML VIAL SQ SCH (10:11)
[2017-07-26] MEDS: Furosemide 20 MG TABLET PO SCH (11:27)
[2017-07-26] MEDS: *HR* OxyCODONE/APAP 5/325 TABLET PO PRN (11:27)
[2017-07-26] MEDS: Doxycycline 100 MG CAPSULE PO SCH (11:27)
[2017-07-26] MEDS: Celecoxib 200 MG CAPSULE PO SCH (11:27)
[2017-07-26] MEDS: levoFLOXacin 750 MG TABLET PO SCH (11:27)
[2017-07-26] MEDS: Gabapentin 300 MG CAPSULE PO SCH (11:28)
--- NOTE | 2017-07-26 13:00 | Discharge Summary ---
Date of Encounter: 07/26/17 Time of Encounter: 12:57 - Discharge Diagnosis (1) HCAP (healthcare-associated pneumonia) Priority: Primary Status: Acute (2) UTI (urinary tract infection) Priority: Primary Status: Acute Qualifiers: Urinary tract infection type: site unspecified Hematuria presence: without hematuria Qualified Code(s): N39.0 - Urinary tract infection, site not specified (3) CHF (congestive heart failure) Priority: Secondary Status: Chronic (4) Decubitus ulcer of right heel, stage 3 Priority: Secondary Status: Chronic (5) Elevated troponin Priority: Secondary Status: Acute (6) Osteoporosis Priority: Secondary Status: Chronic Qualifiers: Osteoporosis type: unspecified Presence of current pathological fracture: without current pathological fracture Qualified Code(s): M81.0 - Age-related osteoporosis without current pathological fracture (7) Sacral decubitus ulcer, stage III Priority: Secondary Status: Chronic (8) Thyroid disease Priority: Secondary Status: Chronic (9) DVT prophylaxis Priority: Secondary Status: Acute (10) Hypotension Priority: Secondary Status: Acute Qualifiers: Hypotension type: unspecified hypotension type Qualified Code(s): I95.9 - Hypotension, unspecified (11) Electrolyte abnormality Priority: Secondary Status: Resolved (12) Diarrhea Priority: Secondary Status: Acute Qualifiers: Diarrhea type: unspecified type Qualified Code(s): R19.7 - Diarrhea, unspecified - Discharge Medications Prescriptions: Doxycycline 100 mg PO BID #3 capsule levoFLOXacin [Levaquin] 750 mg PO DAILY #3 tablet OxyCODONE/APAP 5/325 [Percocet 5/325 MG] 1 tab PO BID PRN #10 tablet PRN Reason: Pain Home Medications: Celecoxib [Celebrex] 200 mg PO DAILY 11/02/16 [History] Clopidogrel [Plavix] 75 mg PO DAILY 11/02/16 [History] Nitroglycerin [Nitrostat] 0.4 mg SL Q5M PRN 11/02/16 [History] Gabapentin [Neurontin] 900 mg PO TID 06/07/17 [History] Atorvastatin [Lipitor] 20 mg PO HS tab 06/10/17 [Rx] Furosemide [Lasix] 20 mg PO DAILY #7 tablet 06/10/17 [Rx] Ondansetron ODT [Zofran ODT] 4 mg SL Q6HR PRN 06/10/17 [Rx] ALPRAZolam [Xanax 0.25 MG Tablet] 0.25 mg PO TID PRN 07/19/17 [History] Doxycycline 100 mg PO BID #3 capsule 07/26/17 [Rx] Ipratropium/Albuterol Neb [Duoneb] 3 ml IH [id number] inhsol 07/26/17 [Rx] Levothyroxine [Synthroid] 25 mcg PO DAILY@0630 tablet 07/26/17 [Rx] Loperamide [Imodium] 2 mg PO Q4H PRN capsule 07/26/17 [Rx] OxyCODONE/APAP 5/325 [Percocet 5/325 MG] 1 tab PO BID PRN #10 tablet 07/26/17 [ Rx] levoFLOXacin [Levaquin] 750 mg PO DAILY #3 tablet 07/26/17 [Rx] Allergies/Adverse Reactions: 3 Allergy/AdvReac Type Severity Reaction Status Date / Time carbamazepine [From Tegretol] Allergy Unconscious Verified 06/07/17 14:38 pentazocine [From Talwin] Allergy Seizure Verified 06/07/17 14:38 phenytoin [From Dilantin] Allergy Rash Verified 06/07/17 14:38 Date of admission: 07/19/17 16:06 Primary care physician: PCP NONE Consults: 07/19/17 16:13 Consult to Wound Care [CONS] Routine Reason for Consult: Patient has bilateral skin ulcers on feet that are erythematous and edematous. Patient has hx of MRSA in wounds. Daily wound care ordered. Call Completed: No Discharging clinician: Eryn Michelle Anticipated date of discharge: 07/26/17 - Patient Status Disposition: Transfer SNF Condition: Good Functional capacity at discharge: bed bound Overall status at discharge: patient is back to baseline - Discharge Instructions Follow Up With: Royer Pelaez DO [Resident] - 08/02/17 3:00 pm Additional Instructions: Please follow up with your primary care physician within one week after your discharge from the hospital Please continue oral antibiotics as prescribed. Levothyroxine was added to your home medications. Please obtain thyroid function tests as outpatient. Please inform your primary care physician of this change. Please resume all your other home medications as prescribed by your primary care physician. - Diet and Activity Activity: as per physical therapy, other (wear oxygen as needed) Diet: low salt diet Hospital course: Ms. Borja is a 77 year old female with extensive medical history who was transferred from SNF to [facility] for SOB. She was further admitted for HCAP and UTI. She was found to have MRSA PNA and Psuedomonas UTI. Initially she was started on empiric IV abx which were de-escalated to PO therapy as per culture sensitivities. She has a sacral decubitus, b/l feet ulcers for which she received daily wound care. She was also noted to have diarrhea which was negative for C-diff for which she received supportive care. She was noted to intermittently required O2 support. At this time pt is hemodynamically stable and will be discharged to ECF pending ECF placement. Pt demonstrates understanding of the diagnosis and agrees with the discharge care and plan. Initially she was refusing to go back to [facility] ECF however is willing to go back there now. - Time Spent with Patient Total time spent providing and/or coordinating discharge services: Greater than 30 minutes - Constitutional Vitals: Temp Pulse Resp BP Pulse Ox 98.2 F 88 18 117/73 88 07/26/17 11:21 07/26/17 11:21 07/26/17 11:43 07/26/17 11:21 07/26/17 11:43 General appearance: Present: cooperative, A&O X 3, pleasant, no acute distress, answers questions appropriately - Head Head exam: Present: atraumatic, normocephalic - Eye Eye exam: Present: conjuntiva pink, sclera anicteric - Respiratory Respiratory exam: Absent: respiratory distress, wheezes - Cardiovascular Cardiovascular exam: Present: RRR, +S1, +S2. Absent: diastolic murmur, gallop, rubs, systolic murmur - GI/Abdominal GI/Abdominal exam: Present: normal bowel sounds, soft, no peritoneal signs. Absent: distended, tenderness - Extremities Exam Extremities exam: Present: pedal edema, warm, radial pulses palpable and symmetrical. Absent: calf tenderness - Neurological Exam Neurological exam: Present: alert, oriented X3 - Psychiatric Psychiatric exam: Present: normal affect, normal mood - VTE Documentation of Mechanical Device: Intermittent pneumatic compression device
--- NOTE | 2017-07-26 13:06 | Physician Discharge Referral ---
ExtendedCare Referral Info Transfer To: [facility] Provider in Charge after Transfer: PCP - Diagnosis (1) HCAP (healthcare-associated pneumonia) Priority: Primary Status: Acute (2) UTI (urinary tract infection) Priority: Primary Status: Acute (3) CHF (congestive heart failure) Priority: Secondary Status: Chronic (4) Decubitus ulcer of right heel, stage 3 Priority: Secondary Status: Chronic (5) Elevated troponin Priority: Secondary Status: Acute (6) Osteoporosis Status: Chronic (7) Sacral decubitus ulcer, stage III Priority: Secondary Status: Chronic (8) Thyroid disease Status: Chronic (9) DVT prophylaxis Priority: Secondary Status: Acute (10) Hypotension Priority: Secondary Status: Acute (11) Electrolyte abnormality Priority: Secondary Status: Resolved (12) Diarrhea Priority: Secondary Status: Acute - Transfer Medications Prescriptions: Doxycycline 100 mg PO BID #3 capsule levoFLOXacin [Levaquin] 750 mg PO DAILY #3 tablet OxyCODONE/APAP 5/325 [Percocet 5/325 MG] 1 tab PO BID PRN #10 tablet PRN Reason: Pain Home Medications: Celecoxib [Celebrex] 200 mg PO DAILY 11/02/16 [History] Clopidogrel [Plavix] 75 mg PO DAILY 11/02/16 [History] Nitroglycerin [Nitrostat] 0.4 mg SL Q5M PRN 11/02/16 [History] Gabapentin [Neurontin] 900 mg PO TID 06/07/17 [History] Atorvastatin [Lipitor] 20 mg PO HS tab 06/10/17 [Rx] Furosemide [Lasix] 20 mg PO DAILY #7 tablet 06/10/17 [Rx] Ondansetron ODT [Zofran ODT] 4 mg SL Q6HR PRN 06/10/17 [Rx] ALPRAZolam [Xanax 0.25 MG Tablet] 0.25 mg PO TID PRN 07/19/17 [History] Doxycycline 100 mg PO BID #3 capsule 07/26/17 [Rx] Ipratropium/Albuterol Neb [Duoneb] 3 ml IH [id number] inhsol 07/26/17 [Rx] Levothyroxine [Synthroid] 25 mcg PO DAILY@0630 tablet 07/26/17 [Rx] Loperamide [Imodium] 2 mg PO Q4H PRN capsule 10/09/17 [Rx] OxyCODONE/APAP 5/325 [Percocet 5/325 MG] 1 tab PO BID PRN #10 tablet 07/26/17 [ Rx] levoFLOXacin [Levaquin] 750 mg PO DAILY #3 tablet 07/26/17 [Rx] Allergies/Adverse Reactions: 3 Allergy/AdvReac Type Severity Reaction Status Date / Time carbamazepine [From Tegretol] Allergy Unconscious Verified 06/07/17 14:38 pentazocine [From Talwin] Allergy Seizure Verified 06/07/17 14:38 phenytoin [From Dilantin] Allergy Rash Verified 06/07/17 14:38 - Respiratory Orders Oxygen / L per min (2L/min) Smoking Cessation: Smoking cessation has been advised. For more information, call the [employer] Quit Line at 5-172-BRFW-NOW. - Rehabiliation Orders Other: Please follow up with your primary care physician within one week after your discharge from the hospital Please continue oral antibiotics as prescribed. Levothyroxine was added to your home medications. Please obtain thyroid function tests as outpatient. Please inform your primary care physician of this change. Please resume all your other home medications as prescribed by your primary care physician. CERTIFICATION: I certify that the transfer of the above named patient to an Extended Care Facility is necessary for the continuing treatment of the diagnosis listed. The above information is true and accurate reflection of patient's current condition. Confidential - Redisclosure prohibited without a patient's written consent.
[2017-07-26 14:44] VITALS: BP 111/69
== END 2017-07-26 17:57 | DRG 177 ==
LOC: EMEROO 11:58 → 2NENU 11:58 → SUATTDRO 16:06
PROVIDERS: ADMIT Registered Nurse; ATTEND Internal Medicine

== ENCOUNTER 2018-08-22 11:17 | Inpatient (IN) ==
--- NOTE | 2018-08-22 12:19 | Emergency Department Note ---
Disposition Clinical Impression: UTI (urinary tract infection) Qualifiers: Urinary tract infection type: site unspecified Hematuria presence: without hematuria Qualified Code(s): N39.0 - Urinary tract infection, site not specified Disposition: Home, Self-Care Condition: Good Time of Disposition: 14:27 General Adult HPI - General Chief complaint: ED Abdominal Pain Stated complaint: "LLQ pain,urinary retention" Time Seen by Provider: 08/22/18 11:26 Source: patient Mode of arrival: private vehicle Limitations: no limitations Nursing Notes Reviewed: Yes Vital Signs Reviewed: Yes - History of Present Illness HPI Narrative: Patient is a 78-year-old female presenting to [facility] ED for one week history of progressively worsening urinary retention and left groin pain. Patient states that she has a 14 year history of multiple recurrent urinary tract infections in this presentation is similar to prior. Patient states that she has a past medical history of rectal and bladder p rolapse which is been treated with pessary as well as sling placement-both treatments have failed. Patient states that ciprofloxacin and Bactrim typically treat her symptoms well. Patient states she was able to urinate last evening but it has a concentrated appearance and is dark in color. Patient denies headache, vision changes, tinnitus, chest pain, shortness of breath. Patient states that she may need catheterization in order to give urine sample. Pt Subjective Complaint: Dysuria, left groin pain Onset (ago): week(s) Location: pelvis Radiation: other (Left groin) Pain Severity: moderate Pain Scale: 7 Quality: burning, constant Consistency: Worsening Improves with: medication Worsens with: nothing Associated symptoms: Reports: shortness of breath - Related Data Home Medications Medication Instructions Recorded Confirmed RX: Celecoxib [Celebrex] 200 mg PO DAILY 11/02/16 08/22/18 RX: Clopidogrel [Plavix] 75 mg PO DAILY 11/02/16 08/22/18 RX: Nitroglycerin [Nitrostat] 0.4 mg SL Q5M PRN 11/02/16 08/22/18 RX: Gabapentin [Neurontin] 300 mg PO TID 06/07/17 08/22/18 Gabapentin [Neurontin] 600 mg PO TID 08/22/18 08/22/18 Multivitamin [One Daily 1 tab PO DAILY 08/22/18 08/22/18 Multivitamin] Olanzapine/Fluoxetine HCl [Symbyax 1 tab PO DAILY 08/22/18 08/22/18 3-25 mg Capsule] Pravastatin Sodium [Pravachol] 20 mg PO DAILY 08/22/18 08/22/18 RX: Baclofen [Lioresal] 10 mg PO 1900 08/22/18 08/22/18 RX: Furosemide [Lasix] 20 mg PO DAILY PRN 08/22/18 08/22/18 RX: Rivastigmine Patch [Exelon] 1 patch TP DAILY 08/22/18 08/22/18 Previous Rx's Medication Instructions Recorded RX: Levothyroxine [Synthroid] 25 mcg PO DAILY@0630 tablet 07/26/17 RX: Doxycycline 100 mg PO BID 7 Days #14 capsule 08/22/18 Allergies Allergy/AdvReac Type Severity Reaction Status Date / Time carbamazepine [From Tegretol] Allergy Unconscious Verified 08/22/18 11:25 pentazocine [From Talwin] Allergy Seizure Verified 08/22/18 11:25 phenytoin [From Dilantin] Allergy Rash Verified 08/22/18 11:25 All systems ED: reviewed and negative except as stated. Review of Systems: As Per HPI Constitutional: Reports: weakness. Denies: fever, chills Eyes: Denies: vision change Cardiovascular: Denies: chest pain Respiratory: Reports: dyspnea Gastrointestinal: Denies: abdominal pain, nausea, vomiting, hematochezia Genitourinary: Reports: dysuria, other (Patient states that her urine has been concentrated and dark in color). Denies: hematuria Musculoskeletal: Denies: back pain, neck pain Neurological: Reports: weakness. Denies: headache, numbness, paresthesias Endocrine: Reports: fatigue Past Medical History - Past Medical History Medical history: Reports: arthritis, CHF, osteoporosis, peripheral artery disease, thyroid disease, other Surgical history: Reports: appendectomy, cholecystectomy, hysterectomy, other Psychiatric history: Reports: no psych history - Social History Smoking Status: Never smoker Smokeless Tobacco Status: No Alcohol use: Reports: none Drug use: Reports: none Physical Exam - General Limitations: no limitations General appearance: alert, in no apparent distress - Head Head exam: atraumatic, normocephalic, normal inspection - Eye Eye exam: Present: normal appearance, PERRL, EOMI. Absent: scleral icterus, conjunctival injection - Neck Neck exam: Present: trachea midline - Chest Chest inspection: Present: normal inspection, symmetric chest wall rise - Respiratory Respiratory exam: Present: normal lung sounds bilaterally. Absent: respiratory distress, wheezes, stridor, accessory muscle use, prolonged expiratory phase - Cardiovascular Cardiovascular exam: Present: regular rate, normal rhythm, normal heart sounds, +S1, +S2. Absent: JVD, +S3, +S4 - Abdominal Exam Abdominal exam: Present: soft, Non-Tender, normal bowel sounds. Absent: distention, guarding, rebound, rigidity, organomegaly - Back Exam Back exam: Absent: CVA tenderness (R), CVA tenderness (L) - Neurological Exam Neurological exam: Present: alert, oriented X3 - Psychiatric Psychiatric exam: Present: normal affect, normal mood - Skin Skin exam: Present: warm, dry, intact, normal color. Absent: cyanosis, diaphoresis Course Course Narrative: The patient's history, review of systems, and physical exam are consistent with her past medical history of multiple recurrent UTIs. Urinalysis with straight catheter will be performed to assess for urinary tract infection. Vital Signs Temperature 97.7 F 08/22/18 11:24 Pulse Rate 63 08/22/18 11:24 Respiratory Rate 16 08/22/18 11:24 Blood Pressure 122/65 08/22/18 11:24 O2 Sat by Pulse Oximetry 97 08/22/18 11:24 Temperature 97.7 F 08/22/18 12:40 Pulse Rate 72 08/22/18 18:22 Respiratory Rate 15 08/22/18 18:22 Blood Pressure 110/61 08/22/18 18:22 O2 Sat by Pulse Oximetry 97 08/22/18 12:40 Oxygen Delivery Oxygen Delivery Room Air Medical Decision Making - [facility] Narrative Medical decision making narrative: Urinalysis shows UTI with past history of pseudomonal infection. Imaging results negative. Patient given 1 dose of 100 mg doxycycline while in the ED and prescribed 7 days worth of 100 mg doxycycline twice a day. Patient was initially to be discharged home with agreement with this plan from patient and patient's son. Social work stopped discharge to recommend admission to the hospital in order to obtain placement for patient and long-term care facility due to significant stress expressed by the patient's son in caring full-time for patient. This information was discussed with hospitalist who accepted admission in order to obtain placement. Plan for admission was discussed with patient and patient was in agreement with this plan. - Lab Data Lab results reviewed: Yes I reviewed the patient's lab results. Result diagrams: 08/22/18 16:40 08/22/18 16:40 Lab Results 08/22/18 08/22/18 08/22/18 Range/Units 13:00 16:40 16:40 WBC 4.6 (4.3-11.1) K/mcL RBC 4.19 (3.82-4.97) M/mcL Hgb 13.0 (11.5-15.4) g/dL Hct 38.6 (35.3-44.9) % MCV 92.1 (83.0-100.0) fL MCH 31.0 (28.0-33.3) pg MCHC 33.7 (31.6-35.5) g/dL RDW 13.4 (11.5-14.5) % Plt Count 223 (140-400) K/mcL MPV 9.2 L (9.4-12.4) fL Immature Gran % 0.2 (0-4) % Seg Neutrophils % 58.6 % Lymphocytes % 34.5 % Monocytes % 5.2 % Eosinophils % 1.1 % Basophils % 0.4 % Neutrophils # 2.7 (1.6-8.9) K/mcL Lymphocytes # 1.6 (0.6-4.6) K/mcL Monocytes # 0.2 (0.0-1.3) K/mcL Eosinophils # 0.1 (0.0-0.6) K/mcL Basophils # 0.0 (0.0-0.2) K/mcL PT (9.4-12.1) Seconds INR Sodium 143 (136-145) mEq/L Potassium 3.7 (3.5-5.1) mEq/L Chloride 105 (98-107) mEq/L Carbon Dioxide 30 H (23-29) mEq/L BUN 18 (8-23) mg/dL Creatinine 0.48 L (0.60-1.20) mg/dL Est GFR ( Amer) > 60 (> 60) Est GFR (Non-Af Amer) > 60 (> 60) BUN/Creatinine Ratio 38 H (6-26) Glucose 79 (70-105) mg/dL Calculated Osmolality 297 (280-300) Calcium 9.4 (8.6-10.3) mg/dL Total Bilirubin 0.6 (0.3-1.0) mg/dL AST 21 (13-39) Units/L ALT 22 (7-52) Units/L Alkaline Phosphatase 84 (34-104) Units/L Serum Total Protein 6.8 (6.4-8.9) g/dL Albumin 3.9 (3.5-5.7) g/dL Globulin 2.9 (2.4-3.5) g/dL Albumin/Globulin Ratio 1.3 (1.1-2.2) Urine Color Yellow (Yellow) Urine Clarity Turbid A (Clear) Urine pH 6.0 (5.0-8.0) pH Units Ur Specific [place] 1.014 (1.010-1.025) Urine Protein 100 H (Neg-Trace) mg/dL Urine Glucose (UA) Normal (Normal) mg/dL Urine Ketones Negative (Negative) mg/dL Urine Blood Large H (Negative) Urine Nitrite Positive A (Negative) Urine Bilirubin Negative (Negative) Urine Urobilinogen Normal (Normal) mg/dL Ur Leukocyte Esterase Large H (Negative) Urine Microscopic RBC TNTC H (0-3) per hpf Urine Microscopic WBC TNTC H (0-3) per hpf Ur Squamous Epith Cells Moderate H (None-Few) per lpf Urine Bacteria Few (None-Few) per hpf Ur Culture Indicated? YES A (NO) 08/22/18 Range/Units 16:40 WBC (4.3-11.1) K/mcL RBC (3.82-4.97) M/mcL Hgb (11.5-15.4) g/dL Hct (35.3-44.9) % MCV (83.0-100.0) fL MCH (28.0-33.3) pg MCHC (31.6-35.5) g/dL RDW (11.5-14.5) % Plt Count (140-400) K/mcL MPV (9.4-12.4) fL Immature Gran % (0-4) % Seg Neutrophils % % Lymphocytes % % Monocytes % % Eosinophils % % Basophils % % Neutrophils # (1.6-8.9) K/mcL Lymphocytes # (0.6-4.6) K/mcL Monocytes # (0.0-1.3) K/mcL Eosinophils # (0.0-0.6) K/mcL Basophils # (0.0-0.2) K/mcL PT 11.8 (9.4-12.1) Seconds INR 1.0 Sodium (136-145) mEq/L Potassium (3.5-5.1) mEq/L Chloride (98-107) mEq/L Carbon Dioxide (23-29) mEq/L BUN (8-23) mg/dL Creatinine (0.60-1.20) mg/dL Est GFR ( Amer) (> 60) Est GFR (Non-Af Amer) (> 60) BUN/Creatinine Ratio (6-26) Glucose (70-105) mg/dL Calculated Osmolality (280-300) Calcium (8.6-10.3) mg/dL Total Bilirubin (0.3-1.0) mg/dL AST (13-39) Units/L ALT (7-52) Units/L Alkaline Phosphatase (34-104) Units/L Serum Total Protein (6.4-8.9) g/dL Albumin (3.5-5.7) g/dL Globulin (2.4-3.5) g/dL Albumin/Globulin Ratio (1.1-2.2) Urine Color (Yellow) Urine Clarity (Clear) Urine pH (5.0-8.0) pH Units Ur Specific [place] (1.010-1.025) Urine Protein (Neg-Trace) mg/dL Urine Glucose (UA) (Normal) mg/dL Urine Ketones (Negative) mg/dL Urine Blood (Negative) Urine Nitrite (Negative) Urine Bilirubin (Negative) Urine Urobilinogen (Normal) mg/dL Ur Leukocyte Esterase (Negative) Urine Microscopic RBC (0-3) per hpf Urine Microscopic WBC (0-3) per hpf Ur Squamous Epith Cells (None-Few) per lpf Urine Bacteria (None-Few) per hpf Ur Culture Indicated? (NO) - Radiology Data Radiology results reviewed: Yes I reviewed the patient's radiology results. Chest X-Ray 08/22/18 13:06 IMPRESSION: No evidence of acute cardiopulmonary disease. D/ / Ayden Johnson MD / Ayden Johnson MD Interpreting Provider: Ayden Johnson MD
[2018-08-22 13:11] LABS: Bilirubin,Urine Negative (Negative); Blood,Urine Large (Negative); Clarity,Urine Turbid (Clear); Color,Urine Yellow (Yellow); Glucose,Urine (UA) Normal (Normal); Ketones,Urine Negative (Negative); Leukocyte Esterase,Urine Large (Negative); Nitrite,Urine Positive (Negative); Protein,Urine 100 mg/dL (Neg-Trace); Specific Gravity,Urine 1.014 (1.010-1.025); Urobilinogen,Urine Normal (Normal)
[2018-08-22 13:12] LABS: Bacteria,Urine Few per hpf (None-Few); RBC,Urine TNTC per hpf (0-3); WBC,Urine TNTC per hpf (0-3)
[2018-08-22 13:42] LABS: Squamous Epithelial Cell,Urine Moderate per lpf (None-Few)
--- NOTE | 2018-08-22 13:58 | Emergency Department Note ---
Disposition Clinical Impression: UTI (urinary tract infection) Qualifiers: Urinary tract infection type: site unspecified Hematuria presence: without hematuria Qualified Code(s): N39.0 - Urinary tract infection, site not specified Disposition: Home, Self-Care Referrals: Royer Pelaez DO [Primary Care Provider] - Forms: ED Satisfaction Letter, Work/School Release General Adult HPI - General Chief complaint: ED Weakness Stated complaint: "LLQ pain,urinary retention" Time Seen by Provider: 08/22/18 11:26 Source: patient, family Mode of arrival: private vehicle Limitations: physical limitation - History of Present Illness Location: pelvis Pain Scale: 7 Quality: burning, constant Improves with: medication Worsens with: nothing Associated symptoms: Reports: shortness of breath - Related Data Home Medications Medication Instructions Recorded Confirmed Celecoxib [Celebrex] 200 mg PO DAILY 11/02/16 07/19/17 Clopidogrel [Plavix] 75 mg PO DAILY 11/02/16 07/19/17 Nitroglycerin [Nitrostat] 0.4 mg SL Q5M PRN 11/02/16 07/19/17 Gabapentin [Neurontin] 900 mg PO TID 06/07/17 07/19/17 ALPRAZolam [Xanax 0.25 MG Tablet] 0.25 mg PO TID PRN 07/19/17 07/19/17 Previous Rx's Medication Instructions Recorded Atorvastatin [Lipitor] 20 mg PO HS tab 06/10/17 Furosemide [Lasix] 20 mg PO DAILY #7 tablet 06/10/17 Ondansetron ODT [Zofran ODT] 4 mg SL Q6HR PRN 06/10/17 Doxycycline 100 mg PO BID #3 capsule 07/26/17 Ipratropium/Albuterol Neb [Duoneb] 3 ml IH [id number] inhsol 07/26/17 Levothyroxine [Synthroid] 25 mcg PO DAILY@0630 tablet 07/26/17 Loperamide [Imodium] 2 mg PO Q4H PRN capsule 07/26/17 OxyCODONE/APAP 5/325 [Percocet 1 tab PO BID PRN #10 tablet 07/26/17 5/325 MG] levoFLOXacin [Levaquin] 750 mg PO DAILY #3 tablet 07/26/17 Ciprofloxacin [Cipro] 500 mg PO BID #20 tablet 10/04/17 metroNIDAZOLE [Flagyl] 500 mg PO TID #30 tablet 10/04/17 levoFLOXacin [Levaquin] 750 mg PO DAILY #7 tablet 03/28/18 Allergies Allergy/AdvReac Type Severity Reaction Status Date / Time carbamazepine [From Tegretol] Allergy Unconscious Verified 08/22/18 11:25 pentazocine [From Talwin] Allergy Seizure Verified 08/22/18 11:25 phenytoin [From Dilantin] Allergy Rash Verified 08/22/18 11:25 Constitutional: Reports: weakness. Denies: fever, chills Eyes: Denies: vision change Cardiovascular: Denies: chest pain Respiratory: Reports: dyspnea Gastrointestinal: Denies: abdominal pain, nausea, vomiting, hematochezia Genitourinary: Reports: dysuria, other (Patient states that her urine has been concentrated and dark in color). Denies: hematuria Musculoskeletal: Denies: back pain, neck pain Neurological: Reports: weakness. Denies: headache, numbness, paresthesias Endocrine: Reports: fatigue Past Medical History - Past Medical History Medical history: Reports: arthritis, CHF, osteoporosis, peripheral artery disease, thyroid disease, other Surgical history: Reports: appendectomy, cholecystectomy, hysterectomy, other Psychiatric history: Reports: no psych history - Social History Smoking Status: Never smoker Smokeless Tobacco Status: No Alcohol use: Reports: none Drug use: Reports: none Physical Exam - General Limitations: physical limitation General appearance: alert, in no apparent distress Course Vital Signs Temperature 97.7 F 08/22/18 11:24 Pulse Rate 63 08/22/18 11:24 Respiratory Rate 16 08/22/18 11:24 Blood Pressure 122/65 08/22/18 11:24 O2 Sat by Pulse Oximetry 97 08/22/18 11:24 Temperature 97.7 F 08/22/18 12:40 Pulse Rate 63 08/22/18 12:40 Respiratory Rate 16 08/22/18 12:40 Blood Pressure 122/65 08/22/18 12:40 O2 Sat by Pulse Oximetry 97 08/22/18 12:40 Oxygen Delivery Oxygen Delivery Room Air Medical Decision Making - Lab Data Lab Results 08/22/18 Range/Units 13:00 Urine Color Yellow (Yellow) Urine Clarity Turbid A (Clear) Urine pH 6.0 (5.0-8.0) pH Units Ur Specific [place] 1.014 (1.010-1.025) Urine Protein 100 H (Neg-Trace) mg/dL Urine Glucose (UA) Normal (Normal) mg/dL Urine Ketones Negative (Negative) mg/dL Urine Blood Large H (Negative) Urine Nitrite Positive A (Negative) Urine Bilirubin Negative (Negative) Urine Urobilinogen Normal (Normal) mg/dL Ur Leukocyte Esterase Large H (Negative) Urine Microscopic RBC TNTC H (0-3) per hpf Urine Microscopic WBC TNTC H (0-3) per hpf Ur Squamous Epith Cells Moderate H (None-Few) per lpf Urine Bacteria Few (None-Few) per hpf Ur Culture Indicated? YES A (NO) Attestation Statement - Attestation Attestation: I examined this patient and my medical decision-making was reviewed with the Resident Physician. I agree with the documented findings, disposition and treatment plan as described except to the extent set forth below. 78-year-old female presents emergency room concerns for UTI. Patient is a known paraplegic. She lives at home with her son. She is here today for concerns for UTI. She states with her UTIs that she normally gets left lower quadrant pain. This is the same presentation as she has had before with UTIs. Her urine does show infection. We will treat her with in review of her chart she is always been susceptible to doxycycline. We will cover her with this. She also been complaining of a cough with some sputum yellow sputum production. Her chest x-rays unremarkable to me. There is no signs of any focal infiltrate. She is safe for discharge home.
[2018-08-22] MEDS ORDERED: Doxycycline 100 MG in 0.9 % Sodium Chloride Mini Bag 100 ML IVPB ONE (13:59)
[2018-08-22] MEDS ORDERED: Doxycycline 100 MG CAPSULE PO ONE (14:22)
[2018-08-22] MEDS ORDERED: Naloxone 0.4 MG/ML INJ IVP PRN (16:11)
[2018-08-22] MEDS ORDERED: Acetaminophen 325 MG TABLET PO PRN (16:11)
[2018-08-22] MEDS ORDERED: 0.9 % Sodium Chloride 1,000 ML IVC SCH (16:30)
--- NOTE | 2018-08-22 16:40 | Internal Med History&Physical ---
Date of Encounter: 08/22/18 Time of Encounter: 16:37 Internal Medicine - H&P: HPI Chief complaint: Malodorous urine, urinary hesitancy, decreased urinary output, UTI Admitted From: Home Plans for Post Hospital Care: Home History of present illness: Ms. 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 She presents to [facility] with a 1 week history of urinary hesitancy, retention with decreased urinary output and malodorous urine. She states that she has had multiple similar presentations and during this time she had urinary tract infection. She states that she has been having urinary tract infections for the last 14 years since spinal cord infarct. Additionally, she has a history of rectal and bladder prolapse with failed treatments. Most recent urinary tract infection 07/05/18 with urine cultures growing MRSA sensitive to doxycycline. She reports that she has been having increased fatigue, chills. She denies any fever, nausea, vomiting, chest pain, flank pain. Urinalysis in the ED revealed turbid urine with large blood, positive nitrates, large leukocyte esterase. Currently, she lives with her son who is somewhat debilitated and having difficulty providing care for her. She is concerned that with his failing health and her recurrent infections that her son may no longer be able to help provide care. She is being admitted for observation for treatment of urinary tract infection or require antibiotics and IV fluids. Additionally, the UTI is likely complicated given frequent recurrent infections and the fact that the most recent infection was Positive for MRSA. Given that she has paraplegia she is unable to provide care for herself and with her son's failing health screening PT/OT and referral to Hospital care. I am very concerned that if she were discharged home under the care of herself and her son that she would have further decline in health. Past Med Surg Social Fam HX - Past Medical History Medical history: arthritis, CHF, osteoporosis, peripheral artery disease, thyroid disease, other Additional medical history: frequent UTI's Psychiatric history: no psych history - Past Surgical History Surgical History: appendectomy, cholecystectomy, hysterectomy, other Additional surgical history: bunionectomy b/l. - Social History Smoking Status: Never smoker Smokeless Tobacco Status: No Alcohol use: none Drug use: none - Family History Mother Adopted: No Family Member Ethnicity: Non- Living Status: Hx Family Cardiac Disorders: Yes Hx Family Respiratory Disorders: No Hx Family Cancer: No Hx Family GI Disorders: No Hx Family Endocrine Disorder: No Hx Family Neuromuscular Disorders: No Hx Family Neurologic Disorders: No Hx Family HEENT Disorders: No Hx Family Autoimmune Disorders: No Father Adopted: No Family Member Ethnicity: Non- Living Status: Hx Family Cardiac Disorders: Yes Hx Family Respiratory Disorders: No Hx Family Cancer: No Hx Family GI Disorders: No Hx Family Endocrine Disorder: No Hx Family Neuromuscular Disorders: No Hx Family Neurologic Disorders: No Hx Family HEENT Disorders: No Hx Family Autoimmune Disorders: No Brother Family Member Ethnicity: Non- Living Status: Hx Family Cardiac Disorders: Yes (CHF, HD, Heart failure) Hx Family Respiratory Disorders: No Hx Family Cancer: No Hx Family GI Disorders: No Hx Family Endocrine Disorder: No Hx Family Neuromuscular Disorders: No Hx Family Neurologic Disorders: No Hx Family HEENT Disorders: No Hx Family Autoimmune Disorders: No Sister Family Member Ethnicity: Non- Living Status: Hx Family Cardiac Disorders: Yes (CAD, stroke) Hx Family Respiratory Disorders: Yes (Emphysema) Hx Family Cancer: Yes Hx Family GI Disorders: No Hx Family Endocrine Disorder: No Hx Family Neuromuscular Disorders: No Hx Family Neurologic Disorders: No Hx Family HEENT Disorders: No Hx Family Autoimmune Disorders: No Son Family Member Ethnicity: Non- Living Status: Still Living Hx Family Cardiac Disorders: No Hx Family Respiratory Disorders: No Hx Family Cancer: No Hx Family GI Disorders: No Hx Family Endocrine Disorder: No Hx Family Neuromuscular Disorders: No Hx Family Neurologic Disorders: Yes Hx Family HEENT Disorders: No Hx Family Autoimmune Disorders: No Daughter Family Member Ethnicity: Non- Living Status: Still Living Hx Family Cardiac Disorders: No Hx Family Respiratory Disorders: No Hx Family Cancer: Yes (Breast) Hx Family GI Disorders: No Hx Family Endocrine Disorder: No Hx Family Neuromuscular Disorders: No Hx Family Neurologic Disorders: No Hx Family HEENT Disorders: No Hx Family Autoimmune Disorders: No Internal Medicine - H&P: Meds Celecoxib [Celebrex] 200 mg PO DAILY 11/02/16 [History] Clopidogrel [Plavix] 75 mg PO DAILY 11/02/16 [History] Nitroglycerin [Nitrostat] 0.4 mg SL Q5M PRN 11/02/16 [History] Gabapentin [Neurontin] 300 mg PO TID 06/07/17 [History] Levothyroxine [Synthroid] 25 mcg PO DAILY@0630 tablet 07/26/17 [Rx] Baclofen [Lioresal] 10 mg PO 1900 08/22/18 [History] Doxycycline 100 mg PO BID 7 Days #14 capsule 08/22/18 [Rx] Furosemide [Lasix] 20 mg PO DAILY PRN 08/22/18 [History] Gabapentin [Neurontin] 600 mg PO TID 08/22/18 [History] Multivitamin [One Daily Multivitamin] 1 tab PO DAILY 08/22/18 [History] Olanzapine/Fluoxetine HCl [Symbyax 3-25 mg Capsule] 1 tab PO DAILY 08/22/18 [History] Pravastatin Sodium [Pravachol] 20 mg PO DAILY 08/22/18 [History] Rivastigmine Patch [Exelon] 1 patch TP DAILY 08/22/18 [History] Allergy/AdvReac Type Severity Reaction Status Date / Time carbamazepine [From Tegretol] Allergy Unconscious Verified 08/22/18 11:25 pentazocine [From Talwin] Allergy Seizure Verified 08/22/18 11:25 phenytoin [From Dilantin] Allergy Rash Verified 08/22/18 11:25 All Systems PM: A 10-system review of systems was performed and is negative for pertinent findings except as documented above in the HPI. - Constitutional Constitutional: chills, fatigue, lethargy, no fever(s) - Cardiovascular Cardiovascular ROS IM: no chest pain, no diaphoresis, no dyspnea, no lightheadedness, no palpitations, no syncope - Respiratory Respiratory: no cough, no dyspnea, no wheezing, no excessive phlegm production - Gastrointestinal Gastrointestinal: abdominal pain (suprapubic), no diarrhea, no hematemesis, no hematochezia, no melena, no nausea, no vomiting - Genitourinary Genitourinary: urinary hesitancy, other (decreased UOP), no dysuria, no urinary frequency, no urinary incontinence, no urinary urgency - Musculoskeletal Additional comments: paraplegic - Integumentary Integumentary IM: sores Additional comments: lateral aspect right ankle - Neurological Neurological ROS: no confusion, no convulsions, no focal weakness, no numbness, no tingling, no tremor(s) - Constitutional Vitals: Temp Pulse Resp BP Pulse Ox 97.7 F 63 14 139/71 97 08/22/18 12:40 08/22/18 12:40 08/22/18 14:34 08/22/18 14:34 08/22/18 12:40 General appearance: Present: A&O X 3 Exam: see exam - Head Head exam: Present: atraumatic, normocephalic - Eye Eye exam: Present: EOMI, PERRL, conjuntiva pink, sclera anicteric Pupils: Present: PERRL - Neck Neck exam general surgery: Present: supple, trachea midline. Absent: lymph adenopathy - Respiratory Respiratory exam: Present: CTAB. Absent: accessory muscle use, rales, rhonchi, wheezes - Cardiovascular Cardiovascular exam: Present: RRR, +S1, +S2. Absent: diastolic murmur, gallop, rubs, systolic murmur - GI/Abdominal GI/Abdominal exam: Present: normal bowel sounds, soft. Absent: tenderness (mild suprapubic tenderness to palpation) - Extremities Exam Extremities exam: Present: normal capillary refill, warm, radial pulses palpable and symmetrical. Absent: calf tenderness, cyanotic, full ROM, pedal edema, tenderness Additional comments: BLE flaccid 2/2 spinal infarct 14 years ago; paraplegia - Neurological Exam Neurological exam: Present: alert, oriented X3. Absent: strengths equal and symetr throughout - Skin Skin exam: Present: warm. Absent: intact Additional comments: small wound lateral aspect right ankle; dressing in place C/D/I Internal Med - H&P Results - Labs Labs: Urine 08/22/18 Range/Units 13:00 Urine Color Yellow (Yellow) Urine Clarity Turbid A (Clear) Urine pH 6.0 (5.0-8.0) pH Units Ur Specific [place] 1.014 (1.010-1.025) Urine Protein 100 H (Neg-Trace) mg/dL Urine Glucose (UA) Normal (Normal) mg/dL - Impressions ITS Impressions Chest X-Ray 08/22/18 13:06 IMPRESSION: No evidence of acute cardiopulmonary disease. D/ / Ayden Johnson MD / Ayden Johnson MD Interpreting Provider: Ayden Johnson MD - Assessment and plan (1) UTI (urinary tract infection) Current Visit: Yes Status: Acute Assessment and plan: Recent urine cultures reveal MRSA specimen sensitive to doxycycline Start IV doxycycline now Start 0.9% normal saline 1 L at 60 mL per hour for gentle fluids Send urine for culture The patient does not appear toxic, remains afebrile and hemodynamically stable EPCD's for DVT prophylaxis Qualifiers: Urinary tract infection type: site unspecified Hematuria presence: without hematuria Qualified Code(s): N39.0 - Urinary tract infection, site not specified (2) Paraplegia Current Visit: Yes Status: Chronic Assessment and plan: chronic s/p infarct Q2 turn frequent skin monitoring High risk for skin breakdown skin assessment every shift (3) Hypothyroidism Current Visit: Yes Status: Acute Assessment and plan: Continue Synthroid Qualifiers: Hypothyroidism type: unspecified Qualified Code(s): E03.9 - Hypothyroidism, unspecified (4) Pressure ulcer of ankle Current Visit: Yes Status: Acute Assessment and plan: Pressure ulcer of right ankle Follows with Dr. Denton at wound clinic Dressing in place, clean dry and intact without drainage Qualifiers: Pressure injury stage: unspecified pressure injury stage Laterality: right Qualified Code(s): L89.519 - Pressure ulcer of right ankle, unspecified stage (5) CHF (congestive heart failure) Current Visit: Yes Status: Acute Assessment and plan: per hx not in exacerbation continue lasix Qualifiers: Heart failure type: unspecified Heart failure chronicity: unspecified Qualified Code(s): I50.9 - Heart failure, unspecified - Time Spent With Patient Total time spent is greater than 50% in coordination of care (as documented) at patient's floor/unit and/or counseling patient: less than 15 minutes
[2018-08-22] MEDS ORDERED: Furosemide 20 MG TABLET PO PRN (16:48)
[2018-08-22] MEDS ORDERED: Nitroglycerin 0.4 MG TAB.SUBL SL PRN (16:48)
[2018-08-22 17:00] LABS: Basophils % 0.4 %; Eosinophils # 0.1 K/mcL (0.0-0.6); Eosinophils % 1.1 %; Hematocrit 38.6 % (35.3-44.9); Immature Granulocytes % 0.2 % (0-4); Lymphocytes # 1.6 K/mcL (0.6-4.6); Lymphocytes % 34.5 %; Mean Corpuscular HGB Conc 33.7 g/dL (31.6-35.5); Mean Corpuscular Volume 92.1 fL (83.0-100.0); Mean Platelet Volume 9.2 fL (9.4-12.4); Monocytes # 0.2 K/mcL (0.0-1.3); Monocytes % 5.2 %; Neutrophils # 2.7 K/mcL (1.6-8.9); Platelet Count 223 K/mcL (140-400); Red Blood Count 4.19 M/mcL (3.82-4.97); Red Cell Distribution Width 13.4 % (11.5-14.5); Segmented Neutrophils % 58.6 %
[2018-08-22 17:19] LABS: Alanine Aminotransferase 22 Units/L (7-52); Albumin 3.9 g/dL (3.5-5.7); Albumin/Globulin Ratio 1.3 (1.1-2.2); Alkaline Phosphatase 84 Units/L (34-104); Aspartate Amino Transferase 21 Units/L (13-39); BUN/Creatinine Ratio 38 (6-26); Bilirubin,Total 0.6 mg/dL (0.3-1.0); Blood Urea Nitrogen 18 mg/dL (8-23); Calcium 9.4 mg/dL (8.6-10.3); Carbon Dioxide 30 mEq/L (23-29); Chloride 105 mEq/L (98-107); Globulin 2.9 g/dL (2.4-3.5); Glucose 79 mg/dL (70-105); Osmolality,Calculated 297 (280-300); Potassium 3.7 mEq/L (3.5-5.1); Sodium 143 mEq/L (136-145); Total Protein 6.8 g/dL (6.4-8.9); eGFR For Non-African Americans > 60 (> 60)
[2018-08-22 20:07] LABS: Prothrombin Time 11.8 Seconds (9.4-12.1)
[2018-08-22] MEDS ORDERED: Gabapentin 300 MG CAPSULE PO SCH (21:00)
[2018-08-22] MEDS: Doxycycline 100 MG in 0.9 % Sodium Chloride Mini Bag 100 ML IVPB SCH (21:36)
[2018-08-22] MEDS: Baclofen 10 MG TABLET PO SCH (21:43)
[2018-08-23 05:29] LABS: Basophils % 0.2 %; Eosinophils # 0.1 K/mcL (0.0-0.6); Hematocrit 33.9 % (35.3-44.9); Immature Granulocytes % 0.2 % (0-4); Lymphocytes # 1.7 K/mcL (0.6-4.6); Lymphocytes % 41.3 %; Mean Corpuscular Hemoglobin 30.3 pg (28.0-33.3); Mean Corpuscular Volume 91.6 fL (83.0-100.0); Mean Platelet Volume 9.5 fL (9.4-12.4); Monocytes # 0.3 K/mcL (0.0-1.3); Monocytes % 6.6 %; Platelet Count 191 K/mcL (140-400); Red Cell Distribution Width 13.3 % (11.5-14.5); Segmented Neutrophils % 49.7 %
[2018-08-23 05:30] LABS: Hemoglobin 11.2 g/dL (11.5-15.4)
[2018-08-23] MEDS: Doxycycline 100 MG in 0.9 % Sodium Chloride Mini Bag 100 ML IVPB SCH ×2 (05:34→18:04)
[2018-08-23] MEDS: Levothyroxine 25 MCG TABLET PO SCH (05:35)
[2018-08-23 05:47] LABS: BUN/Creatinine Ratio 47 (6-26); Blood Urea Nitrogen 26 mg/dL (8-23); Calcium 8.6 mg/dL (8.6-10.3); Carbon Dioxide 26 mEq/L (23-29); Chloride 110 mEq/L (98-107); Glucose 133 mg/dL (70-105); Osmolality,Calculated 303 (280-300); Potassium 3.8 mEq/L (3.5-5.1); Sodium 143 mEq/L (136-145); eGFR For Non-African Americans > 60 (> 60)
[2018-08-23] MEDS ORDERED: OLANZAPINE PO SCH (09:00)
[2018-08-23] MEDS ORDERED: FLUOXETINE HCL PO SCH (09:00)
[2018-08-23] MEDS: Celecoxib 200 MG CAPSULE PO SCH (09:09)
[2018-08-23] MEDS: Multivit/Ca/Min/Fe/FA 1 TAB TABLET PO SCH (09:09)
[2018-08-23] MEDS: Gabapentin 300 MG CAPSULE PO SCH ×3 (09:10→21:44)
[2018-08-23] MEDS: Rivastigmine Patch 4.6 MG PATCH.TD24 TP SCH (09:11)
[2018-08-23] MEDS ORDERED: FLUoxetine HCl Oral Soln 20 MG/5 ML UDC PO SCH (18:00)
[2018-08-23] MEDS: FLUoxetine 20 MG CAPSULE PO SCH (18:06)
[2018-08-23] MEDS: OLANZapine 5 MG TAB.RAPDIS PO SCH (18:06)
[2018-08-23] MEDS: Baclofen 10 MG TABLET PO SCH (19:50)
--- NOTE | 2018-08-23 22:55 | Internal Med Progress Note ---
Hospitalist Progress Note - Encounter Date of Encounter: 08/23/18 Time of Encounter: 19:00 - Subjective Interval History: SUBJECTIVE: The patient feels pretty good. Denies abdominal pain, nausea and vomiting. She makes good amounts of urine. Pain and burning get urination nearly subsided. Denies chest pain and difficulty breathing. She is paraplegic. OBJECTIVE: Skin: Free of rash and discoloration. ENMT: Oral/pharyngeal mucosa is normal in appearance. Eyes: Sclera is white. There is no discharge from eyes. Respiratory: Normal breath sounds; no crackles or wheezes. CV: Heart is regular; no gallop or murmur. GI: Abdomen is soft and not tender. There is no palpable mass or visceromegaly. Neuro: The patient is paraplegic. ADDITIONAL DATA: CBC shows hemoglobin of 11.2 with WBC of 4.1 thousand. BMP is normal. ASSESSMENT AND PLAN: UTI associated with Haley catheter. The patient has been started on IV doxycycline. We are waiting for urine culture results. The patient gets IV fluids. She is paraplegic. She has a pressure ulcer in the area of right ankle. We will continue supportive treatments. Hypothyroidism. Under control. We will continue Synthroid. - Exam Vitals: Temp Pulse Resp BP Pulse Ox 98.3 F 90 16 130/63 93 08/23/18 20:14 08/23/18 20:14 08/23/18 20:14 08/23/18 20:14 08/23/18 20:14 Exam: xx - Assessment and Plan (1) UTI (urinary tract infection) Current Visit: Yes Status: Acute (2) Paraplegia Current Visit: Yes Status: Chronic (3) Pressure ulcer of ankle Current Visit: Yes Status: Chronic (4) Hypothyroidism Current Visit: Yes Status: Chronic - Time Spent with Patient Total time spent is greater than 50% in coordination of care (as documented) at patient's floor/unit and/or counseling patient: 25 - 35 minutes Plan of Care Discussed with: patient Internal Medicine: Result - Labs CBC & Chem 7: 08/23/18 04:59 08/23/18 04:59 Labs: Short CBC 08/23/18 Range/Units 04:59 WBC 4.1 L (4.3-11.1) K/mcL Hgb 11.2 L D (11.5-15.4) g/dL Hct 33.9 L (35.3-44.9) % Plt Count 191 (140-400) K/mcL Neutrophils # 2.0 (1.6-8.9) K/mcL BMP 08/23/18 04:59 Sodium 143 Potassium 3.8 Chloride 110 H Carbon Dioxide 26 BUN 26 H Creatinine 0.55 L Glucose 133 H Calcium 8.6 - ABG Interpretation ABG results: PT/INR, D-dimer PT 11.8 Seconds (9.4-12.1) 08/22/18 16:40 Consult Discharge Plan - Plan Referrals: Royer Pelaez DO [Primary Care Provider] - (1) UTI (urinary tract infection) Qualifiers: Urinary tract infection type: site unspecified Hematuria presence: without hematuria Qualified Code(s): N39.0 - Urinary tract infection, site not specified (3) Pressure ulcer of ankle Qualifiers: Pressure injury stage: unspecified pressure injury stage Laterality: right Qualified Code(s): L89.519 - Pressure ulcer of right ankle, unspecified stage (4) Hypothyroidism Qualifiers: Hypothyroidism type: unspecified Qualified Code(s): E03.9 - Hypothyroidism, unspecified
[2018-08-24] MEDS: Doxycycline 100 MG in 0.9 % Sodium Chloride Mini Bag 100 ML IVPB SCH (05:58)
[2018-08-24] MEDS: Levothyroxine 25 MCG TABLET PO SCH (05:58)
[2018-08-24] MEDS: *HR* Enoxaparin 40 MG/0.4 ML SYRINGE SQ SCH (06:00)
[2018-08-24] MEDS ORDERED: Cefepime HCl 2,000 MG in Water for inj. (sterile) 20 ML 20 ML IVP SCH (09:00)
[2018-08-24] MEDS: Multivit/Ca/Min/Fe/FA 1 TAB TABLET PO SCH (09:46)
[2018-08-24] MEDS: Gabapentin 300 MG CAPSULE PO SCH ×3 (09:46→21:32)
[2018-08-24] MEDS: Celecoxib 200 MG CAPSULE PO SCH (09:46)
[2018-08-24] MEDS: Rivastigmine Patch 4.6 MG PATCH.TD24 TP SCH (09:46)
[2018-08-24] MEDS: FLUoxetine 20 MG CAPSULE PO SCH ×2 (17:53→21:31)
[2018-08-24] MEDS: OLANZapine 5 MG TAB.RAPDIS PO SCH ×2 (17:54→21:31)
[2018-08-24] MEDS: Baclofen 10 MG TABLET PO SCH (17:54)
[2018-08-24] MEDS: cefTRIAXone 2,000 MG in Water for inj. (sterile) 20 ML 20 ML IVP SCH (17:54)
--- NOTE | 2018-08-24 22:17 | Internal Med Progress Note ---
Hospitalist Progress Note - Encounter Date of Encounter: 08/24/18 Time of Encounter: 17:00 - Subjective Interval History: SUBJECTIVE: Dysuria basically subsided. She has good appetite. Denies abdominal pain, nausea and vomiting. She makes good amounts of urine. The patient is paraplegic. Denies chest pain and difficulty breathing. She is paraplegic. OBJECTIVE: Skin: Free of rash and discoloration. ENMT: Oral/pharyngeal mucosa is normal in appearance. Eyes: Sclera is white. There is no discharge from eyes. Respiratory: Normal breath sounds; no crackles or wheezes. CV: Heart is regular; no gallop or murmur. GI: Abdomen is soft and not tender. There is no palpable mass or visceromegaly. Neuro: The patient is paraplegic. ADDITIONAL DATA: See blood testing from yesterday mentioned in my yesterday note. ASSESSMENT AND PLAN: UTI associated with Haley catheter. Urine culture is growing pansensitive E. coli. We will switch her from IV doxycycline to IV Rocephin. She is paraplegic. She has a pressure ulcer in the area of right ankle. We will continue daily dressings. Hypothyroidism. Under control. We will continue Synthroid. DISPOSITION: A referral has been made to [facility] (her son currently cannot take care of her). - Exam Vitals: Temp Pulse Resp BP Pulse Ox 98.5 F 93 16 120/74 92 08/24/18 20:32 08/24/18 20:32 08/24/18 20:32 08/24/18 16:40 08/24/18 20:32 Exam: xx - Assessment and Plan (1) UTI (urinary tract infection) Current Visit: Yes Status: Acute (2) Paraplegia Current Visit: Yes Status: Chronic (3) Pressure ulcer of ankle Current Visit: Yes Status: Chronic (4) Hypothyroidism Current Visit: Yes Status: Chronic - Time Spent with Patient Total time spent is greater than 50% in coordination of care (as documented) at patient's floor/unit and/or counseling patient: 25 - 35 minutes Plan of Care Discussed with: patient Internal Medicine: Result - Labs CBC & Chem 7: 08/23/18 04:59 08/23/18 04:59 - ABG Interpretation ABG results: PT/INR, D-dimer PT 11.8 Seconds (9.4-12.1) 08/22/18 16:40 Consult Discharge Plan - Plan Referrals: Royer Pelaez DO [Primary Care Provider] - (1) UTI (urinary tract infection) Qualifiers: Urinary tract infection type: site unspecified Hematuria presence: without he maturia Qualified Code(s): N39.0 - Urinary tract infection, site not specified (3) Pressure ulcer of ankle Qualifiers: Pressure injury stage: unspecified pressure injury stage Laterality: right Qualified Code(s): L89.519 - Pressure ulcer of right ankle, unspecified stage (4) Hypothyroidism Qualifiers: Hypothyroidism type: unspecified Qualified Code(s): E03.9 - Hypothyroidism, unspecified
[2018-08-25] MEDS: Levothyroxine 25 MCG TABLET PO SCH (07:32)
[2018-08-25] MEDS: *HR* Enoxaparin 40 MG/0.4 ML SYRINGE SQ SCH (07:32)
[2018-08-25] MEDS: Gabapentin 300 MG CAPSULE PO SCH ×4 (08:25→21:10)
[2018-08-25] MEDS: Rivastigmine Patch 4.6 MG PATCH.TD24 TP SCH ×2 (08:25→09:22)
[2018-08-25] MEDS: Multivit/Ca/Min/Fe/FA 1 TAB TABLET PO SCH ×2 (08:25→09:21)
[2018-08-25] MEDS: Celecoxib 200 MG CAPSULE PO SCH ×2 (08:25→09:21)
[2018-08-25] MEDS: cefTRIAXone 2,000 MG in Water for inj. (sterile) 20 ML 20 ML IVP SCH (17:10)
[2018-08-25] MEDS: Baclofen 10 MG TABLET PO SCH (19:45)
[2018-08-25] MEDS: FLUoxetine 20 MG CAPSULE PO SCH (21:10)
[2018-08-25] MEDS: OLANZapine 5 MG TAB.RAPDIS PO SCH (21:11)
--- NOTE | 2018-08-25 21:33 | Internal Med Progress Note ---
Hospitalist Progress Note - Encounter Date of Encounter: 08/25/18 Time of Encounter: 14:00 - Subjective Interval History: SUBJECTIVE: She does not have any urinary symptoms. She makes good amounts of urine. She has normal appetite. The patient is paraplegic. Denies chest pain and difficulty breathing. Denies abdominal pain, nausea and vomiting. OBJECTIVE: Skin: Free of rash and discoloration. ENMT: Oral/pharyngeal mucosa is normal in appearance. Eyes: Sclera is white. There is no discharge from eyes. Respiratory: Normal breath sounds; no crackles or wheezes. CV: Heart is regular; no gallop or murmur. GI: Abdomen is soft and not tender. There is no palpable mass or visceromegaly. Neuro: The patient is paraplegic. ASSESSMENT AND PLAN: UTI associated with Haley catheter. Urine culture is growing pansensitive E. coli. She is on IV Rocephin. She is paraplegic. She has a pressure ulcer in the area of right ankle. We will continue daily dressings. Hypothyroidism. Under control. We will continue Synthroid. DISPOSITION: A referral has been made to [facility] [place] (her son currently cannot take care of her). - Exam Vitals: Temp Pulse Resp BP Pulse Ox 98.2 F 78 16 93/53 94 08/25/18 20:02 08/25/18 20:02 08/25/18 20:02 08/25/18 20:02 08/25/18 20:02 Exam: xx - Assessment and Plan (1) UTI (urinary tract infection) Current Visit: Yes Status: Acute (2) Paraplegia Current Visit: Yes Status: Chronic (3) Pressure ulcer of ankle Current Visit: Yes Status: Chronic (4) Hypothyroidism Current Visit: Yes Status: Chronic - Time Spent with Patient Total time spent is greater than 50% in coordination of care (as documented) at patient's floor/unit and/or counseling patient: 25 - 35 minutes Plan of Care Discussed with: patient Internal Medicine: Result - Labs CBC & Chem 7: 08/23/18 04:59 08/23/18 04:59 - ABG Interpretation ABG results: PT/INR, D-dimer PT 11.8 Seconds (9.4-12.1) 08/22/18 16:40 Consult Discharge Plan - Plan Referrals: Royer Pelaez DO [Primary Care Provider] - (1) UTI (urinary tract infection) Qualifiers: Urinary tract infection type: site unspecified Hematuria presence: without hematuria Qualified Code(s): N39.0 - Urinary tract infection, site not specified (3) Pressure ulcer of ankle Qualifiers: Pressure injury stage: unspecified pressure injury stage Laterality: right Qualified Code(s): L89.519 - Pressure ulcer of right ankle, unspecified stage (4) Hypothyroidism Qualifiers: Hypothyroidism type: unspecified Qualified Code(s): E03.9 - Hypothyroidism, unspecified
[2018-08-26] MEDS: *HR* Enoxaparin 40 MG/0.4 ML SYRINGE SQ SCH (06:34)
[2018-08-26] MEDS: Levothyroxine 25 MCG TABLET PO SCH (06:37)
[2018-08-26] MEDS: FLUoxetine 20 MG CAPSULE PO SCH ×2 (07:36→20:52)
[2018-08-26] MEDS: OLANZapine 5 MG TAB.RAPDIS PO SCH ×2 (07:36→20:53)
[2018-08-26] MEDS: Celecoxib 200 MG CAPSULE PO SCH (10:27)
[2018-08-26] MEDS: Gabapentin 300 MG CAPSULE PO SCH ×3 (10:27→20:52)
[2018-08-26] MEDS: Multivit/Ca/Min/Fe/FA 1 TAB TABLET PO SCH (10:28)
[2018-08-26] MEDS: Rivastigmine Patch 4.6 MG PATCH.TD24 TP SCH (10:28)
[2018-08-26] MEDS: Cefuroxime PO 250 MG TABLET PO SCH (16:47)
[2018-08-26] MEDS: Baclofen 10 MG TABLET PO SCH (18:50)
--- NOTE | 2018-08-26 22:10 | Internal Med Progress Note ---
Hospitalist Progress Note - Encounter Date of Encounter: 08/26/18 Time of Encounter: 19:00 - Subjective Interval History: SUBJECTIVE: The patient feels good. She has good appetite. Denies abdominal pain, nausea and vomiting. She makes good amounts of urine. She has no urinary symptoms. Denies chest pain and difficulty breathing. OBJECTIVE: Skin: Free of rash and discoloration. ENMT: Oral/pharyngeal mucosa is normal in appearance. Eyes: Sclera is white. There is no discharge from eyes. Respiratory: Normal breath sounds; no crackles or wheezes. CV: Heart is regular; no gallop or murmur. GI: Abdomen is soft and not tender. There is no palpable mass or visceromegaly. Neuro: The patient is paraplegic. I am ordering CBC and BMP for tomorrow morning. ASSESSMENT AND PLAN: UTI associated with Haley catheter. Urine culture is growing pansensitive E. coli. We switched her from IV Rocephin to by mouth Ceftin. She is paraplegic. She has a pressure ulcer in the area of right ankle. We will continue daily dressings. Hypothyroidism. Under control. We will continue Synthroid. DISPOSITION: A referral has been made to [facility] (her son currently cannot take care of her). - Exam Vitals: Temp Pulse Resp BP Pulse Ox 97.9 F 86 16 117/66 93 08/26/18 20:02 08/26/18 20:02 08/26/18 20:02 08/26/18 20:02 08/26/18 20:02 Exam: xx - Assessment and Plan (1) UTI (urinary tract infection) Current Visit: Yes Status: Acute (2) Paraplegia Current Visit: Yes Status: Chronic (3) Pressure ulcer of ankle Current Visit: Yes Status: Chronic (4) Hypothyroidism Current Visit: Yes Status: Chronic - Time Spent with Patient Total time spent is greater than 50% in coordination of care (as documented) at patient's floor/unit and/or counseling patient: 25 - 35 minutes Plan of Care Discussed with: patient Internal Medicine: Result - Labs CBC & Chem 7: 08/23/18 04:59 08/23/18 04:59 - ABG Interpretation ABG results: PT/INR, D-dimer PT 11.8 Seconds (9.4-12.1) 08/22/18 16:40 Consult Discharge Plan - Plan Referrals: Royer Pelaez DO [Primary Care Provider] - (1) UTI (urinary tract infection) Qualifiers: Urinary tract infection type: site unspecified Hematuria presence: without hematuria Qualified Code(s): N39.0 - Urinary tract infection, site not specified (3) Pressure ulcer of ankle Qualifiers: Pressure injury stage: unspecified pressure injury stage Laterality: right Qualified Code(s): L89.519 - Pressure ulcer of right ankle, unspecified stage (4) Hypothyroidism Qualifiers: Hypothyroidism type: unspecified Qualified Code(s): E03.9 - Hypothyroidism, unspecified
[2018-08-27] MEDS: Cefuroxime PO 250 MG TABLET PO SCH (05:24)
[2018-08-27] MEDS: *HR* Enoxaparin 40 MG/0.4 ML SYRINGE SQ SCH (05:24)
[2018-08-27] MEDS: Levothyroxine 25 MCG TABLET PO SCH (05:24)
[2018-08-27 05:53] LABS: Basophils % 0.4 %; Eosinophils # 0.1 K/mcL (0.0-0.6); Eosinophils % 2.2 %; Hematocrit 34.6 % (35.3-44.9); Hemoglobin 11.4 g/dL (11.5-15.4); Immature Granulocytes % 0.2 % (0-4); Lymphocytes # 2.1 K/mcL (0.6-4.6); Lymphocytes % 42.5 %; Mean Corpuscular HGB Conc 32.9 g/dL (31.6-35.5); Mean Corpuscular Hemoglobin 30.3 pg (28.0-33.3); Mean Platelet Volume 9.2 fL (9.4-12.4); Monocytes # 0.2 K/mcL (0.0-1.3); Monocytes % 4.9 %; Neutrophils # 2.4 K/mcL (1.6-8.9); Platelet Count 179 K/mcL (140-400); Red Blood Count 3.76 M/mcL (3.82-4.97); Red Cell Distribution Width 13.4 % (11.5-14.5); Segmented Neutrophils % 49.8 %
[2018-08-27 06:13] LABS: BUN/Creatinine Ratio 60 (6-26); Blood Urea Nitrogen 21 mg/dL (8-23); Calcium 8.7 mg/dL (8.6-10.3); Carbon Dioxide 28 mEq/L (23-29); Chloride 108 mEq/L (98-107); Glucose 123 mg/dL (70-105); Osmolality,Calculated 294 (280-300); Potassium 4.1 mEq/L (3.5-5.1); Sodium 140 mEq/L (136-145); eGFR For Non-African Americans > 60 (> 60)
[2018-08-27] MEDS: Rivastigmine Patch 4.6 MG PATCH.TD24 TP SCH (11:09)
[2018-08-27] MEDS: Gabapentin 300 MG CAPSULE PO SCH ×2 (11:09→15:32)
[2018-08-27] MEDS: Celecoxib 200 MG CAPSULE PO SCH (11:09)
[2018-08-27] MEDS: Multivit/Ca/Min/Fe/FA 1 TAB TABLET PO SCH (11:09)
[2018-08-27 12:12] VITALS: BP 115/66
--- NOTE | 2018-08-27 13:22 | Discharge Summary ---
Orders not resulted at time of discharge: Pending orders 08/27/18 07:40 MRSA Surveillance Screen [MOLMIC] Stat Date of Encounter: 08/27/18 Time of Encounter: 13:21 - Discharge Diagnosis (1) UTI (urinary tract infection) Priority: Primary Status: Acute Qualifiers: Urinary tract infection type: site unspecified Hematuria presence: without hematuria Qualified Code(s): N39.0 - Urinary tract infection, site not specified (2) Paraplegia Priority: Secondary Status: Chronic (3) Pressure ulcer of ankle Priority: Secondary Status: Chronic Qualifiers: Pressure injury stage: unspecified pressure injury stage Laterality: right Qualified Code(s): L89.519 - Pressure ulcer of right ankle, unspecified stage (4) Hypothyroidism Priority: Secondary Status: Chronic Qualifiers: Hypothyroidism type: unspecified Qualified Code(s): E03.9 - Hypothyroidism, unspecified Hospital course: HOSPITAL COURSE: The patient is a 78-year-old woman with paraplegia. She suffers from recurrent urinary tract infection. They are swelling associated with indwelling Haley catheter. This time she came without any catheter inserted. She complained of malodorous urine with urinary hesitancy and decreased urinary output. Her UA suggested diagnosis of urinary tract infection. We treated her with IV Rocephin. Before the discharge we switched her to oral Ceftin. Her urine cul ture is growing pansensitive E. coli. We made this patient not having any urinary symptoms at all. She is bedbound due to her paraplegia. She has had chronic Pressure ulcer of her right ankle. CONDITION AT DISCHARGE: Feels good. Not voicing any particular problems. Denies chest pain and difficulty breathing. Denies abdominal pain, nausea and vomiting. She seems to have normal urination. Skin: Free of rash and discoloration. Respiratory: Normal breath sounds with no crackles and wheezes bilaterally. CV: Heart is regular with no gallop or murmur. GI: Abdomen is flat and soft with no palpable mass or visceromegaly. Neuro exam: The patient is paraplegic. SEE DISCHARGE ORDERS/MEDICATIONS.. Discharge discussed with: patient, nurse, case management - Time Spent with Patient Total time spent providing and/or coordinating discharge services: Greater than 30 minutes (40 minutes..) - Discharge Medications Home Medications: Celecoxib [Celebrex] 200 mg PO DAILY 11/02/16 [History] Clopidogrel [Plavix] 75 mg PO DAILY 11/02/16 [History] Nitroglycerin [Nitrostat] 0.4 mg SL Q5M PRN 11/02/16 [History] Gabapentin [Neurontin] 300 mg PO TID 06/07/17 [History] Levothyroxine [Synthroid] 25 mcg PO DAILY@0630 tablet 07/26/17 [Rx] Baclofen [Lioresal] 10 mg PO 1900 08/22/18 [History] Furosemide [Lasix] 20 mg PO DAILY PRN 08/22/18 [History] Gabapentin [Neurontin] 600 mg PO TID 08/22/18 [History] Multivitamin [One Daily Multivitamin] 1 tab PO DAILY 08/22/18 [History] Pravastatin Sodium [Pravachol] 20 mg PO DAILY 08/22/18 [History] Rivastigmine Patch [Exelon] 1 patch TP DAILY 08/22/18 [History] Olanzapine/Fluoxetine HCl [Symbyax 6-25 mg Capsule] 1 each PO HS 08/23/18 [History] Cefuroxime PO [Ceftin] 250 mg PO Q12HR 7 Days #14 tablet 08/27/18 [Rx] Allergies/Adverse Reactions: Allergy/AdvReac Type Severity Reaction Status Date / Time carbamazepine [From Tegretol] Allergy Unconscious Verified 08/22/18 11:25 pentazocine [From Talwin] Allergy Seizure Verified 08/22/18 11:25 phenytoin [From Dilantin] Allergy Rash Verified 08/22/18 11:25 Date of admission: 08/24/18 14:46 Primary care physician: Royer Pelaez DO Consults: 08/22/18 16:13 Consult to C2 Tactical Analysis Technician [CONS] Routine Reason for SW Consult: d/c planning Discharging clinician: Mayank Carr Anticipated date of discharge: 08/27/18 - Constitutional Vitals: Temp Pulse Resp BP Pulse Ox 99.4 F 79 16 115/66 95 08/27/18 12:10 08/27/18 12:10 08/27/18 12:10 08/27/18 12:10 08/27/18 12:10 General appearance: Present: A&O X 3, no acute distress, answers questions appropriately Exam: xx - Patient Status Disposition: Transfer SNF Condition: Fair Functional capacity at discharge: bed bound (has paraplegia..) - Discharge Instructions Follow Up With: Royer Pelaez DO [Primary Care Provider] - - Diet and Activity Activity: other (bed-bound..) Diet: regular diet - VTE Documentation of Mechanical Device: Intermittent pneumatic compression device Deep Vein Thrombosis/Pulmonary Embolism Present on Admission: No
--- NOTE | 2018-08-27 13:41 | Physician Discharge Referral ---
ExtendedCare Referral Info Transfer To: [facility] Provider in Charge: Shawn Carr MD Provider in Charge after Transfer: Other (An F physician) - Diagnosis (1) UTI (urinary tract infection) Priority: Primary Status: Acute (2) Paraplegia Priority: Secondary Status: Chronic (3) Pressure ulcer of ankle Priority: Secondary Status: Chronic (4) Hypothyroidism Priority: Secondary Status: Chronic Prognosis: Fair Aware of Diagnosis: Patient Aware of Prognosis: Patient - Transfer Medications Home Medications: Celecoxib [Celebrex] 200 mg PO DAILY 11/02/16 [History] Clopidogrel [Plavix] 75 mg PO DAILY 11/02/16 [History] Nitroglycerin [Nitrostat] 0.4 mg SL Q5M PRN 11/02/16 [History] Gabapentin [Neurontin] 300 mg PO TID 06/07/17 [History] Levothyroxine [Synthroid] 25 mcg PO DAILY@0630 tablet 07/26/17 [Rx] Baclofen [Lioresal] 10 mg PO 1900 08/22/18 [History] Furosemide [Lasix] 20 mg PO DAILY PRN 08/22/18 [History] Gabapentin [Neurontin] 600 mg PO TID 08/22/18 [History] Multivitamin [One Daily Multivitamin] 1 tab PO DAILY 08/22/18 [History] Pravastatin Sodium [Pravachol] 20 mg PO DAILY 08/22/18 [History] Rivastigmine Patch [Exelon] 1 patch TP DAILY 08/22/18 [History] Olanzapine/Fluoxetine HCl [Symbyax 6-25 mg Capsule] 1 each PO HS 08/23/18 [History] Cefuroxime PO [Ceftin] 250 mg PO Q12HR 7 Days #14 tablet 08/27/18 [Rx] Allergies/Adverse Reactions: Allergy/AdvReac Type Severity Reaction Status Date / Time carbamazepine [From Tegretol] Allergy Unconscious Verified 08/22/18 11:25 pentazocine [From Talwin] Allergy Seizure Verified 08/22/18 11:25 phenytoin [From Dilantin] Allergy Rash Verified 08/22/18 11:25 - Respiratory Orders None Smoking Cessation: Smoking cessation has been advised. For more information, call the Screen Tobacco Quit Line at [phone]. - Advance Directives Code Status: Full Code - Mobility Orders Bedrest (paraplegia) - Rehabiliation Orders Rehab Potential: Poor - Diet Orders Regular CERTIFICATION: I certify that the transfer of the above named patient to an Extended Care Facility is necessary for the continuing treatment of the diagnosis listed. The above information is true and accurate reflection of patient's current condition. Confidential - Redisclosure prohibited without a patient's written consent.
== END 2018-08-27 16:15 | DRG 699 ==
LOC: 2ANU 11:17 → EMEROOARM 11:17 → SUATTDRO 20:13 → 2ANU 21:06
PROVIDERS: ADMIT Internal Medicine; ATTEND Internal Medicine

== ENCOUNTER 2019-05-30 16:25 | Observation (INO) ==
[2019-05-30 17:05] LABS: Basophils % 0.4 %; Eosinophils # 0.1 K/mcL (0.0-0.6); Eosinophils % 2.4 %; Hematocrit 37.9 % (35.3-44.9); Hemoglobin 12.5 g/dL (11.5-15.4); Lymphocytes # 2.1 K/mcL (0.6-4.6); Lymphocytes % 42.7 %; Mean Corpuscular Hemoglobin 30.6 pg (28.0-33.3); Mean Corpuscular Volume 92.9 fL (83.0-100.0); Mean Platelet Volume 8.8 fL (9.4-12.4); Monocytes # 0.3 K/mcL (0.0-1.3); Neutrophils # 2.5 K/mcL (1.6-8.9); Platelet Count 191 K/mcL (140-400); Red Blood Count 4.08 M/mcL (3.82-4.97); Red Cell Distribution Width 13.5 % (11.5-14.5); Segmented Neutrophils % 49.5 %
[2019-05-30 17:26] LABS: BUN/Creatinine Ratio 32 (6-26); Blood Urea Nitrogen 21 mg/dL (8-23); Calcium 9.2 mg/dL (8.6-10.3); Carbon Dioxide 29 mEq/L (23-29); Chloride 101 mEq/L (98-107); Glucose 103 mg/dL (70-105); Osmolality,Calculated 291 (280-300); Potassium 4.3 mEq/L (3.5-5.1); Sodium 139 mEq/L (136-145); Troponin I < 0.03 ng/mL (< 0.04); eGFR For African Americans > 60 (> 60); eGFR For Non-African Americans > 60 (> 60)
[2019-05-30] MEDS ORDERED: Doxycycline 100 MG CAPSULE PO ONE (18:05)
[2019-05-30] MEDS ORDERED: predniSONE 20 MG TABLET PO ONE (18:13)
[2019-05-30] MEDS ORDERED: Nitroglycerin 0.4 MG TAB.SUBL SL ONE (18:30)
[2019-05-30] MEDS ORDERED: Naloxone 0.4 MG/ML INJ IVP PRN (21:04)
[2019-05-31] MEDS ORDERED: Isovue-370 500 ML BOTTLE IVP ONE (03:28)
[2019-05-31] MEDS ORDERED: Melatonin 3 MG TABLET PO PRN (03:54)
[2019-05-31] MEDS: Levothyroxine 25 MCG TABLET PO SCH (05:49)
[2019-05-31] MEDS ORDERED: *HR* Heparin 5,000 UNIT/ML VIAL SQ SCH (06:00)
[2019-05-31 06:20] LABS: Hematocrit 36.2 % (35.3-44.9); Hemoglobin 12.2 g/dL (11.5-15.4); Mean Corpuscular HGB Conc 33.7 g/dL (31.6-35.5); Mean Corpuscular Hemoglobin 31.2 pg (28.0-33.3); Mean Corpuscular Volume 92.6 fL (83.0-100.0); Mean Platelet Volume 9.4 fL (9.4-12.4); Platelet Count 202 K/mcL (140-400); Red Blood Count 3.91 M/mcL (3.82-4.97); Red Cell Distribution Width 13.4 % (11.5-14.5); White Blood Count 3.8 K/mcL (4.3-11.1)
[2019-05-31] MEDS ORDERED: Regadenoson 0.4 MG/5 ML SYRINGE IVP ONE (06:22)
[2019-05-31 06:40] LABS: BUN/Creatinine Ratio 32 (6-26); Blood Urea Nitrogen 22 mg/dL (8-23); Calcium 9.1 mg/dL (8.6-10.3); Carbon Dioxide 26 mEq/L (23-29); Chloride 102 mEq/L (98-107); Glucose 184 mg/dL (70-105); Osmolality,Calculated 298 (280-300); Potassium 4.8 mEq/L (3.5-5.1); Sodium 140 mEq/L (136-145); eGFR For African Americans > 60 (> 60); eGFR For Non-African Americans > 60 (> 60)
[2019-05-31] MEDS ORDERED: *HR* Heparin 5,000 UNIT/ML VIAL IVP ONE (07:53)
[2019-05-31] MEDS ORDERED: *HR* Heparin 5,000 UNIT/ML VIAL IVP PRN ×2 (07:53)
[2019-05-31] MEDS ORDERED: Heparin 25,000 UNIT/250 ML D5W 25,000 UNIT/250 ML IV.SOLN IVC SCH (08:00)
[2019-05-31 08:17] LABS: Hematocrit 37.5 % (35.3-44.9); Hemoglobin 12.4 g/dL (11.5-15.4); Mean Corpuscular HGB Conc 33.1 g/dL (31.6-35.5); Mean Corpuscular Hemoglobin 31.3 pg (28.0-33.3); Mean Corpuscular Volume 94.7 fL (83.0-100.0); Mean Platelet Volume 8.9 fL (9.4-12.4); Platelet Count 206 K/mcL (140-400); Red Blood Count 3.96 M/mcL (3.82-4.97); Red Cell Distribution Width 13.2 % (11.5-14.5); White Blood Count 4.1 K/mcL (4.3-11.1)
[2019-05-31 08:28] LABS: Heparin anti-factor XA UFH 0.07 IU/mL (0.30-0.70)
[2019-05-31 08:29] LABS: INR 0.9; Prothrombin Time 10.5 Seconds (9.4-12.1)
[2019-05-31 08:31] LABS: Activated Partial Thrombo Time 29.5 Seconds (26.0-36.0)
[2019-05-31] MEDS: Gabapentin 300 MG CAPSULE PO SCH ×3 (08:41→20:03)
[2019-05-31] MEDS: Multivit/Ca/Min/Fe/FA 1 TAB TABLET PO SCH (08:41)
[2019-05-31] MEDS ORDERED: Gabapentin 300 MG CAPSULE PO SCH ×2 (09:00)
[2019-05-31] MEDS ORDERED: Preparation H Ointment 30 GM TUBE RC PRN (18:03)
[2019-05-31] MEDS: *HR* HYDROcodone/Acet 7.5/325 mg TABLET PO SCH (20:02)
[2019-05-31] MEDS: *HR* Rivaroxaban 15 MG TABLET PO SCH (20:03)
[2019-05-31] MEDS ORDERED: OLANZAPINE PO SCH (21:00)
[2019-05-31] MEDS ORDERED: FLUOXETINE HCL PO SCH (21:00)
[2019-06-01] MEDS: Levothyroxine 25 MCG TABLET PO SCH (05:44)
[2019-06-01] MEDS: *HR* HYDROcodone/Acet 7.5/325 mg TABLET PO SCH (08:34)
[2019-06-01] MEDS: Gabapentin 300 MG CAPSULE PO SCH (08:34)
[2019-06-01] MEDS: *HR* Rivaroxaban 15 MG TABLET PO SCH (08:35)
[2019-06-01] MEDS: Multivit/Ca/Min/Fe/FA 1 TAB TABLET PO SCH (08:35)
[2019-06-01] MEDS ORDERED: Celecoxib 200 MG CAPSULE PO SCH (09:00)
[2019-06-01 10:50] VITALS: BP 101/66
[2019-06-04 14:56] LABS: FACV Specimen WHOLE BLOOD
[2019-06-05 10:31] LABS: Fac V Leiden R506Q Mut Result NEGATIVE
[2019-06-07 11:19] LABS: Antiphospholipid IgG High Spec 6 GPL (0-14); Antiphospholipid IgM High Spec 7 MPL (0-14)
== END 2019-06-01 14:55 | disposition home or self-care (01) ==
LOC: 3BNU 16:25 → EMEROOARM 16:25 → 3BNU 20:26
PROVIDERS: ADMIT Internal Medicine; ATTEND Internal Medicine

== ENCOUNTER 2019-12-07 16:35 | Inpatient (IN) ==
[2019-12-07] MEDS ORDERED: Isovue-370 500 ML BOTTLE IVP ONE (17:00)
[2019-12-07 17:27] LABS: Bilirubin,Urine Negative (Negative); Blood,Urine Large (Negative); Clarity,Urine Turbid (Clear); Color,Urine Yellow (Yellow); Glucose,Urine (UA) Normal (Normal); Ketones,Urine Negative (Negative); Leukocyte Esterase,Urine Large (Negative); Nitrite,Urine Negative (Negative); Protein,Urine 30 mg/dL (Neg-Trace); Specific Gravity,Urine 1.016 (1.010-1.025); Urobilinogen,Urine Normal (Normal)
[2019-12-07 17:33] LABS: Bacteria,Urine Many per hpf (None-Few); Hyaline Casts,Urine None Seen per lpf (None-Few); Squamous Epithelial Cell,Urine Many per lpf (None-Few); WBC,Urine TNTC per hpf (0-3)
[2019-12-07] MEDS ORDERED: Cefepime HCl 2,000 MG in Water for inj. (sterile) 20 ML IVP STA (17:54)
[2019-12-07 18:10] LABS: INR 1.1; Prothrombin Time 12.1 Seconds (9.4-12.1)
[2019-12-07 18:13] LABS: Activated Partial Thrombo Time 22.9 Seconds (26.0-36.0)
[2019-12-07 18:15] LABS: Basophils % 0.3 %; Eosinophils # 0.1 K/mcL (0.0-0.6); Eosinophils % 1.3 %; Hematocrit 42.8 % (35.3-44.9); Hemoglobin 13.8 g/dL (11.5-15.4); Immature Granulocytes % 0.1 % (0-4); Lymphocytes # 2.3 K/mcL (0.6-4.6); Lymphocytes % 33.8 %; Mean Corpuscular HGB Conc 32.2 g/dL (31.6-35.5); Mean Corpuscular Hemoglobin 30.5 pg (28.0-33.3); Mean Corpuscular Volume 94.7 fL (83.0-100.0); Mean Platelet Volume 9.4 fL (9.4-12.4); Monocytes # 0.4 K/mcL (0.0-1.3); Monocytes % 5.1 %; Neutrophils # 4.1 K/mcL (1.6-8.9); Platelet Count 218 K/mcL (140-400); Red Blood Count 4.52 M/mcL (3.82-4.97); Red Cell Distribution Width 13.8 % (11.5-14.5); Segmented Neutrophils % 59.4 %; White Blood Count 6.9 K/mcL (4.3-11.1)
[2019-12-07 20:04] LABS: Alanine Aminotransferase 20 Units/L (7-52); Albumin 4.1 g/dL (3.5-5.7); Albumin/Globulin Ratio 1.3 (1.1-2.2); Alkaline Phosphatase 74 Units/L (34-104); Aspartate Amino Transferase 27 Units/L (13-39); BUN/Creatinine Ratio 22 (6-26); Bilirubin,Direct 0.1 mg/dL (0.0-0.2); Bilirubin,Indirect 0.5 mg/dL (0.0-1.0); Bilirubin,Total 0.6 mg/dL (0.3-1.0); Blood Urea Nitrogen 11 mg/dL (8-23); Calcium 9.4 mg/dL (8.6-10.3); Carbon Dioxide 24 mEq/L (23-29); Chloride 106 mEq/L (98-107); Ethanol < 10 mg/dL (Less than 10); Globulin 3.2 g/dL (2.4-3.5); Glucose 100 mg/dL (70-105); Lipase 24 Units/L (11-82); Osmolality,Calculated 293 (280-300); Potassium 3.5 mEq/L (3.5-5.1); Sodium 142 mEq/L (136-145); Total Protein 7.3 g/dL (6.4-8.9); eGFR For African Americans > 60 (> 60); eGFR For Non-African Americans > 60 (> 60)
[2019-12-07 20:37] LABS: Troponin I < 0.03 ng/mL (< 0.04)
[2019-12-07] MEDS ORDERED: Gabapentin 300 MG CAPSULE PO ONE (21:10)
[2019-12-07] MEDS ORDERED: Aspirin Enteric Coated 81 MG Tablet PO ONE (21:10)
[2019-12-07] MEDS ORDERED: Ondansetron ODT 4 MG TAB.RAPDIS SL PRN (22:48)
[2019-12-07] MEDS ORDERED: Naloxone 0.4 MG/ML INJ IVP PRN (22:48)
[2019-12-07] MEDS ORDERED: Vancomycin (wt based) 1,000 MG VIAL IVPB SCH (23:00)
[2019-12-07] MEDS ORDERED: 0.9 % Sodium Chloride 1,000 ML IVC SCH (23:00)
[2019-12-07] MEDS: *HR* Heparin 5,000 UNIT/ML VIAL SQ SCH (23:06)
[2019-12-08 00:29] LABS: Basophils % 0.3 %; Eosinophils # 0.1 K/mcL (0.0-0.6); Eosinophils % 1.5 %; Hematocrit 41.7 % (35.3-44.9); Hemoglobin 13.7 g/dL (11.5-15.4); Immature Granulocytes % 0.2 % (0-4); Lymphocytes # 1.8 K/mcL (0.6-4.6); Lymphocytes % 26.3 %; Mean Corpuscular HGB Conc 32.9 g/dL (31.6-35.5); Mean Corpuscular Hemoglobin 30.9 pg (28.0-33.3); Mean Corpuscular Volume 93.9 fL (83.0-100.0); Mean Platelet Volume 9.3 fL (9.4-12.4); Monocytes # 0.3 K/mcL (0.0-1.3); Monocytes % 4.4 %; Neutrophils # 4.5 K/mcL (1.6-8.9); Platelet Count 244 K/mcL (140-400); Red Blood Count 4.44 M/mcL (3.82-4.97); Red Cell Distribution Width 13.7 % (11.5-14.5); Segmented Neutrophils % 67.3 %; White Blood Count 6.7 K/mcL (4.3-11.1)
[2019-12-08 00:51] LABS: Alanine Aminotransferase 19 Units/L (7-52); Albumin 3.8 g/dL (3.5-5.7); Albumin/Globulin Ratio 1.3 (1.1-2.2); Alkaline Phosphatase 72 Units/L (34-104); Aspartate Amino Transferase 20 Units/L (13-39); BUN/Creatinine Ratio 23 (6-26); Bilirubin,Total 0.5 mg/dL (0.3-1.0); Blood Urea Nitrogen 11 mg/dL (8-23); Carbon Dioxide 27 mEq/L (23-29); Chloride 106 mEq/L (98-107); Globulin 2.9 g/dL (2.4-3.5); Glucose 143 mg/dL (70-105); Magnesium 1.9 mg/dL (1.6-2.6); Osmolality,Calculated 296 (280-300); Phosphorous 2.6 mg/dL (2.7-4.5); Potassium 3.3 mEq/L (3.5-5.1); Sodium 142 mEq/L (136-145); Total Protein 6.7 g/dL (6.4-8.9); eGFR For African Americans > 60 (> 60); eGFR For Non-African Americans > 60 (> 60)
[2019-12-08] MEDS ORDERED: Potassium Chloride Elixir 20 MEQ/15 ML UDC PO ONE (01:30)
[2019-12-08 03:59] LABS: VBG HCO3 30 mEq/L (21-27); VBG PCO2 58 mmHg (41-51); VBG PH 7.32 pH Units (7.32-7.42); VBG PO2 51 mmHg (25-50)
[2019-12-08] MEDS: Cefepime HCl 2,000 MG in 0.9 % Sodium Chloride Mini Bag 100 ML IVPB SCH ×2 (05:51→17:30)
[2019-12-08] MEDS: *HR* Heparin 5,000 UNIT/ML VIAL SQ SCH ×3 (05:51→20:48)
[2019-12-08] MEDS: Gabapentin 300 MG CAPSULE PO SCH ×3 (10:14→20:48)
[2019-12-08] MEDS: Levothyroxine 25 MCG TABLET PO SCH (10:14)
[2019-12-08 11:36] LABS: Estimated Average Glucose 100 mg/dl
[2019-12-08] MEDS: Rivastigmine Patch 4.6 MG PATCH.TD24 TP SCH (11:39)
[2019-12-08] MEDS ORDERED: Aminoglycoside Consult 1 EACH MC ONE (16:32)
[2019-12-08] MEDS: Aspirin Enteric Coated 81 MG Tablet PO SCH (20:48)
[2019-12-09 04:04] LABS: BUN/Creatinine Ratio 17 (6-26); Blood Urea Nitrogen 9 mg/dL (8-23); Calcium 8.9 mg/dL (8.6-10.3); Carbon Dioxide 25 mEq/L (23-29); Chloride 106 mEq/L (98-107); Glucose 116 mg/dL (70-105); Osmolality,Calculated 290 (280-300); Potassium 4.3 mEq/L (3.5-5.1); Sodium 140 mEq/L (136-145); eGFR For African Americans > 60 (> 60); eGFR For Non-African Americans > 60 (> 60)
[2019-12-09] MEDS: *HR* Heparin 5,000 UNIT/ML VIAL SQ SCH ×3 (05:47→19:49)
[2019-12-09] MEDS: Cefepime HCl 2,000 MG in 0.9 % Sodium Chloride Mini Bag 100 ML IVPB SCH (05:47)
[2019-12-09] MEDS: Gabapentin 300 MG CAPSULE PO SCH ×3 (08:27→19:49)
[2019-12-09] MEDS: Levothyroxine 25 MCG TABLET PO SCH (08:27)
[2019-12-09] MEDS: Rivastigmine Patch 4.6 MG PATCH.TD24 TP SCH (08:28)
[2019-12-09] MEDS: levoFLOXacin 750 MG/150 ML 750 MG/150 ML BAG IVPB SCH (16:22)
[2019-12-09] MEDS: Aspirin Enteric Coated 81 MG Tablet PO SCH (19:49)
[2019-12-10] MEDS: *HR* Heparin 5,000 UNIT/ML VIAL SQ SCH ×2 (05:22→14:53)
[2019-12-10] MEDS: Gabapentin 300 MG CAPSULE PO SCH ×2 (08:09→14:55)
[2019-12-10] MEDS: Levothyroxine 25 MCG TABLET PO SCH (08:09)
[2019-12-10] MEDS: Rivastigmine Patch 4.6 MG PATCH.TD24 TP SCH (08:58)
[2019-12-10] MEDS: levoFLOXacin 750 MG/150 ML 750 MG/150 ML BAG IVPB SCH (08:59)
[2019-12-10] MEDS ORDERED: levoFLOXacin 750 MG TABLET PO SCH (10:45)
[2019-12-10 16:12] VITALS: BP 111/66
== END 2019-12-10 16:33 | disposition home health service (06) | DRG 689 ==
LOC: EMEROOARM 16:35 → 2ANU 16:35 → SUATTDRO 21:31 → 2ANU 22:01
PROVIDERS: ADMIT Family Medicine; ATTEND Internal Medicine

== ENCOUNTER 2020-05-25 22:33 | Inpatient (IN) ==
[2020-05-25] MEDS ORDERED: Isovue-370 500 ML BOTTLE IVP ONE (22:44)
[2020-05-25 23:22] LABS: Bacteria,Urine Few per hpf (None-Few); Bilirubin,Urine Negative (Negative); Blood,Urine Small (Negative); Clarity,Urine Ex.Turbid (Clear); Color,Urine Dark-Yellow (Yellow); Glucose,Urine (UA) Normal (Normal); Hyaline Casts,Urine Many per lpf (None Seen); Ketones,Urine Negative (Negative); Leukocyte Esterase,Urine Large (Negative); Mucus,Urine Few per lpf (None-Few); Nitrite,Urine Negative (Negative); PH,Urine 5.5 pH Units (5.0-8.0); Protein,Urine 100 mg/dL (Neg-Trace); RBC,Urine 50-100 per hpf (0-3); Renal Epithelial Cells,Urine Few per hpf (None-Few); Specific Gravity,Urine 1.015 (1.010-1.025); Squamous Epithelial Cell,Urine Many per hpf (None-Few); Urobilinogen,Urine Normal (Normal); WBC,Urine TNTC per hpf (0-3)
[2020-05-25 23:55] LABS: Basophils % 0.3 %; Eosinophils # 0.1 K/mcL (0.0-0.6); Eosinophils % 0.4 %; Hematocrit 35.1 % (35.3-44.9); Hemoglobin 11.5 g/dL (11.5-15.4); Immature Granulocytes % 0.3 % (0-4); Lymphocytes # 1.6 K/mcL (0.6-4.6); Lymphocytes % 13.9 %; Mean Corpuscular HGB Conc 32.8 g/dL (31.6-35.5); Mean Corpuscular Hemoglobin 31.6 pg (28.0-33.3); Mean Corpuscular Volume 96.4 fL (83.0-100.0); Mean Platelet Volume 9.5 fL (9.4-12.4); Monocytes # 0.3 K/mcL (0.0-1.3); Monocytes % 2.7 %; Neutrophils # 9.3 K/mcL (1.6-8.9); Platelet Count 231 K/mcL (140-400); Red Blood Count 3.64 M/mcL (3.82-4.97); Red Cell Distribution Width 14.2 % (11.5-14.5); Segmented Neutrophils % 82.4 %; White Blood Count 11.2 K/mcL (4.3-11.1)
[2020-05-26 00:02] LABS: INR 1.1; Prothrombin Time 12.5 Seconds (9.4-12.1)
[2020-05-26 00:05] LABS: Activated Partial Thrombo Time 23.4 Seconds (26.0-36.0)
[2020-05-26 00:17] LABS: Alanine Aminotransferase 23 Units/L (7-52); Albumin 4.3 g/dL (3.5-5.7); Albumin/Globulin Ratio 1.3 (1.1-2.2); Alkaline Phosphatase 86 Units/L (34-104); Aspartate Amino Transferase 24 Units/L (13-39); BUN/Creatinine Ratio 39 (6-26); Bilirubin,Direct 0.1 mg/dL (0.0-0.2); Bilirubin,Indirect 0.4 mg/dL (0.0-1.0); Bilirubin,Total 0.5 mg/dL (0.3-1.0); Blood Urea Nitrogen 23 mg/dL (8-23); Calcium 9.3 mg/dL (8.6-10.3); Carbon Dioxide 24 mEq/L (23-29); Chloride 100 mEq/L (98-107); Globulin 3.3 g/dL (2.4-3.5); Glucose 100 mg/dL (70-105); Osmolality,Calculated 288 (280-300); Phosphorous 3.2 mg/dL (2.7-4.5); Potassium 3.8 mEq/L (3.5-5.1); Sodium 137 mEq/L (136-145); Total Protein 7.6 g/dL (6.4-8.9); eGFR For African Americans > 60 (> 60); eGFR For Non-African Americans > 60 (> 60)
[2020-05-26 00:18] LABS: Troponin I < 0.03 ng/mL (< 0.04)
[2020-05-26 00:41] LABS: Adenovirus Not Detected (Not Detect); Bordetella Pertussis Not Detected (Not Detect); Chlamydophila pneumoniae Not Detected (Not Detect); Coronavirus 229E Not Detected (Not Detect); Coronavirus HKU1 Not Detected (Not Detect); Coronavirus NL63 Not Detected (Not Detect); Coronavirus OC43 Not Detected (Not Detect); Human Metapneumovirus Not Detected (Not Detect); Human Rhinovirus/Enterovirus Not Detected (Not Detect); Influenza A Subtype 2009 H1 Not Detected (Not Detect); Influenza B Not Detected (Not Detect); Mycoplasma pneumoniae Not Detected (Not Detect); Parainfluenza Virus 1 Not Detected (Not Detect); Parainfluenza Virus 2 Not Detected (Not Detect); Parainfluenza Virus 3 Not Detected (Not Detect); Parainfluenza Virus 4 Not Detected (Not Detect); Respiratory Syncytial Virus Not Detected (Not Detect)
[2020-05-26] MEDS ORDERED: Vancomycin 1,250 MG/262.5 ML IV.SOLN IVPB ONE (01:43)
[2020-05-26] MEDS ORDERED: MetroNIDAZOLE 500 MG/100 ML 500 MG/100 ML BAG IVPB ONE (01:43)
[2020-05-26] MEDS ORDERED: 0.9 % Sodium Chloride 1,000 ML IV ONE (01:51)
[2020-05-26] MEDS ORDERED: Naloxone 0.4 MG/ML INJ IVP PRN (02:37)
[2020-05-26] MEDS ORDERED: *HR* Promethazine 25 MG/ML VIAL IVP PRN (02:37)
[2020-05-26] MEDS ORDERED: Benzonatate 100 MG CAPSULE PO PRN (03:02)
[2020-05-26] MEDS ORDERED: Levalbuterol Neb 1.25 MG/3 ML IH PRN (03:02)
[2020-05-26] MEDS: Cefepime HCl 1,000 MG in 0.9 % Sodium Chloride Mini Bag 100 ML IVPB ONE ×2 (04:08→05:46)
[2020-05-26 05:05] LABS: Basophils % 0.2 %; Eosinophils % 0.4 %; Hematocrit 37.8 % (35.3-44.9); Hemoglobin 12.3 g/dL (11.5-15.4); Immature Granulocytes % 0.3 % (0-4); Lymphocytes # 1.9 K/mcL (0.6-4.6); Lymphocytes % 16.7 %; Mean Corpuscular HGB Conc 32.5 g/dL (31.6-35.5); Mean Corpuscular Hemoglobin 31.1 pg (28.0-33.3); Mean Corpuscular Volume 95.5 fL (83.0-100.0); Mean Platelet Volume 9.4 fL (9.4-12.4); Monocytes # 0.3 K/mcL (0.0-1.3); Monocytes % 2.9 %; Neutrophils # 9.1 K/mcL (1.6-8.9); Platelet Count 231 K/mcL (140-400); Red Blood Count 3.96 M/mcL (3.82-4.97); Red Cell Distribution Width 14.2 % (11.5-14.5); Segmented Neutrophils % 79.5 %; White Blood Count 11.4 K/mcL (4.3-11.1)
[2020-05-26 05:21] LABS: Alanine Aminotransferase 19 Units/L (7-52); Albumin 3.4 g/dL (3.5-5.7); Albumin/Globulin Ratio 1.3 (1.1-2.2); Alkaline Phosphatase 66 Units/L (34-104); Aspartate Amino Transferase 21 Units/L (13-39); BUN/Creatinine Ratio 39 (6-26); Bilirubin,Total 0.4 mg/dL (0.3-1.0); Blood Urea Nitrogen 18 mg/dL (8-23); Calcium 8.1 mg/dL (8.6-10.3); Carbon Dioxide 21 mEq/L (23-29); Chloride 107 mEq/L (98-107); Globulin 2.6 g/dL (2.4-3.5); Glucose 110 mg/dL (70-105); Magnesium 1.8 mg/dL (1.6-2.6); Osmolality,Calculated 287 (280-300); Phosphorous 3.2 mg/dL (2.7-4.5); Potassium 3.8 mEq/L (3.5-5.1); Sodium 137 mEq/L (136-145); eGFR For African Americans > 60 (> 60); eGFR For Non-African Americans > 60 (> 60)
[2020-05-26 05:22] LABS: Troponin I < 0.03 ng/mL (< 0.04)
[2020-05-26] MEDS: 0.9 % Sodium Chloride 1,000 ML IVC SCH ×2 (05:44→15:29)
[2020-05-26] MEDS: *HR* Heparin 5,000 UNIT/ML VIAL SQ SCH ×2 (05:44→17:33)
[2020-05-26] MEDS ORDERED: Magnesium Sulfate 1 GM/102 ML PIGGYBACK IVPB ONE (06:03)
[2020-05-26] MEDS: Cefepime HCl 1,000 MG in Water for inj. (sterile) 10 ML IVP SCH ×2 (09:48→19:58)
[2020-05-26] MEDS ORDERED: Ipratropium Neb 0.5 MG NEBULIZER IH PRN (10:26)
[2020-05-26] MEDS: predniSONE 20 MG TABLET PO SCH (11:56)
[2020-05-26] MEDS: Rivastigmine Patch 4.6 MG PATCH.TD24 TD SCH (17:34)
[2020-05-26] MEDS: Aspirin Enteric Coated 81 MG Tablet PO SCH (19:58)
[2020-05-26] MEDS: Gabapentin 300 MG CAPSULE PO SCH (19:58)
[2020-05-27] MEDS: Acetaminophen 325 MG TABLET PO PRN (02:33)
[2020-05-27] MEDS: *HR* Heparin 5,000 UNIT/ML VIAL SQ SCH ×2 (05:03→18:04)
[2020-05-27 05:29] LABS: Basophils % 0.2 %; Hematocrit 32.7 % (35.3-44.9); Hemoglobin 10.6 g/dL (11.5-15.4); Immature Granulocytes % 0.2 % (0-4); Lymphocytes # 0.9 K/mcL (0.6-4.6); Lymphocytes % 16.8 %; Mean Corpuscular HGB Conc 32.4 g/dL (31.6-35.5); Mean Corpuscular Hemoglobin 31.1 pg (28.0-33.3); Mean Corpuscular Volume 95.9 fL (83.0-100.0); Monocytes # 0.2 K/mcL (0.0-1.3); Monocytes % 2.9 %; Neutrophils # 4.2 K/mcL (1.6-8.9); Platelet Count 197 K/mcL (140-400); Red Blood Count 3.41 M/mcL (3.82-4.97); Red Cell Distribution Width 14.2 % (11.5-14.5); Segmented Neutrophils % 79.9 %; White Blood Count 5.2 K/mcL (4.3-11.1)
[2020-05-27 05:47] LABS: BUN/Creatinine Ratio 25 (6-26); Blood Urea Nitrogen 12 mg/dL (8-23); Calcium 7.8 mg/dL (8.6-10.3); Carbon Dioxide 20 mEq/L (23-29); Chloride 111 mEq/L (98-107); Glucose 141 mg/dL (70-105); Osmolality,Calculated 292 (280-300); Potassium 3.7 mEq/L (3.5-5.1); Sodium 140 mEq/L (136-145); eGFR For African Americans > 60 (> 60); eGFR For Non-African Americans > 60 (> 60)
[2020-05-27] MEDS: Levothyroxine 25 MCG TABLET PO SCH (08:16)
[2020-05-27] MEDS: predniSONE 20 MG TABLET PO SCH (08:16)
[2020-05-27] MEDS: Gabapentin 300 MG CAPSULE PO SCH ×3 (08:16→21:05)
[2020-05-27] MEDS: Multivit/Ca/Min/Fe/FA 1 TAB TABLET PO SCH (08:16)
[2020-05-27] MEDS: Cefepime HCl 1,000 MG in Water for inj. (sterile) 10 ML IVP SCH (08:17)
[2020-05-27 10:08] LABS: C-Reactive Protein 73 mg/L (Less than 10)
[2020-05-27] MEDS: Fluticasone Propionate Nasal 50 MCG/SPRAY BOTTLE NS SCH (10:14)
[2020-05-27] MEDS ORDERED: Leptospermum Honey Paste 1 APPL/5 ML MLS TP SCH (15:45)
[2020-05-27] MEDS: metroNIDAZOLE 500 MG TABLET PO SCH ×2 (16:00→21:05)
[2020-05-27] MEDS: Rivastigmine Patch 4.6 MG PATCH.TD24 TD SCH (16:00)
[2020-05-27] MEDS: Cefepime HCl 2,000 MG in Water for inj. (sterile) 20 ML IVP SCH (18:04)
[2020-05-27] MEDS: Aspirin Enteric Coated 81 MG Tablet PO SCH (21:05)
[2020-05-28 05:18] LABS: Basophils % 0.6 %; Eosinophils % 0.4 %; Hematocrit 33.3 % (35.3-44.9); Hemoglobin 10.9 g/dL (11.5-15.4); Immature Granulocytes % 0.4 % (0-4); Lymphocytes # 1.3 K/mcL (0.6-4.6); Lymphocytes % 25.1 %; Mean Corpuscular HGB Conc 32.7 g/dL (31.6-35.5); Mean Corpuscular Hemoglobin 30.8 pg (28.0-33.3); Mean Corpuscular Volume 94.1 fL (83.0-100.0); Mean Platelet Volume 9.6 fL (9.4-12.4); Monocytes # 0.3 K/mcL (0.0-1.3); Monocytes % 6.6 %; Neutrophils # 3.4 K/mcL (1.6-8.9); Platelet Count 214 K/mcL (140-400); Red Blood Count 3.54 M/mcL (3.82-4.97); Segmented Neutrophils % 66.9 %; White Blood Count 5.1 K/mcL (4.3-11.1)
[2020-05-28 05:38] LABS: BUN/Creatinine Ratio 22 (6-26); Blood Urea Nitrogen 13 mg/dL (8-23); Calcium 8.3 mg/dL (8.6-10.3); Carbon Dioxide 24 mEq/L (23-29); Chloride 110 mEq/L (98-107); Glucose 121 mg/dL (70-105); Osmolality,Calculated 293 (280-300); Potassium 3.4 mEq/L (3.5-5.1); Sodium 141 mEq/L (136-145); eGFR For African Americans > 60 (> 60); eGFR For Non-African Americans > 60 (> 60)
[2020-05-28] MEDS: Cefepime HCl 2,000 MG in Water for inj. (sterile) 20 ML IVP SCH ×2 (05:41→17:52)
[2020-05-28] MEDS: *HR* Heparin 5,000 UNIT/ML VIAL SQ SCH ×2 (05:42→17:51)
[2020-05-28] MEDS: Leptospermum Honey Paste 44 ML TUBE TP SCH (08:12)
[2020-05-28] MEDS: metroNIDAZOLE 500 MG TABLET PO SCH ×3 (08:23→21:53)
[2020-05-28] MEDS: Multivit/Ca/Min/Fe/FA 1 TAB TABLET PO SCH (08:23)
[2020-05-28] MEDS: Gabapentin 300 MG CAPSULE PO SCH ×3 (08:23→21:53)
[2020-05-28] MEDS: predniSONE 20 MG TABLET PO SCH (08:23)
[2020-05-28] MEDS: Levothyroxine 25 MCG TABLET PO SCH (08:23)
[2020-05-28] MEDS: Fluticasone Propionate Nasal 50 MCG/SPRAY BOTTLE NS SCH (08:23)
[2020-05-28] MEDS: Rivastigmine Patch 4.6 MG PATCH.TD24 TD SCH (17:51)
[2020-05-28] MEDS: Aspirin Enteric Coated 81 MG Tablet PO SCH (21:53)
[2020-05-29 05:39] LABS: Basophils % 0.2 %; Eosinophils % 0.2 %; Hematocrit 36.5 % (35.3-44.9); Hemoglobin 11.9 g/dL (11.5-15.4); Immature Granulocytes % 0.5 % (0-4); Lymphocytes # 1.5 K/mcL (0.6-4.6); Lymphocytes % 25.2 %; Mean Corpuscular HGB Conc 32.6 g/dL (31.6-35.5); Mean Corpuscular Hemoglobin 30.1 pg (28.0-33.3); Mean Corpuscular Volume 92.4 fL (83.0-100.0); Mean Platelet Volume 9.3 fL (9.4-12.4); Monocytes # 0.4 K/mcL (0.0-1.3); Neutrophils # 4.1 K/mcL (1.6-8.9); Platelet Count 253 K/mcL (140-400); Red Blood Count 3.95 M/mcL (3.82-4.97); Red Cell Distribution Width 13.9 % (11.5-14.5); Segmented Neutrophils % 66.9 %; White Blood Count 6.1 K/mcL (4.3-11.1)
[2020-05-29 05:58] LABS: BUN/Creatinine Ratio 27 (6-26); Blood Urea Nitrogen 12 mg/dL (8-23); Carbon Dioxide 25 mEq/L (23-29); Chloride 107 mEq/L (98-107); Glucose 122 mg/dL (70-105); Osmolality,Calculated 287 (280-300); Potassium 3.7 mEq/L (3.5-5.1); Sodium 138 mEq/L (136-145); Vancomycin,Trough 17 mcg/mL (5-10); eGFR For African Americans > 60 (> 60); eGFR For Non-African Americans > 60 (> 60)
[2020-05-29] MEDS: *HR* Heparin 5,000 UNIT/ML VIAL SQ SCH ×2 (06:20→18:37)
[2020-05-29] MEDS: Cefepime HCl 2,000 MG in Water for inj. (sterile) 20 ML IVP SCH ×2 (06:22→18:32)
[2020-05-29] MEDS: predniSONE 20 MG TABLET PO SCH (08:26)
[2020-05-29] MEDS: Multivit/Ca/Min/Fe/FA 1 TAB TABLET PO SCH (08:26)
[2020-05-29] MEDS: Gabapentin 300 MG CAPSULE PO SCH ×3 (08:26→21:15)
[2020-05-29] MEDS: Levothyroxine 25 MCG TABLET PO SCH (08:26)
[2020-05-29] MEDS: metroNIDAZOLE 500 MG TABLET PO SCH ×3 (08:26→21:15)
[2020-05-29] MEDS: Leptospermum Honey Paste 44 ML TUBE TP SCH (08:27)
[2020-05-29] MEDS: Fluticasone Propionate Nasal 50 MCG/SPRAY BOTTLE NS SCH (08:28)
[2020-05-29] MEDS: Rivastigmine Patch 4.6 MG PATCH.TD24 TD SCH (16:02)
[2020-05-29] MEDS: Vancomycin 500 MG in 0.9 % Sodium Chloride Mini Bag 100 ML IVPB SCH (18:37)
[2020-05-29] MEDS: Aspirin Enteric Coated 81 MG Tablet PO SCH (21:14)
[2020-05-29] MEDS: Acetaminophen 325 MG TABLET PO PRN (21:21)
[2020-05-30] MEDS: Leptospermum Honey Paste 44 ML TUBE TP SCH ×2 (02:33→08:44)
[2020-05-30 04:34] LABS: BUN/Creatinine Ratio 49 (6-26); Blood Urea Nitrogen 20 mg/dL (8-23); Carbon Dioxide 26 mEq/L (23-29); Chloride 105 mEq/L (98-107); Glucose 216 mg/dL (70-105); Osmolality,Calculated 295 (280-300); Potassium 3.6 mEq/L (3.5-5.1); Sodium 138 mEq/L (136-145); eGFR For African Americans > 60 (> 60); eGFR For Non-African Americans > 60 (> 60)
[2020-05-30] MEDS: Vancomycin 500 MG in 0.9 % Sodium Chloride Mini Bag 100 ML IVPB SCH (06:29)
[2020-05-30] MEDS: *HR* Heparin 5,000 UNIT/ML VIAL SQ SCH ×2 (06:29→17:56)
[2020-05-30] MEDS: Cefepime HCl 2,000 MG in Water for inj. (sterile) 20 ML IVP SCH ×2 (06:29→17:53)
[2020-05-30] MEDS: Levothyroxine 25 MCG TABLET PO SCH (08:44)
[2020-05-30] MEDS: metroNIDAZOLE 500 MG TABLET PO SCH ×3 (08:44→21:08)
[2020-05-30] MEDS: predniSONE 20 MG TABLET PO SCH (08:44)
[2020-05-30] MEDS: Multivit/Ca/Min/Fe/FA 1 TAB TABLET PO SCH (08:45)
[2020-05-30] MEDS: Gabapentin 300 MG CAPSULE PO SCH ×3 (08:45→21:08)
[2020-05-30] MEDS: Fluticasone Propionate Nasal 50 MCG/SPRAY BOTTLE NS SCH (08:45)
[2020-05-30] MEDS: Rivastigmine Patch 4.6 MG PATCH.TD24 TD SCH (15:58)
[2020-05-30] MEDS: Acetaminophen 325 MG TABLET PO PRN (19:47)
[2020-05-30] MEDS: Aspirin Enteric Coated 81 MG Tablet PO SCH (21:08)
[2020-05-31 05:50] LABS: BUN/Creatinine Ratio 63 (6-26); Blood Urea Nitrogen 25 mg/dL (8-23); Calcium 9.7 mg/dL (8.6-10.3); Carbon Dioxide 26 mEq/L (23-29); Chloride 99 mEq/L (98-107); Glucose 270 mg/dL (70-105); Osmolality,Calculated 292 (280-300); Potassium 3.8 mEq/L (3.5-5.1); Sodium 134 mEq/L (136-145); eGFR For African Americans > 60 (> 60); eGFR For Non-African Americans > 60 (> 60)
[2020-05-31] MEDS: *HR* Heparin 5,000 UNIT/ML VIAL SQ SCH ×2 (06:16→17:25)
[2020-05-31] MEDS: Cefepime HCl 2,000 MG in Water for inj. (sterile) 20 ML IVP SCH (06:17)
[2020-05-31] MEDS: metroNIDAZOLE 500 MG TABLET PO SCH (09:02)
[2020-05-31] MEDS: Multivit/Ca/Min/Fe/FA 1 TAB TABLET PO SCH (09:02)
[2020-05-31] MEDS: levoFLOXacin 750 MG/150 ML 750 MG/150 ML BAG IVPB SCH (09:02)
[2020-05-31] MEDS: Gabapentin 300 MG CAPSULE PO SCH ×3 (09:02→22:52)
[2020-05-31] MEDS: Levothyroxine 25 MCG TABLET PO SCH (09:02)
[2020-05-31] MEDS: Fluticasone Propionate Nasal 50 MCG/SPRAY BOTTLE NS SCH (09:05)
[2020-05-31] MEDS: Leptospermum Honey Paste 44 ML TUBE TP SCH (14:58)
[2020-05-31] MEDS: Rivastigmine Patch 4.6 MG PATCH.TD24 TD SCH (17:27)
[2020-05-31] MEDS: Aspirin Enteric Coated 81 MG Tablet PO SCH (22:51)
[2020-05-31] MEDS: Acetaminophen 325 MG TABLET PO PRN (23:33)
[2020-06-01] MEDS: *HR* Heparin 5,000 UNIT/ML VIAL SQ SCH (05:14)
[2020-06-01 07:29] LABS: BUN/Creatinine Ratio 63 (6-26); Blood Urea Nitrogen 29 mg/dL (8-23); Calcium 9.8 mg/dL (8.6-10.3); Carbon Dioxide 29 mEq/L (23-29); Chloride 102 mEq/L (98-107); Glucose 113 mg/dL (70-105); Osmolality,Calculated 291 (280-300); Potassium 4.4 mEq/L (3.5-5.1); Sodium 137 mEq/L (136-145); eGFR For African Americans > 60 (> 60); eGFR For Non-African Americans > 60 (> 60)
[2020-06-01] MEDS: levoFLOXacin 750 MG/150 ML 750 MG/150 ML BAG IVPB SCH (08:06)
[2020-06-01] MEDS: Fluticasone Propionate Nasal 50 MCG/SPRAY BOTTLE NS SCH (08:06)
[2020-06-01] MEDS: Levothyroxine 25 MCG TABLET PO SCH (08:07)
[2020-06-01] MEDS: Multivit/Ca/Min/Fe/FA 1 TAB TABLET PO SCH (08:07)
[2020-06-01] MEDS: Gabapentin 300 MG CAPSULE PO SCH (08:07)
[2020-06-01] MEDS: Leptospermum Honey Paste 44 ML TUBE TP SCH (08:08)
[2020-06-01 10:07] VITALS: BP 103/70
== END 2020-06-01 13:30 | disposition home health service (06) | DRG 871 ==
LOC: 3ANU 22:33 → EMEROOARM 22:33 → SUATTDRO 05-26 02:08 → OBSVTOIN 05-26 02:08 → 3ANU 05-26 02:41
PROVIDERS: ADMIT Internal Medicine; ATTEND Family Medicine

== ENCOUNTER 2020-06-22 16:57 | Inpatient (IN) ==
[2020-06-22] MEDS ORDERED: Isovue-370 500 ML BOTTLE IVP ONE (17:17)
[2020-06-22] MEDS ORDERED: *HR* FentaNYL (PF) 100 MCG/2 ML VIAL IVP ONE (17:20)
[2020-06-22] MEDS ORDERED: Ondansetron 4 MG/2 ML VIAL IVP ONE (17:20)
[2020-06-22 18:56] LABS: Basophils % 0.4 %; Eosinophils % 0.5 %; Hematocrit 39.9 % (35.3-44.9); Hemoglobin 12.9 g/dL (11.5-15.4); Immature Granulocytes % 0.2 % (0-4); Lymphocytes # 1.1 K/mcL (0.6-4.6); Lymphocytes % 19.1 %; Mean Corpuscular HGB Conc 32.3 g/dL (31.6-35.5); Mean Corpuscular Hemoglobin 31.6 pg (28.0-33.3); Mean Corpuscular Volume 97.8 fL (83.0-100.0); Mean Platelet Volume 9.3 fL (9.4-12.4); Monocytes # 0.4 K/mcL (0.0-1.3); Monocytes % 6.3 %; Neutrophils # 4.1 K/mcL (1.6-8.9); Platelet Count 198 K/mcL (140-400); Red Blood Count 4.08 M/mcL (3.82-4.97); Red Cell Distribution Width 15.2 % (11.5-14.5); Segmented Neutrophils % 73.5 %; White Blood Count 5.6 K/mcL (4.3-11.1)
[2020-06-22 19:15] LABS: Alanine Aminotransferase 8 Units/L (7-52); Albumin 3.5 g/dL (3.5-5.7); Albumin/Globulin Ratio 1.3 (1.1-2.2); Alkaline Phosphatase 38 Units/L (34-104); Aspartate Amino Transferase 18 Units/L (13-39); BUN/Creatinine Ratio 18 (6-26); Bilirubin,Total 0.3 mg/dL (0.3-1.0); Blood Urea Nitrogen 9 mg/dL (8-23); Calcium 8.6 mg/dL (8.6-10.3); Carbon Dioxide 28 mEq/L (23-29); Chloride 105 mEq/L (98-107); Globulin 2.6 g/dL (2.4-3.5); Glucose 132 mg/dL (70-105); Osmolality,Calculated 291 (280-300); Potassium 4.1 mEq/L (3.5-5.1); Sodium 140 mEq/L (136-145); Total Protein 6.1 g/dL (6.4-8.9); eGFR For African Americans > 60 (> 60); eGFR For Non-African Americans > 60 (> 60)
[2020-06-22 19:35] LABS: Bacteria,Urine Few per hpf (None-Few); Bilirubin,Urine Negative (Negative); Blood,Urine Negative (Negative); Clarity,Urine Turbid (Clear); Color,Urine Yellow (Yellow); Glucose,Urine (UA) Normal (Normal); Ketones,Urine 10 mg/dL (Negative); Leukocyte Esterase,Urine Large (Negative); Mucus,Urine Moderate per lpf (None-Few); Nitrite,Urine Negative (Negative); PH,Urine 5.5 pH Units (5.0-8.0); Protein,Urine Trace mg/dL (Neg-Trace); Specific Gravity,Urine 1.024 (1.010-1.025); Squamous Epithelial Cell,Urine Many per hpf (None-Few); Urobilinogen,Urine Normal (Normal); WBC,Urine 50-100 per hpf (0-3)
[2020-06-22] MEDS ORDERED: Piperacillin/Tazobactam 3.375 GM in 0.9 % Sodium Chloride Mini Bag 100 ML IVPB ONE (22:40)
[2020-06-22] MEDS ORDERED: Vancomycin (wt based) 1,000 MG VIAL IVPB STA (22:40)
[2020-06-22] MEDS ORDERED: Ondansetron 4 MG/2 ML VIAL IVP PRN (23:41)
[2020-06-22] MEDS ORDERED: Naloxone 0.4 MG/ML INJ IVP PRN (23:41)
[2020-06-23] MEDS: Ringers Solution, Lactated 1,000 ML IVC SCH ×2 (01:45→20:07)
[2020-06-23] MEDS ORDERED: Nitroglycerin 0.4 MG TAB.SUBL SL PRN (03:01)
[2020-06-23] MEDS: *HR* Heparin 5,000 UNIT/ML VIAL SQ SCH ×2 (03:22→17:23)
[2020-06-23 03:42] LABS: Basophils % 0.2 %; Eosinophils % 0.2 %; Hematocrit 38.2 % (35.3-44.9); Immature Granulocytes % 0.2 % (0-4); Lymphocytes # 0.3 K/mcL (0.6-4.6); Lymphocytes % 5.5 %; Mean Corpuscular HGB Conc 31.4 g/dL (31.6-35.5); Mean Corpuscular Hemoglobin 30.6 pg (28.0-33.3); Mean Corpuscular Volume 97.4 fL (83.0-100.0); Mean Platelet Volume 9.2 fL (9.4-12.4); Monocytes # 0.3 K/mcL (0.0-1.3); Monocytes % 4.5 %; Neutrophils # 5.6 K/mcL (1.6-8.9); Platelet Count 184 K/mcL (140-400); Red Blood Count 3.92 M/mcL (3.82-4.97); Red Cell Distribution Width 15.6 % (11.5-14.5); Segmented Neutrophils % 89.4 %; White Blood Count 6.2 K/mcL (4.3-11.1)
[2020-06-23 03:50] LABS: INR 1.2; Prothrombin Time 13.2 Seconds (9.4-12.1)
[2020-06-23] MEDS ORDERED: 0.9 % Sodium Chloride 1,000 ML IVC ONE (03:54)
[2020-06-23] MEDS: Acetaminophen 325 MG TABLET PO PRN (04:05)
[2020-06-23 04:09] LABS: BUN/Creatinine Ratio 15 (6-26); Blood Urea Nitrogen 7 mg/dL (8-23); Calcium 8.1 mg/dL (8.6-10.3); Carbon Dioxide 26 mEq/L (23-29); Chloride 105 mEq/L (98-107); Glucose 146 mg/dL (70-105); Magnesium 1.8 mg/dL (1.6-2.6); Osmolality,Calculated 287 (280-300); Potassium 3.7 mEq/L (3.5-5.1); Sodium 138 mEq/L (136-145); eGFR For African Americans > 60 (> 60); eGFR For Non-African Americans > 60 (> 60)
[2020-06-23 04:15] LABS: Troponin I 0.12 ng/mL (< 0.04)
[2020-06-23] MEDS ORDERED: levoFLOXacin 750 MG/150 ML 750 MG/150 ML BAG IVPB SCH (09:00)
[2020-06-23] MEDS: Piperacillin/Tazobactam 3.375 GM in 0.9 % Sodium Chloride Mini Bag 100 ML IVPB SCH ×3 (09:27→23:54)
[2020-06-23] MEDS: Rivastigmine Patch 4.6 MG PATCH.TD24 TD SCH (09:27)
[2020-06-23] MEDS: Gabapentin 300 MG CAPSULE PO SCH ×2 (09:28→15:41)
[2020-06-23] MEDS: Levothyroxine 25 MCG TABLET PO SCH (09:28)
[2020-06-23] MEDS: Fluticasone Propionate Nasal 50 MCG/SPRAY BOTTLE NS SCH (09:28)
[2020-06-23] MEDS: Multivit/Ca/Min/Fe/FA 1 TAB TABLET PO SCH (09:28)
[2020-06-23 10:27] LABS: Adenovirus Not Detected (Not Detect); Bordetella Pertussis Not Detected (Not Detect); Chlamydophila pneumoniae Not Detected (Not Detect); Coronavirus 229E Not Detected (Not Detect); Coronavirus HKU1 Not Detected (Not Detect); Coronavirus NL63 Not Detected (Not Detect); Coronavirus OC43 Not Detected (Not Detect); Human Metapneumovirus Not Detected (Not Detect); Human Rhinovirus/Enterovirus Not Detected (Not Detect); Influenza A Subtype 2009 H1 Not Detected (Not Detect); Influenza B Not Detected (Not Detect); Mycoplasma pneumoniae Not Detected (Not Detect); Parainfluenza Virus 1 Not Detected (Not Detect); Parainfluenza Virus 2 Not Detected (Not Detect); Parainfluenza Virus 3 Not Detected (Not Detect); Parainfluenza Virus 4 Not Detected (Not Detect); Respiratory Syncytial Virus Not Detected (Not Detect); SARS-CoV-2 Not Detected (Not Detect)
[2020-06-23] MEDS ORDERED: 0.9 % Sodium Chloride 1,000 ML IVC SCH (11:00)
[2020-06-23] MEDS: Ondansetron ODT 4 MG TAB.RAPDIS SL PRN (17:23)
[2020-06-23] MEDS ORDERED: *HR* Heparin 5,000 UNIT/ML VIAL IVP PRN ×2 (17:38)
[2020-06-23] MEDS ORDERED: *HR* Heparin 5,000 UNIT/ML VIAL IVP ONE (17:38)
[2020-06-23] MEDS ORDERED: Magnesium Sulfate 1 GM/102 ML PIGGYBACK IVPB ONE (17:39)
[2020-06-23] MEDS ORDERED: Potassium Chloride Elixir 20 MEQ/15 ML UDC PO ONE (17:39)
[2020-06-23 18:27] LABS: Troponin I 0.15 ng/mL (< 0.04)
[2020-06-23] MEDS: Heparin 25,000UNIT/250ML 1/2NS 25,000 UNIT/250 ML IV.SOLN IVC SCH (18:39)
[2020-06-23 18:52] LABS: BUN/Creatinine Ratio 14 (6-26); Blood Urea Nitrogen 6 mg/dL (8-23); Calcium 7.7 mg/dL (8.6-10.3); Carbon Dioxide 24 mEq/L (23-29); Chloride 109 mEq/L (98-107); Glucose 103 mg/dL (70-105); Magnesium 1.9 mg/dL (1.6-2.6); Osmolality,Calculated 292 (280-300); Potassium 3.8 mEq/L (3.5-5.1); Sodium 142 mEq/L (136-145); eGFR For African Americans > 60 (> 60); eGFR For Non-African Americans > 60 (> 60)
[2020-06-23] MEDS: Aspirin Enteric Coated 81 MG Tablet PO SCH (23:54)
[2020-06-24] MEDS: Acetaminophen 325 MG TABLET PO PRN
[2020-06-24 04:37] LABS: Basophils % 0.2 %; Eosinophils # 0.1 K/mcL (0.0-0.6); Eosinophils % 1.8 %; Hematocrit 32.9 % (35.3-44.9); Immature Granulocytes % 0.4 % (0-4); Lymphocytes # 1.4 K/mcL (0.6-4.6); Lymphocytes % 27.8 %; Mean Corpuscular HGB Conc 31.3 g/dL (31.6-35.5); Mean Corpuscular Hemoglobin 30.8 pg (28.0-33.3); Mean Corpuscular Volume 98.5 fL (83.0-100.0); Monocytes # 0.2 K/mcL (0.0-1.3); Neutrophils # 3.3 K/mcL (1.6-8.9); Platelet Count 157 K/mcL (140-400); Red Blood Count 3.34 M/mcL (3.82-4.97); Red Cell Distribution Width 15.6 % (11.5-14.5); Segmented Neutrophils % 65.8 %
[2020-06-24 04:40] LABS: Hemoglobin 10.3 g/dL (11.5-15.4)
[2020-06-24 04:55] LABS: BUN/Creatinine Ratio 10 (6-26); Blood Urea Nitrogen 4 mg/dL (8-23); Calcium 7.3 mg/dL (8.6-10.3); Carbon Dioxide 25 mEq/L (23-29); Chloride 111 mEq/L (98-107); Glucose 110 mg/dL (70-105); Osmolality,Calculated 286 (280-300); Phosphorous 2.6 mg/dL (2.7-4.5); Potassium 3.3 mEq/L (3.5-5.1); Sodium 139 mEq/L (136-145); eGFR For African Americans > 60 (> 60); eGFR For Non-African Americans > 60 (> 60)
[2020-06-24] MEDS ORDERED: Perflutren Lipid Microsphere 1.3 ML in 0.9 % Sodium Chloride 8.7 ML IVP PRN (07:54)
[2020-06-24] MEDS: Levothyroxine 25 MCG TABLET PO SCH (08:29)
[2020-06-24] MEDS: Multivit/Ca/Min/Fe/FA 1 TAB TABLET PO SCH (08:29)
[2020-06-24] MEDS: Gabapentin 300 MG CAPSULE PO SCH ×4 (08:29→19:54)
[2020-06-24] MEDS: Piperacillin/Tazobactam 3.375 GM in 0.9 % Sodium Chloride Mini Bag 100 ML IVPB SCH ×2 (08:30→16:19)
[2020-06-24] MEDS: Fluticasone Propionate Nasal 50 MCG/SPRAY BOTTLE NS SCH (08:34)
[2020-06-24] MEDS: Rivastigmine Patch 4.6 MG PATCH.TD24 TD SCH (08:34)
[2020-06-24] MEDS ORDERED: 0.9 % Sodium Chloride 1,000 ML ONE (11:10)
[2020-06-24] MEDS: 0.9 % Sodium Chloride 1,000 ML IVC SCH ×2 (11:45→19:54)
[2020-06-24 13:50] LABS: Hematocrit 32.2 % (35.3-44.9); Hemoglobin 10.1 g/dL (11.5-15.4)
[2020-06-24] MEDS: Heparin 25,000UNIT/250ML 1/2NS 25,000 UNIT/250 ML IV.SOLN IVC SCH (18:45)
[2020-06-24] MEDS: Aspirin Enteric Coated 81 MG Tablet PO SCH (19:54)
[2020-06-24] MEDS ORDERED: Vancomycin 1,250 MG/262.5 ML IV.SOLN IVPB SCH (23:00)
[2020-06-25] MEDS: Piperacillin/Tazobactam 3.375 GM in 0.9 % Sodium Chloride Mini Bag 100 ML IVPB SCH ×2 (00:08→09:18)
[2020-06-25 00:52] LABS: Basophils % 0.3 %; Eosinophils # 0.1 K/mcL (0.0-0.6); Eosinophils % 2.3 %; Hemoglobin 10.2 g/dL (11.5-15.4); Immature Granulocytes % 0.3 % (0-4); Lymphocytes # 1.4 K/mcL (0.6-4.6); Lymphocytes % 36.2 %; Mean Corpuscular HGB Conc 31.9 g/dL (31.6-35.5); Mean Corpuscular Hemoglobin 31.7 pg (28.0-33.3); Mean Corpuscular Volume 99.4 fL (83.0-100.0); Mean Platelet Volume 9.3 fL (9.4-12.4); Monocytes # 0.2 K/mcL (0.0-1.3); Monocytes % 5.3 %; Neutrophils # 2.2 K/mcL (1.6-8.9); Platelet Count 160 K/mcL (140-400); Red Blood Count 3.22 M/mcL (3.82-4.97); Red Cell Distribution Width 15.6 % (11.5-14.5); Segmented Neutrophils % 55.6 %
[2020-06-25 01:17] LABS: BUN/Creatinine Ratio 8 (6-26); Blood Urea Nitrogen 3 mg/dL (8-23); Calcium 7.5 mg/dL (8.6-10.3); Carbon Dioxide 25 mEq/L (23-29); Chloride 113 mEq/L (98-107); Glucose 100 mg/dL (70-105); Osmolality,Calculated 291 (280-300); Potassium 4.6 mEq/L (3.5-5.1); Sodium 142 mEq/L (136-145); eGFR For African Americans > 60 (> 60); eGFR For Non-African Americans > 60 (> 60)
[2020-06-25] MEDS: 0.9 % Sodium Chloride 1,000 ML IVC SCH (06:04)
[2020-06-25] MEDS: Multivit/Ca/Min/Fe/FA 1 TAB TABLET PO SCH (09:17)
[2020-06-25] MEDS: Gabapentin 300 MG CAPSULE PO SCH ×3 (09:17→21:22)
[2020-06-25] MEDS: Rivastigmine Patch 4.6 MG PATCH.TD24 TD SCH (09:17)
[2020-06-25] MEDS: Levothyroxine 25 MCG TABLET PO SCH (09:17)
[2020-06-25] MEDS: Fluticasone Propionate Nasal 50 MCG/SPRAY BOTTLE NS SCH (09:18)
[2020-06-25] MEDS: Ondansetron ODT 4 MG TAB.RAPDIS SL PRN (09:29)
[2020-06-25] MEDS: levoFLOXacin 750 MG/150 ML 750 MG/150 ML BAG IVPB SCH (15:33)
[2020-06-25] MEDS: *HR* Heparin 5,000 UNIT/ML VIAL SQ SCH (17:59)
[2020-06-25] MEDS: Doxycycline 100 MG CAPSULE PO SCH (21:16)
[2020-06-25] MEDS: Aspirin Enteric Coated 81 MG Tablet PO SCH (21:16)
[2020-06-26] MEDS: *HR* Heparin 5,000 UNIT/ML VIAL SQ SCH ×2 (05:33→18:03)
[2020-06-26] MEDS: Doxycycline 100 MG CAPSULE PO SCH (08:31)
[2020-06-26] MEDS: Gabapentin 300 MG CAPSULE PO SCH ×2 (08:31→15:38)
[2020-06-26] MEDS: Rivastigmine Patch 4.6 MG PATCH.TD24 TD SCH (08:31)
[2020-06-26] MEDS: Levothyroxine 25 MCG TABLET PO SCH (08:31)
[2020-06-26] MEDS: Multivit/Ca/Min/Fe/FA 1 TAB TABLET PO SCH (08:31)
[2020-06-26] MEDS: levoFLOXacin 750 MG/150 ML 750 MG/150 ML BAG IVPB SCH (08:32)
[2020-06-26] MEDS: Fluticasone Propionate Nasal 50 MCG/SPRAY BOTTLE NS SCH (08:32)
[2020-06-26] MEDS ORDERED: Metoprolol XL (24 HR) Succ 25 MG TAB.ER.24H PO SCH (09:00)
[2020-06-26 09:28] LABS: Basophils % 0.3 %; Eosinophils # 0.1 K/mcL (0.0-0.6); Eosinophils % 3.3 %; Hematocrit 35.3 % (35.3-44.9); Hemoglobin 11.2 g/dL (11.5-15.4); Immature Granulocytes % 0.3 % (0-4); Lymphocytes # 1.1 K/mcL (0.6-4.6); Lymphocytes % 33.8 %; Mean Corpuscular HGB Conc 31.7 g/dL (31.6-35.5); Mean Corpuscular Hemoglobin 31.5 pg (28.0-33.3); Mean Corpuscular Volume 99.2 fL (83.0-100.0); Mean Platelet Volume 9.1 fL (9.4-12.4); Monocytes # 0.2 K/mcL (0.0-1.3); Monocytes % 7.1 %; Neutrophils # 1.9 K/mcL (1.6-8.9); Platelet Count 189 K/mcL (140-400); Red Blood Count 3.56 M/mcL (3.82-4.97); Red Cell Distribution Width 15.2 % (11.5-14.5); Segmented Neutrophils % 55.2 %; White Blood Count 3.4 K/mcL (4.3-11.1)
[2020-06-26 09:44] LABS: BUN/Creatinine Ratio 8 (6-26); Blood Urea Nitrogen 3 mg/dL (8-23); Calcium 8.2 mg/dL (8.6-10.3); Carbon Dioxide 27 mEq/L (23-29); Chloride 111 mEq/L (98-107); Glucose 95 mg/dL (70-105); Osmolality,Calculated 288 (280-300); Potassium 4.1 mEq/L (3.5-5.1); Sodium 141 mEq/L (136-145); eGFR For African Americans > 60 (> 60); eGFR For Non-African Americans > 60 (> 60)
[2020-06-26] MEDS: Acetaminophen 325 MG TABLET PO PRN (15:44)
[2020-06-26 16:23] VITALS: BP 116/68
== END 2020-06-26 18:09 | disposition home health service (06) | DRG 871 ==
LOC: 3ANU 16:57 → EMEROOARM 16:57 → SUATTDRO 23:08 → 3ANU 06-23 00:10
PROVIDERS: ADMIT Internal Medicine; ATTEND Internal Medicine

== ENCOUNTER 2020-07-04 11:57 | Inpatient (IN) ==
[2020-07-04 12:28] LABS: Basophils % 0.3 %; Eosinophils % 0.5 %; Hematocrit 39.2 % (35.3-44.9); Hemoglobin 12.6 g/dL (11.5-15.4); Immature Granulocytes % 0.3 % (0-4); Lymphocytes # 1.2 K/mcL (0.6-4.6); Lymphocytes % 17.5 %; Mean Corpuscular HGB Conc 32.1 g/dL (31.6-35.5); Mean Corpuscular Hemoglobin 30.8 pg (28.0-33.3); Mean Corpuscular Volume 95.8 fL (83.0-100.0); Mean Platelet Volume 9.2 fL (9.4-12.4); Monocytes # 0.4 K/mcL (0.0-1.3); Monocytes % 6.2 %; Platelet Count 224 K/mcL (140-400); Red Blood Count 4.09 M/mcL (3.82-4.97); Red Cell Distribution Width 14.6 % (11.5-14.5); Segmented Neutrophils % 75.2 %; White Blood Count 6.6 K/mcL (4.3-11.1)
[2020-07-04 12:47] LABS: Alanine Aminotransferase 11 Units/L (7-52); Albumin 3.3 g/dL (3.5-5.7); Albumin/Globulin Ratio 1.2 (1.1-2.2); Alkaline Phosphatase 54 Units/L (34-104); Aspartate Amino Transferase 31 Units/L (13-39); BUN/Creatinine Ratio 30 (6-26); Bilirubin,Total 0.6 mg/dL (0.3-1.0); Blood Urea Nitrogen 17 mg/dL (8-23); Calcium 8.3 mg/dL (8.6-10.3); Carbon Dioxide 23 mEq/L (23-29); Chloride 106 mEq/L (98-107); Globulin 2.7 g/dL (2.4-3.5); Glucose 106 mg/dL (70-105); Osmolality,Calculated 288 (280-300); Potassium 3.8 mEq/L (3.5-5.1); Sodium 138 mEq/L (136-145); Troponin I < 0.03 ng/mL (< 0.04); eGFR For African Americans > 60 (> 60); eGFR For Non-African Americans > 60 (> 60)
[2020-07-04 13:13] LABS: Bilirubin,Urine Negative (Negative); Blood,Urine Moderate (Negative); Clarity,Urine Ex.Turbid (Clear); Color,Urine Yellow (Yellow); Glucose,Urine (UA) Normal (Normal); Ketones,Urine Negative (Negative); Leukocyte Esterase,Urine Large (Negative); Nitrite,Urine Negative (Negative); Protein,Urine 30 mg/dL (Neg-Trace); Specific Gravity,Urine 1.022 (1.010-1.025); Urobilinogen,Urine Normal (Normal)
[2020-07-04 13:39] LABS: Squamous Epithelial Cell,Urine Many per hpf (None-Few); WBC,Urine TNTC per hpf (0-3)
[2020-07-04 13:41] LABS: RBC,Urine Present per hpf (0-3); Renal Epithelial Cells,Urine Present per hpf (None-Few); Transitional Epi Cells,Urine Present per hpf (None-Few)
[2020-07-04 13:42] LABS: Bacteria,Urine Present per hpf (None-Few)
[2020-07-04] MEDS ORDERED: *HR* Promethazine 25 MG/ML VIAL IVP ONE (13:46)
[2020-07-04] MEDS: cefTRIAXone 1,000 MG in 0.9 % Sodium Chloride Mini Bag 100 ML IVPB ONE (14:27)
[2020-07-04] MEDS ORDERED: cefTRIAXone 1,000 MG in Water for inj. (sterile) 10 ML IVP ONE (14:45)
[2020-07-04] MEDS ORDERED: Acetaminophen 325 MG TABLET PO PRN (15:29)
[2020-07-04] MEDS ORDERED: Naloxone 0.4 MG/ML INJ IVP PRN (15:29)
[2020-07-04] MEDS: levoFLOXacin 750 MG/150 ML 750 MG/150 ML BAG IVPB SCH (20:43)
[2020-07-04] MEDS: Aspirin Enteric Coated 81 MG Tablet PO SCH (20:51)
[2020-07-04] MEDS: *HR* Promethazine 25 MG/ML VIAL IVP PRN (20:51)
[2020-07-04] MEDS: Doxycycline 100 MG CAPSULE PO SCH (20:51)
[2020-07-04] MEDS: 0.9 % Sodium Chloride 1,000 ML IVC SCH (20:51)
[2020-07-04] MEDS: Gabapentin 300 MG CAPSULE PO SCH (20:51)
[2020-07-04 23:08] LABS: Adenovirus F 40/41 PCR Not detected (Not detect); Astrovirus PCR Not detected (Not detect); C.difficile Toxin A/B Gene PCR Not detected (Not detect); Campylobacter by PCR Not detected (Not detect); Cryptosporidium by PCR Not detected (Not detect); Cyclospora cayetanensis PCR Not detected (Not detect); E. coli O157 by PCR Not detected (Not detect); Entamoeba histolytica PCR Not detected (Not detect); Enteroaggregative E.coli(EAEC) Not detected (Not detect); Enteropathogenic E.coli(EPEC) Not detected (Not detect); Enterotoxigenic E.coli (ETEC) Not detected (Not detect); Giardia lamblia PCR Not detected (Not detect); Norovirus GI/GII PCR Not detected (Not detect); Plesiomonas shigelloides PCR Not detected (Not detect); Rotavirus A PCR Not detected (Not detect); Salmonella PCR Not detected (Not detect); Sapovirus PCR Not detected (Not detect); Shig/EnteroinvasiveE coli EIEC Not detected (Not detect); Shigalike tox-prod E coli STEC Not detected (Not detect); Vibrio PCR Not detected (Not detect); Vibrio cholerae PCR Not detected (Not detect); Yersinia enterocolitica PCR Not detected (Not detect)
[2020-07-05] MEDS ORDERED: *HR* Promethazine 25 MG/ML VIAL IVP ONE (01:14)
[2020-07-05] MEDS: *HR* Promethazine 25 MG/ML VIAL IVP PRN (04:30)
[2020-07-05 04:42] LABS: Basophils % 0.2 %; Eosinophils % 0.9 %; Hematocrit 36.1 % (35.3-44.9); Immature Granulocytes % 0.2 % (0-4); Mean Corpuscular HGB Conc 33.2 g/dL (31.6-35.5); Mean Corpuscular Hemoglobin 31.8 pg (28.0-33.3); Mean Corpuscular Volume 95.8 fL (83.0-100.0); Mean Platelet Volume 9.2 fL (9.4-12.4); Monocytes # 0.4 K/mcL (0.0-1.3); Monocytes % 8.3 %; Neutrophils # 2.2 K/mcL (1.6-8.9); Platelet Count 191 K/mcL (140-400); Red Blood Count 3.77 M/mcL (3.82-4.97); Red Cell Distribution Width 14.6 % (11.5-14.5); Segmented Neutrophils % 47.4 %; White Blood Count 4.6 K/mcL (4.3-11.1)
[2020-07-05 05:01] LABS: BUN/Creatinine Ratio 31 (6-26); Blood Urea Nitrogen 16 mg/dL (8-23); Calcium 7.9 mg/dL (8.6-10.3); Carbon Dioxide 24 mEq/L (23-29); Chloride 109 mEq/L (98-107); Glucose 88 mg/dL (70-105); Magnesium 1.9 mg/dL (1.6-2.6); Osmolality,Calculated 293 (280-300); Potassium 3.6 mEq/L (3.5-5.1); Sodium 141 mEq/L (136-145); eGFR For African Americans > 60 (> 60); eGFR For Non-African Americans > 60 (> 60)
[2020-07-05] MEDS: Levothyroxine 25 MCG TABLET PO SCH (06:03)
[2020-07-05] MEDS: Metoprolol XL (24 HR) Succ 25 MG TAB.ER.24H PO SCH (08:32)
[2020-07-05] MEDS: Gabapentin 300 MG CAPSULE PO SCH ×3 (08:32→21:06)
[2020-07-05] MEDS: Doxycycline 100 MG CAPSULE PO SCH ×2 (08:32→21:06)
[2020-07-05] MEDS: Fluticasone Propionate Nasal 50 MCG/SPRAY BOTTLE NS SCH (08:33)
[2020-07-05] MEDS: Multivit/Ca/Min/Fe/FA 1 TAB TABLET PO SCH (11:29)
[2020-07-05] MEDS: cefTRIAXone 1,000 MG in 0.9 % Sodium Chloride Mini Bag 100 ML IVPB ONE (14:53)
[2020-07-05] MEDS: levoFLOXacin 750 MG/150 ML 750 MG/150 ML BAG IVPB SCH (16:32)
[2020-07-05] MEDS: Aspirin Enteric Coated 81 MG Tablet PO SCH (21:06)
[2020-07-05] MEDS: 0.9 % Sodium Chloride 1,000 ML IVC SCH (21:25)
[2020-07-06 03:53] LABS: Basophils % 0.4 %; Eosinophils # 0.1 K/mcL (0.0-0.6); Eosinophils % 1.2 %; Hematocrit 36.9 % (35.3-44.9); Immature Granulocytes % 0.2 % (0-4); Lymphocytes # 2.3 K/mcL (0.6-4.6); Lymphocytes % 44.3 %; Mean Corpuscular HGB Conc 32.5 g/dL (31.6-35.5); Mean Corpuscular Hemoglobin 31.1 pg (28.0-33.3); Mean Corpuscular Volume 95.6 fL (83.0-100.0); Mean Platelet Volume 9.1 fL (9.4-12.4); Monocytes # 0.3 K/mcL (0.0-1.3); Monocytes % 6.6 %; Neutrophils # 2.4 K/mcL (1.6-8.9); Platelet Count 193 K/mcL (140-400); Red Blood Count 3.86 M/mcL (3.82-4.97); Red Cell Distribution Width 14.4 % (11.5-14.5); Segmented Neutrophils % 47.3 %; White Blood Count 5.1 K/mcL (4.3-11.1)
[2020-07-06 04:11] LABS: BUN/Creatinine Ratio 35 (6-26); Blood Urea Nitrogen 18 mg/dL (8-23); Carbon Dioxide 24 mEq/L (23-29); Chloride 110 mEq/L (98-107); Glucose 90 mg/dL (70-105); Osmolality,Calculated 293 (280-300); Potassium 3.6 mEq/L (3.5-5.1); Sodium 141 mEq/L (136-145); eGFR For African Americans > 60 (> 60); eGFR For Non-African Americans > 60 (> 60)
[2020-07-06] MEDS: Levothyroxine 25 MCG TABLET PO SCH (06:00)
[2020-07-06] MEDS: Gabapentin 300 MG CAPSULE PO SCH ×3 (07:27→20:51)
[2020-07-06] MEDS: Doxycycline 100 MG CAPSULE PO SCH ×2 (07:27→20:52)
[2020-07-06] MEDS: Metoprolol XL (24 HR) Succ 25 MG TAB.ER.24H PO SCH (07:28)
[2020-07-06] MEDS: Fluticasone Propionate Nasal 50 MCG/SPRAY BOTTLE NS SCH (07:30)
[2020-07-06] MEDS: Multivit/Ca/Min/Fe/FA 1 TAB TABLET PO SCH (11:29)
[2020-07-06] MEDS: *HR* Promethazine 25 MG/ML VIAL IVP PRN (11:31)
[2020-07-06] MEDS: levoFLOXacin 750 MG/150 ML 750 MG/150 ML BAG IVPB SCH (17:00)
[2020-07-06] MEDS: Aspirin Enteric Coated 81 MG Tablet PO SCH (20:50)
[2020-07-06] MEDS: *HR* HYDROcodone/Acet 5/325 mg TABLET PO PRN (23:57)
[2020-07-07] MEDS: Levothyroxine 25 MCG TABLET PO SCH (05:37)
[2020-07-07] MEDS: Doxycycline 100 MG CAPSULE PO SCH (08:38)
[2020-07-07] MEDS: Metoprolol XL (24 HR) Succ 25 MG TAB.ER.24H PO SCH (09:03)
[2020-07-07] MEDS: Gabapentin 300 MG CAPSULE PO SCH ×3 (09:13→21:22)
[2020-07-07] MEDS: *HR* Promethazine 25 MG/ML VIAL IVP PRN ×2 (09:14→18:02)
[2020-07-07] MEDS: Fluticasone Propionate Nasal 50 MCG/SPRAY BOTTLE NS SCH (09:15)
[2020-07-07] MEDS: Multivit/Ca/Min/Fe/FA 1 TAB TABLET PO SCH (11:27)
[2020-07-07] MEDS: levoFLOXacin 750 MG/150 ML 750 MG/150 ML BAG IVPB SCH (16:15)
[2020-07-07] MEDS: Aspirin Enteric Coated 81 MG Tablet PO SCH (21:21)
[2020-07-07] MEDS: *HR* HYDROcodone/Acet 5/325 mg TABLET PO PRN (23:19)
[2020-07-08 03:50] LABS: INR 1.2; Prothrombin Time 13.8 Seconds (9.4-12.1)
[2020-07-08 03:52] LABS: BUN/Creatinine Ratio 28 (6-26); Basophils % 0.4 %; Blood Urea Nitrogen 16 mg/dL (8-23); Calcium 8.3 mg/dL (8.6-10.3); Carbon Dioxide 26 mEq/L (23-29); Chloride 106 mEq/L (98-107); Eosinophils % 0.5 %; Glucose 91 mg/dL (70-105); Hematocrit 37.5 % (35.3-44.9); Hemoglobin 12.3 g/dL (11.5-15.4); Immature Granulocytes % 0.2 % (0-4); Lymphocytes # 2.3 K/mcL (0.6-4.6); Lymphocytes % 42.3 %; Mean Corpuscular HGB Conc 32.8 g/dL (31.6-35.5); Mean Corpuscular Hemoglobin 31.1 pg (28.0-33.3); Mean Corpuscular Volume 94.9 fL (83.0-100.0); Mean Platelet Volume 9.4 fL (9.4-12.4); Monocytes # 0.3 K/mcL (0.0-1.3); Monocytes % 5.9 %; Neutrophils # 2.8 K/mcL (1.6-8.9); Osmolality,Calculated 287 (280-300); Platelet Count 188 K/mcL (140-400); Red Blood Count 3.95 M/mcL (3.82-4.97); Red Cell Distribution Width 13.8 % (11.5-14.5); Segmented Neutrophils % 50.7 %; Sodium 138 mEq/L (136-145); White Blood Count 5.5 K/mcL (4.3-11.1); eGFR For African Americans > 60 (> 60); eGFR For Non-African Americans > 60 (> 60)
[2020-07-08] MEDS: Levothyroxine 25 MCG TABLET PO SCH (05:53)
[2020-07-08] MEDS: Metoprolol XL (24 HR) Succ 25 MG TAB.ER.24H PO SCH (08:17)
[2020-07-08] MEDS: Gabapentin 300 MG CAPSULE PO SCH ×2 (08:17→14:44)
[2020-07-08] MEDS: Fluticasone Propionate Nasal 50 MCG/SPRAY BOTTLE NS SCH (08:17)
[2020-07-08] MEDS: Multivit/Ca/Min/Fe/FA 1 TAB TABLET PO SCH (11:15)
[2020-07-08 13:24] VITALS: BP 122/58
[2020-07-08] MEDS ORDERED: 0.9 % Sodium Chloride 500 ML IVC SCH (13:30)
[2020-07-08] MEDS ORDERED: Lidocaine -MPF 2% 2 ML VIAL ONE (13:42)
[2020-07-08] MEDS ORDERED: *HR* Propofol 200 MG/20 ML VIAL IVP ONE (13:42)
== END 2020-07-08 17:04 | disposition home health service (06) | DRG 391 ==
LOC: EMEROOARM 11:57 → 3ANU 11:57 → SUATTDRO 16:20 → 3ANU 17:09
PROVIDERS: ADMIT Internal Medicine; ATTEND Internal Medicine
PROC: ENDOEBX (2020-07-08 13:50)

== ENCOUNTER 2020-09-12 09:55 | Observation (INO) ==
[2020-09-12] MEDS ORDERED: Isovue-370 500 ML BOTTLE IVP ONE (10:31)
[2020-09-12 10:45] LABS: Basophils % 0.6 %; Eosinophils # 0.1 K/mcL (0.0-0.6); Eosinophils % 1.1 %; Hematocrit 40.5 % (35.3-44.9); Hemoglobin 13.3 g/dL (11.5-15.4); Immature Granulocytes % 0.1 % (0-4); Lymphocytes # 1.9 K/mcL (0.6-4.6); Lymphocytes % 27.1 %; Mean Corpuscular HGB Conc 32.8 g/dL (31.6-35.5); Mean Corpuscular Hemoglobin 30.6 pg (28.0-33.3); Mean Corpuscular Volume 93.3 fL (83.0-100.0); Mean Platelet Volume 9.6 fL (9.4-12.4); Monocytes # 0.4 K/mcL (0.0-1.3); Monocytes % 5.8 %; Neutrophils # 4.7 K/mcL (1.6-8.9); Platelet Count 240 K/mcL (140-400); Red Blood Count 4.34 M/mcL (3.82-4.97); Red Cell Distribution Width 13.8 % (11.5-14.5); Segmented Neutrophils % 65.3 %; White Blood Count 7.1 K/mcL (4.3-11.1)
[2020-09-12 11:09] LABS: BUN/Creatinine Ratio 37 (6-26); Blood Urea Nitrogen 16 mg/dL (8-23); Calcium 8.9 mg/dL (8.6-10.3); Carbon Dioxide 25 mEq/L (23-29); Chloride 106 mEq/L (98-107); Glucose 125 mg/dL (70-105); Osmolality,Calculated 291 (280-300); Potassium 3.9 mEq/L (3.5-5.1); Sodium 139 mEq/L (136-145); eGFR For African Americans > 60 (> 60); eGFR For Non-African Americans > 60 (> 60)
[2020-09-12] MEDS ORDERED: cefTRIAXone 1,000 MG in Water for inj. (sterile) 10 ML IVP ONE (11:58)
[2020-09-12] MEDS ORDERED: *HR* HYDROcodone/Acet 5/325 mg TABLET PO PRN (12:31)
[2020-09-12] MEDS ORDERED: Naloxone 0.4 MG/ML INJ IVP PRN (12:31)
[2020-09-12] MEDS ORDERED: Acetaminophen 325 MG TABLET PO PRN (12:31)
[2020-09-12 12:54] LABS: Prothrombin Time 11.5 Seconds (9.4-12.1)
[2020-09-12 12:57] LABS: Activated Partial Thrombo Time 26.8 Seconds (26.0-36.0)
[2020-09-12] MEDS: Gabapentin 300 MG CAPSULE PO SCH (20:19)
[2020-09-13 00:55] LABS: Basophils % 0.5 %; Eosinophils # 0.1 K/mcL (0.0-0.6); Eosinophils % 1.4 %; Hematocrit 36.1 % (35.3-44.9); Hemoglobin 12.1 g/dL (11.5-15.4); Immature Granulocytes % 0.2 % (0-4); Lymphocytes # 2.1 K/mcL (0.6-4.6); Lymphocytes % 32.8 %; Mean Corpuscular HGB Conc 33.5 g/dL (31.6-35.5); Mean Corpuscular Hemoglobin 31.1 pg (28.0-33.3); Mean Corpuscular Volume 92.8 fL (83.0-100.0); Mean Platelet Volume 9.8 fL (9.4-12.4); Monocytes # 0.4 K/mcL (0.0-1.3); Monocytes % 5.5 %; Neutrophils # 3.8 K/mcL (1.6-8.9); Platelet Count 220 K/mcL (140-400); Red Blood Count 3.89 M/mcL (3.82-4.97); Segmented Neutrophils % 59.6 %; White Blood Count 6.4 K/mcL (4.3-11.1)
[2020-09-13 01:06] LABS: BUN/Creatinine Ratio 27 (6-26); Blood Urea Nitrogen 13 mg/dL (8-23); Calcium 8.5 mg/dL (8.6-10.3); Carbon Dioxide 26 mEq/L (23-29); Chloride 105 mEq/L (98-107); Glucose 106 mg/dL (70-105); Magnesium 1.8 mg/dL (1.6-2.6); Osmolality,Calculated 289 (280-300); Potassium 3.9 mEq/L (3.5-5.1); Sodium 139 mEq/L (136-145); eGFR For African Americans > 60 (> 60); eGFR For Non-African Americans > 60 (> 60)
[2020-09-13] MEDS: Levothyroxine 25 MCG TABLET PO SCH (06:04)
[2020-09-13] MEDS ORDERED: Pantoprazole 40 MG VIAL IVP SCH (09:00)
[2020-09-13] MEDS: cefTRIAXone 1,000 MG in 0.9 % Sodium Chloride Mini Bag 100 ML IVPB SCH (09:15)
[2020-09-13] MEDS: Gabapentin 300 MG CAPSULE PO SCH ×3 (09:15→22:01)
[2020-09-13] MEDS: Multivit/Ca/Min/Fe/FA 1 TAB TABLET PO SCH (09:15)
[2020-09-13] MEDS: Rivastigmine Patch 4.6 MG PATCH.TD24 TD SCH (14:43)
[2020-09-13] MEDS: Leptospermum Honey Paste 44 ML TUBE TP SCH (14:44)
[2020-09-14] MEDS: Levothyroxine 25 MCG TABLET PO SCH (05:02)
[2020-09-14 08:41] LABS: Hematocrit 35.9 % (35.3-44.9); Mean Corpuscular HGB Conc 33.4 g/dL (31.6-35.5); Mean Corpuscular Volume 92.8 fL (83.0-100.0); Mean Platelet Volume 9.5 fL (9.4-12.4); Platelet Count 208 K/mcL (140-400); Red Blood Count 3.87 M/mcL (3.82-4.97); Red Cell Distribution Width 13.8 % (11.5-14.5); White Blood Count 5.6 K/mcL (4.3-11.1)
[2020-09-14 08:57] LABS: BUN/Creatinine Ratio 29 (6-26); Blood Urea Nitrogen 12 mg/dL (8-23); Calcium 9.1 mg/dL (8.6-10.3); Carbon Dioxide 25 mEq/L (23-29); Chloride 105 mEq/L (98-107); Glucose 130 mg/dL (70-105); Osmolality,Calculated 288 (280-300); Sodium 138 mEq/L (136-145); eGFR For African Americans > 60 (> 60); eGFR For Non-African Americans > 60 (> 60)
[2020-09-14] MEDS ORDERED: NON-FORMULARY MEDICATION 1 EACH EACH (Multivitamin [One Daily Multivitamin] 1 TAB) PO SCH (09:00)
[2020-09-14] MEDS: Multivit/Ca/Min/Fe/FA 1 TAB TABLET PO SCH (10:10)
[2020-09-14] MEDS: Rivastigmine Patch 4.6 MG PATCH.TD24 TD SCH (10:10)
[2020-09-14] MEDS: Gabapentin 300 MG CAPSULE PO SCH (10:10)
[2020-09-14] MEDS: cefTRIAXone 1,000 MG in 0.9 % Sodium Chloride Mini Bag 100 ML IVPB SCH (10:11)
[2020-09-14] MEDS: Leptospermum Honey Paste 44 ML TUBE TP SCH (10:13)
[2020-09-14] MEDS ORDERED: FLU Vac QV 20-21 (6Month+)/PF 0.5 ML SYRINGE IM ONE (13:08)
[2020-09-14 15:08] VITALS: BP 93/56
== END 2020-09-14 15:30 | disposition home or self-care (01) ==
LOC: EMEROOARM 09:55 → 2ANU 09:55
PROVIDERS: ADMIT Internal Medicine; ATTEND Internal Medicine

== ENCOUNTER 2021-03-12 14:05 | Observation (INO) ==
[2021-03-12] MEDS ORDERED: Ondansetron ODT 4 MG TAB.RAPDIS SL PRN (14:51)
[2021-03-12] MEDS ORDERED: Naloxone 0.4 MG/ML INJ IVP PRN (14:51)
[2021-03-12 15:02] LABS: Basophils % 0.4 %; Eosinophils # 0.1 K/mcL (0.0-0.6); Immature Granulocytes % 0.4 % (0-4); Lymphocytes # 1.7 K/mcL (0.6-4.6); Lymphocytes % 29.4 %; Mean Corpuscular HGB Conc 32.5 g/dL (31.6-35.5); Mean Corpuscular Volume 95.5 fL (83.0-100.0); Mean Platelet Volume 9.4 fL (9.4-12.4); Monocytes # 0.3 K/mcL (0.0-1.3); Monocytes % 5.5 %; Neutrophils # 3.5 K/mcL (1.6-8.9); Platelet Count 247 K/mcL (140-400); Red Blood Count 4.19 M/mcL (3.82-4.97); Red Cell Distribution Width 13.9 % (11.5-14.5); Segmented Neutrophils % 62.3 %; White Blood Count 5.6 K/mcL (4.3-11.1)
[2021-03-12 15:23] LABS: Alanine Aminotransferase 26 Units/L (7-52); Albumin 3.8 g/dL (3.5-5.7); Albumin/Globulin Ratio 1.2 (1.1-2.2); Alkaline Phosphatase 76 Units/L (34-104); Aspartate Amino Transferase 29 Units/L (13-39); BUN/Creatinine Ratio 26 (6-26); Bilirubin,Total 0.6 mg/dL (0.3-1.0); Blood Urea Nitrogen 13 mg/dL (8-23); Calcium 9.1 mg/dL (8.6-10.3); Carbon Dioxide 31 mEq/L (23-29); Chloride 104 mEq/L (98-107); Globulin 3.2 g/dL (2.4-3.5); Glucose 98 mg/dL (70-105); Osmolality,Calculated 292 (280-300); Phosphorous 3.4 mg/dL (2.7-4.5); Sodium 141 mEq/L (136-145); eGFR For African Americans > 60 (> 60); eGFR For Non-African Americans > 60 (> 60)
[2021-03-12 15:26] LABS: Bacteria,Urine Few per hpf (None-Few); Bilirubin,Urine Negative (Negative); Blood,Urine Moderate (Negative); Clarity,Urine Turbid (Clear); Color,Urine Yellow (Yellow); Glucose,Urine (UA) Normal (Normal); Ketones,Urine Negative (Negative); Leukocyte Esterase,Urine Large (Negative); Mucus,Urine Few per lpf (None-Few); Nitrite,Urine Positive (Negative); PH,Urine 6.5 pH Units (5.0-8.0); Protein,Urine 70 mg/dL (Neg-Trace); RBC,Urine 50-100 per hpf (0-3); Specific Gravity,Urine 1.019 (1.010-1.025); Squamous Epithelial Cell,Urine Few per hpf (None-Few); Transitional Epi Cells,Urine Few per hpf (None-Few); Urobilinogen,Urine Normal (Normal); WBC,Urine TNTC per hpf (0-3)
[2021-03-12] MEDS: *HR* Heparin 5,000 UNIT/ML VIAL SQ SCH (18:05)
[2021-03-12] MEDS: Gabapentin 300 MG CAPSULE PO SCH (20:30)
[2021-03-13] MEDS ORDERED: 0.9 % Sodium Chloride 1,000 ML IVC SCH (00:01)
[2021-03-13] MEDS: *HR* Heparin 5,000 UNIT/ML VIAL SQ SCH (05:35)
[2021-03-13] MEDS ORDERED: *HR* Propofol 200 MG/20 ML VIAL IVP ONE (07:13)
[2021-03-13] MEDS ORDERED: Levothyroxine 25 MCG TABLET PO SCH (08:00)
[2021-03-13] MEDS ORDERED: Lidocaine -MPF 2% 5 ML VIAL ONE (08:31)
[2021-03-13 08:44] VITALS: BP 100/57
[2021-03-13] MEDS: Gabapentin 300 MG CAPSULE PO SCH (09:45)
== END 2021-03-13 13:30 | disposition home or self-care (01) ==
LOC: EMEROOARM 14:05 → 3ANU 14:05
PROVIDERS: ADMIT Surgery; ATTEND Surgery

== ENCOUNTER 2022-07-29 16:04 | Inpatient (IN) ==
[2022-07-29] MEDS ORDERED: Iopamidol - 370 500 ML MLS IVP ONE (16:40)
[2022-07-29 16:55] LABS: Basophils % 0.5 %; Eosinophils # 0.1 K/mcL (0.0-0.6); Eosinophils % 1.4 %; Hematocrit 41.7 % (35.3-44.9); Hemoglobin 13.8 g/dL (11.5-15.4); Immature Granulocytes % 0.3 % (0-4); Lymphocytes # 2.1 K/mcL (0.6-4.6); Lymphocytes % 31.7 %; Mean Corpuscular HGB Conc 33.1 g/dL (31.6-35.5); Mean Corpuscular Hemoglobin 30.7 pg (28.0-33.3); Mean Corpuscular Volume 92.7 fL (83.0-100.0); Mean Platelet Volume 9.9 fL (9.4-12.4); Monocytes # 0.3 K/mcL (0.0-1.3); Monocytes % 4.8 %; Platelet Count 235 K/mcL (140-400); Red Cell Distribution Width 13.5 % (11.5-14.5); Segmented Neutrophils % 61.3 %; White Blood Count 6.5 K/mcL (4.3-11.1)
[2022-07-29 17:11] LABS: BUN/Creatinine Ratio 32 (6-26); Blood Urea Nitrogen 16 mg/dL (8-23); Calcium 9.4 mg/dL (8.6-10.3); Carbon Dioxide 29 mEq/L (23-29); Chloride 104 mEq/L (98-107); Glucose 85 mg/dL (70-105); Osmolality,Calculated 290 (280-300); Potassium 4.3 mEq/L (3.5-5.1); Sodium 140 mEq/L (136-145); Troponin I < 0.03 ng/mL (< 0.04)
[2022-07-29 17:30] LABS: Bacteria,Urine Few per hpf (None-Few); Bilirubin,Urine Negative (Negative); Blood,Urine Small (Negative); Clarity,Urine Turbid (Clear); Color,Urine Light-Yellow (Yellow); Glucose,Urine (UA) Normal (Normal); Ketones,Urine Negative (Negative); Leukocyte Esterase,Urine Large (Negative); Mucus,Urine Few per lpf (None-Few); Nitrite,Urine Positive (Negative); PH,Urine 6.5 pH Units (5.0-8.0); Protein,Urine Trace mg/dL (Neg-Trace); RBC,Urine 30-50 per hpf (0-3); Specific Gravity,Urine 1.012 (1.010-1.025); Squamous Epithelial Cell,Urine Few per hpf (None-Few); Urobilinogen,Urine Normal (Normal); WBC,Urine TNTC per hpf (0-3)
[2022-07-29] MEDS ORDERED: cefTRIAXone 1,000 MG in Water for inj. (sterile) 10 ML IVP ONE (18:11)
[2022-07-29] MEDS ORDERED: Nitroglycerin 0.4 MG TAB.SUBL SL ONE (18:12)
[2022-07-30] MEDS ORDERED: Nitroglycerin 0.4 MG TAB.SUBL SL PRN (00:48)
[2022-07-30] MEDS ORDERED: Morphine Sulfate 2 MG/ML SYRINGE IVP PRN (08:28)
[2022-07-30] MEDS ORDERED: Melatonin 3 MG TABLET PO PRN (08:28)
[2022-07-30] MEDS ORDERED: Naloxone 0.4 MG/ML INJ IVP PRN (08:28)
[2022-07-30] MEDS ORDERED: *HR* Metoprolol 5 MG/5 ML VIAL IVP ONE ×2 (09:32→15:24)
[2022-07-30] MEDS ORDERED: Regadenoson 0.4 MG/5 ML SYRINGE IVP ONE (09:52)
[2022-07-30] MEDS: Aspirin 81 MG TAB.CHEW PO SCH (13:18)
[2022-07-30] MEDS: 0.9 % Sodium Chloride 1,000 ML IVC SCH (13:18)
[2022-07-30] MEDS: cefTRIAXone 1,000 MG in 0.9 % Sodium Chloride 10 ML IVP SCH (13:19)
[2022-07-30] MEDS ORDERED: Fluticasone Propionate Nasal 50 MCG/SPRAY BOTTLE NS PRN (13:34)
[2022-07-30] MEDS ORDERED: Ondansetron 4 MG/2 ML VIAL IVP PRN (13:37)
[2022-07-30] MEDS ORDERED: Rivastigmine Patch 4.6 MG PATCH.TD24 TD SCH (13:45)
[2022-07-30] MEDS ORDERED: *HR* Heparin 5,000 UNIT/ML VIAL SQ SCH (14:00)
[2022-07-30] MEDS: Gabapentin 300 MG CAPSULE PO SCH ×2 (15:27→20:56)
[2022-07-30] MEDS: Metoprolol XL (24 HR) Succ 25 MG TAB.ER.24H PO SCH (15:27)
[2022-07-30] MEDS ORDERED: *HR* Heparin 5,000 UNIT/ML VIAL IVP PRN ×2 (17:51)
[2022-07-30] MEDS ORDERED: *HR* Heparin 5,000 UNIT/ML VIAL IVP ONE (17:51)
[2022-07-30 19:29] LABS: Hematocrit 43.3 % (35.3-44.9); Hemoglobin 14.5 g/dL (11.5-15.4); Mean Corpuscular HGB Conc 33.5 g/dL (31.6-35.5); Mean Corpuscular Hemoglobin 30.8 pg (28.0-33.3); Mean Corpuscular Volume 91.9 fL (83.0-100.0); Mean Platelet Volume 9.5 fL (9.4-12.4); Platelet Count 314 K/mcL (140-400); Red Blood Count 4.71 M/mcL (3.82-4.97); Red Cell Distribution Width 13.9 % (11.5-14.5)
[2022-07-30 19:31] LABS: White Blood Count 10.5 K/mcL (4.3-11.1)
[2022-07-30 19:42] LABS: Heparin anti-factor XA UFH < 0.04 IU/mL (0.30-0.70); INR 1.1
[2022-07-30] MEDS: Heparin 25,000UNIT/250ML 1/2NS 25,000 UNIT/250 ML IV.SOLN IVC SCH (19:58)
[2022-07-30] MEDS ORDERED: Aspirin Enteric Coated 81 MG Tablet PO SCH (21:00)
[2022-07-31] MEDS: Acetaminophen 325 MG TABLET PO PRN (01:57)
[2022-07-31 03:01] LABS: Basophils % 0.4 %; Eosinophils # 0.2 K/mcL (0.0-0.6); Eosinophils % 1.8 %; Hematocrit 41.4 % (35.3-44.9); Hemoglobin 13.7 g/dL (11.5-15.4); Immature Granulocytes % 0.2 % (0-4); Lymphocytes % 32.9 %; Mean Corpuscular HGB Conc 33.1 g/dL (31.6-35.5); Mean Corpuscular Hemoglobin 30.6 pg (28.0-33.3); Mean Corpuscular Volume 92.6 fL (83.0-100.0); Mean Platelet Volume 9.9 fL (9.4-12.4); Monocytes # 0.5 K/mcL (0.0-1.3); Monocytes % 5.3 %; Neutrophils # 5.5 K/mcL (1.6-8.9); Platelet Count 267 K/mcL (140-400); Red Blood Count 4.47 M/mcL (3.82-4.97); Segmented Neutrophils % 59.4 %; White Blood Count 9.2 K/mcL (4.3-11.1)
[2022-07-31 03:18] LABS: Alanine Aminotransferase 18 Units/L (7-52); Albumin 3.7 g/dL (3.5-5.7); Albumin/Globulin Ratio 1.3 (1.1-2.2); Alkaline Phosphatase 67 Units/L (34-104); Aspartate Amino Transferase 22 Units/L (13-39); BUN/Creatinine Ratio 27 (6-26); Bilirubin,Total 0.4 mg/dL (0.3-1.0); Blood Urea Nitrogen 15 mg/dL (8-23); Calcium 8.5 mg/dL (8.6-10.3); Carbon Dioxide 23 mEq/L (23-29); Chloride 109 mEq/L (98-107); Globulin 2.8 g/dL (2.4-3.5); Glucose 102 mg/dL (70-105); Magnesium 1.8 mg/dL (1.6-2.6); Osmolality,Calculated 293 (280-300); Potassium 3.6 mEq/L (3.5-5.1); Sodium 141 mEq/L (136-145); Total Protein 6.5 g/dL (6.4-8.9)
[2022-07-31] MEDS: Levothyroxine 25 MCG TABLET PO SCH (05:58)
[2022-07-31] MEDS: 0.9 % Sodium Chloride 1,000 ML IVC SCH ×2 (06:03→14:03)
[2022-07-31] MEDS ORDERED: 0.9 % Sodium Chloride 500 ML IVC ONE (06:41)
[2022-07-31] MEDS: cefTRIAXone 1,000 MG in 0.9 % Sodium Chloride 10 ML IVP SCH (09:21)
[2022-07-31] MEDS: Metoprolol XL (24 HR) Succ 25 MG TAB.ER.24H PO SCH (09:22)
[2022-07-31] MEDS: Gabapentin 300 MG CAPSULE PO SCH ×3 (09:22→21:20)
[2022-07-31] MEDS: Multivit/Ca/Min/Fe/FA 1 TAB TABLET PO SCH (09:22)
[2022-07-31] MEDS: Aspirin 81 MG TAB.CHEW PO SCH (09:22)
[2022-07-31] MEDS ORDERED: Nitroglycerin 1,000 MCG/5 ML VIAL IV ONE (15:35)
[2022-07-31] MEDS ORDERED: 0.9 % Sodium Chloride 1,000 ML ONE ×2 (15:35→15:36)
[2022-07-31] MEDS ORDERED: *HR* Heparin 10,000 UNIT/10 ML VIAL ONE (15:35)
[2022-07-31] MEDS ORDERED: Heparin 1,000 UNITS/500 mL 500 ML ONE (15:38)
[2022-07-31] MEDS ORDERED: *HR* FentaNYL (PF) 100 MCG/2 ML VIAL ONE (16:05)
[2022-07-31] MEDS ORDERED: *HR* Midazolam HCl 2 MG/2 ML VIAL ONE (16:05)
[2022-07-31] MEDS: Rivastigmine Patch 9.5 MG PATCH.TD24 TD SCH (17:49)
[2022-08-01] MEDS: 0.9 % Sodium Chloride 1,000 ML IVC SCH (02:13)
[2022-08-01 02:50] LABS: Basophils % 0.6 %; Eosinophils # 0.2 K/mcL (0.0-0.6); Eosinophils % 3.8 %; Hematocrit 35.1 % (35.3-44.9); Immature Granulocytes % 0.2 % (0-4); Lymphocytes # 1.3 K/mcL (0.6-4.6); Lymphocytes % 27.4 %; Mean Corpuscular HGB Conc 32.8 g/dL (31.6-35.5); Mean Corpuscular Hemoglobin 30.9 pg (28.0-33.3); Mean Corpuscular Volume 94.4 fL (83.0-100.0); Mean Platelet Volume 9.8 fL (9.4-12.4); Monocytes # 0.3 K/mcL (0.0-1.3); Monocytes % 5.5 %; Platelet Count 177 K/mcL (140-400); Red Blood Count 3.72 M/mcL (3.82-4.97); Segmented Neutrophils % 62.5 %; White Blood Count 4.7 K/mcL (4.3-11.1)
[2022-08-01 02:56] LABS: Hemoglobin 11.5 g/dL (11.5-15.4)
[2022-08-01 03:03] LABS: BUN/Creatinine Ratio 32 (6-26); Blood Urea Nitrogen 15 mg/dL (8-23); Calcium 7.8 mg/dL (8.6-10.3); Carbon Dioxide 25 mEq/L (23-29); Chloride 111 mEq/L (98-107); Glucose 83 mg/dL (70-105); Osmolality,Calculated 294 (280-300); Potassium 3.7 mEq/L (3.5-5.1); Sodium 142 mEq/L (136-145)
[2022-08-01] MEDS: Levothyroxine 25 MCG TABLET PO SCH (06:13)
[2022-08-01] MEDS: Gabapentin 300 MG CAPSULE PO SCH ×3 (08:16→21:15)
[2022-08-01] MEDS: Multivit/Ca/Min/Fe/FA 1 TAB TABLET PO SCH (08:16)
[2022-08-01] MEDS: cefTRIAXone 1,000 MG in 0.9 % Sodium Chloride 10 ML IVP SCH (08:16)
[2022-08-01] MEDS: Metoprolol XL (24 HR) Succ 25 MG TAB.ER.24H PO SCH (08:16)
[2022-08-01] MEDS: Aspirin 81 MG TAB.CHEW PO SCH (08:16)
[2022-08-01] MEDS: lisinopriL 5 MG TABLET PO SCH (12:04)
[2022-08-01] MEDS: *HR* Heparin 5,000 UNIT/ML VIAL SQ SCH (17:22)
[2022-08-01] MEDS: Rivastigmine Patch 9.5 MG PATCH.TD24 TD SCH (17:23)
[2022-08-01] MEDS: Heparin 25,000UNIT/250ML 1/2NS 25,000 UNIT/250 ML IV.SOLN IVC SCH (17:40)
[2022-08-01] MEDS: Acetaminophen 325 MG TABLET PO PRN (23:27)
[2022-08-02] MEDS: Levothyroxine 25 MCG TABLET PO SCH (06:33)
[2022-08-02] MEDS: *HR* Heparin 5,000 UNIT/ML VIAL SQ SCH ×2 (06:34→16:19)
[2022-08-02] MEDS: Metoprolol XL (24 HR) Succ 25 MG TAB.ER.24H PO SCH (08:02)
[2022-08-02] MEDS: Aspirin 81 MG TAB.CHEW PO SCH (08:03)
[2022-08-02] MEDS: lisinopriL 5 MG TABLET PO SCH (08:03)
[2022-08-02] MEDS: Gabapentin 300 MG CAPSULE PO SCH ×3 (08:03→19:16)
[2022-08-02] MEDS: Multivit/Ca/Min/Fe/FA 1 TAB TABLET PO SCH (08:03)
[2022-08-02] MEDS: Rivastigmine Patch 9.5 MG PATCH.TD24 TD SCH (15:59)
[2022-08-03] MEDS: *HR* Heparin 5,000 UNIT/ML VIAL SQ SCH (05:24)
[2022-08-03] MEDS: Levothyroxine 25 MCG TABLET PO SCH (05:25)
[2022-08-03] MEDS: lisinopriL 5 MG TABLET PO SCH (08:10)
[2022-08-03] MEDS: Multivit/Ca/Min/Fe/FA 1 TAB TABLET PO SCH (08:10)
[2022-08-03] MEDS: Gabapentin 300 MG CAPSULE PO SCH (08:10)
[2022-08-03] MEDS: Aspirin 81 MG TAB.CHEW PO SCH (08:10)
[2022-08-03] MEDS: Metoprolol XL (24 HR) Succ 25 MG TAB.ER.24H PO SCH (08:10)
[2022-08-03 10:49] VITALS: BP 148/64; PULSE 90; TEMP 99.7; O2SAT 95
[2022-08-03] MEDS ORDERED: Flu Vac QV 22-23 (6MOS UP)/PF 0.5 ML SYRINGE IM ONE (12:22)
== END 2022-08-03 15:25 | disposition home health service (06) | DRG 689 ==
LOC: 3BNU 16:04 → 2ANU 16:04 → EMEROOARM 16:04 → 2ANU 07-30 11:02 → SUATTDRO 07-31 18:45
PROVIDERS: ADMIT Hospitalist; ATTEND Family Medicine

== ENCOUNTER 2022-08-15 15:08 | Inpatient (IN) ==
[2022-08-15] MEDS ORDERED: Iopamidol - 370 500 ML MLS IVP ONE (15:48)
[2022-08-15] MEDS ORDERED: Aspirin 325 MG TABLET PO ONE (15:50)
[2022-08-15 15:51] LABS: Basophils % 0.5 %; Eosinophils # 0.1 K/mcL (0.0-0.6); Eosinophils % 0.9 %; Hematocrit 44.9 % (35.3-44.9); Hemoglobin 14.8 g/dL (11.5-15.4); Immature Granulocytes % 0.3 % (0-4); Lymphocytes # 1.7 K/mcL (0.6-4.6); Lymphocytes % 21.3 %; Mean Corpuscular Hemoglobin 30.5 pg (28.0-33.3); Mean Corpuscular Volume 92.4 fL (83.0-100.0); Mean Platelet Volume 9.4 fL (9.4-12.4); Monocytes # 0.4 K/mcL (0.0-1.3); Monocytes % 5.5 %; Neutrophils # 5.7 K/mcL (1.6-8.9); Platelet Count 303 K/mcL (140-400); Red Blood Count 4.86 M/mcL (3.82-4.97); Red Cell Distribution Width 13.7 % (11.5-14.5); Segmented Neutrophils % 71.5 %; White Blood Count 7.9 K/mcL (4.3-11.1)
[2022-08-15 15:59] LABS: INR 1.1; Prothrombin Time 12.1 Seconds (9.4-12.1)
[2022-08-15 16:02] LABS: Activated Partial Thrombo Time 29.5 Seconds (26.0-36.0)
[2022-08-15 16:10] LABS: Alanine Aminotransferase 18 Units/L (7-52); Albumin 4.6 g/dL (3.5-5.7); Albumin/Globulin Ratio 1.5 (1.1-2.2); Alkaline Phosphatase 79 Units/L (34-104); Aspartate Amino Transferase 21 Units/L (13-39); BUN/Creatinine Ratio 33 (6-26); Bilirubin,Direct 0.1 mg/dL (0.0-0.2); Bilirubin,Indirect 0.4 mg/dL (0.0-1.0); Bilirubin,Total 0.5 mg/dL (0.3-1.0); Blood Urea Nitrogen 14 mg/dL (8-23); Calcium 9.6 mg/dL (8.6-10.3); Carbon Dioxide 27 mEq/L (23-29); Chloride 108 mEq/L (98-107); Globulin 3.1 g/dL (2.4-3.5); Glucose 104 mg/dL (70-105); Osmolality,Calculated 291 (280-300); Phosphorous 3.7 mg/dL (2.7-4.5); Potassium 3.8 mEq/L (3.5-5.1); Sodium 140 mEq/L (136-145); Total Protein 7.7 g/dL (6.4-8.9); Troponin I < 0.03 ng/mL (< 0.04)
[2022-08-15] MEDS ORDERED: Ketorolac 30 MG/ML VIAL IVP ONE (16:23)
[2022-08-15 16:51] LABS: VBG HCO3 28 mEq/L (21-27); VBG PCO2 51 mmHg (41-51); VBG PH 7.35 pH Units (7.32-7.42); VBG PO2 52 mmHg (25-50)
[2022-08-15 16:52] LABS: Bilirubin,Urine Negative (Negative); Blood,Urine Moderate (Negative); Clarity,Urine Turbid (Clear); Color,Urine Light-Yellow (Yellow); Glucose,Urine (UA) Normal (Normal); Ketones,Urine Negative (Negative); Leukocyte Esterase,Urine Large (Negative); Mucus,Urine Moderate per lpf (None-Few); Nitrite,Urine Negative (Negative); PH,Urine 6.5 pH Units (5.0-8.0); Protein,Urine Trace mg/dL (Neg-Trace); RBC,Urine 50-100 per hpf (0-3); Specific Gravity,Urine 1.012 (1.010-1.025); Squamous Epithelial Cell,Urine Few per hpf (None-Few); Urobilinogen,Urine Normal (Normal); WBC,Urine 30-50 per hpf (0-3)
[2022-08-15 16:57] LABS: Thyroid Stimulating Hormone 2.582 mcIU/mL (0.340-5.600)
[2022-08-15] MEDS ORDERED: cefTRIAXone 1,000 MG in 0.9 % Sodium Chloride Mini Bag 100 ML IVPB ONE (17:32)
[2022-08-15] MEDS ORDERED: Heparin 25,000UNIT/250ML 1/2NS 25,000 UNIT/250 ML IV.SOLN IVC SCH (20:15)
[2022-08-15] MEDS ORDERED: *HR* Heparin 5,000 UNIT/ML VIAL IVP ONE (20:15)
[2022-08-15] MEDS ORDERED: Naloxone 0.4 MG/ML INJ IVP PRN (20:21)
[2022-08-16] MEDS: Vancomycin 1,250 MG/262.5 ML IV.SOLN IVPB SCH (00:12)
[2022-08-16] MEDS ORDERED: Haloperidol Lactate 5 MG/ML VIAL IM ONE (01:48)
[2022-08-16] MEDS: *HR* Enoxaparin 80 MG/0.8 ML SYRINGE SQ SCH ×2 (02:37→18:39)
[2022-08-16] MEDS ORDERED: *HR* LORazepam 2 MG/ML VIAL IVP ONE (09:46)
[2022-08-16] MEDS: cefTRIAXone 1,000 MG in Water for inj. (sterile) 10 ML IVP SCH (11:44)
[2022-08-16] MEDS ORDERED: Ondansetron 4 MG/2 ML VIAL IVP PRN (12:37)
[2022-08-16] MEDS ORDERED: *HR* LORazepam 2 MG/ML VIAL IVP PRN (13:56)
[2022-08-16 14:29] LABS: Basophils % 0.4 %; Eosinophils % 0.2 %; Hematocrit 42.3 % (35.3-44.9); Hemoglobin 13.8 g/dL (11.5-15.4); Immature Granulocytes % 0.2 % (0-4); Mean Corpuscular HGB Conc 32.6 g/dL (31.6-35.5); Mean Corpuscular Hemoglobin 30.3 pg (28.0-33.3); Mean Platelet Volume 9.6 fL (9.4-12.4); Monocytes # 0.4 K/mcL (0.0-1.3); Monocytes % 4.7 %; Neutrophils # 6.5 K/mcL (1.6-8.9); Platelet Count 311 K/mcL (140-400); Red Blood Count 4.55 M/mcL (3.82-4.97); Red Cell Distribution Width 13.7 % (11.5-14.5); Segmented Neutrophils % 81.5 %
[2022-08-16 14:51] LABS: BUN/Creatinine Ratio 33 (6-26); Blood Urea Nitrogen 14 mg/dL (8-23); Calcium 9.2 mg/dL (8.6-10.3); Carbon Dioxide 27 mEq/L (23-29); Chloride 107 mEq/L (98-107); Glucose 109 mg/dL (70-105); Lipase 22 Units/L (11-82); Magnesium 2.1 mg/dL (1.6-2.6); Osmolality,Calculated 295 (280-300); Phosphorous 3.5 mg/dL (2.7-4.5); Sodium 142 mEq/L (136-145); Troponin I 0.03 ng/mL (< 0.04)
[2022-08-16] MEDS ORDERED: Fluticasone Propionate Nasal 50 MCG/SPRAY BOTTLE NS PRN (16:09)
[2022-08-16] MEDS: Metoprolol XL (24 HR) Succ 25 MG TAB.ER.24H PO SCH (18:42)
[2022-08-16] MEDS: lisinopriL 5 MG TABLET PO SCH (18:42)
[2022-08-16] MEDS ORDERED: Aspirin Enteric Coated 81 MG Tablet PO SCH (21:00)
[2022-08-16] MEDS: Gabapentin 300 MG CAPSULE PO SCH (21:02)
[2022-08-17] MEDS: Vancomycin 1,250 MG/262.5 ML IV.SOLN IVPB SCH (00:43)
[2022-08-17] MEDS: *HR* Enoxaparin 80 MG/0.8 ML SYRINGE SQ SCH ×2 (05:20→17:56)
[2022-08-17] MEDS ORDERED: Levothyroxine 25 MCG TABLET PO SCH (08:00)
[2022-08-17] MEDS: Gabapentin 300 MG CAPSULE PO SCH (08:39)
[2022-08-17] MEDS: cefTRIAXone 1,000 MG in Water for inj. (sterile) 10 ML IVP SCH (08:39)
[2022-08-17] MEDS: Metoprolol XL (24 HR) Succ 25 MG TAB.ER.24H PO SCH (08:40)
[2022-08-17] MEDS: lisinopriL 5 MG TABLET PO SCH (08:41)
[2022-08-17 12:26] VITALS: BP 98/76; PULSE 97; TEMP 98.5; O2SAT 92
[2022-08-17 17:00] LABS: VBG HCO3 26 mEq/L (21-27); VBG PCO2 49 mmHg (41-51); VBG PH 7.33 pH Units (7.32-7.42); VBG PO2 49 mmHg (25-50)
[2022-08-17 17:16] LABS: INR 1.1; Prothrombin Time 12.2 Seconds (9.4-12.1)
[2022-08-17 17:25] LABS: Albumin 3.6 g/dL (3.5-5.7); Albumin/Globulin Ratio 1.5 (1.1-2.2); Bilirubin,Total 0.4 mg/dL (0.3-1.0); Calcium 8.3 mg/dL (8.6-10.3); Globulin 2.4 g/dL (2.4-3.5); Potassium 4.1 mEq/L (3.5-5.1)
[2022-08-17 18:04] LABS: Basophils % 0.4 %; Eosinophils # 0.2 K/mcL (0.0-0.6); Eosinophils % 3.2 %; Hematocrit 37.1 % (35.3-44.9); Hemoglobin 11.9 g/dL (11.5-15.4); Immature Granulocytes % 0.1 % (0-4); Lymphocytes # 1.6 K/mcL (0.6-4.6); Mean Corpuscular HGB Conc 32.1 g/dL (31.6-35.5); Mean Corpuscular Hemoglobin 30.8 pg (28.0-33.3); Mean Corpuscular Volume 96.1 fL (83.0-100.0); Mean Platelet Volume 9.4 fL (9.4-12.4); Monocytes # 0.4 K/mcL (0.0-1.3); Monocytes % 6.1 %; Neutrophils # 4.9 K/mcL (1.6-8.9); Platelet Count 234 K/mcL (140-400); Red Blood Count 3.86 M/mcL (3.82-4.97); Red Cell Distribution Width 14.1 % (11.5-14.5); Segmented Neutrophils % 68.2 %; White Blood Count 7.2 K/mcL (4.3-11.1)
[2022-08-18] MEDS: Vancomycin 1,250 MG/262.5 ML IV.SOLN IVPB SCH (05:45)
[2022-08-18] MEDS: *HR* Enoxaparin 80 MG/0.8 ML SYRINGE SQ SCH (05:46)
== END 2022-08-17 23:59 | disposition other institution (70) | DRG 175 ==
LOC: EMEROOARM 15:08 → 3NENU 15:08 → SUATTDRO 20:43 → 3NENU 21:07
PROVIDERS: ADMIT Internal Medicine; ATTEND Internal Medicine